=== PATIENT | female | born 1960 | race Caucasian/White ===

== ENCOUNTER 2021-01-27 11:23 | Outpatient (CLI) | payer OTHER, SELFPAY ==
--- NOTE | ~2021-01-27 | XR_ITS ---
EXAMINATION: XR finger 1st RT min 2V DATE: 01/27/2021 11:43 INDICATION: Arthrodesis of right first interphalangeal joint. TECHNIQUE: 4 views of right thumb were obtained. COMPARISON: Right hand radiographs 08/24/2016 FINDINGS: Bone alignment is normal. No fracture. There is ankylosis of first interphalangeal joint wi th solid bony fusion and 3 fixation wires. There is moderate osteoarthritis of first metacarpophalang eal joint and triscaphe joint and mild osteoarthritis of first carpometacarpal joint. There is severe osteoarthritis of second metacarpophalangeal joint with periarticular heterotopic ossification. IMPRESSION: 1. 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 2. Polyarticular osteoarthritis. Reviewed, dictated and finalized at location A.
== END 2021-01-27 11:24 | disposition home or self-care (01) ==
PROVIDERS: PCP Internal Medicine Infectious Disease; Visit Provider Plastic Surgery
DX: M18.11 Unilateral primary osteoarthritis of first carpometacarpal joint, right hand (principal); M19.041 Primary osteoarthritis, right hand
CPT/HCPCS: 73140

== ENCOUNTER → 2021-02-04 01:39 | Outpatient (CLI) | payer OTHER, SELFPAY ==
[2021-02-04 19:37] LABS: SARS-CoV-2 RNA PCR Negative
== END ==
PROVIDERS: PCP Internal Medicine Infectious Disease; Visit Provider Plastic Surgery
DX: Z01.812 Encounter for preprocedural laboratory examination (principal); Z20.822 Contact with and (suspected) exposure to COVID-19
CPT/HCPCS: 36415; 80048; C9803; U0003; U0005

== ENCOUNTER 2021-02-04 10:09 | Outpatient (CLI) | payer OTHER, SELFPAY ==
[2021-02-04 10:48] LABS: Anion Gap 9 mmol/L (8-16); Blood Urea Nitrogen 5 mg/dL (7-17); Calcium 8.7 mg/dL (8.4-10.2); Carbon Dioxide 21 mmol/L (22-30); Chloride 106 mmol/L (98-107); Estimated Glomerular Filt Rate > 60; Glucose 140 mg/dL (65-105); Potassium 4.2 mmol/L (3.4-5.0); Sodium 136 mmol/L (137-145)
== END 2021-02-04 10:10 | disposition home or self-care (01) ==
PROVIDERS: PCP Internal Medicine Infectious Disease; Visit Provider Anesthesiology
DX: Z01.818 Encounter for other preprocedural examination (principal); E11.9 Type 2 diabetes mellitus without complications
CPT/HCPCS: 36415; 80048

== ENCOUNTER 2021-02-08 01:43 | Day surgery (SDC) | payer OTHER, SELFPAY ==
[2021-02-02 13:02] VITALS: BMI 19.6
--- NOTE | ~2021-02-08 | XR_ITS ---
EXAMINATION: XR surgery orthopedic DATE: 02/08/2021 08:37 INDICATION: Right thumb fixation wire removal. TECHNIQUE: A single intraoperative fluoroscopic view of right thumb was obtained. I was not present. Fluoroscopy exposure time was 23 seconds. COMPARISON: Right thumb radiographs 01/27/2021 FINDINGS: Bone alignment is normal. There is a fixation wire in first distal phalanx. Two fixation wi res are no longer present. IMPRESSION: 1. Removal of fixation wires from the right thumb. Reviewed, dictated and finalized at location A.
[2021-02-08 06:35] VITALS: BP 139/86; PULSE 83; RESP 18; TEMP 36.8; O2SAT 94
[2021-02-08 06:43] LABS: Glucose Point of Care 144 mg/dl (65-105)
--- NOTE | 2021-02-08 06:56 | WPDANESEPPF ---
Anes - Initial Pre Proc Eval Procedure: Operation Date: 02/08/21 07:30 Proposed Procedures p Removal of Three Fixation Wires Right Thumb - Óscar Mast MD Date/Time: 02/08/21 06:56 Surgeon: Óscar Mast MD Pre Op Diagnosis: n/a will have diagnosis on procedure order Patient Data Age: 60 Gender: F Height: 5 ft 7 in Weight: 55.2 kg Last Vital Signs Temp 36.8 C 02/08/21 06:35 Pulse 83 02/08/21 06:35 Resp 18 02/08/21 06:35 BP 139/86 02/08/21 06:35 Pulse Ox 94 02/08/21 06:35 Allergies Allergy/AdvReac Type Severity Reaction Status Date / Time hydromorphone AdvReac Mild Unknown Verified 02/02/21 14:24 Home Medications Medication Instructions Recorded Confirmed Type albuterol sulfate 2 puff INHALATION DAILY 02/02/21 02/08/21 History alcohol swabs 1 pad TOPICAL DAILY 02/02/21 02/08/21 History aspirin [Aspirin Child] 81 mg PO DAILY 02/02/21 02/08/21 History buspirone 10 mg PO TID 02/02/21 02/08/21 History calcium carbonate-vitamin D3 1 tablet PO DAILY 02/02/21 02/08/21 History gabapentin 400 mg PO TID 02/02/21 02/08/21 History lamotrigine 25 mg PO DAILY 02/02/21 02/08/21 History lancets [Advocate Lancet] 02/02/21 02/08/21 History meloxicam 15 mg PO DAILY 02/02/21 02/08/21 History mirtazapine 15 mg PO DAILY 02/02/21 02/08/21 History payiyshr-qafa-EP-calcium-mins 1 tablet PO DAILY 02/02/21 02/08/21 History [Thera-M] tizanidine 4 mg PO TID 02/02/21 02/08/21 History trazodone 100 mg PO HS 02/02/21 02/08/21 History venlafaxine 75 mg PO DAILY 02/02/21 02/08/21 History venlafaxine 150 mg PO DAILY 02/02/21 02/08/21 History Laboratory Tests 02/08/21 06:32 POC Capillary Glucose 144 mg/dl H mg/dl (65-105) Patient hx anesthesia problems: none Family hx anesthesia problems: none PMFSH Past Medical History Medical History Bipolar disorder COPD (chronic obstructive pulmonary disease) Diabetes ETOH abuse Hyperlipidemia Pacemaker Tobacco abuse Social History Social History Smoking packs per day: 1 Smoking cigarettes per day: 20.0 Smoking status: Current every day smoker Alcohol intake: never Substance use: current Substance use type: marijuana Last use: 02/01/21 Gender identity (if verbalized by the patient): Female Sexual Orientation (if Verbalized by the Patient): Straight or Heterosexual Spiritual care concerns: No Anes - Eval Final PreProcedure Day of Procedure 02/08/21 06:56 Patient weight: thin Heart: regular rate and rhythm Lungs: decreased breath sounds Airway: Mallampati scale class II Neurological: alert and oriented Last oral intake: >/= 8 hours ASA classification: III Emergent: no Anesthetic plan: proceed Anesthesia type and monitoring: general GIVS and standard monitoring Informed Consent: The patient's anesthetic plan and its attendant risks and benefits were discussed with the patient/family/POA. Questions were solicited and answers provided to the satisfaction of the patient/family/POA.
[2021-02-08] MEDS: LACTATED RINGERS 1,000 ML 30 ML IV CONT (07:04)
--- NOTE | 2021-02-08 07:18 | WPDHPUPDATE1 ---
History and Physical Update Update Date/Time: 02/08/21 07:18 History and Physical has been reviewed, including an updated exam of the patient. There are NO changes in the patient's condition. Risks, benefits, and alternatives have been discussed and questions answered. Patient agrees to proceed with procedure.
--- NOTE | 2021-02-08 07:25 | SUR.PREOP ---
spoke with Dr. Mast about antibiotic therapy, does NOT want ancef administered to patient preoperatively.
[2021-02-08] MEDS: LIDO 1%/EPINEPHRINE 1:100,000 50 ML VIAL 10 ML INFILTRATE (07:26)
[2021-02-08] MEDS: BACITRACIN OINTMENT 15 GM TUBE 1 APPLIC TOPICAL (07:26)
[2021-02-08 08:22] VITALS: BP 125/85; PULSE 64; RESP 12; O2SAT 98
[2021-02-08 08:33] LABS: Glucose Point of Care 131 mg/dl (65-105)
--- NOTE | 2021-02-08 08:43 | PM.OP ---
Procedure Note - Brief Procedure Note - Brief Date of procedure: 02/08/21 Pre-op diagnosis: n/a will have diagnosis on procedure order Exposed fixation hardware right thumb Post-op diagnosis: same Procedure performed: Removal three c-wires right thumb. Anesthesia: MAC Surgeon: Óscar Mast MD Wheel Roller: Art Estimated blood loss (mL): 1 Tourniquet time (min): 9 Drains: No Packing: No Pathology: yes Complications: No immediate complications Condition: stable Disposition: PACU
[2021-02-08 08:45] VITALS: BP 145/97; PULSE 65; RESP 20
[2021-02-08] MEDS: oxyCODONE HCL (*CRX) 5 MG TAB IR PO (09:02)
[2021-02-08 09:15] VITALS: BP 129/85; PULSE 80; RESP 20
--- NOTE | 2021-02-08 09:30 | P.OP_ITS ---
Procedure Note - Detailed Date of Procedure 02/08/21 Pre-op Diagnosis Exposed fixation hardware right thumb. Post-op Diagnosis same Procedure Performed Removal of 3 C wires from the right thumb Surgeon Óscar Mast MD [employer] Black Belt Art Anesthesia MAC and local Indications History of arthrodesis of the right thumb interphalangeal joint in 2013. The patient has been lost to follow-up. She presented recently with swelling and drainage from her right thumb and has been on oral antibiotics. Findings Exposed C wires right thumb with cloudy drainage. The joint has been successfully ankylosed. Description of Procedure The appropriate thumb was marked in the holding area. She was taken to the operating room and placed supine on the operating table. A time-out was held and confirmed. She was given IV sedation. The extremity was prepped and draped in usual fashion and locally infiltrated with 1% lidocaine with epinephrine. The C-arm was brought in and the adjacent to sites were C wires were not exposed of were identified. Incisions were made over each of these pin sites. The pins were identified these are 0.045 in she wires pigtail Proximally. Each pin was removed without difficulty. There was cloudy drainage from 1 of these and a culture was taken and sent to the lab. The wounds were copiously washed with saline. The stability of the fusion was confirmed.. The wound was dressed with Xeroform gauze and bulky gauze and she is discharged from the operating room stable condition. She is being discharged home with a prescription for hydrocodone 5/325 6. And Bactrim DS 20. Estimated Blood Loss 1 Tourniquet Time 9 Drains No Packing No Pathology yes (wound culture) Complications No immediate complications Condition stable Disposition PACU
[2021-02-08 09:40] VITALS: BP 120/80; PULSE 90; RESP 20
--- NOTE | 2021-02-08 10:00 | SUR.PHASEII ---
0917 - pt's surgical dressing with scant amount of bloody drainage present. dr. amos at bedside assessing. okayed to change dressing
== END 2021-02-08 09:45 | disposition home or self-care (01) ==
PROVIDERS: PCP Internal Medicine Infectious Disease; Visit Provider Plastic Surgery
PROC: (CPT 20694; principal; 2021-02-08 07:30)
DX: T84.89XA Other specified complication of internal orthopedic prosthetic devices, implants and grafts, initial encounter (principal); Y83.8 Other surgical procedures as the cause of abnormal reaction of the patient, or of later complication, without mention of misadventure at the time of the procedure; J44.9 Chronic obstructive pulmonary disease, unspecified; E11.9 Type 2 diabetes mellitus without complications; E78.5 Hyperlipidemia, unspecified; F31.9 Bipolar disorder, unspecified; Z95.0 Presence of cardiac pacemaker; F17.210 Nicotine dependence, cigarettes, uncomplicated; F12.90 Cannabis use, unspecified, uncomplicated; Z79.51 Long term (current) use of inhaled steroids; Z79.82 Long term (current) use of aspirin
CPT/HCPCS: 20680 ×3; 82948; 87070; 87075; 87076; 87185; 87205; A9270; J1100; J2250; J2370; J2405; J2704; J3010; J7120

== ENCOUNTER 2021-03-08 14:15 | Outpatient (RCR) | payer OTHER, SELFPAY ==
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
--- NOTE | 2021-02-01 17:27 | PCPTNOTE ---
Patient did not show up for scheduled appointment this date. She was called and left a message that her next appointment is 02/03/21 at 1545.
--- NOTE | 2021-02-07 10:24 | PCPTNOTE ---
Patient called & cancelled scheduled appointment this date. Her med car did not pick her up in time for her appointment. I called and spoke with her regarding her care. She would like to continue PT and have this appointment rescheduled.
--- NOTE | 2021-02-22 12:56 | PCPTNOTE ---
Patient did not show up for scheduled appointment this date. Called and left a voicemail asking patient to call back to discuss her future in physical therapy.
--- NOTE | 2021-03-08 14:31 | PCPTNOTE ---
Patient did not show up for scheduled appointment this date.
--- NOTE | 2021-03-08 14:32 | PCPTNOTE ---
PHYSICAL THERAPY DISCHARGE NOTE Attending Provider: Blanquita Whitley, CLAY MAKER-BC Patient:Kristen Bear Date of :1960 Patient has not returned for any further treatments since 02/03/2021, therefore will be discharged at this time. Patient?s initial visit was on 01/17/2021 and had a total of 4 visits. Thank you for referring this patient to [facility]. Please review, sign, date and return this discharge summary DALY. I have been updated about the patient's current status and I agree with discharge from the above service at this time. Referring Physician Date
== END 2021-03-17 09:09 | disposition home or self-care (01) ==
LOC: ANHPT 14:15
PROVIDERS: PCP Internal Medicine Infectious Disease; Visit Provider Nurse Practitioner Family
DX: M54.5 Low back pain (principal); M54.16 Radiculopathy, lumbar region
CPT/HCPCS: 97014; 97110; 97140; 97162; G0283

== ENCOUNTER 2021-04-18 16:11 | Outpatient (CLI) | payer OTHER, SELFPAY ==
--- NOTE | ~2021-04-18 | XR_ITS ---
XR wrist LT min 3V DATE: 04/18/2021 16:32 INDICATION: Left wrist pain and swelling TECHNIQUE: 4 views COMPARISON: None FINDINGS: There is severe osteoarthritic change at the radioscaphoid joint, with virtual obliteration of the joint space and prominent spurring and navicular cystic change. There is prominent osteoart hritis at the triscaphe, first carpometacarpal and particularly severely at the first metacarpal join t. Osteoarthritis at the fifth metacarpal joint. There is dorsal soft tissue swelling of the wrist. No fracture or dislocation is detected. IMPRESSION: Polyarticular severe osteoarthritis Reviewed, dictated and finalized at location A.
== END 2021-04-18 16:12 | disposition home or self-care (01) ==
LOC: ANHIMG 16:13
PROVIDERS: PCP Internal Medicine Infectious Disease; Visit Provider Plastic Surgery
DX: M19.032 Primary osteoarthritis, left wrist (principal)
CPT/HCPCS: 73110

== ENCOUNTER 2021-04-21 13:42 | Outpatient (CLI) | payer OTHER, SELFPAY ==
--- NOTE | ~2021-04-21 | CT_ITS ---
EXAMINATION: CT lumbar spine wo con DATE: 04/21/2021 14:02 INDICATION: Lumbago. Lumbar radiculopathy. TECHNIQUE: Computed tomography (CT) of the lumbar spine was performed without intravenous contrast. A utomated exposure control and iterative reconstruction technique were employed. The dose-length produ ct was 187.33 mGy-cm. COMPARISON: None FINDINGS: The visualized portions of the lung bases demonstrate airspace opacities, consistent with a telectasis versus pneumonia. There is 3 mm anterolisthesis of L3 on L4 and L4 on L5. Vertebral body h eights are normal. There is mildly decreased disc height at L3-L4, moderately decreased disc height a t L4-L5, and mildly decreased disc at L5-S1 with endplate remodeling. The following disc levels are s pecifically discussed: L1-L2: The disc does not extend beyond the endplate margin. There is mild bilateral facet joint osteo arthritis. There is no neural foraminal stenosis. There is no central canal stenosis. L2-L3: The disc is bulging. There is mild bilateral facet joint osteoarthritis. There is mild bilater al neural foraminal stenosis. There is mild central canal stenosis. L3-L4: The disc is bulging. There is severe bilateral facet joint osteoarthritis. There is mild bilat eral neural foraminal stenosis. There is moderate central canal stenosis. L4-L5: The disc is bulging. There is severe bilateral facet joint osteoarthritis. There is moderate b ilateral neural foraminal stenosis. There is moderate central canal stenosis. L5-S1: The disc is bulging. There is severe bilateral facet joint osteoarthritis. There is moderate b ilateral neural foraminal stenosis. There is mild central canal stenosis. IMPRESSION: 1. Moderate lumbar spondylosis. 2. Airspace opacities in the visualized portions of the lower lobes of the lungs, consistent with ate lectasis versus pneumonia. Reviewed, dictated and finalized at location B. IMPRESSION: 1. Moderate lumbar spondylosis. 2. Airspace opacities in the visualized portions of the lower lobes of the lung s, consistent with atelectasis versus pneumonia.
== END 2021-04-21 13:43 | disposition home or self-care (01) ==
LOC: ANHIMG 13:47
PROVIDERS: PCP Internal Medicine Infectious Disease; Visit Provider Nurse Practitioner Family
DX: M47.26 Other spondylosis with radiculopathy, lumbar region (principal); R91.8 Other nonspecific abnormal finding of lung field
CPT/HCPCS: 72131

== ENCOUNTER 2021-05-03 16:02 | Emergency (ER) | payer OTHER, SELFPAY ==
--- NOTE | 2021-05-03 16:19 | ED.BACK ---
HPI - Back Pain/Injury General Chief Complaint: Back Pain/Injury Stated Complaint: back pain Time Seen by Provider: 05/03/21 16:19 Source: patient, family and RN notes reviewed Mode of arrival: ambulatory Limitations: no limitations History of Present Illness HPI Narrative: 16-year-old female presents to the [facility] right [facility] pain since lifting trash yesterday. Patient reports chronic back pain. No numbness or tingling in extremities. Patient states that she does normally have some incontinence, no change in urinary incontinence. No bowel incontinence. Pain worse with movement, bending and twisting. No midline tenderness. Walks with a normal gait Already takes meloxicam and a muscle relaxer. Requesting a steroid to help the pain. Patient states that when she has flareups steroids normally help. Related Data Home Medications Medication Instructions Recorded Confirmed Thera-M 1 tablet PO DAILY 02/02/21 02/08/21 albuterol sulfate 2 puff INHALATION DAILY 02/02/21 02/08/21 aspirin 81 mg PO DAILY 02/02/21 02/08/21 buspirone 10 mg PO TID 02/02/21 02/08/21 calcium carbonate-vitamin D3 1 tablet PO DAILY 02/02/21 02/08/21 gabapentin 400 mg PO TID 02/02/21 02/08/21 lamotrigine 25 mg PO DAILY 02/02/21 02/08/21 lancets [Advocate Lancet] 02/02/21 02/08/21 meloxicam 15 mg PO DAILY 02/02/21 02/08/21 mirtazapine 15 mg PO DAILY 02/02/21 02/08/21 tizanidine 4 mg PO TID 02/02/21 02/08/21 trazodone 100 mg PO HS 02/02/21 02/08/21 venlafaxine 75 mg PO DAILY 02/02/21 02/08/21 venlafaxine 150 mg PO DAILY 02/02/21 02/08/21 Allergies Allergy/AdvReac Type Severity Reaction Status Date / Time hydromorphone AdvReac Mild Vomiting Verified 02/08/21 07:05 Review of Systems Review of Systems: All systems reviewed & are unremarkable except as noted in HPI and below Constitutional: Constitutional: Reports no additional constitutional complaints Eyes: Eyes: Reports no additional eye complaints ENT: Reports system reviewed and no additional complaints, except as documented Cardiovascular: Cardiovascular: Reports no additional cardiovascular complaints Respiratory: Respiratory: Reports no additional respiratory complaints Gastrointestinal: Gastrointestinal: Reports no additional gastrointestinal complaints Musculoskeletal: Musculoskeletal: Reports as per HPI and Reports back pain (right lower back pain) Integumentary/Breasts: Skin/Breast: Reports system reviewed and no additional complaints, except as docu Neurologic: Reports system reviewed and no additional complaints, except as documented Psychiatric: Psychiatric: Reports no additional psychiatric complaints Hematologic/Lymphatic: Hematologic/Lymphatic: Reports no additional hematologic/lymphatic complaints PMFSH Past Medical History Medical History Bipolar disorder COPD (chronic obstructive pulmonary disease) Diabetes ETOH abuse Hyperlipidemia Pacemaker Tobacco abuse Social History Social History Smoking packs per day: 1 Smoking cigarettes per day: 20.0 Smoking status: Current every day smoker Alcohol intake: never Substance use: current Substance use type: marijuana Last use: 02/01/21 Gender identity (if verbalized by the patient): Female Sexual Orientation (if Verbalized by the Patient): Straight or Heterosexual Spiritual care concerns: No Comments At the time of my signature, I reviewed and agree with the nursing past medical, surgical, social, and family history. There is no relevant family history pertinent to the patient complaint. Exam Const: General: no acute distress and ill appearing chronically Nutritional Appearance: well nourished and thin Orientation/consciousness: patient oriented x3 Limitations: no limitations HENMT: Head: normal to inspection Neck: Neck: normal visual inspection, no lymphadenopathy and no meningeal signs Chest:
[2021-05-03 16:23] VITALS: BP 109/72; PULSE 78; RESP 16; TEMP 36.8; O2SAT 97
== END 2021-05-03 16:53 | disposition home or self-care (01) ==
PROVIDERS: Emergency Provider Nurse Practitioner; PCP Internal Medicine Infectious Disease
DX: S39.012A Strain of muscle, fascia and tendon of lower back, initial encounter (principal); X58.XXXA Exposure to other specified factors, initial encounter; J44.9 Chronic obstructive pulmonary disease, unspecified; E11.9 Type 2 diabetes mellitus without complications; Z95.0 Presence of cardiac pacemaker; F17.210 Nicotine dependence, cigarettes, uncomplicated; F31.9 Bipolar disorder, unspecified; E78.5 Hyperlipidemia, unspecified
CPT/HCPCS: 99213; G0463

== ENCOUNTER 2021-05-11 09:44 | Outpatient (CLI) | payer OTHER, SELFPAY ==
--- NOTE | ~2021-05-11 | XR_ITS ---
EXAMINATION: XR finger 1st RT min 2V EXAM DATE: 05/11/2021 10:07 INDICATION: Osteomyelitis, previous hardware removal. TECHNIQUE: Right 1st finger frontal, lateral and oblique projections obtained and reviewed. Comparis on is made to prior examination from 01/27/2021. FINDINGS: Previously seen fixation wires have been removed. There is punctate metallic density remain ing. Ankylosis of the right 1st phalanges. Persistent lucency at the tuft and interphalangeal joint s table compared to previous examination, no evidence of active erosion but please clinically correlate . There is mild to moderate 1st metacarpophalangeal, severe 2nd metacarpophalangeal primary osteoarthri tis. IMPRESSION: Right 1st phalangeal ankylosis, lucencies without acute erosive change. Reviewed, dictated and finalized at location A. IMPRESSION: Right 1st phalangeal ankylosis, lucencies without acute erosive ch mark.
== END 2021-05-11 09:45 | disposition home or self-care (01) ==
LOC: ANHIMG 09:50
PROVIDERS: PCP Internal Medicine Infectious Disease; Visit Provider Plastic Surgery
DX: M86.141 Other acute osteomyelitis, right hand (principal); M18.11 Unilateral primary osteoarthritis of first carpometacarpal joint, right hand; M19.041 Primary osteoarthritis, right hand; M24.60 Ankylosis, unspecified joint
CPT/HCPCS: 73140

== ENCOUNTER 2021-09-11 09:00 | Outpatient (RCR) | payer OTHER, SELFPAY ==
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
--- NOTE | 2021-08-21 10:03 | PCPTNOTE ---
Patient did not show up for scheduled appointment this date; called and left voicemail with reminder on next appointment.
--- NOTE | 2021-09-04 09:26 | PCPTNOTE ---
Patient did not show up for scheduled appointment this date; called left voicemail with reminder for next appointment and on 3 no show/cancellation policy.
--- NOTE | 2021-09-19 09:30 | PCPTNOTE ---
Patient did not show up for scheduled appointment this date. Called and left a message that if she needed to reschedule this appointment she would need to call before the end of the week, otherwise we will d/c chart.
--- NOTE | 2021-09-20 15:27 | PCPTNOTE ---
Patient called & cancelled scheduled appointment this date due to not feeling well. Rescheduled appt.
--- NOTE | 2021-09-27 14:29 | PCPTNOTE ---
Patient did not show up for scheduled appointment this date.
--- NOTE | 2021-10-09 13:39 | PCPTNOTE ---
PHYSICAL THERAPY DISCHARGE NOTE Attending Provider: Blanquita Whitley, CREATIVE ENGAGEMENT DIRECTOR-BC Patient:Kristen Bear Date of :1960 Patient has not returned for any further treatments since 09/11/2021, therefore will be discharged at this time. Patient?s initial visit was on 08/09/2021 had a total of 3 visits. The goals have been (met, not met, partially met). Thank you for referring this patient to [facility]. Please review, sign, date and return this discharge summary DALY. I have been updated about the patient's current status and I agree with discharge from the above service at this time. Referring Physician Date
== END 2021-10-10 09:16 | disposition home or self-care (01) ==
LOC: ANHPT 09:00
PROVIDERS: PCP Internal Medicine Infectious Disease; Referring Provider Nurse Practitioner Family; Visit Provider Nurse Practitioner Family
DX: M54.16 Radiculopathy, lumbar region (principal); M54.50 Low back pain, unspecified
CPT/HCPCS: 97014; 97110; 97140; 97162; G0283

== ENCOUNTER 2023-02-20 18:45 | Emergency (ER) | payer OTHER, SELFPAY ==
[2023-02-20] VITALS (11 sets, daily range): BP systolic 123–124; BP diastolic 74–77; PULSE 86–99; RESP 17–27; TEMP 36.4; O2SAT 93–96
--- NOTE | ~2023-02-20 | CT_ITS ---
EXAMINATION: CT brain wo con DATE: 02/20/2023 19:50 INDICATION: ETOH, Head trauma . TECHNIQUE: Computed tomography (CT) of the head was performed without intravenous contrast. The mA wa s adjusted according to patient size. Iterative reconstruction technique was employed. The dose-lengt h product was 605.33 mGy-cm. COMPARISON: None. FINDINGS: No acute intracranial hemorrhage or extra-axial fluid collection. No hydrocephalus, mass, or herniation. No acute ischemic infarct. Unremarkable dural venous sinus attenuation. No acute osseous abnormality. The aerated spaces are clear. IMPRESSION: No acute intracranial process. Reviewed, dictated and finalized at location K.
--- NOTE | ~2023-02-20 | XR_ITS ---
EXAMINATION: XR chest 1V portable Exam Date/Time: 02/20/2023 21:15 CDT HISTORY: Fall Comparison: None. RESULT: Lines, tubes, and devices: Left chest pacer with intact leads. Cholecystectomy clips. Lungs and pleura: Diffuse reticular opacities. Peripheral and basal ground glass opacities. No focal consolidation. Cardiomediastinal silhouette: Stable. Other: No acute osseous or upper abdominal finding. IMPRESSION: Mild pulmonary edema, overlying chronic changes of emphysema/interstitial lung disease. No acute trau matic finding in the chest. Reviewed, dictated and finalized at location K. IMPRESSION: Mild pulmonary edema, overlying chronic changes of emphysema/interstitial lung disease. No acute traumatic finding in the chest.
--- NOTE | ~2023-02-20 | CT_ITS ---
EXAMINATION: CT cervical spine wo con DATE: 02/20/2023 19:55 INDICATION: ETOH, Head trauma TECHNIQUE: Computed tomography (CT) of the cervical spine was performed without intravenous contrast. Automated exposure control and iterative reconstruction technique were employed. The dose-length pro duct was 206.16 mGy-cm. COMPARISON: None. FINDINGS: Vertebral Body Alignment: Intact. Mild reversal of the normal cervical lordosis centered at C5-6. 2 m m anterolistheses at C2-3 and C3-4, presumably on a degenerative basis. Craniocervical and atlantoaxial alignment: Moderate degenerative change. Alignment intact. Osseous structures/fracture: No evidence of a lytic or blastic process in the visualized spine. No e vidence of acute fracture. Trace left mastoid fluid. Cervical soft tissues: The paraspinal soft tissues planes are maintained. Biapical pleural scarring. Severe emphysematous change. Degenerative changes: Degenerative changes, without severe neural foraminal or central canal narrowin g. IMPRESSION: No acute fracture or traumatic malalignment in the cervical spine. Reviewed, dictated and finalized at location K.
--- NOTE | ~2023-02-20 | XR_ITS ---
EXAM: XR pelvis 1-2V DATE: 02/20/2023 21:22 HISTORY: Fall . COMPARISON: None available. FINDINGS: Decreased mineralization. No fracture or dislocation. No lytic or blastic lesion. Joint sp aces are maintained. No erosion or periosteal change. Soft tissues within normal limits. IMPRESSION: No acute osseous finding in the pelvis. Reviewed, dictated and finalized at location K.
--- NOTE | 2023-02-20 18:52 | ECG_ITS ---
Measurements Intervals [place] Rate: 92 P: 67 [place]: 136 QRS: 3 QRSD: 78 T: 53 QT: 357 QTc: 442 Interpretive Statements SINUS RHYTHM POSSIBLE LEFT ATRIAL ENLARGEMENT [-0.1mV P-WAVE IN V1/V2] NO PREVIOUS ECG AVAILABLE FOR COMPARISON Electronically Signed On 02-20-2023 20:02:00 CDT by Maria Ines Good M.D.
[2023-02-20 19:08] LABS: Basophils Absolute Auto 0.1 K/mm3 (0.0-0.1); Basophils Percent Auto 0.7 % (0.2-1.2); Eosinophils Absolute Auto 0.2 K/mm3 (0-0.3); Eosinophils Percent Auto 2.1 % (0-4.4); Hemoglobin 12.4 g/dL (12.0-15.0); Immature Granulocyte Absolute 0.06 K/mm3 (0.00-0.031); Immature Granulocyte Percent A 0.8 % (0-0.5); Lymphocytes Absolute Auto 2.73 K/mm3 (0.9-3.2); Lymphocytes Percent Auto 35.5 % (18.3-44.2); Mean Corpuscular HGB Conc 32.6 g/dl (32-36); Mean Corpuscular Hemoglobin 32.3 pg (26-34); Mean Platelet Volume 9.1 fl (7.4-10.4); Monocytes Absolute Auto 0.4 K/mm3 (0.1-0.6); Monocytes Percent Auto 4.9 % (2.6-8.5); Neutrophils Absolute Auto 4.3 K/mm3 (1.3-6.7); Platelet Count Result 248 k/mm3 (150-375); Red Blood Count 3.84 M/mm3 (4.2-5.4); Red Cell Distribution Width 16.8 % (11.5-14.5); White Blood Count 7.7 K/mm3 (4.5-10.0)
[2023-02-20 19:24] LABS: Alanine Aminotransferase 49 U/L (6-35); Albumin Level 3.2 g/dL (3.5-5.1); Alkaline Phosphatase 211 U/L (38-126); Anion Gap 5 mmol/L (8-16); Aspartate Amino Transferase 97 U/L (14-36); Bilirubin,Total 0.6 mg/dL (0.2-1.3); Blood Urea Nitrogen 3 mg/dL (7-17); Calcium 7.7 mg/dL (8.4-10.2); Carbon Dioxide 24 mmol/L (22-30); Chloride 107 mmol/L (98-107); Estimated CRCL calculation 91 ml/min; Estimated Glomerular Filt Rate > 60; Glucose 97 mg/dL (65-110); Potassium 3.1 mmol/L (3.4-5.0); Sodium 136 mmol/L (137-145)
[2023-02-20] MEDS: SODIUM CHLORIDE 0.9% IV 2,000 ML 999 ML IV CONT (20:02)
[2023-02-20] MEDS: POTASSIUM CHLORIDE 20 MEQ PACKET (FOR LIQUID) 40 MEQ PO (20:15)
[2023-02-20 20:29] LABS: Ethanol 99 mg/dL (<10)
[2023-02-20 20:42] LABS: NT Pro B Type Natriuretic Pept 53 pg/mL (19.9-100); Troponin I < 0.012 ng/mL (0.000-0.034)
--- NOTE | 2023-02-20 20:50 | ED.GENADULT ---
HPI - General Adult General Chief complaint: Fall Stated complaint: glf, left hip pain Time Seen by Provider: 02/20/23 19:04 History of Present Illness HPI narrative: This is a 62-year-old female presenting ED after an episode of syncope. Patient says that she had not eaten throughout most the day. She was walking on the street when she had a syncopal event. She says her vision darkening before happened. When she woke up she had some head pain and bilateral hip pain. No postictal. No tongue biting or urination. Related Data Home Medications Medication Instructions Recorded Confirmed albuterol sulfate 90 mcg/actuation 2 puff inhalation DAILY 02/02/21 02/08/21 aerosol inhaler aspirin 81 mg chewable tablet 81 mg PO DAILY 02/02/21 02/08/21 buspirone 10 mg tablet 10 mg PO TID 02/02/21 02/08/21 calcium carbonate 600 mg-vitamin 1 tablet PO DAILY 02/02/21 02/08/21 D3 10 mcg (400 unit) tablet gabapentin 400 mg capsule 400 mg PO TID 02/02/21 02/08/21 lamotrigine 25 mg tablet 25 mg PO DAILY 02/02/21 02/08/21 lancets 30 gauge (Advocate Lancet) 02/02/21 02/08/21 meloxicam 15 mg tablet 15 mg PO DAILY 02/02/21 02/08/21 mirtazapine 15 mg tablet 15 mg PO DAILY 02/02/21 02/08/21 multivitamin-iron 9 mg-folic acid 1 tablet PO DAILY 02/02/21 02/08/21 400 mcg-calcium and minerals tablet (Thera-M) tizanidine 4 mg tablet 4 mg PO TID 02/02/21 02/08/21 trazodone 100 mg tablet 100 mg PO HS 02/02/21 02/08/21 venlafaxine 150 mg 150 mg PO DAILY 02/02/21 02/08/21 capsule,extended release 24 hr venlafaxine 75 mg capsule,extended 75 mg PO DAILY 02/02/21 02/08/21 release 24 hr Allergies Allergy/AdvReac Type Severity Reaction Status Date / Time hydromorphone AdvReac Mild Vomiting Verified 02/08/21 07:05 [facility] Past Medical History Medical History Bipolar disorder COPD (chronic obstructive pulmonary disease) Diabetes ETOH abuse Hyperlipidemia Pacemaker Tobacco abuse Social History Social History Smoking packs per day: 1 Smoking cigarettes per day: 20.0 Smoking status: Current every day smoker Alcohol intake: never Substance use: current Substance use type: marijuana Last use: 02/01/21 Gender identity (if verbalized by the patient): Female Sexual Orientation (if Verbalized by the Patient): Straight or Heterosexual Spiritual care concerns: No Exam Narrative: APPEARANCE: No apparent distress. patient appears older than her stated age Head: atraumatic. EYES: EOMI, NOSE: Atraumatic NECK: Trachea midline RESPIRATORY: No increased rate of breathing, clear to auscultation CARDIOVASCULAR: RRR, ABDOMINAL: Non-distended MUSCULOSKELETAl: Trauma assessment revealed no traumatic injuries. NEURO: Alert. Cranial nerves 2-12 grossly intact. Sensation light touch, motor function cerebellar function intact for 4 extremities. Gait exam was normal. SKIN:: Warm, dry. Normal color PSYCHIATRIC: Normal affect Course Vital Signs Vital signs: Vital Signs Temperature 97.6 F 02/20/23 18:47 Pulse Rate 92 02/20/23 18:47 Respiratory Rate 24 H 02/20/23 18:47 Pulse Oximetry 93 02/20/23 18:47 Oxygen Delivery Room Air 02/20/23 18:47 Temperature 97.6 F 02/20/23 18:47 Pulse Rate 96 02/20/23 22:30 Respiratory Rate 27 H 02/20/23 22:30 Blood Pressure 123/77 02/20/23 21:00 Pulse Oximetry 95 02/20/23 21:01 Oxygen Delivery Room Air 02/20/23 18:47 Medical Decision Making [facility] Narrative Medical decision making narrative: -Presentation: 62-year-old female presenting to ED after syncopal event. Patient says she is not eating any food today. She also been drinking alcohol. -DDX includes but is not limited to: intracranial hemorrhage, dehydration, alcohol intoxication, cardiac syncope -Co-morbidities complicating care: daily alcohol use, bipolar, pacemaker -Social
[2023-02-20 23:34] LABS: Troponin I < 0.012 ng/mL (0.000-0.034)
[2023-02-21] VITALS: BP 144/92; PULSE 76; RESP 15; O2SAT 100
== END 2023-02-21 00:03 | disposition home or self-care (01) ==
PROVIDERS: Emergency Medicine; Emergency Provider Emergency Medicine; PCP Internal Medicine Infectious Disease
DX: R55 Syncope and collapse (principal); E86.0 Dehydration; R78.0 Finding of alcohol in blood; Y90.4 Blood alcohol level of 80-99 mg/100 ml; J44.9 Chronic obstructive pulmonary disease, unspecified; E11.9 Type 2 diabetes mellitus without complications; E78.5 Hyperlipidemia, unspecified; F31.9 Bipolar disorder, unspecified; F17.210 Nicotine dependence, cigarettes, uncomplicated; Z95.0 Presence of cardiac pacemaker; Z79.82 Long term (current) use of aspirin; J81.1 Chronic pulmonary edema; R94.31 Abnormal electrocardiogram [ECG] [EKG]
CPT/HCPCS: 36415; 70450; 71045; 72125; 72170; 80053; 80307; 83880; 84484; 85025; 93005; 96360; 96361; 99284; A9270; J7030

== ENCOUNTER 2023-09-23 17:12 | Emergency (ER) | payer OTHER, SELFPAY ==
[2023-09-23 17:15] VITALS: BP 101/64; PULSE 91; RESP 16; TEMP 36.6; O2SAT 100
--- NOTE | 2023-09-23 17:47 | ED.ANIMALBIT ---
HPI - Animal Bite General Chief Complaint: Animal Bite <Juan M Hou APRN - Last Filed: 09/24/23 07:56> Stated Complaint: cat scratches <Juan M Hou APRN - Last Filed: 09/24/23 07:56> Time Seen by Provider: 09/23/23 17:47 <Juan M Hou APRN - Last Filed: 09/24/23 07:56> 1745: Kristen is a 63-year-old female patient presenting to the ER today for complaints of feeling feverish, lightheadedness, and has cat scratches to the left forearm, right lower leg, and near the ankle of the left leg. Reports that her cat attacked her 3 days ago. <Juan M Hou APRN - Last Filed: 09/24/23 07:56> Source: patient <Juan M Hou APRN - Last Filed: 09/24/23 07:56> Mode of arrival: ambulatory <Juan M Hou APRN - Last Filed: 09/24/23 07:56> Limitations: no limitations <Juan M Hou APRN - Last Filed: 09/24/23 07:56> Related Data Allergies/Adverse Reactions: Allergies Allergy/AdvReac Type Severity Reaction Status Date / Time No Known Allergies Allergy Verified 09/23/23 20:59 <Juan M Hou APRN - Last Filed: 09/24/23 07:56> Review of Systems Review of Systems: All systems reviewed & are unremarkable except as noted in HPI and below <Hortensia Kraft MD - Last Filed: 09/28/23 13:39> PMFSH Comments At the time of my signature, I reviewed and agree with the nursing past medical, surgical, social, and family history. There is no relevant family history pertinent to the patient complaint. <Juan M Hou APRN - Last Filed: 09/24/23 07:56> Exam Narrative: General: Well-developed, well nourished, in no apparent distress Head: Normocephalic, atraumatic. Cardio: Regular rate and rhythm, s1 and s2 normal, no murmur appreciated. Resp: Diminished breath sounds, no rhonchi, rales, wheezing or rubs. Integumentary: [place], warm, and dry, multiple cat scratches to the left forearm, right lower leg, and posterior left leg/ankle, mild redness/erythema noted around scratches <Juan M Hou APRN - Last Filed: 09/24/23 07:56> General: Well-developed, well nourished, in no apparent distress Head: Normocephalic, atraumatic. Cardio: Regular rate and rhythm, s1 and s2 normal, no murmur appreciated. Resp: Diminished breath sounds, no rhonchi, rales, wheezing or rubs. Integumentary: [place], warm, and dry, multiple cat scratches to the left forearm, right lower leg, and posterior left leg/ankle, mild redness/erythema noted around scratches, No abscesses, no lymphangitic streaking <Hortensia Kraft MD - Last Filed: 09/28/23 13:39> Course Course Emergency Course: Portions of this record may have been created with voice recognition software. <Juan M Hou APRN - Last Filed: 09/24/23 07:56> Vital Signs Vital signs: Vital Signs Temperature 98 F 09/23/23 17:15 Pulse Rate 91 09/23/23 17:15 Respiratory Rate 16 09/23/23 17:15 Blood Pressure 101/64 09/23/23 17:15 Pulse Oximetry 100 09/23/23 17:15 Oxygen Delivery Room Air 09/23/23 17:15 Temperature 98 F 09/23/23 17:15 Pulse Rate 78 09/23/23 21:48 Respiratory Rate 17 09/23/23 21:48 Blood Pressure 134/81 09/23/23 21:48 Pulse Oximetry 97 09/23/23 21:48 Oxygen Delivery Room Air 09/23/23 17:15 Vital signs reviewed <Juan M Hou APRN - Last Filed: 09/24/23 07:56> Vital Signs Temperature 98 F 09/23/23 17:15 Pulse Rate 91 09/23/23 17:15 Respiratory Rate 16 09/23/23 17:15 Blood Pressure 101/64 09/23/23 17:15 Pulse Oximetry 100 09/23/23 17:15 Oxygen Delivery Room Air 09/23/23 17:15 Temperature 98 F 09/23/23 17:15 Pulse Rate 78 09/23/23 21:48 Respiratory Rate 17 09/23/23 21:48 Blood Pressure 134/81 09/23/23 21:48 Pulse Oximetry 97 09/23/23 21:48 Oxygen Delivery Room Air 09/23/23 17:15 <Hortensia Kraft MD - Last Filed: 09/28/23 13:39> CARLOS - An
[2023-09-23 18:52] LABS: Basophils Percent Auto 0.2 % (0.2-1.2); Eosinophils Absolute Auto 0.1 K/mm3 (0-0.3); Eosinophils Percent Auto 0.7 % (0-4.4); Hematocrit 38.1 % (37.0-47.0); Hemoglobin 12.3 g/dL (12.0-15.0); Immature Granulocyte Absolute 0.02 K/mm3 (0.00-0.031); Immature Granulocyte Percent A 0.2 % (0-0.5); Lymphocytes Absolute Auto 2.53 K/mm3 (0.9-3.2); Lymphocytes Percent Auto 29.9 % (18.3-44.2); Mean Corpuscular HGB Conc 32.3 g/dl (32-36); Mean Corpuscular Hemoglobin 28.9 pg (26-34); Mean Corpuscular Volume 89.6 fl (80-100); Mean Platelet Volume 9.8 fl (7.4-10.4); Monocytes Absolute Auto 0.4 K/mm3 (0.1-0.6); Monocytes Percent Auto 4.8 % (2.6-8.5); Neutrophils Absolute Auto 5.4 K/mm3 (1.3-6.7); Neutrophils Percent Auto 64.2 % (45.5-73.1); Platelet Count Result 284 k/mm3 (150-375); Red Blood Count 4.25 M/mm3 (4.2-5.4); Red Cell Distribution Width 17.2 % (11.5-14.5); White Blood Count 8.5 K/mm3 (4.5-10.0)
[2023-09-23 19:03] LABS: Alanine Aminotransferase 28 U/L (6-35); Albumin Level 3.5 g/dL (3.5-5.1); Alkaline Phosphatase 289 U/L (38-126); Anion Gap 9 mmol/L (8-16); Aspartate Amino Transferase 52 U/L (14-36); Bilirubin,Total 0.8 mg/dL (0.2-1.3); Blood Urea Nitrogen 4 mg/dL (7-17); Calcium 8.4 mg/dL (8.4-10.2); Carbon Dioxide 24 mmol/L (22-30); Chloride 98 mmol/L (98-107); Estimated CRCL calculation 81 ml/min; Estimated Glomerular Filt Rate > 60; Glucose 207 mg/dL (65-110); INR 1.1; Partial Thromboplastin Time 29.1 SECONDS (22.3-36.8); Potassium 3.3 mmol/L (3.4-5.0); Prothrombin Time 14.9 Seconds (11.1-14.7); Sodium 131 mmol/L (137-145)
[2023-09-23] MEDS: TETANUS,DIPHTHERIA,AC PERTUSSIS ADULT (0.5 ML) BOOSTRIX IM (20:03)
[2023-09-23] MEDS: AMOXICILLIN/CLAVULANATE K 875-125 MG TAB 1 TABLET PO (21:22)
[2023-09-23] MEDS: KETOROLAC 30 MG/ML VIAL (*BKC) IM (21:40)
[2023-09-23 21:48] VITALS: BP 134/81; PULSE 78; RESP 17; O2SAT 97
== END 2023-09-23 21:50 | disposition home or self-care (01) ==
PROVIDERS: Nurse Practitioner Family; Emergency Provider Emergency Medicine; PCP Internal Medicine Infectious Disease
DX: S50.812A Abrasion of left forearm, initial encounter (principal); S80.811A Abrasion, right lower leg, initial encounter; S80.812A Abrasion, left lower leg, initial encounter; W55.03XA Scratched by cat, initial encounter; W55.01XA Bitten by cat, initial encounter
CPT/HCPCS: 36415; 80053; 85025; 85610; 85730; 87040; 90471; 90715; 96372; 99284; A9270; J1885

== ENCOUNTER 2023-11-17 16:14 | Emergency (ER) | payer OTHER, SELFPAY ==
[2023-11-17 16:32] VITALS: BP 134/83; PULSE 79; RESP 16; TEMP 36.5; O2SAT 100
--- NOTE | 2023-11-17 16:44 | ED.DENTAL ---
HPI - Dental/Oral General Chief complaint: Dental/Oral Stated complaint: Dental Pain Time Seen by Provider: 11/17/23 16:40 Source: patient and RN notes reviewed Mode of arrival: ambulatory Limitations: no limitations History of Present Illness HPI Narrative: Patient presents today complaining of a 2 day history of left lower dental pain and jaw swelling. Reports she has multiple teeth broken off at the gumline. Currently rates her pain 10/10 and has been taking ibuprofen and Tylenol without much relief. She has an appointment on December 04 to have all of her lower teeth extracted. Related Data Home Medications Medication Instructions Recorded Confirmed albuterol sulfate 90 mcg/actuation 2 puff inhalation DAILY 02/02/21 02/08/21 aerosol inhaler aspirin 81 mg chewable tablet 81 mg PO DAILY 02/02/21 02/08/21 buspirone 10 mg tablet 10 mg PO TID 02/02/21 02/08/21 calcium carbonate 600 mg-vitamin 1 tablet PO DAILY 02/02/21 02/08/21 D3 10 mcg (400 unit) tablet gabapentin 400 mg capsule 400 mg PO TID 02/02/21 02/08/21 lamotrigine 25 mg tablet 25 mg PO DAILY 02/02/21 02/08/21 lancets 30 gauge (Advocate Lancet) 02/02/21 02/08/21 meloxicam 15 mg tablet 15 mg PO DAILY 02/02/21 02/08/21 mirtazapine 15 mg tablet 15 mg PO DAILY 02/02/21 02/08/21 multivitamin-iron 9 mg-folic acid 1 tablet PO DAILY 02/02/21 02/08/21 400 mcg-calcium and minerals tablet (Thera-M) tizanidine 4 mg tablet 4 mg PO TID 02/02/21 02/08/21 trazodone 100 mg tablet 100 mg PO HS 02/02/21 02/08/21 venlafaxine 150 mg 150 mg PO DAILY 02/02/21 02/08/21 capsule,extended release 24 hr venlafaxine 75 mg capsule,extended 75 mg PO DAILY 02/02/21 02/08/21 release 24 hr lorazepam 0.5 mg tablet mg 11/17/23 umeclidinium 62.5 mcg-vilanterol inhalation 11/17/23 25 mcg/actuation powdr for inhalation (Anoro Ellipta) Allergies Allergy/AdvReac Type Severity Reaction Status Date / Time hydromorphone AdvReac Mild Vomiting Verified 11/17/23 16:31 Review of Systems Review of Systems: CONSTITUTIONAL: Denies body aches, fever, chills, or sweats. EYES: Denies visual changes, redness, or discharge. ENT: Denies rhinorrhea, congestion, sore throat, or otalgia.+ tooth pain, jaw swelling CARDIOVASCULAR: Denies chest pain, palpitations, or edema. RESPIRATORY: Denies cough or dyspnea. GASTROINTESTINAL: Denies abdominal pain, nausea, vomiting, or diarrhea. GENITOURINARY: Denies dysuria or hematuria. SKIN: Denies rash, itching, or wounds. MUSCULOSKELETAL: Denies back pain, joint pain, or myalgia. NEUROLOGIC: Denies headache, numbness, tingling, or weakness. PSYCH: Denies depression or anxiety. [facility] Past Medical History Medical History Bipolar disorder COPD (chronic obstructive pulmonary disease) Diabetes ETOH abuse Hyperlipidemia Pacemaker Tobacco abuse Social History Social History Smoking packs per day: 1 Smoking cigarettes per day: 20.0 Smoking status: Current every day smoker Alcohol intake: never Substance use: current Substance use type: marijuana Last use: 02/01/21 Gender identity (if verbalized by the patient): Female Sexual Orientation (if Verbalized by the Patient): Straight or Heterosexual Spiritual care concerns: No Comments At time of signature, I have reviewed and agree with nursing past medical, surgical, social and family history unless otherwise noted. Please see nursing chart for further information. There is no relevant family history pertinent to the presenting complaint Exam Narrative: GENERAL: Well-appearing, well-nourished, and in no acute distress. HEAD: Normocephalic, atraumatic. EYES: EOMI. No redness or drainage. Conjunctivae normal. ENT: Mucous membranes pink and moist. Multiple broken and decayed teeth along the lower arch. Large periapical abscess adjacent to tooth number 21. M
== END 2023-11-17 17:00 | disposition home or self-care (01) ==
PROVIDERS: Emergency Provider Nurse Practitioner; PCP Internal Medicine Infectious Disease
DX: K04.7 Periapical abscess without sinus (principal); F17.210 Nicotine dependence, cigarettes, uncomplicated; J44.9 Chronic obstructive pulmonary disease, unspecified; E11.9 Type 2 diabetes mellitus without complications; E78.5 Hyperlipidemia, unspecified; Z95.0 Presence of cardiac pacemaker; F31.9 Bipolar disorder, unspecified; Z79.82 Long term (current) use of aspirin
CPT/HCPCS: 99213; G0463

== ENCOUNTER 2024-01-06 22:34 | Observation (INO) | payer OTHER, SELFPAY ==
--- NOTE | ~2024-01-06 | US_ITS ---
EXAMINATION: US abdomen limited DATE: 01/07/2024 16:57 INDICATION: concern for ascites TECHNIQUE: Multiple grayscale and Doppler ultrasound images of limited portions of the abdomen were o btained. COMPARISON: None available. FINDINGS: The 4 abdominal quadrants were sonographically interrogated revealing only minimal ascitic fluid. IMPRESSION: No drainable ascites. Reviewed, dictated and finalized at location K. IMPRESSION: No drainable ascites.
[2024-01-06 22:33] VITALS: BP 138/67; PULSE 96; RESP 20; TEMP 37.7; O2SAT 97
[2024-01-06 22:46] LABS: Glucose Point of Care 427 mg/dl (65-105)
[2024-01-06 22:52] LABS: Basophils Percent Auto 0.3 % (0.2-1.2); Eosinophils Absolute Auto 0.1 K/mm3 (0-0.3); Eosinophils Percent Auto 1.8 % (0-4.4); Hematocrit 34.4 % (37.0-47.0); Hemoglobin 11.4 g/dL (12.0-15.0); Immature Granulocyte Absolute 0.02 K/mm3 (0.00-0.031); Immature Granulocyte Percent A 0.3 % (0-0.5); Lymphocytes Absolute Auto 1.68 K/mm3 (0.9-3.2); Lymphocytes Percent Auto 23.1 % (18.3-44.2); Mean Corpuscular HGB Conc 33.1 g/dl (32-36); Mean Corpuscular Hemoglobin 29.2 pg (26-34); Mean Platelet Volume 10.4 fl (7.4-10.4); Monocytes Absolute Auto 0.4 K/mm3 (0.1-0.6); Neutrophils Percent Auto 68.5 % (45.5-73.1); Platelet Count Result 146 k/mm3 (150-375); Red Blood Count 3.91 M/mm3 (4.2-5.4); Red Cell Distribution Width 14.5 % (11.5-14.5); White Blood Count 7.3 K/mm3 (4.5-10.0)
[2024-01-06 23:02] LABS: Alanine Aminotransferase 31 U/L (6-35); Albumin Level 3.5 g/dL (3.5-5.1); Alkaline Phosphatase 250 U/L (38-126); Anion Gap 4 mmol/L (4-12); Aspartate Amino Transferase 57 U/L (14-36); Bilirubin,Total 0.6 mg/dL (0.2-1.3); Blood Urea Nitrogen 8 mg/dL (7-17); Calcium 8.1 mg/dL (8.4-10.2); Carbon Dioxide 27 mmol/L (22-30); Chloride 97 mmol/L (98-107); Estimated CRCL calculation 61 ml/min; Estimated Glomerular Filt Rate > 60; Glucose 402 mg/dL (65-110); Magnesium 1.2 mg/dL (1.6-2.3); Phosphorus 4.9 mg/dL (2.5-4.5); Potassium 4.2 mmol/L (3.4-5.0); Sodium 128 mmol/L (137-145)
[2024-01-06 23:06] LABS: Beta-Hydroxybutyrate/Acetoacetate 0.11 mmol/L (0.02-0.27)
--- NOTE | 2024-01-06 23:13 | PC.NURSE ---
Assumed care of pt from EMMA Hare at this time. Pt resting in bed at this time. Very emotional.
[2024-01-06 23:32] LABS: Appearance Urine Clear (Clear); Bilirubin Urine Negative (Negative); Blood Urine Negative (Negative); Color Urine Yellow (Yellow); Glucose Urine UA 3+ mg/dL (Negative); Ketones Urine Negative (Negative); Leukocyte Esterase Ur Negative LEU/UL (Negative); Nitrate Urine Negative (Negative); Protein Urine Negative (Negative); Specific Grav Ur 1.021 (1.001-1.035); pH Urine 5.5 (5.0-9.0)
[2024-01-06 23:47] LABS: Add Urine Microscopic? YES
[2024-01-07] VITALS (7 sets, daily range): BP systolic 90–106; BP diastolic 56–71; PULSE 69–76; RESP 13–20; TEMP 36.4–36.7; O2SAT 91–100; BMI 18.6
[2024-01-07] MEDS: MAGNESIUM SULF 2 GM/WATER 50ML 2 GM/50 ML BAG IVPB ×2 (00:04→02:16)
[2024-01-07] MEDS: SODIUM CHLORIDE 0.9% IV 1,000 ML 999 ML IV CONT ×3 (00:04→02:16)
[2024-01-07 00:23] LABS: Hemoglobin A1C 13.7 % (<5.7)
[2024-01-07 00:51] LABS: Influenza A QL RT-PCR Negative (Negative); Influenza B QL RT-PCR Negative (Negative); RSV RNA, RT-PCR Negative (Negative); SARS-CoV-2 RNA PCR Negative (Negative)
[2024-01-07] MEDS: MORPHINE SULFATE (*CRX) 4 MG/ML INJ IV PUSH ×2 (00:54→02:37)
[2024-01-07 01:35] LABS: Glucose Point of Care 215 mg/dl (65-105)
--- NOTE | 2024-01-07 01:57 | ED.GENADULT ---
HPI - General Adult General Chief complaint: Unspecified Stated complaint: foot cramping Time Seen by Provider: 01/06/24 23:58 History of Present Illness HPI narrative: This 63-year-old female who presents emergency department chief complaint of hyperglycemia. Patient reports that she is currently not on any medications for diabetes and reports that she has been noticing her blood sugars have been running on the higher side. Patient states that she has been using a family member's insulin to try to control her blood sugar without success. Patient reports that she has history of liver disease and also sees pulmonology at [facility]. Patient reports that she has never been actually prescribed insulin and reports that she is not on any oral hypoglycemics. Related Data Home Medications Medication Instructions Recorded Confirmed albuterol sulfate 90 mcg/actuation 2 puff inhalation DAILY 02/02/21 02/08/21 aerosol inhaler aspirin 81 mg chewable tablet 81 mg PO DAILY 02/02/21 02/08/21 buspirone 10 mg tablet 10 mg PO TID 02/02/21 02/08/21 calcium carbonate 600 mg-vitamin 1 tablet PO DAILY 02/02/21 02/08/21 D3 10 mcg (400 unit) tablet gabapentin 400 mg capsule 400 mg PO TID 02/02/21 02/08/21 lamotrigine 25 mg tablet 25 mg PO DAILY 02/02/21 02/08/21 lancets 30 gauge (Advocate Lancet) 02/02/21 02/08/21 mirtazapine 15 mg tablet 15 mg PO DAILY 02/02/21 02/08/21 multivitamin-iron 9 mg-folic acid 1 tablet PO DAILY 02/02/21 02/08/21 400 mcg-calcium and minerals tablet (Thera-M) tizanidine 4 mg tablet 4 mg PO TID 02/02/21 02/08/21 trazodone 100 mg tablet 100 mg PO HS 02/02/21 02/08/21 venlafaxine 150 mg 150 mg PO DAILY 02/02/21 02/08/21 capsule,extended release 24 hr lorazepam 0.5 mg tablet mg 11/17/23 umeclidinium 62.5 mcg-vilanterol inhalation 11/17/23 25 mcg/actuation powdr for inhalation (Anoro Ellipta) Allergies Allergy/AdvReac Type Severity Reaction Status Date / Time hydromorphone AdvReac Mild Vomiting Verified 11/17/23 16:31 Review of Systems Review of Systems: A 10 system review of systems was completed on the patient and is negative except for what is stated in the HPI. Nursing and ancillary documentation was reviewed. [facility] Past Medical History Medical History Bipolar disorder COPD (chronic obstructive pulmonary disease) Diabetes ETOH abuse Hyperlipidemia Pacemaker Tobacco abuse Social History Social History Smoking packs per day: 1 Smoking cigarettes per day: 20.0 Smoking status: Current every day smoker Alcohol intake: never Substance use: current Substance use type: marijuana Last use: 02/01/21 Gender identity (if verbalized by the patient): Female Sexual Orientation (if Verbalized by the Patient): Straight or Heterosexual Spiritual care concerns: No Exam Narrative: GENERAL: Well-appearing, well-nourished, and in no acute distress. HEAD: Normocephalic, atraumatic. EYES: PERRLA and EOMI. ENT: Nares clear, no rhinorrhea or epistaxis. Mucous membranes moist. NECK: Supple. CHEST: Clear to auscultation. No respiratory distress. HEART: Regular rate and rhythm. No murmur heard. Normal peripheral pulses. ABDOMEN: Soft, nontender, nondistended, normal active bowel sounds. EXTREMITIES: Normal range of motion. No edema. SKIN: Warm, dry, no rash. NEURO: No focal deficits. Alert and oriented x3. PSYCH: Normal mood and affect. Course Vital Signs Vital signs: Vital Signs Temperature 37.7 C H 01/06/24 22:33 Pulse Rate 96 01/06/24 22:33 Respiratory Rate 20 01/06/24 22:33 Blood Pressure 138/67 01/06/24 22:33 Pulse Oximetry 97 01/06/24 22:33 Oxygen Delivery Room Air 01/06/24 22:33 Temperature 37.7 C H 01/06/24 22:33 Pulse Rate 96 01/06/24 22:33 Respiratory Rate 20 01/06/24 22:33 Blood Pressur
[2024-01-07] MEDS: SODIUM CHLORIDE 0.9% IV 1,000 ML 100 ML IV CONT ×2 (04:37→21:37)
--- NOTE | 2024-01-07 07:46 | PM.IMHP ---
H&P: [facility] History of Present Illness Date/Time: 01/07/24 07:46 Chief Complaint: hyperglycemia Narrative: 63 year old female with past medical history of bipolar, COPD, alcohol abuse with cirrhosis, HLD, and pacemaker for bradycardia presents to the hospital for elevated blood glucose at home. Patient has a history of type 2 diabetes, but has not been on diabetes medications for unknown time period. She states that her blood glucose readings were stable for an extending period of time, so she decided she no longer needed her insulin. Then starting around 2 weeks ago she started to feel ill, prompting her to go to her daughters house to check her glucose. At that time the glucometer was reading > 600. She states that her daughter is a type 1 diabetic and gave her one of her insulin pens. She has been taking 10-15 units twice a day of unknown insulin since then. Unknown insulin type, but likely short acting. She received NS boluses in the ED and blood glucose went from 402 to 215. She states that since glucose has been better cultured her neuropathy is not as painful. Started patient on weight based Lantus 14 units HS and 250 mg metformin daily. Will continue to monitor POC glucose and serum glucose with am labs. Patient denies dizziness, lightheadedness, chest pain, shortness of breaht, nausea/vomiting and changes in bowel/bladder. ED workup: CBC without leukocytosis, mild anemia, and thrombocytopenia 146. CMP with Na 128. Hyperglycemia 402. Hemoglobin A1c 13.7. Mag 1.2. Urinalysis negative. Received NS boluses and blood glucose went to 215. Received 2 g Mag sulfate IVPB once. Review of Systems Review of Systems: All systems reviewed & are unremarkable except as noted in HPI and below [facility] Past Medical History Medical History (Updated 01/07/24 @ 15:39 by Sara Lopez PA-C) Bipolar disorder COPD (chronic obstructive pulmonary disease) Diabetes ETOH abuse Hyperlipidemia Pacemaker Tobacco abuse Social History Social History Smoking packs per day: 1 Smoking cigarettes per day: 20.0 Smoking status: Current every day smoker Alcohol intake: never Substance use: current Substance use type: marijuana Last use: 01/06/24 Do You Feel Safe in your Home?: Yes Lack of Transportation: No Lack of Food: Never True Current Housing: I Have Housing Concerned About Future Housing: No Difficulty Paying Gas/Electric Bills: YES Difficulty Paying for Meds: No Currently Unemployed: No Education: High School Diploma/GED Difficulty w/ Childcare or Family Care: No Gender identity (if verbalized by the patient): Female Sexual Orientation (if Verbalized by the Patient): Straight or Heterosexual Spiritual care concerns: No Meds Home Medications and Allergies Home Medications Medication Instructions Recorded Confirmed Type albuterol sulfate 90 mcg/actuation 2 puff inhalation DAILY 02/02/21 01/07/24 History aerosol inhaler buspirone 10 mg tablet 10 mg PO TID 02/02/21 01/07/24 History gabapentin 400 mg capsule 400 mg PO TID 02/02/21 01/07/24 History lamotrigine 25 mg tablet 25 mg PO DAILY 02/02/21 01/07/24 History lancets 30 gauge (Advocate Lancet) 02/02/21 01/07/24 History mirtazapine 15 mg tablet 15 mg PO HS 02/02/21 01/07/24 History multivitamin-iron 9 mg-folic acid 1 tablet PO DAILY 02/02/21 01/07/24 History 400 mcg-calcium and minerals tablet (Thera-M) venlafaxine 150 mg 150 mg PO DAILY 02/02/21 01/07/24 History capsule,extended release 24 hr umeclidinium 62.5 mcg-vilanterol 1 inh inhalation DAILY 11/17/23 01/07/24 History 25 mcg/actuation powdr for inhalation (Anoro Ellipta) dicyclomine 20 mg tablet 20 mg PO QID 01/07/24 01/07/24 History folic acid 1 mg tablet 1 mg PO DAILY 01/07/24 01/07/24 History furosemide 20 mg tablet 20 mg PO DAILY 01/07/24 01/07/24 History lactulose 10 gram/15 mL oral 15 g PO TID 01/07/24 01/07/24 Hi
[2024-01-07 08:26] LABS: Glucose Point of Care 186 mg/dl (65-105)
[2024-01-07 08:42] LABS: Basophils Percent Auto 0.2 % (0.2-1.2); Eosinophils Absolute Auto 0.2 K/mm3 (0-0.3); Hematocrit 34.2 % (37.0-47.0); Immature Granulocyte Absolute 0.01 K/mm3 (0.00-0.031); Immature Granulocyte Percent A 0.2 % (0-0.5); Lymphocytes Absolute Auto 1.95 K/mm3 (0.9-3.2); Lymphocytes Percent Auto 40.8 % (18.3-44.2); Mean Corpuscular HGB Conc 32.2 g/dl (32-36); Mean Corpuscular Hemoglobin 28.8 pg (26-34); Mean Corpuscular Volume 89.5 fl (80-100); Mean Platelet Volume 10.2 fl (7.4-10.4); Monocytes Absolute Auto 0.3 K/mm3 (0.1-0.6); Monocytes Percent Auto 6.5 % (2.6-8.5); Neutrophils Absolute Auto 2.3 K/mm3 (1.3-6.7); Neutrophils Percent Auto 47.3 % (45.5-73.1); Platelet Count Result 114 k/mm3 (150-375); Red Blood Count 3.82 M/mm3 (4.2-5.4); Red Cell Distribution Width 14.5 % (11.5-14.5); White Blood Count 4.8 K/mm3 (4.5-10.0)
[2024-01-07 08:52] LABS: Alanine Aminotransferase 24 U/L (6-35); Albumin Level 2.9 g/dL (3.5-5.1); Alkaline Phosphatase 217 U/L (38-126); Anion Gap 4 mmol/L (4-12); Aspartate Amino Transferase 36 U/L (14-36); Bilirubin,Total 0.4 mg/dL (0.2-1.3); Blood Urea Nitrogen 8 mg/dL (7-17); Calcium 7.9 mg/dL (8.4-10.2); Carbon Dioxide 24 mmol/L (22-30); Chloride 108 mmol/L (98-107); Estimated CRCL calculation 82 ml/min; Estimated Glomerular Filt Rate > 60; Glucose 188 mg/dL (65-110); Potassium 4.1 mmol/L (3.4-5.0); Sodium 136 mmol/L (137-145)
[2024-01-07 08:54] LABS: Magnesium 2.2 mg/dL (1.6-2.3)
[2024-01-07] MEDS: metFORMIN HCL 250 MG TABLET PO (10:17)
[2024-01-07] MEDS: UMECLIDINIUM/VILANTEROL 62.5-25 MCG ELLIPTA 1 PUFF INHALATION (11:17)
[2024-01-07 11:29] LABS: Glucose Point of Care 400 mg/dl (65-105)
[2024-01-07] MEDS: THERAPEUTIC MULTIVITAMINS/MINERALS TAB (*BKC) 1 TABLET PO (12:14)
[2024-01-07] MEDS: VENLAFAXINE HCL XR 75 MG CAP.ER.24H 150 MG PO (12:14)
[2024-01-07] MEDS: ACETAMINOPHEN 500 MG TABLET PO ×2 (12:15→17:59)
[2024-01-07] MEDS: NICOTINE (*PBKC) 21 MG PATCH 1 PATCH TRANSDERM (12:15)
[2024-01-07] MEDS: FOLIC ACID 1 MG TABLET PO (12:15)
[2024-01-07] MEDS: PANTOPRAZOLE 40 MG TABLET PO ×2 (12:15→21:27)
[2024-01-07] MEDS: INSULIN ASPART (*BKC) 100 UNITS/ML SUB-Q ×2 (12:16→17:13)
[2024-01-07] MEDS: lamoTRIgine 25 MG TABLET PO (12:19)
[2024-01-07] MEDS: DICYCLOMINE HCL 10 MG CAPSULE 20 MG PO ×3 (12:19→21:27)
[2024-01-07] MEDS: busPIRone HCL 10 MG TABLET PO ×2 (12:19→17:12)
[2024-01-07] MEDS: GABAPENTIN 400 MG CAPSULE PO ×2 (12:19→17:12)
[2024-01-07 16:27] LABS: Glucose Point of Care 329 mg/dl (65-105)
[2024-01-07] MEDS: rifAXIMin 550 MG TABLET PO (17:12)
[2024-01-07] MEDS: ONDANSETRON HCL ODT 4 MG TABLET PO (18:07)
[2024-01-07 20:31] LABS: Glucose Point of Care 87 mg/dl (65-105)
[2024-01-07] MEDS: INSULIN GLARGINE (*BKC) 100 UNITS/ML 14 UNITS SUB-Q (21:27)
[2024-01-07] MEDS: MIRTAZAPINE 15 MG TABLET PO (21:27)
[2024-01-08 06:33] LABS: Basophils Percent Auto 0.2 % (0.2-1.2); Eosinophils Absolute Auto 0.2 K/mm3 (0-0.3); Eosinophils Percent Auto 4.6 % (0-4.4); Hematocrit 34.4 % (37.0-47.0); Hemoglobin 10.9 g/dL (12.0-15.0); Immature Granulocyte Absolute 0.01 K/mm3 (0.00-0.031); Immature Granulocyte Percent A 0.2 % (0-0.5); Lymphocytes Percent Auto 46.2 % (18.3-44.2); Mean Corpuscular HGB Conc 31.7 g/dl (32-36); Mean Corpuscular Hemoglobin 28.7 pg (26-34); Mean Corpuscular Volume 90.5 fl (80-100); Mean Platelet Volume 10.5 fl (7.4-10.4); Monocytes Absolute Auto 0.3 K/mm3 (0.1-0.6); Monocytes Percent Auto 6.3 % (2.6-8.5); Neutrophils Absolute Auto 1.7 K/mm3 (1.3-6.7); Neutrophils Percent Auto 42.5 % (45.5-73.1); Platelet Count Result 110 k/mm3 (150-375); Red Cell Distribution Width 14.8 % (11.5-14.5); White Blood Count 4.1 K/mm3 (4.5-10.0)
[2024-01-08 06:43] LABS: Alanine Aminotransferase 28 U/L (6-35); Albumin Level 2.9 g/dL (3.5-5.1); Alkaline Phosphatase 223 U/L (38-126); Anion Gap 2 mmol/L (4-12); Aspartate Amino Transferase 45 U/L (14-36); Bilirubin,Total 0.5 mg/dL (0.2-1.3); Blood Urea Nitrogen 7 mg/dL (7-17); Calcium 8.3 mg/dL (8.4-10.2); Carbon Dioxide 26 mmol/L (22-30); Chloride 108 mmol/L (98-107); Estimated CRCL calculation 81 ml/min; Estimated Glomerular Filt Rate > 60; Glucose 99 mg/dL (65-110); Potassium 4.5 mmol/L (3.4-5.0); Sodium 136 mmol/L (137-145)
[2024-01-08 08:09] VITALS: O2SAT 94
[2024-01-08] MEDS: UMECLIDINIUM/VILANTEROL 62.5-25 MCG ELLIPTA 1 PUFF INHALATION (08:09)
[2024-01-08 08:32] LABS: Glucose Point of Care 82 mg/dl (65-105)
[2024-01-08] MEDS: NICOTINE (*PBKC) 21 MG PATCH 1 PATCH TRANSDERM (09:48)
[2024-01-08] MEDS: LACTULOSE 20 GM/30 ML UDC 30 GM PO (09:48)
[2024-01-08] MEDS: FOLIC ACID 1 MG TABLET PO (09:49)
[2024-01-08] MEDS: GABAPENTIN 400 MG CAPSULE PO ×2 (09:49→14:39)
[2024-01-08] MEDS: PANTOPRAZOLE 40 MG TABLET PO (09:49)
[2024-01-08] MEDS: THERAPEUTIC MULTIVITAMINS/MINERALS TAB (*BKC) 1 TABLET PO (09:49)
[2024-01-08] MEDS: DICYCLOMINE HCL 10 MG CAPSULE 20 MG PO ×2 (09:49→14:39)
[2024-01-08] MEDS: rifAXIMin 550 MG TABLET PO (09:49)
[2024-01-08] MEDS: busPIRone HCL 10 MG TABLET PO ×2 (09:49→14:39)
[2024-01-08] MEDS: metFORMIN HCL 250 MG TABLET PO (09:49)
[2024-01-08] MEDS: VENLAFAXINE HCL XR 75 MG CAP.ER.24H 150 MG PO (09:49)
[2024-01-08 09:50] VITALS: BMI 18.3
[2024-01-08] MEDS: lamoTRIgine 25 MG TABLET PO (09:52)
[2024-01-08 11:41] LABS: Glucose Point of Care 265 mg/dl (65-105)
[2024-01-08] MEDS: INSULIN ASPART (*BKC) 100 UNITS/ML SUB-Q (12:08)
--- NOTE | 2024-01-08 13:28 | PM.DS ---
DS: Admitting Diagnosis Discharge Date 01/08/24 Admitting Diagnosis hyperglycemia DS: Discharge Diagnosis Discharge Diagnosis (1) Uncontrolled diabetes mellitus: Status: Acute (2) Hypomagnesemia: Code(s): E83.42 - Hypomagnesemia Status: Acute (3) Bipolar 1 disorder: Code(s): F31.9 - Bipolar disorder, unspecified Status: Acute (4) Abdominal distention: Code(s): R14.0 - Abdominal distension (gaseous) Status: Acute DS: Summary Hospital Course Hospital Course: 63 year old female with past medical history of bipolar, COPD, alcohol abuse with cirrhosis, HLD, and pacemaker for bradycardia presents to the hospital for elevated blood glucose at home. Patient has a history of type 2 diabetes, but has not been on diabetes medications for unknown time period. She states that her blood glucose readings were stable for an extending period of time, so she decided she no longer needed her insulin. Then starting around 2 weeks ago she started to feel ill, prompting her to go to her daughters house to check her glucose. At that time the glucometer was reading > 600. She states that her daughter is a type 1 diabetic and gave her one of her insulin pens. She has been taking 10-15 units twice a day of unknown insulin since then. Started patient on weight based Lantus 14 units HS and 250 mg metformin daily. ED workup: CBC without leukocytosis, mild anemia, and thrombocytopenia 146. CMP with Na 128. Hyperglycemia 402. Hemoglobin A1c 13.7. Mag 1.2. Urinalysis negative. Received NS boluses and blood glucose went to 215. Received 2 g Mag sulfate IVPB once. since being on insulin patient's sugars have much better controlled. director of email marketing consulted and agreed with current course of action. Will discharge patient home with insulin and metformin. Time Spent with Patient Time attestation: Total time spent providing and/or coordinating discharge services: Exam Narrative: GENERAL: Comfortable, no acute distress HENMT: moist mucous membranes EYES: EOM intact b/l NECK: no lymphadenopathy RESPIRATORY: clear to auscultation, no increased respiratory effort CARDIO: Regular rate and rhythm GI: distended, soft, nontender, bowel sounds present SKIN/EXTREMITIES: no rashes, no edema, no redness or tenderness NEURO: PROM intact, answers questions appropriately, A&O x4 DS: Data Data Completed and Pending Labs on day of discharge: Labs from last 24 hours 01/08/24 01/08/24 01/08/24 11:37 08:25 05:38 WBC 4.1 L RBC 3.80 L Hgb 10.9 L Hct 34.4 L MCV 90.5 MCH 28.7 MCHC 31.7 L RDW 14.8 H Plt Count 110 L MPV 10.5 H Immature Gran % (Auto) 0.2 Neut % (Auto) 42.5 L Lymph % (Auto) 46.2 H [place] % (Auto) 6.3 Eos % (Auto) 4.6 H Baso % (Auto) 0.2 Lymph # (Auto) 1.90 [place] # (Auto) 0.3 Eos # (Auto) 0.2 Baso # (Auto) 0.0 Abs Immat Gran (auto) 0.01 Absolute Neuts (auto) 1.7 Absolute Nucleated RBC 0.000 Nucleated RBC % 0.0 Sodium 136 L Potassium 4.5 Chloride 108 H Carbon Dioxide 26 Anion Gap 2 L BUN 7 Creatinine 0.50 L Estim Creat Clear Calc 81 Estimated GFR > 60 Glucose 99 POC Capillary Glucose 265 H 82 Calcium 8.3 L Total Bilirubin 0.5 AST 45 H ALT 28 Alkaline Phosphatase 223 H Total Protein 6.0 L Albumin 2.9 L 01/07/24 01/07/24 20:29 16:23 WBC RBC Hgb Hct MCV MCH MCHC RDW Plt Count MPV Immature Gran % (Auto) Neut % (Auto) Lymph % (Auto) [place] % (Auto) Eos % (Auto) Baso % (Auto) Lymph # (Auto) [place] # (Auto) Eos # (Auto) Baso # (Auto) Abs Immat Gran (auto) Absolute Neuts (auto) Absolute Nucleated RBC Nucleated RBC % Sodium Potassium Chloride Carbon Dioxide Anion Gap BUN Creatinine Estim Creat Clear Calc Estimated GFR Glucose POC Capillary Glucose 87 329 H Calcium Total Bilirubin
[2024-01-08 14:00] VITALS: BP 126/67; PULSE 73; RESP 18; TEMP 36.9; O2SAT 96
[2024-01-08] MEDS: ONDANSETRON HCL ODT 4 MG TABLET PO (14:39)
--- NOTE | 2024-01-13 15:04 | PCCDE ---
01/13/24 12:45 -2:05 pm Spoke to patient, She has reduced her regular soda, and water down the sweet tea. Hadn't checked her BG today; yesterday midday in 100's, checked later and hit 400- drank some regular soda previously. (came down later) Pt verbalizing she thought she was going to get strips and insulin in the hospital (received new glucometer inpatient - explained we don't have strips/insulin to provide no charge- looks like Rx sent to her preferred pharmacy) (reports she has her old meter with strips for now) States to taking insulin. - Enc'd to SMBG routinely - Directed her to her [facility] for Rx - enc'd her to call MD if see's BG 400 - Has MD appt next week (also DDS appt to have teeth extracted) ---- Discussed OP process and to inquire with MD for referral FJ
== END 2024-01-08 16:20 | disposition home or self-care (01) ==
LOC: ANHED 01-07 02:09 → ANH3MEDSUR 01-07 03:04
PROVIDERS: Student in an Organized Health Care Education/Training Program; Admitting Provider Internal Medicine; Emergency Provider Emergency Medicine; PCP Internal Medicine Infectious Disease; Visit Provider Internal Medicine
DX: E11.65 Type 2 diabetes mellitus with hyperglycemia (principal); E83.42 Hypomagnesemia; J44.9 Chronic obstructive pulmonary disease, unspecified; E78.5 Hyperlipidemia, unspecified; F31.9 Bipolar disorder, unspecified; R14.0 Abdominal distension (gaseous); K74.60 Unspecified cirrhosis of liver; F10.10 Alcohol abuse, uncomplicated; Z95.0 Presence of cardiac pacemaker; F17.210 Nicotine dependence, cigarettes, uncomplicated; F12.90 Cannabis use, unspecified, uncomplicated; Z79.51 Long term (current) use of inhaled steroids; Z79.82 Long term (current) use of aspirin; Z20.822 Contact with and (suspected) exposure to COVID-19
CPT/HCPCS: 36415; 76705; 80053; 81001; 82010; 82948; 83036; 83735; 84100; 85025; 87637; 94640; 96361; 96365; 96366; 96375; 96376; 99285; A9270; G0378; G0379; J1815; J2270; J3475; J7030

== ENCOUNTER 2024-04-15 08:03 | Emergency (ER) | payer OTHER, SELFPAY ==
--- NOTE | ~2024-04-15 | CT_ITS ---
EXAMINATION: CTA brain carotid DATE: 04/15/2024 10:43 INDICATION: Right arm sensory change. Right arm pain, tingling, weakness. TECHNIQUE: Computed tomographic angiography (CTA) of the head was performed without and with 100 mL O mnipaque-350 intravenous contrast. CTA of the neck was performed with intravenous contrast. Automated exposure control and iterative reconstruction technique were employed. The dose-length product was 1 603.31 mGy-cm. Maximum intensity projection and volume rendered 3D-reconstructions were created by yolanda ramírez technologist on a separate workstation. COMPARISON: Head CT 02/20/2023 FINDINGS: HEAD CTA: There is no intracranial hemorrhage, acute infarction, or abnormal intracranial mass lesion . The ventricles are normal in size. The paranasal sinuses are clear. The mastoid air cells are saqib l. The orbits are normal. The vertebral arteries are codominant. There is no significant stenosis of basilar artery or the posterior cerebral arteries. There is no significant stenosis of the intracrani al internal carotid arteries or anterior or middle cerebral arteries. Anterior communicating artery i s normal. There is no aneurysm. The posterior communicating arteries are normal. NECK CTA: There is severe emphysema. There is mild mediastinal lymphadenopathy, likely reactive. The vertebral arteries are codominant. There is plaque in the proximal internal carotid arteries. There i s 37% stenosis of the proximal right internal carotid artery relative to normal distal artery lumen d iameter (NASCET criteria). There is 0% stenosis of the proximal left internal carotid artery relative to normal distal artery lumen diameter. There is severe cervical spondylosis. IMPRESSION: 1. Normal brain. No aneurysm or significant intracranial arterial stenosis. 2. 37% stenosis of the proximal right internal carotid artery relative to normal distal artery lumen diameter (NASCET criteria). 3. 0% stenosis of the proximal left internal carotid artery relative to normal distal artery lumen di ameter. 4. Severe emphysema. 5. Mild mediastinal lymphadenopathy, likely reactive. Reviewed, dictated and finalized at location A. IMPRESSION: 1. Normal brain. No aneurysm or significant intracranial arterial stenosis. 2. 37% stenosis of the proximal right internal carotid artery relative to saqib l distal artery lumen diameter (NASCET criteria). 3. 0% stenosis of the proximal left internal carotid artery relative to normal distal artery lumen diameter. 4. Severe emphysema. 5. Mild mediastinal lymphadenopathy, likely reactive.
[2024-04-15 08:08] VITALS: BP 146/89; PULSE 105; RESP 18; TEMP 36.7; O2SAT 97
--- NOTE | 2024-04-15 09:11 | ECG_ITS ---
Test Date: 2024-04-15 09:35:30 Measurements Intervals [place] Rate: 95 P: 59 CO: 129 QRS: 32 QRSD: 100 T: 43 QT: 366 QTc: 461 Interpretive Statements SINUS RHYTHM POSSIBLE LEFT ATRIAL ENLARGEMENT [-0.1mV P-WAVE IN V1/V2] No previous ECG available for comparison Electronically Signed On 04-15-2024 10:46:33 CDT by Terence Arzate M.D.
--- NOTE | 2024-04-15 09:21 | ED.GENADULT ---
HPI - General Adult General Chief complaint: Neuro Symptoms/Deficit Stated complaint: right side weakness/pain Time Seen by Provider: 04/15/24 08:58 Source: patient Mode of arrival: ambulatory Limitations: no limitations History of Present Illness HPI narrative: This is a 63-year-old female with PMH of ETOH abuse, COPD, bipolar who presents to the ED for chief complaint of right arm pain and tingling being around 0300 this morning. last known well was yesterday evening. States that she woke up with significant pain tingling in her right. States the arm feels weak. States that she had around 5 mixed drinks yesterday. States it feels like right hand is cramping. Denies left upper extremity symptoms or lower extremity symptoms. Denies speech change, vision change, LOC. Denies chest pain, shortness of breath, cough, back pain. Related Data Home Medications Medication Instructions Recorded Confirmed albuterol sulfate 90 mcg/actuation 2 puff inhalation DAILY 02/02/21 01/07/24 aerosol inhaler buspirone 10 mg tablet 10 mg PO TID 02/02/21 01/07/24 gabapentin 400 mg capsule 400 mg PO TID 02/02/21 01/07/24 lamotrigine 25 mg tablet 25 mg PO DAILY 02/02/21 01/07/24 lancets 30 gauge (Advocate Lancet) 02/02/21 01/07/24 mirtazapine 15 mg tablet 15 mg PO HS 02/02/21 01/07/24 multivitamin-iron 9 mg-folic acid 1 tablet PO DAILY 02/02/21 01/07/24 400 mcg-calcium and minerals tablet (Thera-M) venlafaxine 150 mg 150 mg PO DAILY 02/02/21 01/07/24 capsule,extended release 24 hr umeclidinium 62.5 mcg-vilanterol 1 inh inhalation DAILY 11/17/23 01/07/24 25 mcg/actuation powdr for inhalation (Anoro Ellipta) dicyclomine 20 mg tablet 20 mg PO QID 01/07/24 01/07/24 folic acid 1 mg tablet 1 mg PO DAILY 01/07/24 01/07/24 furosemide 20 mg tablet 20 mg PO DAILY 01/07/24 01/07/24 lactulose 10 gram/15 mL oral 15 g PO TID 01/07/24 01/07/24 solution (Enulose) nicotine 21 mg/24 hr daily 21 mg transdermal DAILY 01/07/24 01/07/24 transdermal patch omeprazole 40 mg capsule,delayed 40 mg PO DAILY 01/07/24 01/07/24 release ondansetron HCl 4 mg tablet 4 mg PO PRN 01/07/24 01/07/24 rifaximin 550 mg tablet (Xifaxan) 550 mg PO BID 01/07/24 01/07/24 spironolactone 25 mg tablet 25 mg PO DAILY 01/07/24 01/07/24 Allergies Allergy/AdvReac Type Severity Reaction Status Date / Time hydromorphone AdvReac Mild Vomiting Verified 04/15/24 08:13 Review of Systems Review of Systems: All systems as dictated in [facility] Past Medical History Medical History (Updated 04/15/24 @ 12:26 by Art Cruz PA-C) Bipolar disorder COPD (chronic obstructive pulmonary disease) Diabetes ETOH abuse Hyperlipidemia Pacemaker Tobacco abuse Social History Social History (System 01/15/24 @ 08:50 by Hussein Jacobo) Smoking packs per day: 1 Smoking cigarettes per day: 20.0 Smoking status: Current every day smoker Alcohol intake: never Substance use: current Substance use type: marijuana Last use: 01/06/24 Do You Feel Safe in your Home?: Yes Lack of Transportation: No Lack of Food: Never True Current Housing: I Have Housing Concerned About Future Housing: No Difficulty Paying Gas/Electric Bills: YES Difficulty Paying for Meds: No Currently Unemployed: No Education: High School Diploma/GED Difficulty w/ Childcare or Family Care: No Gender identity (if verbalized by the patient): Female Sexual Orientation (if Verbalized by the Patient): Straight or Heterosexual Spiritual care concerns: No Exam Narrative: GENERAL: Well-appearing, well-nourished, and in no acute distress. HEAD: Normocephalic, atraumatic. EYES: PERRLA and EOMI. ENT: Nares clear, no rhinorrhea or epistaxis. Mucous membranes moist. Oropharynx without tonsillar hypertrophy exudate or other lesions. NECK: Supple. No adenopathy or masses. CHEST: No respiratory distress. Clear to auscultation. No wheezes rales or rhonchi HEART: Regular rate an
[2024-04-15 09:31] LABS: Basophils Percent Auto 0.2 % (0.2-1.2); Eosinophils Percent Auto 0.1 % (0-4.4); Hematocrit 36.8 % (37.0-47.0); Hemoglobin 12.2 g/dL (12.0-15.0); Immature Granulocyte Absolute 0.03 K/mm3 (0.00-0.031); Immature Granulocyte Percent A 0.3 % (0-0.5); Lymphocytes Absolute Auto 1.45 K/mm3 (0.9-3.2); Lymphocytes Percent Auto 15.3 % (18.3-44.2); Mean Corpuscular HGB Conc 33.2 g/dl (32-36); Mean Corpuscular Hemoglobin 29.1 pg (26-34); Mean Corpuscular Volume 87.8 fl (80-100); Mean Platelet Volume 10.3 fl (7.4-10.4); Monocytes Absolute Auto 0.3 K/mm3 (0.1-0.6); Monocytes Percent Auto 3.5 % (2.6-8.5); Neutrophils Absolute Auto 7.7 K/mm3 (1.3-6.7); Neutrophils Percent Auto 80.6 % (45.5-73.1); Platelet Count Result 188 k/mm3 (150-375); Red Blood Count 4.19 M/mm3 (4.2-5.4); Red Cell Distribution Width 16.9 % (11.5-14.5); White Blood Count 9.5 K/mm3 (4.5-10.0)
[2024-04-15] MEDS: LACTATED RINGERS 1,000 ML 999 ML IV CONT (09:37)
[2024-04-15] MEDS: ONDANSETRON INJ 4 MG/2 ML VIAL IV PUSH (09:38)
[2024-04-15 09:54] LABS: Ammonia 12 umol/L (9-30)
[2024-04-15 10:00] LABS: Alanine Aminotransferase 26 U/L (6-35); Alkaline Phosphatase 211 U/L (38-126); Anion Gap 11 mmol/L (4-12); Aspartate Amino Transferase 43 U/L (14-36); Bilirubin,Total 0.5 mg/dL (0.2-1.3); Blood Urea Nitrogen 11 mg/dL (7-17); Calcium 8.5 mg/dL (8.4-10.2); Carbon Dioxide 23 mmol/L (22-30); Chloride 97 mmol/L (98-107); Estimated CRCL calculation 70 ml/min; Estimated Glomerular Filt Rate > 60; Glucose 298 mg/dL (65-110); Magnesium 1.2 mg/dL (1.6-2.3); Phosphorus 4.7 mg/dL (2.5-4.5); Potassium 3.7 mmol/L (3.4-5.0); Sodium 131 mmol/L (137-145)
[2024-04-15] MEDS: THIAMINE 500 MG/NS 100 ML 500 MG/100 ML BAG 200 MG IVPB (10:06)
[2024-04-15] MEDS: KETOROLAC 15 MG/ML VIAL (*BKC) IV PUSH (10:06)
[2024-04-15 10:12] LABS: Troponin I < 0.012 ng/mL (0.000-0.034)
[2024-04-15 10:22] LABS: INR 1.1; Prothrombin Time 14.7 Seconds (11.1-14.7)
[2024-04-15 10:24] LABS: Partial Thromboplastin Time 27.5 Seconds (22.3-36.8)
[2024-04-15] MEDS: MAGNESIUM SULF 1 GM/D5W 100 ML 1 GM/100 ML BAG IVPB (11:03)
[2024-04-15 11:36] VITALS: BP 111/70; PULSE 78; RESP 18; O2SAT 97
== END 2024-04-15 12:39 | disposition left against medical advice (07) ==
PROVIDERS: Emergency Provider Physician Assistant
DX: M62.81 Muscle weakness (generalized) (principal); R20.2 Paresthesia of skin; F31.9 Bipolar disorder, unspecified; J44.9 Chronic obstructive pulmonary disease, unspecified; E11.9 Type 2 diabetes mellitus without complications; E78.5 Hyperlipidemia, unspecified; F17.210 Nicotine dependence, cigarettes, uncomplicated; Z95.0 Presence of cardiac pacemaker
CPT/HCPCS: 36415; 70496; 70498; 80053; 82140; 83735; 84100; 84484; 85025; 85610; 85730; 93005; 96365; 96367; 96375; 99284; J1885; J2405; J3411; J3475; J7120; Q9967

== ENCOUNTER 2024-04-30 09:43 | Emergency (ER) | payer OTHER, SELFPAY ==
[2024-04-30 10:05] VITALS: BP 108/65; PULSE 80; RESP 14; TEMP 36.4; O2SAT 97
--- NOTE | 2024-04-30 11:00 | ED.GENADULT ---
HPI - General Adult General Chief complaint: Unspecified Stated complaint: right side rib pain Time Seen by Provider: 04/30/24 11:00 Source: patient, RN notes reviewed and old records reviewed Mode of arrival: ambulatory Limitations: no limitations History of Present Illness HPI narrative: Patient presents with complaints of cough and right-sided rib pain. She has a chronic cough, states that about 4 days ago she noticed pain to her right ribs. She reports pain is worse with cough and deep inspiration. Denies any injury or trauma. She has been taking ibuprofen for her symptoms with poor relief. Voices no other concerns or complaints at this time. Related Data Home Medications Medication Instructions Recorded Confirmed albuterol sulfate 90 mcg/actuation 2 puff inhalation DAILY 02/02/21 04/30/24 aerosol inhaler buspirone 10 mg tablet 10 mg PO TID 02/02/21 04/30/24 gabapentin 400 mg capsule 400 mg PO TID 02/02/21 04/30/24 lamotrigine 25 mg tablet 25 mg PO DAILY 02/02/21 04/30/24 lancets 30 gauge (Advocate Lancet) 02/02/21 04/30/24 mirtazapine 15 mg tablet 15 mg PO HS 02/02/21 04/30/24 multivitamin-iron 9 mg-folic acid 1 tablet PO DAILY 02/02/21 04/30/24 400 mcg-calcium and minerals tablet (Thera-M) venlafaxine 150 mg 150 mg PO DAILY 02/02/21 04/30/24 capsule,extended release 24 hr umeclidinium 62.5 mcg-vilanterol 1 inh inhalation DAILY 11/17/23 04/30/24 25 mcg/actuation powdr for inhalation (Anoro Ellipta) dicyclomine 20 mg tablet 20 mg PO QID 01/07/24 04/30/24 folic acid 1 mg tablet 1 mg PO DAILY 01/07/24 04/30/24 furosemide 20 mg tablet 20 mg PO DAILY 01/07/24 04/30/24 lactulose 10 gram/15 mL oral 15 g PO TID 01/07/24 04/30/24 solution (Enulose) nicotine 21 mg/24 hr daily 21 mg transdermal DAILY 01/07/24 04/30/24 transdermal patch omeprazole 40 mg capsule,delayed 40 mg PO DAILY 01/07/24 04/30/24 release ondansetron HCl 4 mg tablet 4 mg PO PRN 01/07/24 04/30/24 rifaximin 550 mg tablet (Xifaxan) 550 mg PO BID 01/07/24 04/30/24 spironolactone 25 mg tablet 25 mg PO DAILY 01/07/24 04/30/24 Allergies Allergy/AdvReac Type Severity Reaction Status Date / Time hydromorphone AdvReac Mild Vomiting Verified 04/30/24 10:34 Review of Systems Review of Systems: All systems reviewed & are unremarkable except as noted in HPI and below Constitutional: Constitutional: Reports no additional constitutional complaints ENT: Reports system reviewed and no additional complaints, except as documented Cardiovascular: Cardiovascular: Reports as per HPI and Reports no additional cardiovascular complaints Respiratory: Respiratory: Reports no additional respiratory complaints Gastrointestinal: Gastrointestinal: Reports no additional gastrointestinal complaints Musculoskeletal: Musculoskeletal: Reports no additional musculoskeletal complaints and Reports as per HPI PMFSH Past Medical History Medical History Bipolar disorder COPD (chronic obstructive pulmonary disease) Diabetes ETOH abuse Hyperlipidemia Pacemaker Tobacco abuse Social History Social History Smoking packs per day: 1 Smoking cigarettes per day: 20.0 Smoking status: Current every day smoker Alcohol intake: never Substance use: current Substance use type: marijuana Last use: 01/06/24 Do You Feel Safe in your Home?: Yes Lack of Transportation: No Lack of Food: Never True Current Housing: I Have Housing Concerned About Future Housing: No Difficulty Paying Gas/Electric Bills: YES Difficulty Paying for Meds: No Currently Unemployed: No Education: High School Diploma/GED Difficulty w/ Childcare or Family Care: No Gender identity (if verbalized by the patient): Female Sexual Orientation (if Verbalized by the Patient): Straight or Heterosexual Spiritual care concerns: No Exam Const: General: coope
== END 2024-04-30 11:52 | disposition home or self-care (01) ==
PROVIDERS: Emergency Provider Nurse Practitioner Family; PCP Internal Medicine Infectious Disease
DX: R07.81 Pleurodynia (principal); F17.210 Nicotine dependence, cigarettes, uncomplicated; J44.9 Chronic obstructive pulmonary disease, unspecified; E11.9 Type 2 diabetes mellitus without complications; E78.5 Hyperlipidemia, unspecified; Z95.0 Presence of cardiac pacemaker; F31.9 Bipolar disorder, unspecified
CPT/HCPCS: 99212; G0463

== ENCOUNTER 2024-05-24 16:11 | Emergency (ER) | payer OTHER, SELFPAY ==
--- NOTE | 2024-05-24 18:10 | ED.GENADULT ---
HPI - General Adult General Chief complaint: Unspecified Stated complaint: pulled a muscle Time Seen by Provider: 05/24/24 17:43 History of Present Illness HPI narrative: This is a 60-year-old female presenting for lower back pain. Patient says she was doing a bunch of housework yesterday when she bent over she felt like she pulled a muscle in her left lower back. Pain radiates down into her glute. It is worse with movement. She took Tylenol and Flexeril with no relief. No neurologic deficits urinary problems or bowel incontinence. No saddle anesthesia. Incidentally patient said she has also been having nasal congestion for the last month in asking if there is any medication she can have. She does not have any fevers chills chest pain or difficulty breathing. Related Data Home Medications Medication Instructions Recorded Confirmed albuterol sulfate 90 mcg/actuation 2 puff inhalation DAILY 02/02/21 05/19/24 aerosol inhaler buspirone 10 mg tablet 10 mg PO TID 02/02/21 05/19/24 gabapentin 400 mg capsule 400 mg PO TID 02/02/21 05/19/24 lamotrigine 25 mg tablet 25 mg PO DAILY 02/02/21 05/19/24 lancets 30 gauge (Advocate Lancet) 02/02/21 05/19/24 mirtazapine 15 mg tablet 15 mg PO HS 02/02/21 05/19/24 multivitamin-iron 9 mg-folic acid 1 tablet PO DAILY 02/02/21 05/19/24 400 mcg-calcium and minerals tablet (Thera-M) venlafaxine 150 mg 150 mg PO DAILY 02/02/21 05/19/24 capsule,extended release 24 hr umeclidinium 62.5 mcg-vilanterol 1 inh inhalation DAILY 11/17/23 05/19/24 25 mcg/actuation powdr for inhalation (Anoro Ellipta) dicyclomine 20 mg tablet 20 mg PO QID 01/07/24 05/19/24 folic acid 1 mg tablet 1 mg PO DAILY 01/07/24 05/19/24 furosemide 20 mg tablet 20 mg PO DAILY 01/07/24 05/19/24 lactulose 10 gram/15 mL oral 15 g PO TID 01/07/24 05/19/24 solution (Enulose) nicotine 21 mg/24 hr daily 21 mg transdermal DAILY 01/07/24 05/19/24 transdermal patch omeprazole 40 mg capsule,delayed 40 mg PO DAILY 01/07/24 05/19/24 release ondansetron HCl 4 mg tablet 4 mg PO PRN 01/07/24 05/19/24 rifaximin 550 mg tablet (Xifaxan) 550 mg PO BID 01/07/24 05/19/24 spironolactone 25 mg tablet 25 mg PO DAILY 01/07/24 05/19/24 Allergies Allergy/AdvReac Type Severity Reaction Status Date / Time No Known Allergies Allergy Verified 05/19/24 09:09 [facility] Past Medical History Medical History Bipolar disorder COPD (chronic obstructive pulmonary disease) Diabetes ETOH abuse Hyperlipidemia Pacemaker Tobacco abuse Family History Family History Sibling Alcoholism in family member Unknown Alcoholism in family member Diabetes mellitus Depression Anxiety Thyroid disorder Father Hypertension Heart disease Cancer Mother Hypertension Social History Social History Smoking packs per day: 1 Smoking cigarettes per day: 20.0 Smoking status: Current every day smoker Alcohol intake: never Substance use: current Substance use type: marijuana Last use: 01/06/24 Do You Feel Safe in your Home?: Yes Lack of Transportation: No Lack of Food: Never True Current Housing: I Have Housing Concerned About Future Housing: No Difficulty Paying Gas/Electric Bills: YES Difficulty Paying for Meds: No Currently Unemployed: No Education: High School Diploma/GED Difficulty w/ Childcare or Family Care: No Gender identity (if verbalized by the patient): Female Sexual Orientation (if Verbalized by the Patient): Straight or Heterosexual Spiritual care concerns: No Exam Narrative: APPEARANCE: No apparent distress. Head: atraumatic. EYES: EOMI, NOSE: Rhinorrhea NECK: Trachea midline RESPIRATORY: No increased rate of breathing CARDIOVASCULAR: RRR, ABDOMINAL: Mildly distended, nontender no guarding rebound MUSCULOSKELETA
[2024-05-24] MEDS: ACETAMINOPHEN 500 MG TABLET 1000 MG PO (18:33)
[2024-05-24] MEDS: KETOROLAC 30 MG/ML VIAL (*BKC) IM (18:34)
[2024-05-24] MEDS: diazePAM INJ (*CRX) 10 MG/2 ML SYRINGE 5 MG IM (18:35)
[2024-05-24] MEDS: LIDOCAINE 5% PATCH 1 PATCH TRANSDERM (18:36)
[2024-05-24 18:49] VITALS: BP 128/76; PULSE 68; RESP 18; TEMP 36.6; O2SAT 98
== END 2024-05-24 18:51 | disposition home or self-care (01) ==
PROVIDERS: Emergency Provider Emergency Medicine; PCP Clinical Nurse Specialist
DX: M54.50 Low back pain, unspecified (principal); R09.81 Nasal congestion; F31.9 Bipolar disorder, unspecified; J44.9 Chronic obstructive pulmonary disease, unspecified; E78.5 Hyperlipidemia, unspecified; Z95.0 Presence of cardiac pacemaker; F17.210 Nicotine dependence, cigarettes, uncomplicated
CPT/HCPCS: 96372; 99284; A9270; J1885; J3360

== ENCOUNTER 2024-07-29 11:33 | Outpatient (CLI) | payer OTHER, SELFPAY ==
[2024-07-29 20:29] LABS: Basophils Percent Auto 0.5 % (0.2-1.2); Eosinophils Absolute Auto 0.1 K/mm3 (0-0.3); Eosinophils Percent Auto 2.1 % (0-4.4); Hematocrit 40.4 % (37.0-47.0); Immature Granulocyte Absolute 0.02 K/mm3 (0.00-0.031); Immature Granulocyte Percent A 0.3 % (0-0.5); Lymphocytes Absolute Auto 2.27 K/mm3 (0.9-3.2); Lymphocytes Percent Auto 37.5 % (18.3-44.2); Mean Corpuscular HGB Conc 32.2 g/dl (32-36); Mean Corpuscular Hemoglobin 29.1 pg (26-34); Mean Corpuscular Volume 90.6 fl (80-100); Mean Platelet Volume 11.1 fl (7.4-10.4); Monocytes Absolute Auto 0.3 K/mm3 (0.1-0.6); Monocytes Percent Auto 5.3 % (2.6-8.5); Neutrophils Absolute Auto 3.3 K/mm3 (1.3-6.7); Neutrophils Percent Auto 54.3 % (45.5-73.1); Platelet Count Result 227 k/mm3 (150-375); Red Blood Count 4.46 M/mm3 (4.2-5.4); Red Cell Distribution Width 17.5 % (11.5-14.5); White Blood Count 6.1 K/mm3 (4.5-10.0)
[2024-07-29 21:21] LABS: Alanine Aminotransferase 23 U/L (6-35); Albumin Level 3.9 g/dL (3.5-5.1); Alkaline Phosphatase 209 U/L (38-126); Anion Gap 4 mmol/L (4-12); Aspartate Amino Transferase 38 U/L (14-36); Bilirubin,Total 0.4 mg/dL (0.2-1.3); Blood Urea Nitrogen 6 mg/dL (7-17); Calcium 8.8 mg/dL (8.4-10.2); Carbon Dioxide 28 mmol/L (22-30); Chloride 104 mmol/L (98-107); Cholesterol 108 mg/dL (0-200); Estimated Glomerular Filt Rate > 60; Glucose 159 mg/dL (65-110); HDL Direct 42 mg/dL; Magnesium 1.7 mg/dL (1.6-2.3); Potassium 3.5 mmol/L (3.4-5.0); Sodium 136 mmol/L (137-145); Triglycerides 117 mg/dL (<150)
[2024-07-29 21:22] LABS: Vitamin D 25 Hydroxy 24.6 ng/mL
[2024-07-29 21:32] LABS: LDL Cholesterol Direct 42 mg/dL
[2024-07-29 22:35] LABS: Hemoglobin A1C 7.8 % (<5.7)
[2024-07-29 22:57] LABS: Creatinine Urine 55.2 mg/dL
[2024-07-29 23:08] LABS: MALB Creatinine Ratio < 10.9 mg/g (0-30); Microalbumin Urine Random < 6.0 mg/L (0-16.7)
== END 2024-07-29 11:34 | disposition home or self-care (01) ==
LOC: ANHGOSHLAB 11:34
PROVIDERS: PCP Clinical Nurse Specialist; Visit Provider Clinical Nurse Specialist
DX: E78.5 Hyperlipidemia, unspecified (principal); E11.9 Type 2 diabetes mellitus without complications; E83.42 Hypomagnesemia; J43.9 Emphysema, unspecified; J84.10 Pulmonary fibrosis, unspecified; K70.30 Alcoholic cirrhosis of liver without ascites
CPT/HCPCS: 36415; 80053; 80061; 82043; 82306; 83036; 83735; 84443; 85025

== ENCOUNTER 2024-09-19 19:03 | Emergency (ER) | payer OTHER, SELFPAY ==
--- NOTE | ~2024-09-19 | XR_ITS ---
EXAM: XR forearm RT 2V DATE: 09/19/2024 20:38 HISTORY: CAT BITE . COMPARISON: None available. FINDINGS: Decreased mineralization. No fracture or dislocation. No lytic or blastic lesion. Mild sca ttered degenerative changes. No erosion or periosteal change. No soft tissue foreign body or subcutan eous emphysema. IMPRESSION: No acute osseous finding in the right forearm. Reviewed, dictated and finalized at location [facility] [employer] [employer]
[2024-09-19 19:15] VITALS: BP 114/76; PULSE 98; RESP 18; TEMP 36.5; O2SAT 100
--- NOTE | 2024-09-19 20:39 | PC.NURSE ---
patient to room from radiology at this time
--- NOTE | 2024-09-19 22:07 | ED.GENADULT ---
HPI - General Adult General Chief complaint: Animal Bite Stated complaint: Cat Attack Time Seen by Provider: 09/19/24 21:05 History of Present Illness HPI narrative: This is a 64-year-old female presenting ED after a CAT attack. Patient was getting ready to feed her cat when it jumped on her arm biting and scratching her forearm multiple times. She has attacked by her cat many times previously. No other injuries. Related Data Home Medications ?Medication ?Instructions ?Recorded ?Confirmed ?Last Taken ?Type albuterol sulfate 90 mcg/actuation 2 puff inhalation DAILY 02/02/21 07/29/24 Unknown History aerosol inhaler gabapentin 400 mg capsule 400 mg PO TID 02/02/21 07/29/24 02/08/21 History lancets 30 gauge (Advocate Lancet) 02/02/21 07/29/24 Unknown History mirtazapine 15 mg tablet 15 mg PO HS 02/02/21 07/29/24 Unknown History multivitamin-iron 9 mg-folic acid 1 tablet PO DAILY 02/02/21 07/29/24 Unknown History 400 mcg-calcium and minerals tablet (Thera-M) venlafaxine 150 mg 150 mg PO DAILY 02/02/21 07/29/24 Unknown History capsule,extended release 24 hr umeclidinium 62.5 mcg-vilanterol 1 inh inhalation DAILY 11/17/23 07/29/24 Unknown History 25 mcg/actuation powdr for inhalation (Anoro Ellipta) furosemide 20 mg tablet 20 mg PO DAILY 01/07/24 07/29/24 Unknown History rifaximin 550 mg tablet (Xifaxan) 550 mg PO BID 01/07/24 07/29/24 Unknown History spironolactone 25 mg tablet 25 mg PO DAILY 01/07/24 07/29/24 Unknown History buspirone 10 mg tablet 10 mg PO BID 06/11/24 07/29/24 Unknown History nicotine 21 mg/24 hr daily 21 mg transdermal DAILY PRN 06/11/24 07/29/24 Unknown History transdermal patch aspirin 81 mg tablet,delayed 81 mg PO DAILY 07/29/24 07/29/24 Unknown History release (Adult Low Dose Aspirin) atorvastatin 40 mg tablet 40 mg feeding tube DAILY 07/29/24 07/29/24 Unknown History dicyclomine 20 mg tablet 20 mg PO QID PRN 07/29/24 07/29/24 Unknown History lactulose 10 gram/15 mL oral 15 g PO TID PRN 07/29/24 07/29/24 Unknown History solution (Enulose) olanzapine 5 mg tablet 5 mg PO DAILY 07/29/24 07/29/24 Unknown History oxazepam 10 mg capsule 10 mg PO BID PRN 07/29/24 07/29/24 Unknown History promethazine 12.5 mg tablet 12.5 mg PO Q8H PRN 07/29/24 07/29/24 Unknown History Allergies Allergy/AdvReac Type Severity Reaction Status Date / Time No Known Allergies Allergy Verified 07/29/24 10:33 [facility] Past Medical History Medical History Bipolar disorder Pacemaker Tobacco abuse ETOH abuse Diabetes Hyperlipidemia COPD (chronic obstructive pulmonary disease) Family History Family History Sibling Alcoholism in family member Unknown Alcoholism in family member Diabetes mellitus Depression Anxiety Thyroid disorder Father Hypertension Heart disease Cancer Mother Hypertension Social History Social History Smoking packs per day: 1 Smoking cigarettes per day: 20.0 Smoking status: Current every day smoker Alcohol intake: never Substance use: current Substance use type: marijuana Last use: 01/06/24 Do You Feel Safe in your Home?: Yes Lack of Transportation: No Lack of Food: Never True Current Housing: I Have Housing Concerned About Future Housing: No Difficulty Paying Gas/Electric Bills: YES Difficulty Paying for Meds: No Currently Unemployed: No Education: High School Diploma/GED Difficulty w/ Childcare or Family Care: No Gender identity (if verbalized by the patient): Female Sexual Orientation (if Verbalized by the Patient): Straight or Heterosexual Spiritual care concerns: No Exam Narrative: APPEARANCE: No apparent distress. Head: atraumatic. EYES: EOMI, NOSE: Atraumatic NECK: Trachea midline RESPIRATORY: No increased rate of breathing CARDIOVASCULAR: RRR, ABDOMINAL: Non-distended MUSCULOSKELETAl: No obvious deformities NEURO: Alert. Moving 4/4 extremities SKIN:: Multiple small scratches, skin tears puncture wounds to her right forearm. PSYCHIATRIC: Normal affect Course Vital Signs Vital signs: Vital Signs Temperature 97.7 F 09/19/24 19:15 Pulse Rate 98 09/19/24 19:15 Respiratory Rate 18 09/19/24 19:15 Blood Pressure 114/76 09/19/24 19:15 Pulse Oximetry 100 09/19/24 19:15 Oxygen Delivery Room Air 09/19/24 19:15 Temperature 97.7 F 09/19/24 19:15 Pulse Rate 98 09/19/24 19:15 Respiratory Rate 18 09/19/24 19:15 Blood Pressure 114/76 09/19/24 19:15 Pulse Oximetry 100 09/19/24 19:15 Oxygen Delivery Room Air 09/19/24 19:15 Medical Decision Making MDM Narrative Medical decision making narrative: -Course: [age]-year-old female presenting scratches and cat bites to her right forearm. Patient given pain control. The wounds were cleaned with copious amounts of fluid. She has been started on antibiotics. Patient is very high risk for infection has instructed to return to the ED immediately if she feels that her wounds have become infected. -DDX includes but is not limited to: Cat bite, cat scratch -Interventions: Benton 5 mg x 2, Augmentin -Shared decision making / Disposition: Discharge -RX Augmentin Vital Signs Vital Signs: Vital Signs Temperature 97.7 F 09/19/24 19:15 Pulse Rate 98 09/19/24 19:15 Respiratory Rate 18 09/19/24 19:15 Blood Pressure 114/76 09/19/24 19:15 Pulse Oximetry 100 09/19/24 19:15 Oxygen Delivery Room Air 09/19/24 19:15 Temperature 97.7 F 09/19/24 19:15 Pulse Rate 98 09/19/24 19:15 Respiratory Rate 18 09/19/24 19:15 Blood Pressure 114/76 09/19/24 19:15 Pulse Oximetry 100 09/19/24 19:15 Oxygen Delivery Room Air 09/19/24 19:15 Discharge Plan Discharge Clinical Impression: Cat bite Patient Disposition: Home, Self-Care Condition: Guarded Prognosis Instructions: Antibiotic Form, Animal Bite (ED) Additional Instructions: Please take Augmentin as instructed. You are at high risk for infection. If you develop redness increased pain or any other signs of infection please return to an emergency department immediately for IV antibiotics. Patient Language: Swiss Prescriptions: New amoxicillin-pot clavulanate 875-125 mg tablet 1 tablet PO Q12H Qty: 20 0RF No Action Anoro Ellipta 62.5-25 mcg/actuation blister with device 1 inh inhalation DAILY oxazepam 10 mg capsule 10 mg PO BID PRN promethazine 12.5 mg tablet 12.5 mg PO Q8H PRN atorvastatin 40 mg tablet 40 mg feeding tube DAILY aspirin [Adult Low Dose Aspirin] 81 mg tablet,delayed release (DR/EC) 81 mg PO DAILY olanzapine 5 mg tablet 5 mg PO DAILY gabapentin 400 mg capsule 400 mg PO TID venlafaxine 150 mg capsule,extended release 24hr 150 mg PO DAILY mirtazapine 15 mg tablet 15 mg PO HS albuterol sulfate 90 mcg/actuation HFA aerosol inhaler 2 puff INHALATION DAILY Thera-M 9 mg iron-400 mcg tablet 1 tablet PO DAILY (DME) lancets [Advocate Lancet] 30 gauge misc MISCELLANEOUS buspirone 10 mg tablet 10 mg PO BID spironolactone 25 mg tablet 25 mg PO DAILY furosemide 20 mg tablet 20 mg PO DAILY Xifaxan 550 mg tablet 550 mg PO BID (DME) lancets [OneTouch Delica Plus Lancet] 30 gauge misc Qty: 1 0RF Rx Instructions: May substitute to in-stock and/or covered by insurance lancets. Use As Directed nicotine 21 mg/24 hr patch 24 hour 21 mg transdermal DAILY PRN lactulose [Enulose] 10 gram/15 mL solution 15 g PO TID PRN Rx Instructions: Patient states that they take 30 grams in the morning then 15g later in the day if they need to dicyclomine 20 mg tablet 20 mg PO QID PRN acetaminophen 500 mg tablet 1,000 mg PO TID PRN (Reason: virgilio) 7 Days Qty: 42 0RF lidocaine 5 % adhesive patch,medicated 1 patch topical DAILY Qty: 15 0RF Rx Instructions: leave on most painful area for up to 12 hrs metformin 500 mg tablet 500 mg PO DAILY Qty: 90 1RF (DME) pen needle, diabetic [BD Ultra-Fine Micro Pen Needle] 32 gauge x 1/4 needle See Rx Instructions .Route Qty: 100 0RF Rx Instructions: For use with Tresiba daily (DME) [email or web address] Verio test strips Strip Qty: 1 0RF Rx Instructions: May substitute to in-stock and/or covered by insurance strips. Use As Directed insulin glargine [Lantus U-100 Insulin] 100 unit/mL solution 14 unit subcut QAM Qty: 10 0RF cyclobenzaprine 5 mg tablet 5 mg PO TID PRN (Reason: muscle spasm) Qty: 10 0RF Rx Instructions: Do not take while driving. May cause drowsiness. Follow-up/Referrals: Becca Victoria, [facility] [Primary Care Provider] -
[2024-09-19] MEDS: HYDROcodone/acetaminophen (*CRX) 5-325 MG TABLET 2 TAB PO (22:12)
[2024-09-19] MEDS: AMOXICILLIN/CLAVULANATE K 875-125 MG TAB 1 TABLET PO (22:19)
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
--- OUTSIDE RECORDS SUMMARY | 2024-09-24 09:27 | XMS_ITS | Encounter Summary ---
Author Organization [facility] Address [address] [place] [address] Care Team Providers Care Tool Turret Lathe Set Up Operator Name Role Phone Abel Carlos MD Primary Care Provider Alo Brady MD Primary Care Provider [phone] Abel Carlos MD Primary Care Provider A, Unknown Practice Primary Care Provider [phone] Abel Carlos MD Unavailable [phone] Abel Carlos MD Primary Care Provider Reason for Visit * Reason Onset Date Comments Pre-op Instructions 10/25/2021 Pt notified about pre-procedure instructions, holding meds. Voiced inability to come to appt.Reviewed meds to hold for 48 hrs. Pt provided RAD scheduling phone number. RAD notified as well of cancellation. Encounter Details Date Type Department Care Team (Late st Contact Info) Description 10/25/2021 Telephone [facility] PRE OP/POST OP [address] [place] [phone] Abel Carlos MD [address] [place], [place] [phone] Pre-op Instructions (Pt notified about pre-procedure instructions, holding meds. Voiced inability to come to appt.Reviewed meds to hold for 48 hrs. Pt provided RAD scheduling phone number. RAD notified as well of cancellation.) Social History Tobacco Use Types Packs/Day Years Used Date Smoking Tobacco: Every Day Cigarettes 1.5 30 Smokeless Tobacco: Never Alcohol Use Standard Drinks/Week Comments Yes 0 (1 standard drink = 0.6 oz pur e alcohol) admits to alcoholism Sex and Gender Information Value Date Recorded Sex Assigned at Not on file Gender Identity Not on file Sexual Orientation Not on file documented as of this encounter Miscellaneous Notes * Telephone Encounter - Laquita Wisdom RN - 10/25/2021 2:22 PM CST This telephone contact was in regards to pre-procedure instructions, glenn in holding medications of Buspar, cyclobenzaprine, mirtzaapine, and venlafaxine for 48 hours prior to visit. Pt noted that wasunable to make appt for 10/26/21, and provided contact phone number for RAD to reschedule [phone]. Danielle at same # was notified of cancellation. RY DRIER FEEDER documented in this encounter Plan of Treatment Upcoming Encounters Date Type Department Care Team (Late st Contact Info) Description 10/23/2024 8:00 AM ROTARY DRIER FEEDER Appointment [facility] ECHO [address] [place] [address] Isidoro Webber MD [address] [facility] 2L DIV OF PULMONARY/[place] [address] 10/23/2024 9:00 AM ROTARY DRIER FEEDER Appointment [facility] CAT SCAN [address] [place] [phone] Isidoro Webber MD [address] [facility] 2L DIV OF PULMONARY/[place] [address] 10/23/2024 9:30 AM ROTARY DRIER FEEDER Appointment [facility] PFT [address] [place] [phone] Isidoro Webber MD [address] [facility] 2L DIV OF PULMONARY/[place] [address] 10/23/2024 1:15 PM ROTARY DRIER FEEDER Appointment [facility] [address] [place] [phone] Marielena Ulrich, J[employer] PROFESSIONAL [address] [place] [address] [address]L [place] [phone] 10/23/2024 2:00 PM ROTARY DRIER FEEDER Office Visit [facility] - GI [address] [place] [address], [place] [phone] Nish Alex MD [address] [place] [address] [address] [place] [address] Marielena Ulrich, J[employer]MAN [employer] SERVICES PROFESSIONAL [address] [place] [address] 2L [place] [phone] 03/01/2025 2:00 PM CDT Office Visit [facility] - Pulmonology [address] [place] [address], [place] [phone] Gilberto Valladares MD [address] [facility] PULMONARY DISEASE/[place] [phone] documented as of this encounter Visit Diagnoses Not on filedocumented in this encounter Additional Health Concerns Infection Onset Date Last Indicated Resolved Time COVID-19 Under Investigation 08/15/2023 08/15/2023 08/15/2023 7:31 PM ROTARY DRIER FEEDER documented as of this encounter Care Teams Tool Turret Lathe Set Up Operator Relationship Specialty Start Date End Date Abel Carlos MD [address] [place], [place] [phone] PCP - General 07/06/21 06/04/22 Alo Brady MD [address] [place] [address] PCP - General Cardiology 06/05/22 06/10/22 [place] [address] [place] [phone] PCP - General 06/11/22 05/29/23 A, Unknown Practice [address] [place] [id number] PCP - General 05/30/23 07/11/23 [place] [address] [place] [phone] PCP - General Internal Medicine 07/12/23 [place] [address] [place] [phone] 05/30/23 documented as of this encounter
--- OUTSIDE RECORDS SUMMARY | 2024-09-24 09:27 | XMS_ITS | CONTINUITY OF CARE DOCUMENT ---
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 Alo Brady MD TOBACCO ABUSE active ? Alo Brady MD DIZZINESS-RESOLVED completed - SSS-S/PPM BIO completed - Alo Brady MD Palpitations active Alo Brady MD Sick sinus syndrome s/p BIO PPM active Karen Boles RN Numbness tingling bilat legs below knees active Alo Brady MD Diabetes mellitus, Type II active Alo Brady MD Fatigue active Alo Brady MD Elevated blood pressure reading without diagnosis of hypertension active Alo Brady MD Chronic Back Pain active Alo Brady MD Preoperative cardiovascular examination active Alo Brady MD Early clubbing of fingers active Manuel montes de oca Liver cirrhosis active Alo Brady MD Pulmonary fibrosis active Alo Brady MD CP-12/12 ECHO NL EF 45-7/11 ECHO EF 55-1/10 ECHO NL EF 60 active ? Alo Brady MD ENCOUNTERS Date Type Provider Location Encounter Diag nosis - In-person encounter Office Visit Alo Brady MD [facility] Liver cirrhosisPulmonary fibrosis - In-person encounter Office Visit [facility] Preoperative cardiovascular examinationEarly clubbing of fingers - In-person encounter Office Visit Alo Brady MD [facility] Elevated blood pressure reading without diagnosis of hypertensionChronic Back Pain - In-person encounter Office Visit Alo Brady MD [facility] Fatigue - In-person encounter Office Visit Alo Brady MD [facility] Sick sinus syndrome s/p BIO PPM - In-person encounter Office Visit Alo Brady MD [facility] Diabetes mellitus, Type II - In-person encounter Office Visit Alo Brady MD [facility] - In-person encounter Office Visit Alo Brady MD [facility] Sick sinus syndrome s/p BIO PPMNumbness tingling bilat legs below knees - In-person encounter Office Visit Alo Brady MD [facility] Palpitations - In-person encounter Office Visit Alo Brady MD [facility] - In-person encounter Office Visit Alo Brady MD [facility] - In-person encounter Office Visit Alo Brady MD [facility] UNSPECIFIED TACHY-8/11 EVENT SR --10/10 EVENT NSR - In-person encounter Office Visit Alo Brady MD [facility] CP-12/12 ECHO NL EF 45-7/11 ECHO EF 55-09/11 ECHO NL EF 60SSS-S/PPM BIO - In-person encounter Office Visit Alo Brady MD [facility] - In-person encounter Office Visit Alo Brady MD [facility] SSS-S/PPM BIO - In-person encounter Office Visit Alo Brady MD [facility] - In-person encounter Office Visit Alo Brady MD [facility] DIZZINESS-RESOLVED - In-person encounter Office Visit Alo Brady MD [facility] - In-person encounter Office Visit Alo Brady MD [facility] ALCOHOL ABUSETOBACCO ABUSE VITAL SIGNS Date Observation Value Provider Body Mass Index (Ratio) 16.82 kg/m2 Austin Brady MD blood pressure, cuff size regular Ja rr blood pressure, diastolic 73 mm[Hg] Ja rret blood pressure, systolic 108 mm[Hg] Jar [facility] pulse rate 84 /min [place] respiratory rate E&M 16 /min [place] oxygen saturation, oximetry 96 % [place] weight E&M 109 [lb_av] [facility] height E&M 67.5 [in_i] [facility] y Body Mass Index (Ratio) 20.34 kg/m2 Austin Brady MD blood pressure, diastolic 80 mm[Hg] Reina [facility] blood pressure, systolic 132 mm[Hg] Candace [facility] blood pressure, diastolic 80 mm[Hg] Sushil Gupta blood pressure, systolic 132 mm[Hg] Oneida Gupta oxygen saturation, oximetry 93 % Michi Gupta respiratory rate E&M 16 /min Gómez Gupta pulse rate 103 /min Alo Brady MD weight E&M 131.8 [lb_av] Michi harrison height E&M 67.5 [in_i] Michi bhakta Body Mass Index (Ratio) 20.12 kg/m2 Austin Brady MD pulse rate 90 /min Alo Brady MD blood pressure, cuff size small Pr jait [place] blood pressure, diastolic 100 mm[Hg] Pr ajit [place] blood pressure, systolic 150 mm[Hg] [facility] sherman [place] oxygen saturation, oximetry 97 % Danielle Barba respiratory rate E&M 18 /min Estela ramírez [place] weight E&M 130.4 [lb_av] Danielle Barrientos nd height E&M 67.5 [in_i] Danielle kidd Body Mass Index (Ratio) 19.90 kg/m2 Austin Brady MD blood pressure, diastolic -1 mm[Hg] Li [facility] blood pressure, systolic 112 mm[Hg] Candace [facility]Logic blood pressure, diastolic 72 mm[Hg] Ca therine Andrews blood pressure, systolic 112 mm[Hg] Cat herine Nick oxygen saturation, oximetry 97 % Aarti Andrews pulse rate 84 /min Aarti Andrews respiratory rate E&M 14 /min Catheri ne Andrews weight E&M 129 [lb_av] Aarti Andrews blood pressure, cuff size regular Ca therine Andrews height E&M 67.5 [in_i] Aarti Romero Body Mass Index (Ratio) 20.03 kg/m2 Kerry Connmeyer blood pressure, diastolic 70 mm[Hg] Reina [facility] blood pressure, systolic 116 mm[Hg] Candace [facility]Logic blood pressure, diastolic 70 mm[Hg] Sushil Gupta blood pressure, systolic 116 mm[Hg] Oneida Gupta oxygen saturation, oximetry 94 % Michi Gupta respiratory rate E&M 16 /min Gómez Gupta pulse rate 100 /min Michi bhakta weight E&M 129.8 [lb_av] Michi harrison height E&M 67.5 [in_i] Michi bhakta Body Mass Index (Ratio) 19.16 kg/m2 Austin Brady MD blood pressure, diastolic, standing 78 mm [Hg] Alo Brady MD blood pressure, systolic, standing 100 mm [Hg] Alo Brady MD blood pressure, resting No Cherrie Gupta blood pressure, diastolic 68 mm[Hg] Raj Brady MD blood pressure, systolic 106 mm[Hg] Teresa Brady MD oxygen saturation, oximetry 94 % Michi Gupta respiratory rate E&M 20 /min Gómez Gupta pulse rate 109 /min Michi bhakta weight E&M 124.2 [lb_av] Michi harrison height E&M 67.5 [in_i] Michi bhakta Body Mass Index (Ratio) 17.90 kg/m2 Austin Brady MD blood pressure, cuff size small Jorge Doan blood pressure, diastolic 75 mm[Hg] Ke rri Gruenenfelder blood pressure, systolic 101 mm[Hg] Ker ri Sarahnechristine oxygen saturation, oximetry 98 % Nora Gruzairnechristine respiratory rate E&M 16 /min Nora G giorgienenfdarroner pulse rate 110 /min Nora Grabbie lder weight E&M 116 [lb_av] Nora Grabbie lder height E&M 67.5 [in_i] Nora Abimaele er blood pressure, diastolic 91 mm[Hg] Sushil Gupta blood pressure, systolic 133 mm[Hg] Oneida Martinez Gupta pulse rate 120 /min Michi Kraft karengloria oxygen saturation, oximetry 98 % Michi Gupta respiratory rate E&M 18 /min Gómez Gupta Body Mass Index (Ratio) 19.19 kg/m2 Cherrie Gupta weight E&M 124.4 [lb_av] Michi padgetton Body Mass Index (Ratio) 20.52 kg/m2 Araujo i Sarahnechristine blood pressure, diastolic 67 mm[Hg] Ke rri Kendrickuenechristine blood pressure, systolic 104 mm[Hg] Manny ri Sarahnenfpayam pulse rate 75 /min Nora Gruzairneantwone lder oxygen saturation, oximetry 98 % Nora Sarahnenfpayam respiratory rate E&M 16 /min Nora G kaydennfpayam weight E&M 133 [lb_av] Nora Sarahneantwone lder blood pressure, diastolic 97 mm[Hg] Jose Franz RN blood pressure, systolic 143 mm[Hg] Tyson Franz RN pulse rate 81 /min Tyson Franz RN oxygen saturation, oximetry 98 % Tyson Franz RN respiratory rate E&M 16 /min Tyson pattersons RN Body Mass Index (Ratio) 20.26 kg/m2 Tyson Franz RN weight E&M 130.8 [lb_av] Tyson Franz RN blood pressure, diastolic 80 mm[Hg] Ja tatyana Franz RN blood pressure, systolic 120 mm[Hg] Tyson Franz RN pulse rate 86 /min Tyson Franz RN oxygen saturation, oximetry 93 % Tyson Franz RN respiratory rate E&M 16 /min Tyson pattersons RN Body Mass Index (Ratio) 21.68 kg/m2 Tyson Franz RN weight E&M 140 [lb_av] Tyson Franz RN height E&M 67.5 [in_i] Tyson Franz RN blood pressure, diastolic 87 mm[Hg] Jorge Doan blood pressure, systolic 132 mm[Hg] Manny oDan pulse rate 60 /min Nora glover oxygen saturation, oximetry 100 % Nora Doan respiratory rate E&M 16 /min Nora tavarez weight E&M 132.6 [lb_av] Nora hare blood pressure, diastolic, left arm 89 mm [Hg] Oliyebryce Max blood pressure, systolic, left arm 147 mm [Hg] Hector Max blood pressure, diastolic, right arm 96 m m[Hg] Hector Max blood pressure, systolic, right arm 146 m m[Hg] Hector Max blood pressure, diastolic 89 mm[Hg] Rojas blood pressure, systolic 147 mm[Hg] Oli Max pulse rate 80 /min Hector Max oxygen saturation, oximetry 99 % Hector Max respiratory rate E&M 16 /min [facility] weight E&M 130 [lb_av] [facility] Boschran blood pressure, diastolic, left arm 60 mm [Hg] Antonette Bonilla blood pressure, systolic, left arm 94 mm[ Hg] Antonette Bonilla blood pressure, diastolic, right arm 62 m m[Hg] Antonette Bonilla blood pressure, systolic, right arm 100 m m[Hg] Antonette Bonilla blood pressure, diastolic 60 mm[Hg] Jordon Bonilla blood pressure, systolic 94 mm[Hg] Latoya Bonilla pulse rate 59 /min Antonette Bonilla oxygen saturation, oximetry 96 % Antonette Bonilla respiratory rate E&M 14 /min Antonette matamoros weight E&M 127 [lb_av] Antonette Bonilla blood pressure, diastolic, left arm 81 mm [Hg] [facility] Max blood pressure, systolic, left arm 132 mm [Hg] [facility] blood pressure, diastolic, right arm 76 m m[Hg] [facility] Max blood pressure, systolic, right arm 132 m m[Hg] [facility] Max blood pressure, diastolic 81 mm[Hg] Rojas blood pressure, systolic 132 mm[Hg] Oli bryce Max pulse rate 56 /min [facility] oxygen saturation, oximetry 99 % [facility] Max respiratory rate E&M 16 /min [facility] weight E&M 132 [lb_av] [facility] Hollister blood pressure, diastolic, left arm 68 mm [Hg] [facility] blood pressure, systolic, left arm 118 mm [Hg] [facility] blood pressure, diastolic, right arm 78 m m[Hg] [facility] blood pressure, systolic, right arm 118 m m[Hg] Marcus [facility] blood pressure, diastolic 78 mm[Hg] Kelly mac [facility] blood pressure, systolic 118 mm[Hg] Gera chandu [facility] pulse rate 78 /min [facility] oxygen saturation, oximetry 92 % [facility] respiratory rate E&M 20 /min [facility] weight E&M 126 [lb_av] [facility] blood pressure, diastolic, left arm 61 mm [Hg] Guadalupe Oliver blood pressure, systolic, left arm 107 mm [Hg] Guadalupemendez Oliver blood pressure, diastolic, right arm 67 m m[Hg] Guadalupe Oliver blood pressure, systolic, right arm 108 m m[Hg] Guadalupe Oliver weight E&M 114 [lb_av] Guadalupe Oliver respiratory rate E&M 16 /min Guadalupe Oliver pulse rate 56 /min Guadalupe Oliver oxygen saturation, oximetry 99 % Guadalupe Oliver blood pressure, diastolic 61 mm[Hg] Maxwell Oliver blood pressure, systolic 107 mm[Hg] Liang Oliver blood pressure, diastolic 65 mm[Hg] Jose Franz RN blood pressure, systolic 124 mm[Hg] Tyson Franz RN pulse rate 55 /min Tyson Franz RN oxygen saturation, oximetry 99 % Tyson Franz RN respiratory rate E&M 16 /min Tyson dunn RN weight E&M 139 [lb_av] Tyson Franz RN blood pressure, diastolic 65 mm[Hg] Vivek Davidson blood pressure, systolic 142 mm[Hg] Louise Davidson oxygen saturation, oximetry 99 % Kayla Davidson pulse rate 76 /min Kayla Davidson respiratory rate E&M 16 /min Kaylaruth stewart weight E&M 132 [lb_av] Kayla Davidson ALLERGIES Allergy Name Onset Date Reaction Criticality Status HYDROCODONE Low Criticality active RESULTS Date Observation Value Provider Reference Range Interpretation Location hemoglobin A1C, blood, as % of total hemoglobin 6.8 % [facility] 4.8-5.6 High B-12, serum 419 pg/mL [facility] 232-1245 lipoprotein, beta, serum, point, quantitative, calculated 96 mg/dL [facility] 0-99 HDL cholesterol, serum 57 mg/dL [facility] >39 triglyceride, serum, random 86 mg/dL [facility] 0-149 cholesterol, serum 169 mg/dL [facility] 936-232 8161/12 /16 basophil count, absolute 0.0 x10E3/uL [facility] 0.0-0.2 Eosinophil Absolute Count 0.2 X10E3/UL [facility] 0.0-0.4 monocyte count, blood, automated 0.5 X10E3/UL [facility] 0.1-0.9 lymphocyte count, blood, automated 2.9 X10E3/UL [facility] 0.7-3.1 Absolute Neutrophils 3.6 X10E3/UL [facility] 1.4-7.0 basophils as percent of blood leukocytes 0 % [facility] Not Estab. eosinophils as percent of blood leukocytes 3 % [facility] Not Estab. monocytes as percent of blood leukocytes 8 % [facility] Not Estab. lymphocytes as percent of blood leukocytes 40 % [facility] Not Estab. neutrophils as percent of blood leukocytes 49 % [facility] Not Estab. platelet count 321 X10E3/UL [facility] 686-116 2904/12 /16 red blood cell distribution width 12.7 % [facility] 11.7-15.4 mean corpuscular hemoglobin concentration, RBC 34.6 G/DL [facility] 31.5-35.7 mean corpuscular hemoglobin, RBC 31.1 pg [facility] 26.6-33.0 mean corpuscular volume, RBC 90 fL [facility] 79-97 hematocrit, blood 42.5 % [facility] 34.0-46.6 hemoglobin, blood 14.7 g/dL [facility] 11.1-15.9 erythrocyte (RBC) count 4.73 X10E6/UL [facility] 3.77-5.28 leukocyte count, blood 7.2 X10E3/UL [facility] 3.4-10.8 alanine aminotransferase (SGPT), serum 14 1/L [facility] 0-32 aspartate aminotransferase (SGOT), serum 23 1/L [facility] 0-40 alkaline phosphatase, serum 147 1/L [facility] 44-121 High bilirubin, serum, total 0.5 mg/dL [facility] 0.0-1.2 albumin/globulin ratio, serum 1.4 [facility] 1.2-2.2 globulin, serum 3.0 [facility] 1.5-4.5 albumin, serum 4.1 g/dL [facility] 3.8-4.9 protein, total, serum 7.1 g/dL [facility] 6.0-8.5 calcium, serum 9.1 mg/dL [facility] 8.7-10.3 carbon dioxide, venous blood 20 mmol/L [facility] 20-29 chloride, serum 102 mmol/L [facility] 96-106 potassium, serum 4.0 mmol/L [facility] 3.5-5.2 sodium, serum 137 mmol/L [facility] 301-638 5950/12 /16 urea nitrogen/creatinine ratio, serum 13 [facility] 12-28 eGFR if 109 mL/min/{1.73_ m2} [facility] >59 eGFR if not 95 mL/min/{1.73_ m2} [facility] >59 creatinine, serum 0.69 mg/dL [facility] 0.57-1.00 urea nitrogen, blood 9 mg/dL [facility] 8-27 blood glucose, random 137 mg/dL [facility] 65-99 High urine crystals, microscopic none [facility] epithelial cells, urine, per microscopy occasional [facility] casts, urine none [facility] WBC urine on microscopy normal [facility] bacteria, urine microscopy none [facility] RBC urine by microscopy normal [facility] leukocyte esterase, urine, by dipstick Negative [facility] urobilinogen, urine, semiquantitative (dipstick) normal [facility] nitrite, urine, semiquantitative Negative [facility] RBC, urine, dipstick Negative [facility] bilirubin, urine Negative [facility] ketones, urine, by test strip Negative [facility] glucose, urine, semiquantitative Negative [facility] protein, urine, semiquantitative (dipstick) Negative [facility] pH, urine, semiquantitative 6.5 [facility] specific gravity, urine 1.010 [facility] urine color pale yellow [facility] appearance, urine Clear [facility] PTT patient 31.7 s [facility] prothrombin time (patient) 11.4 s [facility] international normalized ratio (INR) 1.1 [facility] blood glucose, fasting 96 mg/dL [facility] creatinine, serum 0.82 mg/dL [facility] urea nitrogen, blood 7 mg/dL [facility] carbon dioxide, serum, total 28 mmol/L [facility] chloride, serum 98 mmol/L [facility] potassium, serum 4.1 mmol/L [facility] sodium, serum 139 mmol/L [facility] platelet count 359 10*3/uL [facility] hematocrit, blood 41.1 % [facility] hemoglobin, blood 14.0 g/dL [facility] erythrocyte (RBC) count 4.80 10*6/mm3 [facility] leukocyte count, blood 7.8 10*3/mm3 [facility] globulins, serum, total 4.3 g/dL [facility] bilirubin, serum, direct 0.26 mg/dL [facility] bilirubin, serum, indirect 0.29 mg/dL [facility] albumin/globulin ratio, serum 0.7 [facility] protein, total, serum 7.2 g/dL [facility] albumin, serum 2.9 g/dL [facility] bilirubin, serum, total 0.55 mg/dL [facility] alkaline phosphatase, serum 161 1/L [facility] alanine aminotransferase (SGPT), serum 126 1/L [facility] aspartate aminotransferase (SGOT), serum 200 1/L [facility] triiodothyronine (T3), serum 152 ng/dL [facility] thyroxine, serum, free 0.74 ng/dL [facility] thyroid stimulating hormone, serum 1,58 [facility] globulins, serum, total 3.8 g/dL [facility] estimated glomerular filtration rate >60 [facility] albumin/globulin ratio, serum 0.9 [facility] protein, total, serum 7.2 g/dL [facility] albumin, serum 3.4 g/dL [facility] bilirubin, serum, total 0.64 mg/dL [facility] alkaline phosphatase, serum 168 1/L [facility] 2011/07 /08 alanine aminotransferase (SGPT), serum 104 1/L [facility] aspartate aminotransferase (SGOT), serum 167 1/L [facility] calcium, serum 8.8 mg/dL [facility] blood glucose, fasting 111 mg/dL [facility] creatinine, serum 0.71 mg/dL [facility] urea nitrogen, blood 3.9 mg/dL [facility] carbon dioxide, serum, total 26 mmol/L [facility] chloride, serum 101 mmol/L [facility] potassium, serum 3.4 mmol/L [facility] sodium, serum 133 mmol/L [facility] platelet count 167 10*3/uL [facility] red blood cell distribution width 15.2 % [facility] mean corpuscular hemoglobin concentration, RBC 34.9 g/dL [facility] mean corpuscular hemoglobin, RBC 30.9 pg [facility] mean corpuscular volume, RBC 88.2 fL [facility] hematocrit, blood 39.0 % [facility] hemoglobin, blood 13.6 g/dL [facility] erythrocyte (RBC) count 4.42 10*6/mm3 [facility] monocyte count, blood 0.5 10*3/mm3 [facility] lymphocyte count, blood 1.2 10*3/mm3 [facility] monocytes as percent of blood leukocytes 11 % [facility] lymphocytes as percent of blood leukocytes 27 % [facility] leukocyte count, blood 4.6 10*3/mm3 [facility] protein, total, serum 7.6 g/dL [facility] albumin, serum 4.3 g/dL [facility] bilirubin, serum, total 0.70 mg/dL [facility] alkaline phosphatase, serum 102 1/L [facility] alanine aminotransferase (SGPT), serum 94 1/L [facility] aspartate aminotransferase (SGOT), serum 80 1/L [facility] calcium, serum 9.7 mg/dL [facility] blood glucose, fasting 142 mg/dL [facility] creatinine, serum 0.6 mg/dL [facility] urea nitrogen, blood 2 mg/dL [facility] carbon dioxide, serum, total 26 mmol/L [facility] chloride, serum 99 mmol/L [facility] potassium, serum 2.5 mmol/L [facility] sodium, serum 138 mmol/L [facility] calcium, serum 9.0 mg/dL [facility] blood glucose, fasting 98 mg/dL [facility] creatinine, serum 0.6 mg/dL [facility] urea nitrogen, blood 7 mg/dL [facility] carbon dioxide, serum, total 26 mmol/L [facility] chloride, serum 106 mmol/L [facility] potassium, serum 3.9 mmol/L [facility] sodium, serum 136 mmol/L [facility] thyroid stimulating hormone, serum 2.37 u[IU]/mL [facility] triglyceride, serum, fasting 51 mg/dL [facility] HDL cholesterol, serum 48 mg/dL [facility] LDL cholesterol, serum 53 mg/dL [facility] cholesterol, serum 111 mg/dL [facility] troponin I <0.012 [facility] creatine kinase, serum 0.9 1/L [facility] Estimated Glomerular Filtration Rate (calc) >60 [facility] rapid plasma reagin antibody screen Non-reactive [facility] B-12, serum 299 pg/mL [facility] folate, serum 8.9 ng/mL [facility] magnesium, serum 2.1 mg/dL [facility] troponin I 0.013 ng/mL [facility] creatine kinase, serum 0.7 1/L [facility] thyroid stimulating hormone, serum 2.37 u[IU]/mL [facility] triglyceride, serum, fasting 51 mg/dL [facility] HDL cholesterol, serum 48 mg/dL [facility] LDL cholesterol, serum 53 mg/dL [facility] cholesterol, serum 111 mg/dL [facility] Estimated Glomerular Filtration Rate (calc) >60 [facility] protein, total, serum 7.6 g/dL [facility] albumin, serum 4.3 g/dL [facility] bilirubin, serum, total 0.70 mg/dL [facility] alkaline phosphatase, serum 102 1/L [facility] alanine aminotransferase (SGPT), serum 94 1/L [facility] aspartate aminotransferase (SGOT), serum 80 1/L [facility] calcium, serum 9.7 mg/dL [facility] blood glucose, fasting 142 mg/dL [facility] creatinine, serum 0.6 mg/dL [facility] urea nitrogen, blood 2 mg/dL [facility] carbon dioxide, serum, total 26 mmol/L [facility] chloride, serum 99 mmol/L [facility] potassium, serum 2.8 mmol/L [facility] sodium, serum 138 mmol/L [facility] platelet count 187 10*3/uL [facility] red blood cell distribution width 15.2 % [facility] mean corpuscular hemoglobin concentration, RBC 34.9 g/dL Denetr mean corpuscular hemoglobin, RBC 30.8 pg [facility] mean corpuscular volume, RBC 88.2 fL Sandi Durbin hematocrit, blood 39.0 % [facility] hemoglobin, blood 13.6 g/dL [facility] erythrocyte (RBC) count 4.42 10*6/mm3 [facility] monocyte count, blood 0.5 10*3/mm3 [facility] lymphocyte count, blood 1.2 10*3/mm3 [facility] monocytes as percent of blood leukocytes 11 % [facility] Ramakrishna lymphocytes as percent of blood leukocytes 27 % [facility] Ramakrishna leukocyte count, blood 4.0 10*3/mm3 Sandi Durbin HISTORY OF MEDICATION USE Medication Status Instructions Dates Provider Indications Com ments OneTouch Ultra2 Meter active [facility] OneTouch Delica Plus Lancet 33 gauge 33 gauge active [facility] lactulose 10 gram/15 mL solution active TAKE 15 MLS BY MOUTH THREE TIMES DAILY. [facility] Enulose 10 gram/15 mL solution active [facility] atorvastatin 40 mg tablet active TAKE 1 TABLET BY MOUTH EVERY DAY [facility] FeroSul 325 mg (65 mg iron) tablet active Take 1 tablet by mouth once a day [facility] folic acid 1 mg tablet active TAKE 1 TABLET BY MOUTH DAILY [facility] furosemide 20 mg tablet active Take 1 tablet by mouth once daily [facility] lamotrigine 150 mg tablet active Take 1 tablet by mouth once a day [facility] lorazepam 0.5 mg tablet active Take 1 tablet by mouth once a day as needed [facility] ondansetron HCl 4 mg tablet active Take 1 tablet by mouth every eight hours as needed for nausea [facility] spironolactone 25 mg tablet active Take 1 tablet by mouth once a day [facility] Xifaxan 550 mg tablet active Take 1 tablet by mouth twice a day [facility] lamotrigine 100 mg tablet completed - [facility] methocarbamol 750 mg tablet active every six hours as needed for pain Michi Gupta baclofen 10 mg tablet completed Take 1 tablet by mouth once a day - Michi Gupta Remeron unspecified unspecified active Take 1 tablet by mouth every night Michi Gupta buspirone 10 mg tablet active Take 2 tablet by mouth three times a day Michi Gupta Adult Low Dose Aspirin 81 mg tablet,delayed release (DR/EC) active Take 1 tablet by mouth once a day Michi Gupta meloxicam unspecified unspecified completed Take 1 tablet by mouth once a day - Michi Gupta trazodone 150 mg tablet active Take 1 tablet by mouth three times a day Michi Gupta venlafaxine 75 mg tablet active Take 1 tablet by mouth as directed 150 mg tab also Michi Gupta metoprolol tartrate 25 mg tablet completed Take 1 tablet twice a day - Alo Brady MD gabapentin 400 mg capsule active 1 tablet three times a day Michi Gupta MULTIVITAMINS CAPS active 1 tablet once a day Michi Gupta Vitamin B-12 1,000 mcg tablet completed 1 tablet once a day - Michi Gupta METOPROLOL SUCCINATE ER 50 MG ORAL TABLET EXTENDED RELEASE 24 HOUR completed Take one tablet in the morning - Nora Doan changed from 25mg x 2 in am d/t insurance coverage LISINOPRIL 5 MG ORAL TABLET completed ONE TAB. DAILY - Alo Brady MD ProAir HFA 90 mcg/actuation HFA aerosol inhaler active 2 puff every four hours as needed Alo Brady MD METOPROLOL SUCCINATE ER 25 MG ORAL TABLET EXTENDED RELEASE 24 HOUR completed take one half pill twice a day - Alo Brady MD ibuprofen 200 mg capsule completed Take 1 three times a day - Nora Doan MULTIVITAMINS ORAL CAPSULE completed ONE TAB. DAILY - Michi Gupta TRAMADOL HCL 50 MG ORAL TABLET completed 2 tabs every 8 hrs - Nora Doan PROAIR HFA 108 (90 Base) MCG/ACT INHALATION AEROSOL SOLUTION completed 2 puffs every 4 hrs or as needed - Nora Doan METOPROLOL SUCCINATE ER 25 MG ORAL TABLET EXTENDED RELEASE 24 HOUR completed take one pill twice a day - Cherrie Persaud RN VITAMIN B-1 TABLET completed 1 tab daily(100 mg) - Michi Gupta METFORMIN HCL TABLET completed 1 25mg tab daily - Tyson Franz RN THIAMINE HCL 100 MG ORAL TABLET completed One tab daily - Tyson Franz RN B-12 1000 MCG ORAL CAPSULE completed One cap daily(tabs ok) - Nora Doan folic acid 1 mg tablet completed 1 tablet once a day - Alo Brady MD CELEXA 20 MG ORAL TABLET completed 1 tablet by mouth daily - Hector Max TRAZODONE HCL 100 MG ORAL TABLET completed 1 tablet by mouth at bedtime - Hector Max MULTIVITAMINS TABS completed 1 tablet by mouth daily - Nora Doan FOLIC ACID-VIT B6-VIT B12 0.4-50-0.1 MG ORAL TABLET completed po once daily - Marcus Delarosa VITAMIN B-1 100 MG ORAL TABLET completed po once daily - Marcus Delarosa ACCUPRIL 10 MG ORAL TABLET completed ONE TAB. DAILY - Tyson Franz RN DIVALPROEX SODIUM 250 MG ORAL TABLET DELAYED RELEASE completed 1 tablet at bedtime - Tyson Franz RN METOPROLOL TARTRATE TABS completed 25mg twice daily - Alo Brady MD ZANTAC 300 MG ORAL TABLET completed 1 tablet twice a day - Alo Brady MD IBUPROFEN completed 800mg three time daily - Tyson Franz RN SOCIAL HISTORY Date Observation Value Provider drug use no Alo Brady MD alcohol use, average drinks per day social Alo Brady MD alcohol use yes Alo Brady MD passive cigarette sm viet exposure yes Alo Brady MD smoking/tobacco cess ation, patient education and counseling yes Alo Brady MD smoking, date started 1974 Bar Brady MD smoking history, tot al pack/year 42 Alo Brady MD smoking history, tot al pack/day 1 Alo Brady MD cigarette use yes Alo Brady MD smoking status Current every day smoker M clemencia Brady MD Underweight yes Alo Brady MD social history E&M Marital Statu s: L jose antonio with family/friends E thnicity: C hildren: 5 children Smoking History: P atient currently smokes every day. P atient has been counseled to quit. Alo Brady MD social history reviewed E&M keila figueroa - no changes required Alo Brady MD physical exercise, f requency, days per week no Michi Gupta caffeine use, averag e drinks per day yes Michi Gupta passive cigarette sm viet exposure yes Michi Gupta smoking/tobacco cess ation, patient education and counseling yes Michi Gupta smoking, date started 1974 Brendon Gupta smoking history, tot al pack/year 42 Michi Gupta smoking history, tot al pack/day 1 Michi Gupta cigarette use yes Michi harrison smoking status Current every day smoker Elfego Gupta social history E&M Marital Statu s: L jose antonio with family/friends E thnicity: C lynnedren: 5 children Smoking History: P atient currently smokes every day. P atient has been counseled to quit. Alo Brady MD social history reviewed E&M revi ewed - no changes required Alo Brady MD physical exercise, f requency, days per week no Danielle Barba caffeine use, averag e drinks per day yes Danielle Derby passive cigarette sm viet exposure yes Danielle Derby smoking/tobacco cess ation, patient education and counseling yes Danielle Derby smoking, date started 1973 Raman turner Derby smoking history, tot al pack/year 42 Danielle Derby smoking history, tot al pack/day 1 Danielle Derby cigarette use yes Danielle Barrientos jessica smoking status Current every day smoker M nichole Derby social history E&M Marital Statu s: Phani brady with family/friends E thnicity: C lynnedren: 5 children Smoking History: P atient currently smokes every day. P atient has been counseled to quit. Alo Brady MD social history reviewed E&M revi ewed - no changes required Alo Brady MD physical exercise, f requency, days per week no Aarti Nick caffeine use, averag e drinks per day yes Aarti Nick passive cigarette sm viet exposure yes Aarti Andrews smoking/tobacco cess ation, patient education and counseling yes Aarti Andrews smoking, date started 1974 Cather ine Andrews smoking history, tot al pack/year 42 Aarti Nick smoking history, tot al pack/day 1 Aarti Andrews cigarette use yes Aarti Andrews smoking status Current every day smoker C atherine Nick social history E&M Marital Statu s: Phani brady with family/friends E thnicity: C hildren: 5 children Smoking History: P attray currently smokes every day. P attray has been counseled to quit. Alo Brady MD social history reviewed E&M revi ewed - no changes required Alo Brady MD physical exercise, f requency, days per week no Michi Gupta caffeine use, averag e drinks per day yes Michi Gupta passive cigarette sm viet exposure yes Michi Gupta smoking/tobacco cess ation, patient education and counseling yes Michi Gupta smoking, date started 1973 Brendon Villanuevaenson smoking history, tot al pack/year 42 Michi Gupta smoking history, tot al pack/day 1 Michi Gupta cigarette use yes Michi harrison smoking status Current every day smoker Elfego Wallschalo Gupta social history reviewed E&M revi ewed - no changes required Kelley Wheeler Underweight no Kelley marvin number of grandchildren Alo Brady MD physical exercise, f requency, days per week no Michi Gupta alcohol use, average drinks per day social Michi Gupta alcohol use yes Michi bhakta caffeine use, averag e drinks per day yes Michi Gupta drug use no Michi bhakta smoking/tobacco cess ation, patient education and counseling yes Michi Gupta passive cigarette sm viet exposure yes Michi Gupta smoking, date started 1973 Brendon Gupta smoking history, tot al pack/year 42 Michi Gupta smoking history, tot al pack/day 1 Michi Gupta cigarette use yes Michi harrison smoking status Current every day smoker Elfego Cesar Gupta Underweight yes Alo Brady MD social history E&M Marital Statu s: Phani brady with family/friends E thnicity: C hildren: 5 children Smoking History: P atient currently smokes every day. P atient has been counseled to quit. Alo Brady MD social history reviewed E&M revi ewed - no changes required Alo Brady MD physical exercise, f requency, days per week no Nora Doan alcohol use, average drinks per day social Nora Doan alcohol use yes Nora glover caffeine use, averag e drinks per day yes Nora Doan drug use no Nora glover smoking/tobacco cess ation, patient education and counseling yes Noar Doan passive cigarette sm viet exposure yes Nora Doan smoking, date started 1974 Nora Doan smoking history, tot al pack/year 42 Nora Doan smoking history, tot al pack/day 1 Nora Doan cigarette use yes Nora hare smoking status Current every day smoker Stacey lilly Olimpia smoking history, tot al pack/year 42 Cherrie Orozco RN social history reviewed E&M revi ewed - no changes required Alo Brady MD physical exercise, f requency, days per week no Michi Gupta alcohol use, average drinks per day social Michi Gupta alcohol use yes Michi bhakta caffeine use, averag e drinks per day yes Michi Gupta drug use no Michi Kraft nson smoking/tobacco cess ation, patient education and counseling yes Michi Gupta passive cigarette sm viet exposure yes Michi Gupta smoking, date started 1974 Brendon Gupta smoking history, tot al pack/year 40 Michi Gupta smoking history, tot al pack/day 1 Michi Gupta cigarette use yes Michi harrison smoking status Current every day smoker Elfego Gupta smoking history, tot al pack/year 40 Tyson Franz RN smoking history, tot al pack/year 40 Tyson Franz RN social history E&M Marital Statu s: L jose antonio with family/friends E thnicity: C hildren: 5 children Smoking History: P attray currently smokes every day. P attray has been counseled to quit. Alo Brady MD social history reviewed E&M revi ewed - no changes required Alo Brady MD smoking/tobacco cess ation, patient education and counseling yes Alo Brady MD alcohol use, average drinks per day social Nora Doan alcohol use yes Nora glover smoking history, tot al pack/year 40 Nora Doan smoking history, tot al pack/day 1 Nora Doan cigarette use yes Nora hare smoking status Current every day smoker K vijaya Doan smoking/tobacco cess ation, patient education and counseling yes Alo Brady MD social history reviewed E&M reviewed Tyson Franz RN smoking history, tot al pack/year 39 Tyson Franz RN drug use no Tyson Franz RN passive cigarette sm viet exposure yes Tyson Franz RN smoking history, tot al pack/year 39 Alo Brady MD cigarette use yes Tyson Franz RN smoking, date started 1973 Zander hermosillo RN social history reviewed E&M reviewed Tyson Franz RN smoking status smoker - current status unknown Alo Brady MD social history reviewed E&M reviewed Alo Brady MD social history reviewed E&M reviewed Tyson Franz RN social history reviewed E&M reviewed Tyson Franz RN social history reviewed E&M reviewed Tyson Franz RN social history reviewed E&M reviewed Tyson Franz RN social history reviewed E&M reviewed Tyson Franz RN smoking/tobacco cess ation, patient education and counseling yes Tyson Franz RN social history reviewed E&M reviewed Tyson Franz RN number of children 5 children Alo Brady MD drug use current Alo Brady MD physical exercise, f requency, days per week no Alo Brady MD smoking/tobacco cess ation, patient education and counseling yes Tyson Franz RN social history E&M Marital Statu s: L jose antonio with family/friends E thnicity: C hildren: 5 children Alo Brady MD caffeine use, averag e drinks per day yes Tyson Franz RN alcohol use, average drinks per day drinks alot Tyson Franz RN smoking status Smoker Tyson Franz RN social history reviewed E&M reviewed Tyson Franz RN MENTAL STATUS Date Observation Value Provider assessment of judgme nt and insight E&M Alert and oriented to time, place and person. Mood and affect are normal. Tyson Franz RN assessment of judgme nt and insight E&M Alert and oriented to time, place and person. Mood and affect are normal. Tyson Franz RN assessment of judgme nt and insight E&M Alert and oriented to time, place and person. Mood and affect are normal. Alo Brady MD assessment of judgme nt and insight E&M Alert and oriented to time, place and person. Mood and affect are normal. Tyson Franz RN assessment of judgme nt and insight E&M Alert and oriented to time, place and person. Mood and affect are normal. Tyson Franz RN assessment of judgme nt and insight E&M Alert and oriented to time, place and person. Mood and affect are normal. Tyson Franz RN assessment of judgme nt and insight E&M Alert and oriented to time, place and person. Mood and affect are normal. Tyson Franz RN assessment of judgme nt and insight E&M Alert and oriented to time, place and person. Mood and affect are normal. Tyson Franz RN assessment of judgme nt and insight E&M Alert and oriented to time, place and person. Mood and affect are normal. Tyson Franz RN assessment of judgme nt and insight E&M Alert and oriented to time, place and person. Mood and affect are normal. Tyson Franz RN FAMILY HISTORY Family Member Condition Father Family History of Di abetes: INSURANCE PROVIDERS Payer name Policy type / Coverage type [place] [employer] (2) Medicaid [id number] ADVANCE DIRECTIVES Name Date DISCUSSED - NO DECISION MADE TREATMENT PLAN Date Name Performer [id number],C, H aving lumbar surgery with Dr. Priest at [facility]. The patient had a negative ischemic workup with August 2021 with a negative stress test and an echo in July 2021 which showed normal LVF. She may undergo surgeyr at an acceptable CV risk. Alo Brady MD [id number],S, S tress test 08/2021 was negative for ischemia. The patient has been reassured. Alo Brady MD [id number],S, R ecent A1c 6.8%. Alo Brady MD [id number],S, B lood pressure control is satisfactory. Alo Brady MD [id number],S, S atisfactory device function. Alo Brady MD [id number],S, T he Patient was reencouraged to stop smoking. F/w pulmonology. Alo Brady MD [id number],S, S ees neurology. Alo Brady MD [id number],W, B P 150/100 today. Advised routine home BP monitoring and dietary sodium restriction. Alo Brady MD [id number],S, N o recurrence. Alo Brady MD [id number],S, S atisfactory device function. Alo Brady MD [id number],S, T he Patient was reencouraged to stop smoking. F/w pulmonology. Alo Brady MD [id number],S, R ecent A1c 6.8%. Alo Brady MD [id number],S, R ecent stress test was negative for ischemia. The patient has been reassured. Alo Brady MD [id number],S,W ill do stress regadenoson to assess her sxs of fatigue and SOB. Kash Dotson [id number],S,P atient was encouraged to stop smoking. Kash Dotson [id number],S, Kash Chaparro i [id number],S, Kash Chaparro i [id number],C,C ontinues to have episodes of palpitations. Will schedule her a stress test Hortensia Olea [id number],S, T obacco abuse - smoking cessation strongly advised Hortensia Olea [id number],C,Followed by P CP Hortensia Olea [id number],C,H as chest pain that lasts about a minute. Will schedule her an echo and stress test Hortensia Olea [id number],C,W ill have pacemaker checked, as it has been a few years since the pacemaker has been interrogated. Hortensia Connjoaquin Cardiology:Sees Dr. Ulrich at [facility] S he has stopped drinking for over a year W as treated for ascites last year Alo Brady MD Cardiology:Reports f eeling episodes of palpitations occassionally that makes her feel weak P acemaker is functioning well W e will do regadenoson stress test and echo Alo Brady MD Cardiology Alo Kidd Cardiology: T he Patient was reencouraged to stop smoking. F/w pulmonology. Alo Brady MD Cardiology:Sees Dr. Ulrich at [facility] Alo Brady MD Cardiology:% Pacing: RA - 10.0% RV - 0.0% T echnician Summary Notes: B attery status: OK 15% P resenting EGM: -VS at 132 bpm A T/AF [place]: 8% in last 24 hrs. OAC s tatus unknown. 2 HVR events in last 24 h rs, longest duration 1hr 26m. No EGMs o r further information in vendor portal. A vg V rate in past 24 hrs: 100 bpm. Gaps i n trends seen. Alo Brady MD Cardiology: H aving lumbar surgery with Dr. Priest at [facility]. The patient had a negative ischemic workup with August 2021 with a negative stress test and an echo in July 2021 which showed normal LVF. She may undergo surgeyr at an acceptable CV risk. Alo Brady MD Cardiology: S tress test 08/2021 was negative for ischemia. The patient has been reassured. Alo Brady MD Cardiology: R ecent A1c 6.8%. Alo Brady MD Cardiology: B lood pressure control is satisfactory. Alo Brady MD Cardiology: S atisfactory device function. Alo Brady MD Cardiology: T he Patient was reencouraged to stop smoking. F/w pulmonology. Alo Brady MD Cardiology: S ees neurology. Alo Brady MD Cardiology: B P 150/100 today. Advised routine home BP monitoring and dietary sodium restriction. Alo Brady MD Cardiology: N o recurrence. Alo Brady MD Cardiology: S atisfactory device function. Alo Brady MD Cardiology: T he Patient was reencouraged to stop smoking. F/w pulmonology. Alo Brady MD Cardiology: R ecent A1c 6.8%. Alo Brady MD Cardiology: R ecent stress test was negative for ischemia. The patient has been reassured. Alo Brady MD Cardiology:Will do s tress regadenoson to assess her sxs of fatigue and SOB. Kash Dotson Cardiology:Patient w as encouraged to stop smoking. Kash Dotson Cardiology Kash Dotson Cardiology Kash Dotson Cardiology:Continues to have episodes of palpitations. Will schedule her a stress test Hortensia Olea Cardiology: T obacco abuse - smoking cessation strongly advised Hortensia Olea Cardiology:Followed by PCP Regina Olea Cardiology:Has chest pain that lasts about a minute. Will schedule her an echo and stress test Hortensia Olea Cardiology:Will have pacemaker checked, as it has been a few years since the pacemaker has been interrogated. Hortensia Olea Cardiology:Patient s tates that she was recently advised that she had type II diabetes. This was apparently diagnosed via glucose tolerance testing. She is currently diet controlled. We will obtain recent blood results from your office. If she has diabetes mellitus, we will place her on statins if LDL is greater than 70's. Alo Brady MD Cardiology:Recent ep isode of syncope 2 weeks ago. Etiology is unclear; most likely vasovagal. 6mmHg orthostasis on standing. Standing BP was 100/78; I have asked her to discontinue Lisinopril and advised increased fluid intake, as well as to avoid excessive intake of caffeine and alcohol. Alo Brady MD Cardiology:Recent pa cemaker interrogation shows no arrhythmia and 64% atrial pacing. Alo Brady MD Cardiology:Atypical, likely musc uloskeletal. Alo Brady MD Cardiology Follow up :Tobacco abuse - smoking cessation strongly advised Alo Brady MD Cardiology Follow up :No recurre nce. Alo Brady MD Cardiology Follow up :She is due to have a remote check tomorrow. Last pacemaker interrogation was satisfactory. Alo Brady MD Cardiology Follow up :Likely related to anxiety. Recent stress test showed normal perfussion. Alo Brady MD Cardiology:Had blood work done this morning to evaluate for possible diabetes. Has a history of increased alcohol intake. Started back on Vitamin B-12 and Folic Acid. Alo Brady MD Cardiology:Having ep isodes of SVT. The patient is aware of the palpitations. WIll increase the dose of Metoprolol. Alo Brady MD Cardiology:Will obtain an echo a nd stress adenosine. Alo Brady MD Cardiology:Continues to smoke 1 ppd. Encouraged tobacco cessation. Alo Brady MD Cardiology:Had blood work done this morning to evaluate for possible diabetes. Started back on Vitamin B-12 and Folic Acid. Alo Brady MD Cardiology:Increased Metoprolol Succinate to 25mg 2 tablets in the AM and 1 tablet in the PM Alo Brady MD Follow up Alo Kidd Follow up: H er updated medication list for this problem includes: Metoprolol Succinate 50 Mg Tb24 (Metoprolol succinate) ..... Take one pill twice carrie Brady MD Follow up: H er updated medication list for this problem includes: Metoprolol Succinate 50 Mg Tb24 (Metoprolol succinate) ..... Take one pill twice carrie Orders: E KG ([id number]) Alo Brady MD Follow up: H er updated medication list for this problem includes: Metoprolol Succinate 50 Mg Tb24 (Metoprolol succinate) ..... Take one pill twice carrie Brady MD Follow up Alo Kidd Date Name Complete Echo Stress Regadenoson Stress Regadenoson HEMOGLOBIN A1c CBC (INCLUDES DIFF/P LT) COMPREHENSIVE METABO LIC PANEL, W/EGFR VITAMIN B12/FOLATE, SERUM PANEL LIPID PANEL Complete Echo Stress Regadenoson STR - Adenosine Complete Echo Complete Echo STR - Adenosine Spirometry Pacemaker Dual Chamb er - GC Holter Monitor 24 Hr Complete Echo Holter Monitor 24 Hr T3, TOTAL T-4, FREE TSH, 3RD GENERATION COMPREHENSIVE METABO LIC PANEL W/EGFR Carotid Duplex Bilat eral Spirometry Mobile Cardiac Tele Complete Echo Event Recorder HISTORY OF PROCEDURES Procedure Date Procedure Name Provider Procedure Notes S tatus EKG Alo Brady MD completed EKG Alo Brady MD completed EKG Alo Brady MD completed EKG Alo Brady MD completed Pacemaker Interrogation, Remote (Tech) Alo Brady MD INTERROGATION REMOTE </90 D PICKLING DRUM OPERATOR REVIEW completed Pacemaker Interrogation, Remote (Prof) Alo Brady MD INTERROGATION EVAL REMOTE </90 D 1/2/BLADDER BLOWER LEAD P completed Pacemaker Interrogation, Remote (Tech) Alo Brady MD INTERROGATION REMOTE </90 D PICKLING DRUM OPERATOR REVIEW completed Pacemaker Interrogation, Remote (Prof) Alo Brady MD INTERROGATION EVAL REMOTE </90 D 1/2/BLADDER BLOWER LEAD P completed Pacemaker Interrogation, Remote (Tech) Alo Brady MD INTERROGATION REMOTE </90 D PICKLING DRUM OPERATOR REVIEW completed Pacemaker Interrogation, Remote (Prof) Alo rBady MD INTERROGATION EVAL REMOTE </90 D 1/2/BLADDER BLOWER LEAD P completed Pacemaker Interrogation, Remote (Tech) Alo Brady MD INTERROGATION REMOTE </90 D PICKLING DRUM OPERATOR REVIEW completed Pacemaker Interrogation, Remote (Prof) Alo Brady MD INTERROGATION EVAL REMOTE </90 D 1/2/BLADDER BLOWER LEAD P completed Pacemaker Interrogation, Remote (Tech) Alo Brady MD INTERROGATION REMOTE </90 D PICKLING DRUM OPERATOR REVIEW completed Pacemaker Interrogation, Remote (Prof) Alo Brady MD INTERROGATION EVAL REMOTE </90 D 1/2/BLADDER BLOWER LEAD P completed Pacemaker Interrogation, Remote (Tech) Alo Brady MD INTERROGATION REMOTE </90 D PICKLING DRUM OPERATOR REVIEW completed Pacemaker Interrogation, Remote (Prof) Alo Brady MD INTERROGATION EVAL REMOTE </90 D 1/2/BLADDER BLOWER LEAD P completed SNOMED-CT: 42926479 Physical Exam, Performed: Pulse Exam of Foot Alo Brady MD completed SNOMED-CT: 779203032622982 Current Medications Documented Alo Brady MD completed EKG Alo Brady MD completed SNOMED-CT: [id number] Current Medications Documented Alo Brady MD completed Pacemaker Interrogation, Remote (Tech) Alo Brady MD INTERROGATION REMOTE </90 D PICKLING DRUM OPERATOR REVIEW completed Pacemaker Interrogation, Remote (Prof) Alo Brady MD INTERROGATION EVAL REMOTE </90 D 1/2/BLADDER BLOWER LEAD P completed SNOMED-CT: 80165310 Physical Exam, Performed: Pulse Exam of Foot Alo Brady MD completed EKG Alo Brady MD completed SNOMED-CT: [id number] Current Medications Documented Alo Brady MD completed Stress EKG Saul Calvo MD complete d Regadenoson, 4 units Alo santamaria MD completed Cardiolite, 2 units Alo perez MD completed SPECT Images Alo Brady MD completed Pacemaker Interrogation, Remote (Tech) Alo Brady MD INTERROGATION REMOTE </90 D PICKLING DRUM OPERATOR REVIEW completed Pacemaker Interrogation, Remote (Prof) Alo Brady MD INTERROGATION EVAL REMOTE </90 D 1/2/BLADDER BLOWER LEAD P completed SNOMED-CT: 763670414 Smoking Cessation Counseling Alo Brady MD completed SNOMED-CT: 09340985 Physical Exam, Performed: Pulse Exam of Foot Alo Brady MD completed EKG Alo Brady MD completed SNOMED-CT: [id number] Current Medications Documented Alo Brady MD completed Pacemaker Interrogation, Remote (Tech) Alo Brady MD INTERROGATION REMOTE </90 D PICKLING DRUM OPERATOR REVIEW completed Pacemaker Interrogation, Remote (Prof) Alo Brady MD INTERROGATION EVAL REMOTE </90 D 1/2/BLADDER BLOWER LEAD P completed Pacemaker Interrogation, Remote (Tech) Alo Brady MD INTERROGATION REMOTE </90 D PICKLING DRUM OPERATOR REVIEW completed Pacemaker Interrogation, Remote (Prof) Alo Brady MD INTERROGATION EVAL REMOTE </90 D 1/2/BLADDER BLOWER LEAD P completed Pacemaker Interrogation, Remote (Tech) Alo Brady MD INTERROGATION REMOTE </90 D PICKLING DRUM OPERATOR REVIEW completed Pacemaker Interrogation, Remote (Prof) Alo Brady MD INTERROGATION EVAL REMOTE </90 D 1/2/BLADDER BLOWER LEAD P completed Pacemaker Interrogation, Remote (Tech) Alo Brady MD INTERROGATION REMOTE </90 D PICKLING DRUM OPERATOR REVIEW completed Pacemaker Interrogation, Remote (Prof) Alo Brady MD INTERROGATION EVAL REMOTE </90 D 1/2/BLADDER BLOWER LEAD P completed ICM Interrogation, Remote (Prof) Alo Brady MD INTERROGATION EVAL REMOTE </30 D CV MNTR SYS completed ICM Interrogation, Remote (Tech) Alo Brady MD INTERROGATION EVAL REMOTE </30 D TECH REVIEW completed ICM Interrogation, Remote (Prof) Alo Brady MD INTERROGATION EVAL REMOTE </30 D CV MNTR SYS completed Pacemaker Interrogation, Remote (Tech) Alo Brady MD INTERROGATION REMOTE </90 D PICKLING DRUM OPERATOR REVIEW completed Pacemaker Interrogation, Remote (Prof) Alo Brady MD INTERROGATION EVAL REMOTE </90 D 1/2/BLADDER BLOWER LEAD P completed EKG Alo Brady MD completed Pacemaker Interrogation, Remote (Tech) Alo Brady MD INTERROGATION REMOTE </90 D PICKLING DRUM OPERATOR REVIEW completed Pacemaker Interrogation, Remote (Prof) Alo Brady MD INTERROGATION EVAL REMOTE </90 D 1/2/BLADDER BLOWER LEAD P completed Pacemaker Interrogation, Remote (Tech) Alo Brady MD INTERROGATION REMOTE </90 D PICKLING DRUM OPERATOR REVIEW completed Pacemaker Interrogation, Remote (Prof) Alo Brady MD INTERROGATION EVAL REMOTE </90 D 1/2/BLADDER BLOWER LEAD P completed Pacemaker Interrogation, Remote (Tech) Alo Brady MD INTERROGATION REMOTE </90 D PICKLING DRUM OPERATOR REVIEW completed Pacemaker Interrogation, Remote (Prof) Alo Brady MD INTERROGATION EVAL REMOTE </90 D 1/2/BLADDER BLOWER LEAD P completed Pacemaker Interrogation, Remote (Tech) Alo Brady MD INTERROGATION REMOTE </90 D PICKLING DRUM OPERATOR REVIEW completed Pacemaker Interrogation, Remote (Prof) Alo Brady MD INTERROGATION EVAL REMOTE </90 D 1/2/BLADDER BLOWER LEAD P completed ePrescribe - Check t his box if eRx is used Alo Brady MD completed EKG Alo Brady MD completed Lipid Strip Alo Brady MD completed EKG Alo Brady MD completed EKG Alo Brady MD completed EKG Alo Brady MD completed EKG Alo Brady MD completed EKG Alo Brady MD completed
--- OUTSIDE RECORDS SUMMARY | 2024-09-24 09:27 | XMS_ITS | Encounter Summary ---
Author Organization [facility] Health Address [address] [facility] [place] [address] Care Team Providers Care Commercial Ocean Clammer Name Role Phone Abel Carlos MD Unavailable [phone] Abel Carlos MD Primary Care Provider Encounter Details Date Type Department Care Team (Late st Contact Info) Description 05/01/2024 Telephone [facility] - Pulmonology [address] [facility], [place] [address] Gilberto Valladares MD [address] [facility] PULMONARY DISEASE/[place] [address] Social History Tobacco Use Types Packs/Day Years Used Date Smoking Tobacco: Every Day Cigarettes 1.5 48 Smokeless Tobacco: Never Alcohol Use Standard Drinks/Week Comments Not Currently [...] medical care, and heating? Somewhat hard 06/01/2023 [facility] [place] of Occupat ional Health - Occupational Stress [...] place to sleep or slept in a half-way (including now)? No 06/01/2023 Sex and Gender Information Value Date Recorded Sex Assigned at Not on file Gender Identity Not on file Sexual Orientation Not on file documented as of this encounter Functional Status Functional Status Response Date of [...] person have difficulty concentrating/remembering/making decisions? No 06/10/2023 documented as of this encounter Miscellaneous Notes * Telephone Encounter - Nettie Little - 05/01/2024 12:17 PM CDT Current Provider: Dr. Bowles Reason for Call: Ms. Kristen Bear is already a pt and has seen Dr. Bowles, She returned a call from referral team to be scheduled. I didn't find referral. She stated earlier this month she was coughing and spit up quite a bit of blood. She was being treated for pulmonary lung tissue disease. Last appt w/ 07/29/2023 and it looks like January/2024 and February/2024 appts wer CXLD. She said she had appt w G andhi 08/17/24. She does have cirrosis of the liver. Please advise/call for soon appt. Patient Call Back Number: [phone] documented in this encounter Plan of Treatment Upcoming Encounters Date Type Department Care Team (Late st Contact Info) Description 10/23/2024 8:00 AM PARKING SUPERVISOR Appointment [facility] ECHO [address] [place] [address] Isidoro Webber MD [address] [place] [address] 2L DIV OF PULMONARY/[place] [address] 10/23/2024 9:00 AM PARKING SUPERVISOR Appointment [facility] CAT SCAN [address] [place] [address] [place] [address] [place] [address] 2L DIV OF PULMONARY/[place] [address] 10/23/2024 9:30 AM PARKING SUPERVISOR Appointment [facility] PFT [address] [place] [address] Isidoro Webber MD [address] [facility] 2L DIV OF PULMONARY/[place] [address] 10/23/2024 1:15 PM PARKING SUPERVISOR Appointment [facility] [address] [place] [address] Marielena Ulrich, EDGER AUTOMATIC-CT TECH [address] [place] [address] 2L [place] [address] 10/23/2024 2:00 PM PARKING SUPERVISOR Office Visit [facility] - GI [address] [place] [address], [place] [phone] Nish Alex MD [address] [place] [address] [address] [place] [address] Marielena Ulrich, EDGER AUTOMATIC-CT TECH [address] [place] [address] 2L [place] [address] 03/01/2025 2:00 PM CDT Office Visit [facility] - Pulmonology [address] [place] [address], [place] [address] Gilberto Valladares MD [facility] PULMONARY DISEASE/[place] [address] documented as of this encounter Goals Goal Patient Goal Type Associated Problems [...] one week prior to your last dose documented as of this encounter Visit Diagnoses Not on filedocumented in this encounter Care Teams Commercial Ocean Clammer Relationship Specialty [place] [address] [place] [phone] PCP - General Internal Medicine 07/12/23 Abel Carlos MD [address] [place], [place] [phone] 05/30/23 documented as of this encounter
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
--- OUTSIDE RECORDS SUMMARY | 2024-09-24 09:27 | XMS_ITS | Encounter Summary ---
Author Organization [facility] Health Address [address] [facility] [place] [address] Care Team Providers Care Machinery Mechanic Name Role Phone Abel Carlos MD Unavailable [phone] Abel Carlos MD Primary Care Provider Reason for Visit * Reason Comments Refill Request Encounter Details Date Type Department Care Team (Late st Contact Info) Description 06/20/2024 Refill [facility] [address] [place] [address], [place] [phone] Vane Priest MD [address] [place] [address] [place] [address] Refill Request Social History Tobacco Use Types Packs/Day Years [...] medical care, and heating? Somewhat hard 06/01/2023 [facility] [place] of Occupat ional Health - Occupational Stress [...] place to sleep or slept in a penitentiary (including now)? No 06/01/2023 Sex and Gender [...] No 06/10/2023 documented as of this encounter Plan of Treatment Upcoming Encounters Date Type Department Care Team (Late st Contact Info) Description 10/23/2024 8:00 AM MUSIC COMPOSER Appointment [facility] [address] [place] [address] Isidoro Webber MD [address] [facility] 2L DIV OF PULMONARY/[place] [address] 10/23/2024 9:00 AM MUSIC COMPOSER Appointment [facility] CAT SCAN [address] [place] [phone] Isidoro Webber MD [address] [facility] 2L DIV OF PULMONARY/[place] [address] 10/23/2024 9:30 AM MUSIC COMPOSER Appointment [facility] PFT [address] [place] [phone] Isidoro Webber MD [address] [facility] 2L DIV OF PULMONARY/[place] [address] 10/23/2024 1:15 PM MUSIC COMPOSER Appointment [facility] US [address] [place] [phone] Marielena Ulrich, FLY RAISER LOCKSTITCH-MALL MANAGER [address] [place] [address] 2L DIV [place] [address] 10/23/2024 2:00 PM MUSIC COMPOSER Office Visit [facility] - GI [address] [place] [address], [place] [phone] Nish Alex MD [employer] 2L [place] [address] Marielena Ulrich, FLY RAISER LOCKSTITCH-MALL MANAGER [address] [place] [address] 2L DIV [place] [address] 03/01/2025 2:00 PM CDT Office Visit [facility] - Pulmonology [address] [facility], [place] [address] Gilberto Valladares MD [address] [facility] PULMONARY DISEASE/[place] [address] documented as of this encounter Goals Goal [...] on filedocumented in this encounter Care Teams Machinery Mechanic Relationship Specialty [place] [address] [place] [phone] PCP - General Internal Medicine 07/12/23 Abel Carlos MD [address] [place] [phone] 05/30/23 documented as of this encounter
--- OUTSIDE RECORDS SUMMARY | 2024-09-24 09:27 | XMS_ITS | Encounter Summary ---
Author Organization [facility] Health Address [address] [place] [address] Care Team Providers Care Oil Recovery Operator Name Role Phone Abel Carlos MD Unavailable [phone] Abel Carlos MD Primary Care Provider Reason for Visit * Reason Onset Date Comments MEDICATION REFILL 05/22/2024 Encounter Details Date Type Department Care Team (Late st Contact Info) Description 05/22/2024 Refill [facility] [address] [place] [address], [place] [phone] Vane Priest MD [address] [place] [address] [place] [address] MEDICATION REFILL Social History Tobacco Use Types Packs/Day Years [...] medical care, and heating? Somewhat hard 06/01/2023 [facility] [place] of Occupat ional Health - Occupational Stress [...] place to sleep or slept in a fpc (including now)? No 06/01/2023 Sex and Gender [...] st Contact Info) Description 10/23/2024 8:00 AM FLOOR COVERING LAYER Appointment [facility] ECHO [address] [place] [phone] Isidoro Webber MD [address] 2L DIV OF PULMONARY/[place] [address] 10/23/2024 9:00 AM FLOOR COVERING LAYER Appointment [facility] CAT SCAN [address] [place] [phone] Isidoro Webber MD [address] [facility] 2L DIV OF PULMONARY/[place] [address] 10/23/2024 9:30 AM FLOOR COVERING LAYER Appointment [facility] PFT [address] [place] [phone] Isdioro Webber MD [address] [facility] 2L DIV OF PULMONARY/[place] [address] 10/23/2024 1:15 PM FLOOR COVERING LAYER Appointment [facility] US [address] [place] [phone] Marielena Ulrich, CONCRETE PLACEMENT EQUIPMENT OPERATOR-DEALER SALES MANAGER [address] [place] [address] 2L [place] [phone] 10/23/2024 2:00 PM FLOOR COVERING LAYER Office Visit [facility] - GI [address] [place] [address], [place] [phone] Nish Alex MD [facility] 2L [place] [address] Marielena Ulrich, CONCRETE PLACEMENT EQUIPMENT OPERATOR-DEALER SALES MANAGER [address] [place] [address] 2L [place] [phone] 03/01/2025 2:00 PM CDT Office Visit [facility] - Pulmonology [address] [facility], [place] [address] Gilberto Valladares MD [address] [facility] PULMONARY DISEASE/[place] [address] documented as of this encounter Goals Goal [...] on filedocumented in this encounter Care Teams Oil Recovery Operator Relationship Specialty [place] [address] [place] [phone] PCP - General Internal Medicine 07/12/23 [place] [address] [place] [phone] 05/30/23 documented as of this encounter
--- OUTSIDE RECORDS SUMMARY | 2024-09-24 09:27 | XMS_ITS | Encounter Summary ---
Author Organization [facility] Health Address [address] [place] [address] Care Team Providers Care Garment Sewing Machine Operator Name Role Phone Abel Carlos MD Unavailable [phone] Abel Carlos MD Primary Care Provider Reason for Visit * Reason Comments Cirrhosis Encounter Details Date Type Department Care Team (Late st Contact Info) Description 01/06/2024 Telephone [facility] - [address] [facility] [place] [address] Fiona Herrmann, EMMA Cirrhosis Social History Tobacco Use Types Packs/Day Years [...] medical care, and heating? Somewhat hard 06/01/2023 [facility] [place] of Occupat ional Health - Occupational Stress [...] place to sleep or slept in a nursing home (including now)? No 06/01/2023 Sex and Gender [...] encounter Miscellaneous Notes * Telephone Encounter - Fiona Herrmann RN - 01/06/2024 10:24 AM CDT Call received from pt for condition update to report BS range 400 - 600. Instructed to report to ER, and notify Dr. Carlos. Plan to repeat labs while at [facility] 5724. UMER Hollis notified. documented in this encounter Plan of Treatment Upcoming Encounters Date Type Department Care Team (Late st Contact Info) Description 10/23/2024 8:00 AM COMPUTING ARCHITECT Appointment [facility] ECHO [address] [place] [address] Isidoro Webber MD [address] [place] [address] 2L DIV OF PULMONARY/[place] [address] 10/23/2024 9:00 AM COMPUTING ARCHITECT Appointment [facility] CAT SCAN [address] [place] [address] [place] [address] [place] [address] 2L DIV OF PULMONARY/[place] [address] 10/23/2024 9:30 AM COMPUTING ARCHITECT Appointment [facility] PFT [address] [place] [address] [place] [address] [place] [address] 2L DIV OF PULMONARY/[place] [address] 10/23/2024 1:15 PM COMPUTING ARCHITECT Appointment [facility] US [address] [place] [address] Marielena Ulrich, FIRE INVESTIGATION MANAGER-CONTRACT ADMINISTRATION COORDINATOR [address] [place] [address] 2L [place] [phone] 10/23/2024 2:00 PM COMPUTING ARCHITECT Office Visit [facility] - GI [address] [facility], [place] [phone] Nish Alex A, MD [address] [facility] 2L [place] [address] Marielena Ulrich, FIRE INVESTIGATION MANAGER-CONTRACT ADMINISTRATION COORDINATOR [address] [facility] 2L [place] [address] 03/01/2025 2:00 PM CDT Office Visit [facility] - Pulmonology [address] [facility], [place] [phone] Gilberto Valladares MD [address] [facility] PULMONARY DISEASE/[place] [phone] documented as of this encounter Goals Goal [...] on filedocumented in this encounter Care Teams Garment Sewing Machine Operator Relationship Specialty [place] [address] [place] [phone] PCP - General Internal Medicine 07/12/23 [place] [address] [place] [phone] 05/30/23 documented as of this encounter
--- OUTSIDE RECORDS SUMMARY | 2024-09-24 09:27 | XMS_ITS | Referral Summary ---
Author Organization [facility] Address [address] [place] [address] Care Team Providers Care Electric Serviceman Name Role Phone Abel Carlos MD Primary Care Provider Encounters Date Type Department Care Team Description 09/17/2024 11:30 AM DRYING AND WINDING SUPERVISOR Office Visit [facility] [address] [address] Denis Randhawa MD Age-related osteoporosis without current pathological fracture (Primary Dx); Vitamin D deficiency; Tobacco abuse from Last 3 Months Allergies Active Allergy Reactions Criticality Noted Date Comments Hydromorphone Unknown 08/29/2020 Medications venlafaxine XR (EFFEXOR-XR) 75 mg 24 hr capsule Take 1 capsule (75 mg total) by mouth daily Active TiZANidine (ZANAFLEX) 2 mg capsule Take 2 mg by mouth 3 (three) times a day Active gabapentin (NEURONTIN) 400 mg capsule Take 1 capsule (400 mg total) by mouth 3 (three) times a day Active calcium carb-vit D3-magnesium 250-200-125 mg-unit-mg capsule Take 1 capsule by mouth 2 (two) times a day Active traZODone (DESYREL) 50 mg tablet Take 50 mg by mouth nightly Active albuterol HFA (PROVENTIL HFA,VENTOLIN HFA,PROAIR HFA) 90 mcg/actuation inhaler Inhale 2 puffs every 6 (six) hours as needed for wheezing Active busPIRone (BUSPAR) 10 mg tabletIndications: Generalized Anxiety Disorder Take 10 mg by mouth 3 (three) times a day Active mirtazapine (REMERON MILTON-TAB) 15 mg disintegrating tablet Take 1 tablet (15 mg total) by mouth nightly Active acetaminophen 500 mg capsule Take 2 capsules (1,000 mg total) by mouth every 6 (six) hours as needed for pain 30 tablet 09/02/19 21 Active Additional Information Patient not taking.Reported on 09/17/2024 folic acid (FOLVITE) 1 mg tabletIndications: Folate Deficiency Take 1 tablet (1 mg total) by mouth daily 30 tablet 09/03/19 21 Active Additional Information Patient not taking.Reported on 09/17/2024 aspirin 81 mg enteric coated tablet Take 1 tablet (81 mg total) by mouth daily 09/16/19 21 Active aspirin 325 mg enteric coated tabletIndications: prevention of thrombosis Take 1 tablet (325 mg total) by mouth 2 (two) times a day for 14 days 28 tablet 09/02/19 Active Additional Information Patient not taking.Reported on 09/17/[address] (NexIUM) 40 mg capsuleIndications :Stress Ulcer Prophylaxis Take 1 capsule (40 mg total) by mouth daily before breakfast for 14 days 14 capsule 09/02/19 21 Active Additional Information Patient not taking.Reported on 09/17/2024 alcohol swabs pads, medicated daily 08/27/20 20 Active OneTouch Ultra Blue Test Strip strip TEST ONCE DAILY 08/27/20 20 Active calcium carbonate-vitamin D3 (CALTRATE 600 + D) 1500 mg (600 mg elemental) -400 units per tablet Take 1 tablet by mouth 2 (two) times a day 08/22/20 20 Active lamoTRIgine (LaMICtal) 25 mg tablet TK 1 T PO D 07/13/20 20 Active Advocate Lancet 30 gauge misc daily 08/27/20 20 Active magnesium hydroxide (MILK OF MAGNESIA) suspension 400 mg/5 mL Take 30 mL by mouth as needed 04/27/20 09 Active Thera-M 9 mg iron-400 mcg tablet Take 1 tablet by mouth daily 08/25/20 20 Active nitrofurantoin monohydrate (MACROBID) 100 mg capsule 09/03/19 21 Active raNITIdine (ZANTAC) 150 mg tablet Take 150 mg by mouth 2 (two) times a day Active polyethylene glycol-electrolyte s 420 gram solution 06/21/20 Active Chantix Continuing Month Box 1 mg tablet as directed 09/05/19 Active traMADoL (ULTRAM) 50 mg tablet Take 1 tablet (50 mg total) by mouth every 6 (six) hours as needed for pain 28 tablet 11/04/19 Active Additional Information Patient not taking.Reported on 09/17/2024 OneTouch Verio Flex meter misc TEST DIRECTED 09/27/19 21 Active metFORMIN (GLUCOPHAGE) 500 mg tablet Take 1 tablet (500 mg total) by mouth daily Active oxazepam (SERAX) 10 mg capsule TAKE 1 CAPSULE BY MOUTH TWICE DAILY NEEDED. THIS IS NOT A ROUTINE MEDICATION. 09/03/19 25 Active atorvastatin (LIPITOR) 40 mg tablet Take 1 tablet (40 mg total) by mouth nightly Active furosemide (LASIX) 20 mg tablet Take 1 tablet (20 mg total) by mouth daily 09/15/19 25 Active insulin detemir (Levemir FlexPen) 100 unit/mL (3 mL) pen for injection Inject 17 Units under the skin nightly 02/13/20 24 Active lurasidone (LATUDA) 20 mg tablet TAKE 1 TABLET BY MOUTH IN THE EVENING FOR 7 DAYS WITH FOOD AND THEN DECREASE TO 1/2 (ONE-HALF) TABLETS FOR 7 DAYS THEN STOP Active promethazine (PHENERGAN) 12.5 mg tablet TAKE 2 TABLETS BY MOUTH EVERY 8 HOURS NEEDED FOR NAUSEA AND VOMITING Active spironolactone (ALDACTONE) 25 mg tablet Take 1 tablet (25 mg total) by mouth daily 09/15/19 25 Active Anoro Ellipta 62.5-25 mcg/actuation blister with device 1 puff daily Active OLANZapine (ZyPREXA) 5 mg tablet Take 1 tablet (5 mg total) by mouth nightly Active dicyclomine (BENTYL) 20 mg tablet Take 1 tablet (20 mg total) by mouth every 6 (six) hours Active rifAXIMin (XIFAXAN) 550 mg tablet Take 1 tablet (550 mg total) by mouth 2 (two) times a day Active Active Problems Problem Noted Date Diagnosed Date Age-related osteoporosis wit hout current pathological fracture 09/17/2024 Assessment & Plan (09/17/2024 11:55 AM DRYING AND WINDING SUPERVISOR): Chronic, worsening Risk factors age, postmenopausal, chronic liver disease/cirrhosis, with long history of sneaking, low BMI, family history, Strongly advised patient to cut back on smoking Discussed about her last bone density scan results Discussed about osteoporotic medication options Patient needs a dental clearance before we can consider bisphosphonate or denosumab Advised to take at least 3 servings of calcium intake in diet Check labs today Fall precautions Advised to follow-up in 6 months or notify early once she gets a dental clearance Tobacco abuse 09/17/2024 Assessment & Plan (09/17/2024 11:54 AM DRYING AND WINDING SUPERVISOR): Counseled and advised patient to cut back on smoking Discussed Adverse health effects of smoking Avulsion fracture of metatarsal bone of right fo ot 08/30/2020 Acute pain due to trauma 08/30/2020 UTI (urinary tract infection) 08/30/2020 Chronic pain syndrome 08/30/2020 Alcohol abuse 08/30/2020 Presence of permanent cardiac pacemaker 08/30/20 20 Insomnia 08/30/2020 Depression with anxiety 08/30/2020 Type 2 diabetes mellitus, wi thout long-term current use of insulin 08/30/2020 COPD (chronic obstructive pulmonary disease) Closed displaced comminuted fracture of shaft of right tibia 08/29/2020 Overview (08/29/2020): Added automatically from request for surgery [id number] Immunizations Name Administration Dates Next Due Influenza, Quadrivalent, Spl it, Intramuscular 06/07/2020,11/25/2018,09/28/2016 Influenza, Quadrivalent, Spl it, Preservative Free, Intramuscular 10/02/2019 Influenza, Trivalent, IM (MDV) 10/27/2015 Pneumococcal Polysaccharide PPV23 11/25/2018,10/2011 Tdap 11/25/2018,10/27/2015 Social History Tobacco Use Types Packs/Day Years Used Date Smoking Tobacco: Every Day Cigarettes Smokeless Tobacco: Never Alcohol Use Standard Drinks/Week Comments Yes 2 (1 standard drink = 0.6 oz pur e alcohol) Personal Safety Answer Date Recorded Getting School Help Needed Not on file 11/15 Comments No Sex and Gender Information Value Date Recorded Sex Assigned at Not on file Legal Sex Female 11:17 AM DRYING AND WINDING SUPERVISOR Gender Identity Not on file Sexual Orientation Not on file Last Filed Vital Signs Vital Sign Reading Time Taken Comments Blood Pressure 110/82 09/17/2024 11:08 AM DRYING AND WINDING SUPERVISOR Pulse 110 09/17/2024 11:08 AM DRYING AND WINDING SUPERVISOR Temperature 37 ??C (98.6 ??F) 09/02/2020 4:19 PM DRYING AND WINDING SUPERVISOR Respiratory Rate 17 09/17/2024 11:08 AM DRYING AND WINDING SUPERVISOR Oxygen Saturation 99% 09/02/2020 4:19 PM DRYING AND WINDING SUPERVISOR Inhaled Oxygen Concentration - - Weight 51.7 kg (114 lb) 09/17/2024 11:08 AM DRYING AND WINDING SUPERVISOR Height 170.2 cm (5' 7 ) 09/17/2024 11:08 AM DRYING AND WINDING SUPERVISOR Body Mass Index 17.85 09/17/2024 11:08 AM DRYING AND WINDING SUPERVISOR Plan of Treatment Not on file Medical Devices Implanted Type Area Civil Engineering Project Designer Device Identifier Shelf Expiration Date Model / Serial / Lot Pacemaker- 2 Implanted:Qty: 1 on 02/01/2012 by [facility] Med Cntjono, Miguel Vang MD Pacemaker Left: Chest [id number] / [id number] / Description:RA Lead seriel n umber: [id number] model number: [id number] RV Lead seriel number: [id number] model number: [id number] [employer]/Ort ho [id number] [place]-Nail 11.5mm 35cm Tibia Nail Intramedullary Titanium - [id number] Implanted:Qty: 1 on 08/30/2020 by Lenka Fang MD at [facility] Right: Tibia [employer]/O rtho [id number] / / [employer]/Ort ho [id number] 5mm 45mm Low Profile Internal Hex Femur Screw Bone Trigen - [id number] Implanted:Qty: 2 on 08/30/2020 by Lenka Fang MD at [facility] Right: Tibia [employer]O [employer]tho [id number] / / [employer]/Ort ho [id number] 5mm 60mm Low Profile Internal Hex Femur Screw Bone Trigen - [id number] Implanted:Qty: 2 on 08/30/2020 by Lenka Fang MD at [facility] Right: Tibia [employer]O [employer]o [id number] / / [employer]/Ort ho [id number] 5mm 32.5mm Low Profile Internal Hex Femur Screw Bone Trigen - [id number] Implanted:Qty: 1 on 08/30/2020 by Lenka Fang MD at [facility] Right: Tibia [employer]o [id number] / / [employer]/Ort ho [id number] 5mm 27mm Low Profile Internal Hex Femur Screw Bone Trigen - [id number] Implanted:Qty: 1 on 08/30/2020 by Lenka Fang MD at [facility] Right: Tibia [employer]O [employer]tho [id number] / / Procedures Procedure Name Priority Date/Time Associated Diagnosis Comments LIPID PANEL Routine 08/30/2020 10:34 PM DRYING AND WINDING SUPERVISOR HEMOGLOBIN A1C STAT 08/29/2020 6:05 PM DRYING AND WINDING SUPERVISOR from Last 3 Months or Most Recently Relevant to Health Maintenance Results * Lipid panel (08/30/2020 10:34 PM DRYING AND WINDING SUPERVISOR) Cholesterol 114 30 - 199 mg/dL [facility] Comment: Interpretive Data Ages < or = 19 years ??Acceptable: ? <170 mg/dL ??Borderline high: ??170-199 mg/dL ??High: ? >or= 200 mg/dL Ages > or = 20 years ??Desirable: ?<200 mg/dL ??Borderline high: ??200-239 mg/dL ??High: ? >or= 240 mg/dL Literature References: 1. Expert Panel on Integrated Guidelines for Cardiovascular Health and Risk Reduction in Children and Adolescents. Pediatrics 2011;128:S213 2. NCEP Expert Panel. Circulation 2004;110:227 Current Interpretive Data was last revised on 2018. Triglycerides 67 <=149 mg/dL [facility] Comment: Interpretive Data Ages < or = 9 years ??Acceptable: ? <75 mg/dL ??Borderline high: ??75-99 mg/dL ??High: ? >or= 100 mg/dL Ages 10 to 20 years ??Acceptable: ? <90 mg/dL ??Borderline high: ??90-129 mg/dL ??High: ? >or= 130 mg/dL Ages > or = 20 years ??Desirable: ?<150 mg/dL ??Borderline high: ??150-199 mg/dL ??High: ? 200-499 mg/dL ?Very high: ?? >or= 499 mg/dL Literature References: 1. Expert Panel on Integrated Guidelines for Cardiovascular Health and Risk Reduction in Children and Adolescents. Pediatrics 2011;128:S213 2. NCEP Expert Panel. Circulation 2004;110:227 Current Interpretive Data was last revised on 2018. HDL 47 >=40 mg/dL [facility] Comment: Interpretive Data Ages < or = 19 years ??Acceptable: ? >45 mg/dL ??Borderline low: ?? 40-45 mg/dL ??Low: ? <40 mg/dL Ages > or = 20 years ??Desirable: ?>or= 60 mg/dL ??Low: ? <40 mg/dL Literature References: 1. Expert Panel on Integrated Guidelines for Cardiovascular Health and Risk Reduction in Children and Adolescents. Pediatrics 2011;128:S213 2. NCEP Expert Panel. Circulation 2004;110:227 Current Interpretive Data was last revised on 2018. LDL, calculated 54 <=129 mg/dL [facility] Comment: Interpretive Data Ages < or = 19 years ??Acceptable: ? <110 mg/dL ??Borderline high: ??110-129 mg/dL ??High: ?>or= 130 mg/dL Ages > or = 20 years ??Optimal: ? <100 mg/dL ??Near optimal: ?100-129 mg/dL ??Borderline high: ?? 130-159 mg/dL ??High: ?>160 mg/dL Literature References: 1. Expert Panel on Integrated Guidelines for Cardiovascular Health and Risk Reduction in Children and Adolescents. Pediatrics 2011;128:S213 2. NCEP Expert Panel. Circulation 2004;110:227 Current Interpretive Data was last revised on 2018. Non-HDL Cholesterol 67 mg/dL [facility] Comment: Interpretive Data Ages < or = 19 years ??Acceptable: ?<120 mg/dL ??Borderline high: ??120-144 mg/dL ??High: ?>145 mg/dL Ages > or = 20 years ??When triglycerides are >200 mg/dL, Non-HDL cholesterol is a secondary target of ? therapy with treatment goals that are 30 mg/dL greater than the LDL cholesterol target. ? Literature References: 1. Expert Panel on Integrated Guidelines for Cardiovascular Health and Risk Reduction in Children and Adolescents. Pediatrics 2011;128:S213 2. NCEP Expert Panel. Circulation 2004;110:227 Current Interpretive Data was last revised on 2018. Chol/HDL ratio 2 [facility] Blood specimen (specimen) 08/30/2020 10:34 PM DRYING AND WINDING SUPERVISOR 08/30/2020 10:54 PM DRYING AND WINDING SUPERVISOR Vimal Alford MD PhD LAB BLOOD ORDERAB LES Final Result [facility] Department [place] [address] * (ABNORMAL) Hemoglobin A1c (08/29/2020 6:05 PM DRYING AND WINDING SUPERVISOR) Hgb A1C 6.4(H) 4.0 - 5.6 % [facility] WORKMAN Estimated Average Glucose 137 mg/dL [facility] Comment: The ADA recommends reporting an estimated Average Glucose (eAG) with all Hemoglobin A1c results using the equation derived from a study of 507 normal and diabetic adults. ??Minority populations were underrepresented and children were not included. ?? (Diabetes Care 31:8133-9033, 2008). ??The eAG is not equivalent to a fasting glucose. Blood specimen (specimen) 08/29/2020 6:05 PM DRYING AND WINDING SUPERVISOR 08/29/2020 6:30 PM DRYING AND WINDING SUPERVISOR us Nish Hoffmann MD LAB BLOOD ORDERABLES Final Res ult [facility] Department [place] [address] from Last 3 Months or Most Recently Relevant to Health Maintenance Insurance [address] [place] [phone] [facility] [address] [place] [phone] [facility] Advance Directives For more information, please contact: [phone] * Full Code (Latest Code Status on File) Date Activated Date Inactivated Comments 08/30/2020 12:28 AM 09/02/2020 11:11 PM Care Teams Electric Serviceman Relationship Specialty Start Date End Date Abel Carlos MD [address] [facility] [address] [place] [address] PCP - General 08/29/20
--- OUTSIDE RECORDS SUMMARY | 2024-09-24 09:27 | XMS_ITS | Clinical Summary ---
Author Organization [facility] Address [address] [place] [address] Care Team Providers Care Box Spring Upholsterer Name Role Phone Abel Carlos MD Primary Care Provider Allergies Active Allergy Reactions Criticality Noted Date [...] breakfast for 14 days 14 capsule 09/02/19 Active Additional Information Patient not taking.Reported on 09/17/2024 alcohol swabs pads, medicated daily 08/27/20 Active OneTouch Ultra Blue Test Strip strip TEST ONCE DAILY 08/27/20 Active calcium carbonate-vitamin D3 (CALTRATE 600 + D) 1500 mg (600 mg elemental) -400 units per tablet Take 1 tablet by mouth 2 (two) times a day 08/22/20 Active lamoTRIgine (LaMICtal) 25 mg tablet TK [...] polyethylene glycol-electrolyte s 420 gram solution 06/21/20 20 Active Chantix Continuing Month Box 1 mg [...] 09/17/2024 Assessment & Plan (09/17/2024 11:55 AM MANAGER DIABETES): Chronic, worsening Risk factors age, postmenopausal, chronic [...] 09/17/2024 Assessment & Plan (09/17/2024 11:54 AM MANAGER DIABETES): Counseled and advised patient to cut back [...] (08/29/2020): Added automatically from request for surgery [id number] Encounters Date Type Department Care Team Description 09/17/2024 11:30 AM MANAGER DIABETES Office Visit [facility] [address] [address] El Gallegos, Denis Gallegos MD Age-related osteoporosis without current pathological fracture (Primary Dx); Vitamin D deficiency; Tobacco abuse from Last 3 Months Immunizations Name Administration Dates Next Due Influenza, Quadrivalent, Spl it, Intramuscular 06/07/2020,11/25/2018,09/28/2016 Influenza, Quadrivalent, Spl it, Preservative Free, Intramuscular 10/02/2019 Influenza, Trivalent, IM (MDV) 10/27/2015 Pneumococcal Polysaccharide PPV23 11/25/2018,10/2011 Tdap 11/25/2018,10/27/2015 Medical History Medical History Date Comments Type 2 diabetes mellitus (HCC) Alcoholic liver disease (HCC) Hepatic encephalopathy (HCC) Osteoarthritis Family History Medical History Relation Name Comments Cancer Father Hypertension Father Hypertension Mother Relation Name Status Comments [...] on file Legal Sex Female 11:17 AM MANAGER DIABETES Gender Identity Not on file Sexual Orientation Not on file Obstetrics History Last Filed Vital Signs Vital Sign Reading Time Taken Comments Blood Pressure 110/82 09/17/2024 11:08 AM MANAGER DIABETES Pulse 110 09/17/2024 11:08 AM MANAGER DIABETES Temperature 37 ??C (98.6 ??F) 09/02/2020 4:19 PM MANAGER DIABETES Respiratory Rate 17 09/17/2024 11:08 AM MANAGER DIABETES Oxygen Saturation 99% 09/02/2020 4:19 PM MANAGER DIABETES Inhaled Oxygen Concentration - - Weight 51.7 kg (114 lb) 09/17/2024 11:08 AM MANAGER DIABETES Height 170.2 cm (5' 7 ) 09/17/2024 11:08 AM MANAGER DIABETES Body Mass Index 17.85 09/17/2024 11:08 AM MANAGER DIABETES Plan of Treatment Health Maintenance Due Date Last Done Comments Albumin Creatinine Ratio, Urine 1960 Breast Cancer Screening-Mammogram 1960 Cervical Cancer Screening 1960 Colon Cancer Screening-Colonoscopy 1960 Depression Screening 1960 Hepatitis C Screening 1960 eGFR 1960 Dilated Eye Exam 1960 Foot Exam 1960 Hepatitis B Screening 1978 Regular Well Visit/Exam 18-64 1978 Zoster Vaccine (1 of 2) 2010 Pneumococcal vaccine <65 (2 of 2 - PCV) 11/26/2019 11/25/2018, 09/03/2011 Hemoglobin A1C 02/27/2021 08/29/2020, 08/29/2020 Lipid Panel 08/30/2021 08/30/2020, 08/20/2012 Influenza Vaccine (#1) 2024 2, 06/07/2020, 10/02/2019, Additional history exists DTaP/Tdap/Td Vaccine (3 - Td or Tdap) 11/25/2028 11/25/2018, 10/27/2015 Medical Devices Implanted Type Area Office Technology Instructor Device Identifier Shelf Expiration Date Model / Serial / Lot Pacemaker-6/1/201 2 Implanted:Qty: 1 on 02/01/2012 [facility] Pacemaker Left: Chest [id number] / [id number] / Description:RA Lead buzziel n umber: [id number] model number: [id number] RV Lead seriel number: [id number] model number: [id number] [employer]/Ort ho [id number] Phoenix-Nail 11.5mm 35cm Tibia Nail Intramedullary Titanium - [id number] Implanted:Qty: 1 on 08/30/2020 by Lenka Fang MD at [facility] Right: Tibia [employer]O rtho [id number] / / [employer]/Ort ho [id number] 5mm 45mm Low Profile Internal Hex Femur Screw Bone Trigen - [id number] Implanted:Qty: 2 on 08/30/2020 by Lenka Fang MD at [facility] Right: Tibia [employer] r[employer]o [id number] / / [employer]/Ort ho [id number] 5mm 60mm Low Profile Internal Hex Femur Screw Bone Trigen - [id number] Implanted:Qty: 2 on 08/30/2020 by Lenka Fang MD at [facility] Right: Tibia [employer]o [id number] / / [employer]Rich[employer]/Ort ho [id number] 5mm 32.5mm Low Profile Internal Hex Femur Screw Bone Trigen - [id number] Implanted:Qty: 1 on 08/30/2020 by Lenka Fang MD at [facility] Right: Tibia [employer]o [id number] / / [employer]/Ort ho [id number] 5mm 27mm Low Profile Internal Hex Femur Screw Bone Trigen - [id number] Implanted:Qty: 1 on 08/30/2020 by Lenka Fang MD at [facility] Right: Tibia [employer]o [id number] / / Procedures Procedure Name Priority Date/Time Associated Diagnosis Comments LIPID PANEL Routine 08/30/2020 10:34 PM MANAGER DIABETES HEMOGLOBIN A1C STAT 08/29/2020 6:05 PM MANAGER DIABETES from Last 3 Months or Most Recently Relevant to Health Maintenance Results * Lipid panel (08/30/2020 10:34 PM MANAGER DIABETES) [facility] Cholesterol 114 30 - 199 mg/dL [facility] Comment: Interpretive Data Ages < or = [...] on 2018. Triglycerides 67 <=149 mg/dL [facility] Comment: Interpretive Data Ages < or [...] revised on 2018. HDL 47 >=40 mg/dL [facility] Comment: Interpretive Data Ages < or [...] 2018. LDL, calculated 54 <=129 mg/dL [facility] Comment: Interpretive Data Ages < or [...] on 2018. Non-HDL Cholesterol 67 mg/dL [facility] Comment: Interpretive Data Ages < or [...] last revised on 2018. Chol/HDL ratio 2 [facility] Blood specimen (specimen) 08/30/2020 10:34 PM MANAGER DIABETES 08/30/2020 10:54 PM MANAGER DIABETES Vimal Alford MD PhD LAB BLOOD ORDERAB LES Final Result Performing Organization Address [facility] Co de Phone Number [facility] [place] [address] * (ABNORMAL) Hemoglobin A1c (08/29/2020 6:05 PM MANAGER DIABETES) Hgb A1C 6.4(H) 4.0 - 5.6 % [facility] Estimated Average Glucose 137 mg/dL [facility] Comment: The ADA recommends reporting an estimated Average Glucose (eAG) with all Hemoglobin A1c results using the equation derived from a study of 507 normal and diabetic adults. ??Minority populations were underrepresented and children were not included. ?? (Diabetes Care 31:7231-1010, 2008). ??The eAG is not equivalent to a fasting glucose. Blood specimen (specimen) 08/29/2020 6:05 PM MANAGER DIABETES 08/29/2020 6:30 PM MANAGER DIABETES us Nish Hoffmann MD LAB BLOOD ORDERABLES Final Res ult Performing Organization Address [facility] Co de Phone Number [facility] [place] [address] from Last 3 Months or Most Recently Relevant to Health Maintenance Insurance [facility] [address] [place] [id number] Advance Directives For more information, please contact: [phone] * Full Code (Latest Code Status on File) Date Activated Date Inactivated Comments 08/30/2020 12:28 AM 09/02/2020 11:11 PM Care Teams Box Spring Upholsterer Relationship Specialty Start Date End Date Abel Carlos MD [address] [place] [id number] PCP - General 08/29/20
--- OUTSIDE RECORDS SUMMARY | 2024-09-24 09:27 | XMS_ITS | Patient Health Summary ---
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 of residential services). > Dictated by Mane Sneed MD (Balance Truing Inspector) 08/16/2023 11:15 AM Juan Lai have personally reviewed and interpreted this examination/study. > Interpreting Provider: Juan Mccracken on 08/16/2023 1:11 PM Narrative 08/16/2023 1:11 PM FILER AND SANDER PROCEDURE: ??US ABDOMEN LTD W COMP DOPPLER, DATE/TIME OF EXAM: ??08/16/2023 10:44 AM, LOCATION ??[facility] INDICATION: K70.31: Alcoholic cirrhosis of liver with ascites (CMS-HCC) COMPARISON: Abdomen ultrasound 06/03/2023 FINDINGS: Abdomen: The liver has a coarse echotexture and nodular surface, consistent with cirrhosis. Increased echogenicity of the liver consistent with steatosis. No discrete hepatic mass or intrahepatic biliary dilatation is seen. The gallbladder is absent. The common bile duct is nondilated, measuring 3 mm. The right kidney measures 10.2 x 5.4 x 4.9 cm. A 0.3 cm nonobstructive stone is noted in the right kidney. The spleen measures 12.0 cm in length. The pancreas is obscured by overlying bowel gas. Moderate volume ascites is present. Liver Doppler: Color and spectral Doppler evaluation demonstrates patency of the hepatic veins with appropriate flow direction and multiphasic waveforms. The main, left, and right portal veins appear patent with normal hepatopetal flow. The main portal vein demonstrates a normal phasic waveform and velocity measures 22.6 cm/s. The proper hepatic artery is patent and demonstrates a normal arterial waveform with brisk systolic upstroke and antegrade flow. Resistive index in the proper hepatic artery measures 0.74. Procedure Note Juan Mccracken MD - 08/16/2023 PROCEDURE: US ABDOMEN LTD W COMP DOPPLER, DATE/TIME OF EXAM:08/16/2023 10:44 AM, LOCATION [facility] INDICATION: K70.31: Alcoholic cirrhosis of liver with ascites (CMS-HCC) COMPARISON: Abdomen ultrasound 06/03/2023 FINDINGS: Abdomen: The liver has a coarse echotexture and nodular surface, consistent with cirrhosis. Increased echogenicity of the liver consistent withsteatosis. No discrete hepatic mass or intrahepatic biliary dilatation is seen. The gallbladder is absent. The common bile duct is nondilated, measuring3 mm. The right kidney measures 10.2 x 5.4 x 4.9 cm. A 0.3 cm nonobstructive stone is noted in the right kidney. The spleen measures 12.0 cm inlength. The pancreas is obscured by overlying bowel gas. Moderate volume ascitesis present. Liver Doppler: Color and spectral Doppler evaluation demonstrates patency of thehepatic veins with appropriate flow direction and multiphasic waveforms. The main, left, and right portal veins appear patent with normal hepatopetal flow. The main portal vein demonstrates a normal phasic waveform and velocity measures 22.6 cm/s. The proper hepatic artery is patent and demonstrates a normal arterial waveform with brisk systolic upstroke and antegrade flow. Resistiveindex in the proper hepatic artery measures 0.74. IMPRESSION: 1.Hepatic steatosis and cirrhosis with sequela of portal hypertension, including moderate ascites. 2.Normal liver Doppler with patent hepatic vasculature. 3.Right nonobstructive nephrolithiasis. > Dictated by Mane Sneed MD, MD (director of residential services). > Dictated by Mane Sneed MD (Balance Truing Inspector) 08/16/2023 11:15 AM IJuan have personally reviewed and interpreted this examination/study. > Interpreting Provider: Juan Mccracken on 08/16/2023 1:11 PM Alejandra Rudolph MD ORDERABLES * (ABNORMAL) PT-INR [facility] (08/16/2023 4:54 AM FILER AND SANDER) Only the most recent of11 resultswithin the time period is included. PT 16.1(H) 12.1 - 14.8 Seconds 08/16/2023 5:42 AM [facility]ER AND SANDER [facility] INR 1.3 See Comment 08/16/2023 5:42 AM FILER AND SANDER [facility] Comment:The suggested therap eutic range for standard coumadin (warfarin) therapy is an INR of 2.0-3.0. For high-risk patients (Mechanical Mitral Valve Prosthesis, etc.), the suggested prophylactic therapeutic range is an INR of 2.5-3.5. Blood BLOOD SPECIMEN / Unknown Venipuncture / Unknown 08/16/2023 4:54 AM FILER AND SANDER 08/16/2023 5:12 AM FILER AND SANDER Neal Otto MD LAB - COAGULATION OR DERABLES [facility] [address] [place] [address], [facility] [phone] * (ABNORMAL) CBC W/O DIFFERENTIAL (08/16/2023 4:54 AM [facility]ER [employer] SANDER) WBC 6.9 3.5 - 10.5 10? 3 /uL 08/16/2023 5:18 AM [facility] RBC 4.05 3.80 - 5.20 10? 6 /uL 08/16/2023 5:18 AM [facility] Hemoglobin 11.5(L) 12.0 - 15.6 g/dL 08/16/2023 5:18 AM [facility] Hematocrit 35.3 35.0 - 45.0 % 08/16/2023 5:18 AM [facility] MCV 87.2 80.7 - 98.3 fL 08/16/2023 5:18 AM [facility] MCH 28.4 26.7 - 34.0 pg 08/16/2023 5:18 AM [facility] MCHC 32.6 30.8 - 35.9 g/dL 08/16/2023 5:18 AM [facility] RDW-SD 57.2(H) 36.0 - 50.0 fL 08/16/2023 5:18 AM [facility] RDW-CV 17.7(H) 11.2 - 14.8 % 08/16/2023 5:18 AM [facility] Platelet Count 185 150 - 400 10? 3 /uL 08/16/2023 5:18 AM [facility] MPV 9.8 9.4 - 12.9 fL 08/16/2023 5:18 AM [facility] nRBC Absolute 0.00 0 10? 3 /uL 08/16/2023 5:18 AM [facility] nRBC Auto 0.0 0 /100 WBC 08/16/2023 5:18 AM [facility] Blood BLOOD SPECIMEN / Unknown Venipuncture / Unknown 08/16/2023 4:54 AM [employer]ER AND SANDER 08/16/2023 5:12 AM FILER AND SANDER Neal Otto MD LAB - HEMATOLOGY ORD ERABLES [facility] [address] [address], [facility] [phone] * (ABNORMAL) COMPREHENSIVE METABOLIC PANEL (08/16/2023 4:54 AM [facility]) Only the most recent of12 resultswithin the time period is included. BUN 5(L) 7 - 26 mg/dL 08/16/2023 5:45 AM [facility] Creatinine 0.55(L) 0.56 - 0.96 mg/dL 08/16/2023 5:45 AM [facility] Sodium 137 136 - 145 mmol/L 08/16/2023 5:45 AM [facility] Potassium 3.4(L) 3.5 - 4.5 mmol/L 08/16/2023 5:45 AM [facility] Chloride 107 98 - 107 mmol/L 08/16/2023 5:45 AM [facility] CO2 23 22 - 29 mmol/L 08/16/2023 5:45 AM [facility] Glucose 106 70 - 115 mg/dL 08/16/2023 5:45 AM [facility] Calcium 7.7(L) 8.4 - 10.2 mg/dL 08/16/2023 5:45 AM [facility] Protein Total 6.0 6.0 - 8.3 g/dL 08/16/2023 5:45 AM [facility] Albumin 2.1(L) 3.4 - 5.0 g/dL 08/16/2023 5:45 AM [facility] Bilirubin Total 0.9 0.2 - 1.2 mg/dL 08/16/2023 5:45 AM [facility] Alkaline Phosphatase 208(H) 40 - 150 U/L 08/16/2023 5:45 AM [facility] ALT 24 5 - 55 U/L 08/16/2023 5:45 AM [facility] AST 45(H) 5 - 34 U/L 08/16/2023 5:45 AM [facility] Anion Gap 7 6 - 16 08/16/2023 5:45 AM [facility] BUN/Creatinine Ratio 9 7 - 23 08/16/2023 5:45 AM [facility] Osmolality Calculated 282 275 - 295 mOsm/kg 08/16/2023 5:45 AM [facility] Albumin/Globulin Ratio 0.5(L) 1.1 - 2.3 08/16/2023 5:45 AM [facility] eGFR by CKD-EPI >90 >=90 mL/min/1.7 3 m2 08/16/2023 5:45 AM [facility] Blood BLOOD SPECIMEN / Unknown Venipuncture / Unknown 08/16/2023 4:54 AM [employer]ER AND SANDER 08/16/2023 5:12 AM [employer]ER AND SANDER Neal Otto MD LAB - CHEMISTRY ORDMalika MONGE Performing Organization Address City/[facility]/ZIP Co de Phone Number [address] [address], [facility] [phone] * PHOSPHORUS BLOOD (08/16/2023 4:54 AM FILER AND SANDER) Only the most recent of10 resultswithin the time period is included. Phosphorus 3.3 2.9 - 5.1 mg/dL 08/16/2023 5:45 AM [facility] Blood BLOOD SPECIMEN / Unknown Venipuncture / Unknown 08/16/2023 4:54 AM [employer]ER AND SANDER 08/16/2023 5:12 AM FILER AND SANDER Neal Otto MD LAB - CHEMISTRY ORDMalika MONGE Performing Organization Address City/[facility]/ZIP Co de Phone Number [address] [address], [place] [phone] * (ABNORMAL) MAGNESIUM BLOOD (08/16/2023 4:54 AM FILER AND SANDER) Only the most recent of10 resultswithin the time period is included. Magnesium 3.2(H) 1.6 - 2.6 mg/dL 08/16/2023 5:45 AM FILER AND SANDER [facility] Blood BLOOD SPECIMEN / Unknown Venipuncture / Unknown 08/16/2023 4:54 AM FILER AND SANDER 08/16/2023 5:12 AM FILER AND SANDER Neal Otto MD LAB - CHEMISTRY NAVI MONGE Performing Organization Address City/[facility]/ZIP Co de Phone Number [facility] [address] [place] [address], [place] [phone] * TROPONIN-I HIGH SENSITIVE REFLEX 1HOUR (08/15/2023 7:52 PM FILER AND SANDER) Troponin I High Sensitive <3 <=14 ng/L 08/15/2023 8:36 PM [facility] Delta Troponin I HS 08/15/2023 8:36 PM [facility] Comment:Result exceeds linea rity range. A delta value is unable to be calculated. Blood BLOOD SPECIMEN / Unknown Venipuncture / Unknown 08/15/2023 7:52 PM [employer]ER AND SANDER 08/15/2023 8:00 PM FILER AND SANDER Neal Otto MD LAB - CHEMISTRY NAVI MONGE Performing Organization Address [facility]/ZIP Co de Phone Number [facility] [address] [place] [address], [facility] [phone] * (ABNORMAL) URINALYSIS REFLEX TO MICROSCOPIC NO CULTURE (08/15/2023 7:48 PM [facility]ER AND SANDER) Only the most recent of3 resultswithin the time period is included. Color UA Yellow Straw, Yellow 08/15/2023 8:38 PM [facility] Clarity UA Clear Clear 08/15/2023 8:38 PM [facility] Specific [place] UA 1.004(L) 1.005 - 1.030 08/15/2023 8:38 PM [facility] pH UA 7.0 5.0 - 8.0 pH 08/15/2023 8:38 PM [facility] Protein UA Negative Negative 08/15/2023 8:38 PM [facility] Glucose UA Negative Negative 08/15/2023 8:38 PM [facility] Ketone UA Negative Negative 08/15/2023 8:38 PM [facility] Bilirubin UA Negative Negative 08/15/2023 8:38 PM [facility] Blood UA Negative Negative 08/15/2023 8:38 PM [facility] Nitrite UA Negative Negative 08/15/2023 8:38 PM [facility]ER AND SANDER [facility] Leukocyte Esterase Negative Negative 08/15/2023 8:38 PM [facility] [employer] SANDER [facility] Urobilinogen UA Negative Negative mg/dL 08/15/2023 8:38 PM [facility] Urine URINE SPECIMEN OBTAINED BY CLEAN CATCH PROCEDURE / Unknown Collection / Unknown 08/15/2023 7:48 PM [facility]ER AND SANDER 08/15/2023 7:55 PM FILER AND SANDER Narrative [facility] - 08/15/2023 8:38 PM FILER AND SANDER Neal Otto MD LAB - URINALYSIS ORD ERABLES [facility] [address] [place] [address], [facility] [phone] * EKG 12-LEAD (08/15/2023 6:50 PM FILER AND SANDER) Only the most recent of2 resultswithin the time period is included. Ventricular Rate 96 BPM [facility] MUSE Atrial Rate 96 BPM [facility] MUSE P-R Interval 124 ms [facility] QRS Duration ms 70 ms [facility] MUSE Q-T Interval ms 364 ms [facility] MUSE QTC Calculation (Bezet) 459 ms [facility] MUSE Calculated P [place] 68 degrees [facility] MUSE Calculated R [place] 49 degrees [facility] MUSE Calculated T [place] 57 degrees [facility] MUSE Interpretation EKG NORMAL SINUS RHYTHM NORMAL ECG NO PREVIOUS ECGS AVAILABLE Confirmed by SYLVAIN ??, DAIN ([id number]) on 08/21/2023 5:54:46 PM [facility] MUSE 08/15/2023 6:50 PM [facility]ER [employer] SANDER 08/21/2023 5:54 PM [employer]ER AND SANDER Neal Otto MD ECG ORDERABLES Performing Organization Address City/[facility]/ZIP Co de Phone Number [facility] MUSE * SARS-COV-2 (COVID-19)+INFLU A+B PCR RAPID (08/15/2023 6:47 PM FILER AND SANDER) Pathologist [facility] COVID-19 PCR Not detected Not detected 08/15/20 7:31 PM [facility] AND SANDER [facility] Influenza A Rapid NITISH Not Detected Not Detected 08/15/2023 7:31 PM [facility] [employer] SANDER [facility] Influenza B NITISH Rapid Not Detected Not Detected 08/15/2023 7:31 PM [facility] AND SANDER [facility] Microbiology SPECIMEN FROM NASOPHARYNGEAL STRUCTURE / Unknown Collection / Unknown 08/15/2023 6:47 PM [facility]ER AND SANDER 08/15/2023 6:52 PM FILER AND SANDER Narrative [facility] - 08/15/2023 7:31 PM [facility]ER [employer] SANDER Influenza assay performed by [employer]. Results do not exclude the possibility of a mixed viral infection. NOTE: ??Detecting and identifying specific viral nucleic acids from individuals exhibiting signs and symptoms of respiratory infection aids in the diagnosis of respiratory infection, if used in conjunction with other clinical and laboratory findings. The results of this test should not be used as the sole basis for diagnosis, treatment, or patient management decisions. This nucleic acid amplification assay performance was validated by [facility]. This test has been authorized by the Food and Drug administration (FDA)under an Emergency??Use Authorization (EUA). This test has been validated in accordance with the FDA's guidance document Policy for Diagnostic Testing in Laboratories Certified to perform High Complexity Testing under CLIA prior to Emergency Use Authorization for Coronavirus Disease-2019 during the Public Health Emergency issued on October 31, 2019. FDA independent review of this validation is pending. This test is only authorized for the duration of time the declaration that circumstances exist justifying the authorization of emergency use of in vitro diagnostic tests for detection of SARS-CoV-2 virus and/or diagnosis of COVID-19 infection under section 564(b)(1) of the Act, 21 U.S.C 360bbb-3 (b)(1), unless the authorization is terminated or revoked sooner. Fact Sheets for this EUA assay are available upon request. Neal Otto MD LAB - MICROBIOLOGY O RDERABLES [facility] [address] [place] [address], [facility] [phone] * CULTURE BLOOD (08/15/2023 6:43 PM [facility]ER AND SANDER) Only the most recent of2 resultswithin the time period is included. Culture No growth day 5 ALBINA 08/20/2023 11:32 PM FILER AND SANDER [facility] MICROBIOLOGY Blood PERIPHERAL BLOOD / Unknown Venipuncture / Unknown 08/15/2023 6:43 PM [facility]ER AND SANDER 08/15/2023 6:45 PM [facility]ER AND SANDER Neal Otto MD LAB - MICROBIOLOGY O RDERABLES [facility] MICROBIOLOGY [address] [place] [address], [facility] [phone] * LACTIC ACID BLOOD REFLEX TO REPEAT (08/15/2023 6:36 PM FILER AND SANDER) Pathologist [facility] Lactic Acid-Stat 1.6 <=2.0 mmol/L 08/15/2023 7:18 PM [facility]ER AND SANDER [facility] Blood BLOOD SPECIMEN / Unknown Venipuncture / Unknown 08/15/2023 6:36 PM [facility]ER AND SANDER 08/15/2023 6:47 PM [employer]ER AND SANDER Neal Otto MD LAB - CHEMISTRY NAVI MONGE Performing Organization Address [facility]/ZIP Co de Phone Number [address] [address], [place] [phone] * TROPONIN-I HIGH SENSITIVE BASELINE + 1HR (08/15/2023 6:36 PM FILER AND SANDER) [facility] Troponin I High Sensitive <3 <=14 ng/L 08/15/2023 7:22 PM [facility]ER AND SANDER [facility] Blood BLOOD SPECIMEN / Unknown Venipuncture / Unknown 08/15/2023 6:36 PM [facility]ER AND SANDER 08/15/2023 6:47 PM FILER AND SANDER Neal Otto MD LAB - CHEMISTRY NAVI MONGE Performing Organization Address [facility]/ZIP Co de Phone Number [address] [address], [place] [phone] * (ABNORMAL) CBC W AUTO DIFFERENTIAL (08/15/2023 6:36 PM [facility]ER [employer] SANDER) Only the most recent of21 resultswithin the time period is included. Pathologist [facility] WBC 8.5 3.5 - 10.5 10? 3 /uL 08/15/2023 6:59 PM [facility] RBC 3.91 3.80 - 5.20 10? 6 /uL 08/15/2023 6:59 PM [facility] Hemoglobin 11.2(L) 12.0 - 15.6 g/dL 08/15/2023 6:59 PM [facility] Hematocrit 33.4(L) 35.0 - 45.0 % 08/15/2023 6:59 PM [facility] MCV 85.4 80.7 - 98.3 fL 08/15/2023 6:59 PM [facility] MCH 28.6 26.7 - 34.0 pg 08/15/2023 6:59 PM [facility] MCHC 33.5 30.8 - 35.9 g/dL 08/15/2023 6:59 PM [facility] RDW-SD 54.4(H) 36.0 - 50.0 fL 08/15/2023 6:59 PM [facility] RDW-CV 17.5(H) 11.2 - 14.8 % 08/15/2023 6:59 PM [facility] Platelet Count 192 150 - 400 10? 3 /uL 08/15/2023 6:59 PM [facility] MPV 9.4 9.4 - 12.9 fL 08/15/2023 6:59 PM [facility] nRBC Absolute 0.00 0 10? 3 /uL 08/15/2023 6:59 PM [facility] nRBC Auto 0.0 0 /100 WBC 08/15/2023 6:59 PM [facility] Neutrophils % 65.3 35.0 - 70.0 % 08/15/2023 6:59 PM [facility] Lymphocytes % 26.0 20.0 - 43.0 % 08/15/2023 6:59 PM [facility] Monocytes % 6.2 5.0 - 13.0 % 08/15/2023 6:59 PM [facility] Eosinophils % 1.7 0.0 - 6.0 % 08/15/2023 6:59 PM [facility] Basophil % 0.4 0.0 - 2.0 % 08/15/2023 6:59 PM [facility] Neutrophils Absolute 5.53 1.60 - 7.00 10? 3 /uL 08/15/2023 6:59 PM [facility] Lymphocyte Absolute 2.20 1.10 - 3.90 10? 3 /uL 08/15/2023 6:59 PM [facility] Monocytes Absolute 0.52 0.26 - 1.07 10? 3 /uL 08/15/2023 6:59 PM [facility] Eosinophils Absolute 0.14 0.00 - 0.47 10? 3 /uL 08/15/2023 6:59 PM [facility] Basophils Absolute 0.03 0.00 - 0.08 10? 3 /uL 08/15/2023 6:59 PM [facility] Immature Granulocytes % 0.4 0.0 - 1.0 % 08/15/2023 6:59 PM [facility] Immature Granulocytes Absolute 0.03 08/15/2023 6:59 PM [facility] Blood BLOOD SPECIMEN / Unknown Venipuncture / Unknown 08/15/2023 6:36 PM [facility] [employer] [facility] 08/15/2023 6:47 PM [facility] Neal Otto MD LAB - HEMATOLOGY ORD ERABLES [facility] [address] [place] [address], [facility] [phone] * (ABNORMAL) LAMOTRIGINE LEVEL (06/08/2023 3:47 AM CDT) Lamotrigine 1.6(L) 3.0 - 15.0 ug/mL 06/10/2023 11:53 AM CDT writewith ([facility]) Comment: INTERPRETIVE INFORMATION: ??Lamotrigine Therapeutic Range: ??3.0-15.0 ug/mL ?Toxic: ??Greater than or equal to 20 ug/mL Pharmacokinetics varies widely, particularly with co-medications and/or compromised renal function. ??Adverse effects may include dizziness, somnolence, nausea and vomiting. Performed By: [facility] [address] [place] [id number] Machine Overhauler: Christiano Eldridge MD, PhD CLIA Number: [id number] Blood BLOOD SPECIMEN / Unknown Lab Venipuncture / Unknown 06/08/2023 3:47 AM CDT 06/08/2023 4:23 AM CDT Hebert Ortiz MD LAB - THERAPEUTIC DR WAITE MONITORING ORDERABLES [facility] ([facility]) [address] [place] [address], [facility] * XR CHEST 1VW PORTABLE (06/07/2023 11:45 AM CDT) Only the most recent of7 resultswithin the time period is included. Anatomical Region Laterality Modality Chest Radiographic Cindi ging 06/07/2023 11:4 6 AM CDT Narrative 06/07/2023 1:50 PM CDT PROCEDURE: ??XR CHEST 1VW PORTABLE, DATE/TIME OF EXAM: ??06/07/2023 11:45 AM, LOCATION ??[facility] INDICATION: F10.10: Alcohol abuse ADDITIONAL CLINICAL INFORMATION: Ordering Provider Reason For Exam: ??Pneumonia suspect COMPARISON: Chest x-ray dated 06/01/2023. CT chest dated 06/04/2023 FINDINGS/IMPRESSION: Left chest wall pacemaker device is present with 2 intact subclavian approach leads terminating in the right atrium and right ventricle. Surgical clips in the RUQ of the abdomen. Chronic interstitial lung changes/emphysema with bibasilar opacities which may represent atelectasis or airspace disease, including pneumonia/infection, mildly improved. ??No significant pleural effusion or pneumothorax. The cardiomediastinal silhouette is normal. Report dictated by Tiara Wei DO (director of residential services). I, FREDDY JC MD have personally reviewed and interpreted this examination/study. > Interpreting Provider: FREDDY JC MD on 06/07/2023 1:50 PM Procedure Note Freddy Jc MD - 06/07/2023 PROCEDURE: XR CHEST 1VW PORTABLE, DATE/TIME OF EXAM: 06/07/2023 11:45AM, LOCATION [facility] INDICATION: F10.10: Alcohol abuse ADDITIONAL CLINICAL INFORMATION: Ordering Provider Reason For Exam: Pneumonia suspect COMPARISON: Chest x-ray dated 06/01/2023. CT chest dated 06/04/2023 FINDINGS/IMPRESSION: Left chest wall pacemaker device is present with 2 intact subclavian approach leads terminating in the right atrium and right ventricle. Surgical clips in the RUQ of the abdomen. Chronic interstitial lung changes/emphysema with bibasilar opacitieswhich may represent atelectasis or airspace disease, including pneumonia/infection, mildly improved. No significant pleural effusionor pneumothorax. The cardiomediastinal silhouette is normal. Report dictated by Tiara Wei DO (director of residential services). I, FREDDY JC MD have personally reviewed and interpreted this examination/study. > Interpreting Provider: FREDDY JC MD on 06/07/2023 1:50 PM Hebert Ortiz MD DIAGNOSTIC IMAGING O RDERABLES * AMMONIA (06/07/2023 10:19 AM CDT) Ammonia 66 <=72 umol/L 06/07/2023 10:53 AM CDT [facility] Blood BLOOD SPECIMEN / Unknown Venipuncture / Unknown 06/07/2023 10:19 AM CDT 06/07/2023 10:26 AM CDT Hebert Ortiz MD LAB - CHEMISTRY NAVI MONGE [facility] Organization Address [facility]/State/ZIP Co de Phone Number [facility] [address] [place] [address], [facility] [phone] * (ABNORMAL) RETIC COUNT (06/05/2023 2:36 AM CDT) Reticulocyte % 1.2 0.4 - 2.5 % 06/05/2023 3:30 AM CDT [facility] Reticulocyte Absolute 0.0395 0.0200 - 0.1300 10? 6 /uL 06/05/2023 3:30 AM CDT [facility] Reticulocyte Immature Fractionated 14.9(H) 0.9 - 14.3 % 06/05/2023 3:30 AM CDT [facility] Hemoglobin Retic 29.9 27.8 - 36.8 pg 06/05/2023 3:30 AM CDT [facility] Blood BLOOD SPECIMEN / Unknown Lab Venipuncture / Unknown 06/05/2023 2:36 AM CDT 06/05/2023 3:21 AM CDT Hebert Ortiz MD LAB - HEMATOLOGY ORD OJ [address] [address], [place] [phone] * (ABNORMAL) LDH BLOOD (06/05/2023 2:36 AM CDT) LDH Total 303(H) 125 - 243 Units/L 06/05/2023 3:51 AM CDT [facility] Blood BLOOD SPECIMEN / Unknown Lab Venipuncture / Unknown 06/05/2023 2:36 AM CDT 06/05/2023 3:21 AM CDT Hebert Ortiz MD LAB - CHEMISTRY NAVI MONGE Performing Organization Address City/[facility]/ZIP Co de Phone Number [address] [address], [place] [phone] * FOLATE (06/05/2023 2:36 AM CDT) Folate 15.9 7.0 - 31.4 ng/mL 06/05/2023 4:23 AM CDT [facility] Blood BLOOD SPECIMEN / Unknown Lab Venipuncture / Unknown 06/05/2023 2:36 AM CDT 06/05/2023 3:21 AM CDT Hebert Ortiz MD LAB - CHEMISTRY NAVI MONGE [address] [address], [place] [phone] * (ABNORMAL) VITAMIN B12 (06/05/2023 2:36 AM CDT) Vitamin B12 1,065(H) 213 - 816 pg/mL 06/05/2023 4:23 AM CDT [facility] Blood BLOOD SPECIMEN / Unknown Lab Venipuncture / Unknown 06/05/2023 2:36 AM CDT 06/05/2023 3:21 AM CDT Hebert Ortiz MD LAB - CHEMISTRY ORDMalika MONGE Performing Organization Address City/[facility]/ZIP Co de Phone Number [address] [address], [place] [phone] * HAPTOGLOBIN (06/05/2023 2:36 AM CDT) Haptoglobin 135 14 - 258 mg/dL 06/05/2023 3:41 AM CDT [facility] Blood BLOOD SPECIMEN / Unknown Lab Venipuncture / Unknown 06/05/2023 2:36 AM CDT 06/05/2023 3:15 AM CDT Hebert Ortiz MD LAB - CHEMISTRY ORDMalika MONGE Performing Organization Address [facility]/ZIP Co de Phone Number [address] [address], [place] [phone] * CT CHEST WO CONTRAST (06/04/2023 4:07 PM CDT) Anatomical Region Laterality Modality Chest Computed Tomogra phy 06/05/2023 8:53 AM CDT Impressions 06/05/2023 1:33 PM CDT Impression: 1.Findings compatible with interstitial lung disease with superimposed centrilobular and paraseptal emphysema. 2.Right greater than left lower lobe consolidations may represent superimposed atelectasis or infection/inflammatory infiltrate. 3.Hepatic cirrhosis with small volume ascites. > Dictated by Pallavi Díaz DO (director of residential services). > Dictated by Pallavi Díaz DO (Balance Truing Inspector) 06/05/2023 8:53 AM Pham Lai MD have personally reviewed and interpreted this examination/study. > Interpreting Provider: Pham Swann MD on 06/05/2023 1:33 PM Narrative 06/05/2023 1:33 PM CDT PROCEDURE: ??CT CHEST WO CONTRAST, DATE/TIME OF EXAM: ??06/04/2023 4:07 PM, LOCATION ??[facility] INDICATION: J84.10: Pulmonary fibrosis (CMS/HCC) ADDITIONAL CLINICAL INFORMATION: Ordering Provider Reason For Exam: ??Pulmonary fibrosis COMPARISON: None. TECHNIQUE: CT of the chest was performed without contrast according to standard protocol. Findings: Evaluation of visceral and vascular structures is degraded due to lack of intravenous contrast administration. Lower Neck and Axillae: A cardiac device is noted in the left chest with left subclavian approach leads terminating in the right atrium and right ventricle. The thyroid and axillae appear normal. Lungs: Apical predominant centrilobular and paraseptal emphysema. Peripheral lower lobe predominant subpleural cystic spaces with peripheral predominant reticular opacities. Right greater than left lower lobe consolidation. No suspicious pulmonary nodules are identified. No pleural fluid or pneumothorax is present. Heart and Pericardium: The cardiac chambers are normal in size. No pericardial fluid or thickening is present. Coronary artery atherosclerosis. Aortic annular calcifications. Mediastinum and Michelle: Scattered mildly prominent mediastinal lymph nodes, the largest pretracheal lymph node measures 12 mm in short axis (series 3, image 40). Thoracic Vasculature: The aorta and its branch vessels are atherosclerotic. Bones and Chest Wall: Bone windows demonstrate no suspicious lytic or blastic lesions. The visible osseous structures are intact. Degenerative changes are seen in the spine. Chronic right-sided rib fractures. Upper Abdomen: Hepatic cirrhosis. Small volume ascites. Cholecystectomy. Procedure Note Seema Swann MD - 06/05/2023 PROCEDURE: CT CHEST WO CONTRAST, DATE/TIME OF EXAM: 06/04/2023 4:07 PM, LOCATION [facility] INDICATION: J84.10: Pulmonary fibrosis (CMS/HCC) ADDITIONAL CLINICAL INFORMATION: Ordering Provider Reason For Exam: Pulmonary fibrosis COMPARISON: None. TECHNIQUE: CT of the chest was performed without contrast according to standard protocol. Findings: Evaluation of visceral and vascular structures is degraded due to lackof intravenous contrast administration. Lower Neck and Axillae: A cardiac device is noted in the left chest with left subclavianapproach leads terminating in the right atrium and right ventricle. The thyroidand axillae appear normal. Lungs: Apical predominant centrilobular and paraseptal emphysema. Peripherallower lobe predominant subpleural cystic spaces with peripheral predominant reticular opacities. Right greater than left lower lobe consolidation.No suspicious pulmonary nodules are identified. No pleural fluid or pneumothorax is present. Heart and Pericardium: The cardiac chambers are normal in size. No pericardial fluid orthickening is present. Coronary artery atherosclerosis. Aortic annularcalcifications. Mediastinum and Michelle: Scattered mildly prominent mediastinal lymph nodes, the largestpretracheal lymph node measures 12 mm in short axis (series 3, image 40). Thoracic Vasculature: The aorta and its branch vessels are atherosclerotic. Bones and Chest Wall: Bone windows demonstrate no suspicious lytic or blastic lesions. The visible osseous structures are intact. Degenerative changes are seen inthe spine. Chronic right-sided rib fractures. Upper Abdomen: Hepatic cirrhosis. Small volume ascites. Cholecystectomy. Impression: 1.Findings compatible with interstitial lung disease with superimposed centrilobular and paraseptal emphysema. 2.Right greater than left lower lobe consolidations may represent superimposed atelectasis or infection/inflammatory infiltrate. 3.Hepatic cirrhosis with small volume ascites. > Dictated by Pallavi Díaz DO (director of residential services). > Dictated by Pallavi Díaz DO (Balance Truing Inspector) 06/05/2023 8:53AM IPham MD have personally reviewed and interpreted this examination/study. > Interpreting Provider: Pham Swann MD on 06/05/2023 1:33 PM Hebert Ortiz MD CT ORDERABLES * PATHOLOGY TISSUE (06/03/2023 5:33 PM CDT) Case Report Surgical Pathology Report ? Case: [id number] ? Authorizing Provider: ??Jayme West MD ?Collected: ? 06/03/2023 05:33 PM ? Ordering Location: ? [facility] ?Received: ?06/03/2023 06:12 PM ? Pathologist: ? Rebecca Kapadia MD ? Specimen: ?Gastric, random gastric bx ? 06/13/2023 10:06 AM [facility] Final Diagnosis Stomach, biopsy (A): - Antral mucosa, marked reactive gastropathy - Oxyntic mucosa, no histopathologic abnormality - Negative for active inflammation or H. pylori organisms (H&E examination) 06/13/2023 10:06 AM [facility] Microscopic Description and Comment Microscopic examination substantiates the final diagnosis. 06/13/2023 10:06 AM [facility] Clinical History The patient is a 62-year-old woman who presented with hematemesis. Operative procedure/findings: EGD-portal hypertensive gastropathy, mild. Erosive gastropathy with no stigmata of bleeding, biopsied. 06/13/2023 10:06 AM [facility] Gross Description The requisition and specimen(s) are identified with the patient's name Kristen Bear . Received in formalin, specimen A , are multiple fragments of pale bentley tissue, 0.1-0.3 cm, 0.6 x 0.5 x 0.2 cm in aggregate. Specimen submitted in toto in cassette A1. AP 06/13/2023 10:06 AM [facility] Pathologist Location at [facility] 06/13/2023 10:06 AM CDT [facility] Disclaimer The performance characteristics of all immunohistochemical and indirect immunofluorescence stains (if any) cited in this report were determined by the Histopathology Laboratory of [facility]. Some of these tests were developed by our own laboratory and have not been cleared or approved by the US Food and Drug Administration. The FDA does not require this test to go through premarket FDA review. These tests are used for clinical purposes. They should not be regarded as investigational or for research. This laboratory is certified under the Clinical Laboratory Improvement Amendments (CLIA) as qualified to perform high complexity clinical laboratory testing. This case has been personally reviewed and interpreted by the attending (teaching) pathologist. 06/13/2023 10:06 AM CDT [facility] Embedded Images 06/13/2023 10:06 AM CDT [facility] Biopsy, NOS GASTRIC CONTENTS SPECIMEN / Unknown 06/03/2023 5:33 PM CDT 06/03/2023 6:12 PM CDT Comment:Pre-op diagnosis: Hematemesis Jayme West MD LAB - PATHOLOGY/CYTO LOGY ORDERABLES Performing Organization Address City/State/[facility] Co de Phone Number [facility] [address] [place] [address], [facility] [phone] * EGD (06/03/2023 5:10 PM CDT) Report Endoscopy POC Endoscopy Department Report __ _ Patient Name: Kristen Bear ?Procedure Date: 06/03/2023 5:10 PM ?Date of : 1960 Classification: Inpatient ? Gender: Female Ethnicity: Not or ? Race: White __ _ Providers: ?Jayme West MD, Blaise Razo ?(Fellow) Referring : ? Procedure: ?Upper GI endoscopy Indications: ?Hematemesis Medications: ?Monitored Anesthesia Care Description of Procedure: Pre-Anesthesia Assessment: ?- Prior to the procedure, a History and Physical ?was performed, and patient medications and ?allergies were reviewed. The patient's tolerance of ?previous anesthesia was also reviewed. The risks ?and benefits of the procedure and the sedation ?options and risks were discussed with the patient. ?All questions were answered, and informed consent ?was obtained. Prior Anticoagulants: The patient has ?taken no anticoagulant or antiplatelet agents. ASA ?Grade Assessment: III - A patient with severe ?systemic disease. After reviewing the risks and ?benefits, the patient was deemed in satisfactory ?condition to undergo the procedure. ?- Prior Aspirin/ NSAID therapy: The patient has ?taken no aspirin or NSAID medications. ?After obtaining informed consent, the endoscope was ?passed under direct vision. Throughout the ?procedure, the patient's blood pressure, pulse, and ?oxygen saturations were monitored continuously. The ?Endoscope was introduced through the mouth, and ?advanced to the fourth part of duodenum. The upper ?GI endoscopy was accomplished without difficulty. ?The patient tolerated the procedure well. ? Findings: ? There is no endoscopic evidence of varices in the entire esophagus. ? The examined esophagus was normal. ? A medium amount of food (residue) was found in the gastric body. ? Mild portal hypertensive gastropathy was found in the stomach. ? A few small erosions with no stigmata of recent bleeding were found in ? the gastric antrum. Biopsies were taken with a cold forceps for ? Helicobacter pylori testing. ? The examined duodenum was normal. ? Estimated Blood Loss: ? Estimated blood loss was minimal. Complications: ?No immediate complications. Impression: ? - No evdience of gastrointestinal bleeding. ?- Normal esophagus. ?- No evidence of esophageal or gastric varices ?- A medium amount of food (residue) in the stomach. ?- Portal hypertensive gastropathy, mild. ?- Erosive gastropathy with no stigmata of recent ?bleeding. Biopsied. ?- Normal examined duodenum. Recommendation: ? - Await pathology results. ?- [facility]. ?- Resume previous diet. ?- Continue present medications. ? Attending Participation: ??I was present and participated during the entire ?procedure, including non-foreman portions. ? Procedure Code(s): ? --- Professional --- ? 77760, Esophagogastroduode noscopy, flexible, transoral; with biopsy, ? single or multiple Diagnosis Code(s): ?--- Professional --- ?K76.6, Portal hypertension ?K31.89, Other diseases of stomach and duodenum ?K92.0, Hematemesis CPT copyright 2021 [employer]. All rights reserved. The codes documented in this report are preliminary and upon pill maker review may be revised to meet current compliance requirements. Jayme West MD 06/03/2023 5:51:38 PM This report has been signed electronically. Note Initiated On: 06/03/2023 5:10 PM Number of Addenda: 0 ? [facility] ? [address] [place] [address] [facility] 06/03/2023 5:10 PM CDT Jaspal Murillo MD GI PROCEDURE ORDERAB LES Performing Organization Address City/[facility]/ZIP Co de Phone Number [facility] * (ABNORMAL) GLUCOSE - POINT OF CARE (06/03/2023 4:31 PM CDT) Only the most recent of33 resultswithin the time period is included. Glucose WB/POC 123(H) 70 - 115 mg/dL 06/04/2023 10:05 AM CDT [facility] Specimen Type Cap Fingerstick 2022 10:05 AM CDT [facility] Blood BLOOD SPECIMEN / Unknown 06/03/2023 4:31 PM CDT 06/04/2023 10:05 AM CDT Jaspal Murillo MD LAB - POINT OF CARE ORDERABLES Performing Organization Address [facility] Co de Phone Number [facility] [address] [place] [address], [facility] [phone] * HEPATITIS B CORE AB TOTAL RFLX IGM DONOR (06/03/2023 6:13 AM CDT) Donor Hepatitis B Core Virus Antibody Total Negative Negative 06/04/2023 7:08 PM CDT [facility] ([facility]) Comment:Test performed with UYA100nity s HBcore kit. Blood BLOOD SPECIMEN / Unknown Lab Venipuncture / Unknown 06/03/2023 6:13 AM CDT 06/03/2023 7:06 AM CDT Narrative [facility] ([facility]) - 06/04/2023 7:08 PM CDT Performed at: ??01 - [employer] [address] [place] [address] ??[phone] Pillowcase Cutter: Augustus Chisholm [facility], Phone: ??[phone] Jaspal Murillo MD LAB - SEROLOGY ORDER KRYS [facility] ([facility]) [address] [place] [address] * HEPATITIS C AB SCREEN RFLX NAAT QUANT (06/03/2023 6:13 AM CDT) Hepatitis C Antibody Non-react andre Non-reac tive 06/03/2023 8:01 AM CDT [facility] Comment:Hepatitis C Antibody screen indicates no [...] CDT Jaspal Murillo MD LAB - CHEMISTRY ORDE MARIPOSA [facility] [address] [place] [address], [facility] [phone] * YLJCM-3-FUACLUUGELU BLOOD PHENOTYPING PANEL (06/03/2023 6:13 AM CDT) [facility] Vrudr-9-Logerebzpn n Phenotype MM 06/06/2023 8:[address] [facility] ([facility]) Comment: The patient appears to have a normal phenotype. All M alleles (including subtypes M1, M2, and M3) produce normal serum concentrations of bpmjw-6-yuxsunri inhibitor and are not associated with clinical disease. Caution in interpretation is advised if the patient has been transfused within the previous 21 days. Performed By: [place] [address] Machine Overhauler: Christiano Eldridge MD, PhD CLIA Number: [id number] Fqozx-9-Piusqzmoqj n 200 90 - 200 mg/dL 06/06/2023 8:[address] [facility] ([facility]) Comment:To convert to umol/L , multiply mg/dL by 0.185 Blood BLOOD SPECIMEN / Unknown Lab Venipuncture / Unknown 06/03/2023 6:13 AM CDT 06/03/2023 7:05 AM CDT Jaspal Murillo MD LAB - CHEMISTRY NAVI MONGE [facility]) [address] [place] [address] * CERULOPLASMIN (06/03/2023 6:13 AM CDT) [facility] Ceruloplasmin 25 20 - 60 mg/dL 06/03/2023 7:43 AM CDT [facility] Blood BLOOD SPECIMEN / Unknown Lab Venipuncture / Unknown 06/03/2023 6:13 AM CDT 06/03/2023 7:05 AM CDT Jaspal Murillo MD LAB - CHEMISTRY NAVI MONGE [address] [address], [facility] [phone] * HEPATITIS B SURFACE ANTIBODY (06/03/2023 6:13 AM CDT) Hepatitis B Virus Surface Antibody Non-react andre Non-react andre 06/03/2023 8:01 AM CDT [facility] Comment: < 8 mIU/mL Hepatitis B surface Antibody (HBsAb). Nonreactive for HBsAb - individual is considered not immune to Hepatitis B Virus infection. Hepatitis B Surface Antibody Quantitative 0.0 <8.0 mIU/mL 06/03/2023 8:01 AM CDT [facility] Comment: Hepatitis B Surface Antibody Numeric Result Interpretation: ? Nonreactive: ?<8.0 mIU/mL ? Indeterminate: ??8.0 - 12.0 mIU/mL ? Reactive: ?>12.0 mIU/mL ? Blood BLOOD SPECIMEN / Unknown Lab Venipuncture / Unknown 06/03/2023 6:13 AM CDT 06/03/2023 7:05 AM CDT Jaspal Murillo MD LAB - CHEMISTRY NAVI MONGE Performing Organization Address City/[facility]/ZIP Co de Phone Number [address] [address], [facility] [phone] * HEPATITIS B SURFACE ANTIGEN W RFLX CONFIRMATION (06/03/2023 6:13 AM CDT) Pathologist [facility] Hepatitis B Virus Surface Antigen Non-reacti ve Non-reacti ve 06/03/2023 8:01 AM CDT [facility] Blood BLOOD SPECIMEN / Unknown Lab Venipuncture / Unknown 06/03/2023 6:13 AM CDT 06/03/2023 7:05 AM CDT Jaspal Murillo MD LAB - CHEMISTRY NAVI MONGE Performing Organization Address City/[facility]/ZIP Co de Phone Number [address] [address], [place] [phone] * (ABNORMAL) IRON + TRANSFERRIN PANEL (06/03/2023 6:13 AM CDT) Iron 21(L) 40 - 150 ug/dL 06/03/2023 7:45 AM CDT [facility] Transferrin 153(L) 174 - 382 mg/dL 06/03/2023 7:45 AM CDT [facility] Transferrin Saturation % 11(L) 16 - 50 % 06/03/2023 7:45 AM CDT [facility] TIBC Calculated 191(L) 240 - 450 ug/dL 06/03/2023 7:45 AM CDT [facility] Blood BLOOD SPECIMEN / Unknown Lab Venipuncture / Unknown 06/03/2023 6:13 AM CDT 06/03/2023 7:05 AM CDT Jaspal Murillo MD LAB - CHEMISTRY NAVI MONGE Performing Organization Address [facility]/ZIP Co de Phone Number [address] [address], [facility] [phone] * FERRITIN (06/03/2023 6:13 AM CDT) Pathologist [facility] Ferritin 73 13 - 204 ng/mL 06/03/2023 8:01 AM CDT [facility] Blood BLOOD SPECIMEN / Unknown Lab Venipuncture / Unknown 06/03/2023 6:13 AM CDT 06/03/2023 7:05 AM CDT Jaspal Murillo MD LAB - CHEMISTRY NAVI MONGE Performing Organization Address [facility]/ZIP Co de Phone Number [address] [address], [place] [phone] * (ABNORMAL) SMOOTH MUSCLE ANTIBODY W REFLEX TITER (06/03/2023 6:12 AM CDT) F-Actin Antibody IgG 36(H) 0 - 19 Units 06/05/2023 10:05 AM CDT [facility] ([facility]) Comment: REFERENCE INTERVAL: F-Actin (Smooth Muscle) Antibody, IgG by ?SHER ??19 Units or less ....... Negative ??20 - 30 Units .......... Weak Positive-Suggest repeat ? testing in two to three weeks ? with fresh specimen. ??31 Units or greater..... Positive-Suggestive of ? autoimmune hepatitis type 1 ? or chronic active hepatitis. F-actin IgG antibodies have been shown to have increased sensitivity for autoimmune hepatitis (AIH) but lower specificity than smooth muscle antibodies (SMA). F-actin IgG antibodies can also be seen in SMA-negative disease controls (non-AIH), especially in patients with primary biliary cirrhosis and chronic hepatitis C infections. Some patients with AIH may be SMA-positive but negative for F-actin IgG. Consider testing for SMA by IFA if suspicion for AIH is strong. Performed By: [employer] [address] [place] [address] Machine Overhauler: Christiano Eldridge MD, PhD CLIA Number: [id number] Blood BLOOD SPECIMEN / Unknown Lab Venipuncture / Unknown 06/03/2023 6:12 AM CDT 06/03/2023 7:06 AM CDT Jaspal Murillo MD LAB - SEROLOGY ORDER KRYS writewith [facility]) [address] [place] [address], [facility] * MITOCHONDRIAL ANTIBODY SCREEN (06/03/2023 6:12 AM CDT) Mitochondrial M2 Antibody 8.3 0.0 - 24.9 Units 06/04/2023 11:13 PM CDT [facility] ([facility]) Comment: REFERENCE INTERVAL: Mitochondrial (M2) Antibody, IgG ?20.0 Units or less ......... Negative ??20.1 - 24.9 Units........... Equivocal ??25.0 Units or greater....... Positive Anti-mitochondrial antibodies (AMA) are thought to be present in 90-95% of patients with primary biliary cholangitis (PBC). However, the frequency of detected antibodies may be cohort or assay dependent, as lower sensitivities have been reported. Not all PBC patients are positive for AMA; some patients may be positive for SP100 and/or GP210 antibodies. A negative result does not rule out PBC. Performed By: [employer] [address] [place] [address] Machine Overhauler: Christiano Eldridge MD, PhD CLIA Number: [id number] Blood BLOOD SPECIMEN / Unknown Lab Venipuncture / Unknown 06/03/2023 6:12 AM CDT 06/03/2023 7:05 AM CDT Jaspal Murillo MD LAB - CHEMISTRY NAVI MONGE [facility] [employer] ([facility]) [address] [place] [address], [facility] * (ABNORMAL) SMOOTH MUSCLE ANTIBODY TITER (06/03/2023 6:12 AM CDT) Smooth Muscle Antibody IgG Titer 1:80(H) <1:20 06/05/2023 7:38 PM CDT [facility] [employer] ([facility]) Comment: INTERPRETIVE INFORMATION: ??Smooth Muscle Ab, IgG Titer ??Less than 1:20 ........ Negative - No antibody detected. ??1:20 - 1:80 ??.......... Weak Positive - Suggest repeat ?in two to three weeks with fresh ?specimen. ??1:160 or greater ...... Positive - Suggestive of ?autoimmune hepatitis or chronic ?active hepatitis. Performed By: [employer] [address] [place] [address] Machine Overhauler: Christiano Eldridge MD, PhD CLIA Number: [id number] Blood BLOOD SPECIMEN / Unknown Lab Venipuncture / Unknown 06/03/2023 6:12 AM CDT 06/03/2023 7:06 AM CDT Jaspal Murillo MD LAB - CHEMISTRY NAVI MONGE [facility]) [address] [place] [address], [facility] * ADRIANNA BLOOD SCREEN W/REFLEX TITER (06/03/2023 6:12 AM CDT) ADRIANNA IgG None Detected None Detected 06/05/2023 11:57 AM CDT [facility] [employer] ([facility]) Comment: If suspicion of connective tissue disease is strong and ADRIANNA EIA is negative, consider testing for ADRIANNA by IFA ([id number]). INTERPRETIVE INFORMATION: Anti-Nuclear Antibodies (ADRIANNA), IgG by SHER Antinuclear Antibodies (ADRIANNA), IgG by SHER: ADRIANNA specimens are screened using enzyme-linked immunosorbent assay (SHER) methodology. All SHER results reported as Detected are further tested by indirect fluorescent assay (IFA) using HEp-2 substrate with an IgG-specific conjugate. The ADRIANNA SHER screen is designed to detect antibodies against dsDNA, histones, SS-A (Ro), SS-B (La), Guidry, Guidry/PATTERN CHAIN BUILDER, Scl-70, Kelly-1, centromeric proteins, other antigens extracted from the HEp-2 cell nucleus. ADRIANNA SHER assays have been reported to have lower sensitivities than ADRIANNA IFA for systemic autoimmune rheumatic diseases (SARD). Negative results do not necessarily rule out SARD. Performed By: [employer] [address] [place] [address] Machine Overhauler: Christiano Eldridge MD, PhD CLIA Number: [id number] Blood BLOOD SPECIMEN / Unknown Lab Venipuncture / Unknown 06/03/2023 6:12 AM CDT 06/03/2023 7:05 AM CDT Jaspal Murillo MD LAB - CHEMISTRY NAVI MONGE Performing Organization Address City/[facility]/ZIP Co de Phone Number [facility] ([facility]) [address] [place] [address] * (ABNORMAL) HEPATITIS A ANTIBODY (06/03/2023 6:12 AM CDT) Hepatitis A Virus Antibody Total Positive( A) Negative 06/05/2023 12:04 PM CDT [facility] [employer] ([facility]) Comment: The positive anti-HAV is consistent with recent or remote Hepatitis A infection or antibody response to HAV vaccination. False positive anti-HAV can occur. Performed By: [facility] [employer] [address] [place] [address] Machine Overhauler: Christiano Eldridge MD, PhD CLIA Number: [id number] Blood BLOOD SPECIMEN / Unknown Lab Venipuncture / Unknown 06/03/2023 6:12 AM CDT 06/03/2023 7:05 AM CDT Jaspal Murillo MD LAB - CHEMISTRY NAVI MONGE Performing Organization Address [facility] Co de Phone Number [facility] ([facility]) [address] [place] [address] * BLOOD TYPE VERIFICATION (06/02/2023 4:44 PM CDT) ABO Rh O POS 06/02/2023 5:3 8 PM CDT [facility] Blood Bank BLOOD SPECIMEN / Unknown Lab Venipuncture / Unknown 06/02/2023 4:44 PM CDT 06/02/2023 5:09 PM CDT Jaspal Murillo MD LAB - BLOOD BANK ORD OJ Performing Organization Address City/[facility]/ZIP Co de Phone Number [facility] [address] [place] [address], [place] [phone] * TYPE + SCREEN PANEL (06/02/2023 3:44 PM CDT) Only the most recent of4 resultswithin the time period is included. Antibody Screen NEG 5:18 PM CDT [facility] ABO Rh O POS 06/02/2023 5:18 PM CDT [facility] Blood Bank BLOOD SPECIMEN / Unknown Lab Venipuncture / Unknown 06/02/2023 3:44 PM CDT 06/02/2023 4:40 PM CDT Jaspal Murillo MD LAB - BLOOD BANK ORD ERABLES [facility] [address] [place] [address], [place] [phone] * PTT [facility] (06/02/2023 2:38 AM CDT) Only the most recent of2 resultswithin the time period is included. APTT 33.8 23.0 - 38.4 Seconds 06/02/2023 3:13 AM CDT [facility] Comment:Suggested therapeuti c range for full dose I.V. unfractionated heparin therapy for venous thromboembolism is 71 to 109 seconds. Blood BLOOD SPECIMEN / Unknown Venipuncture / Unknown 06/02/2023 2:38 AM CDT 06/02/2023 2:47 AM CDT Ramy Duncan MD LAB - COAGULATION OR DERABLES [facility] [address] [place] [id number], [place] [phone] * (ABNORMAL) ERYTHROCYTE SEDIMENTATION RATE (06/02/2023 2:38 AM CDT) Erythrocyte Sedimentation Rate Westergren 40(H) 0 - 30 MM/HR 06/02/2023 2:55 AM CDT [facility] Blood BLOOD SPECIMEN / Unknown Venipuncture / Unknown 06/02/2023 2:38 AM CDT 06/02/2023 2:45 AM CDT Ramy Duncan MD LAB - HEMATOLOGY ORD ERABLES [address] [address], [facility] [phone] * (ABNORMAL) LIPASE BLOOD (06/02/2023 2:38 AM CDT) Lipase <4(L) 8 - 78 U/L 06/02/2023 3:17 AM CDT [facility] Blood BLOOD SPECIMEN / Unknown Venipuncture / Unknown 06/02/2023 2:38 AM CDT 06/02/2023 2:47 AM CDT Narrative [facility] - 06/02/2023 3:17 AM CDT Lipase results from the sharing.it Alinity analyzer may not be comparable with other methodologies. Ramy Duncan MD LAB - CHEMISTRY NAVI MONGE Performing Organization Address [facility]/ZIP Co de Phone Number [address] [address], [facility] [phone] * (ABNORMAL) HEMOGLOBIN A1C (06/19/2022 3:09 AM CDT) Hemoglobin A1c 6.2(H) <=5.6 % 06/19/2022 10:37 AM CDT [facility] Estimated Average Glucose 131 mg/dL 06/19/2022 10:37 AM CDT [facility] Comment: HbA1c Interpretation: Normal : < 5.7% Pre-diabetes: 5.7-6.4% Diabetes: Equal to or greater than 6.5% Test results diagnostic of diabetes should be repeated for confirmation. Treatment target values recommended by ADA and other clinical organizations should be used to evaluate metabolic control in patients. Reference: [place] [employer], Standards of Care in Diabetes -2020 In patients 70 years and older consider HbA1c target range of 7.0-7.5% (Reference: Raphael Salazar et al. JAMDA. 2012) The Sebia assay for the measurement of HbA1c is a National Glycohemoglobin Standardization Program (NGSP) certified method. Blood BLOOD SPECIMEN / Unknown Lab Venipuncture / Unknown 06/19/2022 3:09 AM CDT 06/19/2022 4:19 AM CDT Sonia Palma SOCIAL SCIENCES RESEARCH SCIENTIST-MEDICAL REFERRAL COORDINATOR LAB - CHEMISTRY ORDERABLES [facility] [address] [place] [address], [facility] [phone] * (ABNORMAL) BASIC METABOLIC PANEL (CALCIUM TOTAL) (06/19/2022 3:09 AM CDT) Only the most recent of7 resultswithin the time period is included. BUN 10 7 - 26 mg/dL 06/19/2022 4:43 AM [facility] Creatinine 0.52(L) 0.56 - 0.96 mg/dL 06/19/2022 4:43 AM [facility] Sodium 133(L) 136 - 145 mmol/L 06/19/2022 4:43 AM [facility] Potassium 4.1 3.5 - 4.5 mmol/L 06/19/2022 4:43 AM [facility] Chloride 101 98 - 107 mmol/L 06/19/2022 4:43 AM [facility] CO2 23 22 - 29 mmol/L 06/19/2022 4:43 AM [facility] Glucose 135(H) 70 - 115 mg/dL 06/19/2022 4:43 AM [facility] Calcium 8.9 8.4 - 10.2 mg/dL 06/19/2022 4:43 AM [facility] Anion Gap 13 8 - 18 06/19/2022 4:43 AM [facility] BUN/Creatinine Ratio 19 7 - 23 06/19/2022 4:43 AM [facility] Osmolality Calculated 277 270 - 300 mOsm/kg 06/19/2022 4:43 AM [facility] eGFR by CKD-EPI >90 >=90 mL/min/1.7 3 m2 06/19/2022 4:43 AM [facility] Blood BLOOD SPECIMEN / Unknown Lab Venipuncture / Unknown 06/19/2022 3:09 AM CDT 06/19/2022 4:18 AM CDT Vane Priest MD LAB - CHEMISTRY NAVI MONGE [facility] [address] [place] [address], [facility] [phone] * FL JULI SURGERY (06/13/2022 3:12 PM CDT) Narrative [facility] RADIOLOG[facility] - 06/13/2022 3:13 PM CDT Fluoroscopy was used for this exam in the OR. Please see the Operative report. Vane Priest MD FLUOROSCOPY ORDERABL ES Performing Organization Address City/[facility]/ZIP Co de Phone Number [facility] RAD[facility] * ETT LINE PERFORMABLE (06/13/2022 9:19 AM CDT) Narrative Ady Herrera MD - 06/13/2022 9:19 AM CDT Ady Herrera MD ? 06/13/2022 10:05 AM Endotracheal Tube Placement: ? Patient Location: OR. Intubation Event Date/Time: ??06/13/2022 9:19 AM Procedure: intubation ([id number]). Procedure Section: ?? Sedation: under general anesthesia. Indications for Airway Management: ??anesthesia Procedure pretreatments used? ??No Induction: standard IV Patient Position: ??sniffing and supine Mask Ventilation: easy. Blade Type: Brain Blade Size: 3 Laryngoscopy View: grade 1 (full cords) Intubation Adjuncts: stylet Tube: endotracheal tube Placement: oral Tube type: cuff - inflated Tube Size (MM): 7 Depth of Insertion (CM): 22 Measured From: lips Cuff volume (mL): ??10 Cuff Inflated With: air Number of Attempts: 1. Placement Verified By: direct visualization, bilateral breath sounds, chest auscultation and CO2 monitor Tube secured with: ??adhesive tape. Dentition unchanged? ??Yes Difficult Airway? ??No. Procedure Start Time: 06/13/2022 9:19 AM. Staff Section ? Anesthesia Provider: Ady Herrera MD, Performed the procedure ? Provider #1: Sacha Ledezma MD. Sacha Ledezma MD GENERAL ANESTHESIA ORDERABLES * XR CHEST 2VW (06/04/2022 10:53 AM CDT) Only the most recent of2 resultswithin the time period is included. Anatomical Region Laterality Modality Chest Radiographic Cindi ging 06/04/2022 10:5 4 AM CDT Impressions 06/04/2022 2:41 PM CDT IMPRESSION: Emphysema. Bilateral mid/lower peripheral reticular opacities. Diagnostic considerations include interstitial fibrosis, less likely edema or atypical infection. Report dictated by Chris Anna MD (director of residential services). I, Liliane Bojorquez MD have personally reviewed and interpreted this examination/study. > Interpreting Provider: Liliane Bojorquez MD on 06/04/2022 2:41 PM Narrative 06/04/2022 2:41 PM CDT PROCEDURE: ??XR CHEST 2VW, DATE/TIME OF EXAM: ??06/04/2022 10:53 AM, LOCATION [facility] INDICATION: Z01.818: Preop testing COMPARISON: Outside exam done 04/27/2009. FINDINGS: Implantable cardiac device projects over the left chest wall with intact leads projecting over the right atrium and right ventricle. The lungs are hyperinflated with flattened hemidiaphragms, consistent with emphysema. No confluent airspace consolidation. Reticular opacities of the bilateral mid and lower lungs could represent interstitial fibrosis, edema, or atypical infection. No pleural effusion or pneumothorax. Heart size and mediastinal contours are normal. Prominent right hilar configuration is unchanged from 04/27/2009. Old right rib fractures are noted. Procedure Note Liliane Bojorquez MD - 06/04/2022 PROCEDURE: XR CHEST 2VW, DATE/TIME OF EXAM: 06/04/2022 10:53 AM, LOCATION [facility] INDICATION: Z01.818: Preop testing COMPARISON: Outside exam done 04/27/2009. FINDINGS: Implantable cardiac device projects over the left chest wall with intact leads projecting over the right atrium and right ventricle. The lungs are hyperinflated with flattened hemidiaphragms, consistentwith emphysema. No confluent airspace consolidation. Reticular opacities ofthe bilateral mid and lower lungs could represent interstitial fibrosis,edema, or atypical infection. No pleural effusion or pneumothorax. Heart sizeand mediastinal contours are normal. Prominent right hilar configuration is unchanged from 04/27/2009. Old right rib fractures are noted. IMPRESSION: Emphysema. Bilateral mid/lower peripheral reticular opacities. Diagnostic considerations include interstitial fibrosis, less likely edema oratypical infection. Report dictated by Chris Anna MD (director of residential services). Liliane Lai MD have personally reviewed and interpreted this examination/study. > Interpreting Provider: Liliane Bojorquez MD on 06/04/2022 2:41 PM Vane Priest MD DIAGNOSTIC IMAGING O RDERABLES * CT LUMBAR POST MYELOGRAM (03/26/2022 1:14 PM CDT) Anatomical Region Laterality Modality Spine Computed Tomogra phy 03/26/2022 1:46 PM CDT Impressions 03/27/2022 10:31 AM CDT IMPRESSION: 1.Successful lumbar myelogram with intrathecal injection of contrast. FreeFlow of contrast throughout the lumbosacral and the visualized thoracic spine without myelographic block. 2.Multilevel degenerative disc and joint disease as detailed level by level above, worse at L3-L4, L4-L5, and L5-S1 as detailed above. Dictated by Jaspal Shirley MD (director of residential services). Attending Physician: ??Dr. Arben Montes De Oca Social Media Analyst: Jaspal Shirley MD (director of residential services). The procedure was performed by the: The assistant editor, and the attending radiologist was present for all critical and foreman portions of the procedure, and was immediately available to furnish services during the entire procedure. The attending radiologist performed the following procedural activities: Imaged and decided needle was appropriately placed Inserted needle under image guidance Dr. Arben Lai was there and supervised foreman portions of the procedure, not scrubbed. This report was approved ??by Jaspal Shirley ?? on 03/27/2022 10:[address] ARBEN Lai have personally reviewed and interpreted this examination/study. This report was electronically signed by ARBEN MONTES DE OCA ??on 03/27/2022 10:31 AM . Narrative 03/27/2022 10:31 AM CDT FL MYELOGRAM LUMBAR, CT LUMBAR POST MYELOGRAM DATE: 03/26/2022 12:41 PM EXAMINATION: 1.Lumbar puncture (LP) under fluoroscopic guidance for lumbar myelogram 2.Computed tomography (CT) of the lumbar spine with contrast HISTORY: M54.16: Lumbar radiculopathy. G95.19: Neurogenic claudication TECHNIQUE: The risks and benefits of the lumbar puncture and myelography including, but not limited to, infection, bleeding, seizure, epidural hematoma, post spinal headache, cerebrospinal fluid (CSF) leak requiring blood patch procedure, nausea, vomiting, irritation or damage to nerves causing pain or permanent injury were discussed with with the patient. After alternatives were discussed and the opportunity to ask questions was provided, the patient acknowledged understanding, gave verbal and written consent, and wished to proceed. Attending physician: Dr. Shekhar Montes De Oca MD was present for the foreman portions of this procedure. The L2-L3 level was localized with fluoroscopy. The skin overlying this level was then sterilely prepped, draped, and infiltrated with 1% lidocaine for local anesthesia. Under intermittent fluoroscopic guidance, a 22 gauge 3.5 inch needle was inserted into the thecal sac at this level and 15 ml of Isovue M200 contrast was instilled. Prone, lateral, and oblique fluoroscopic images of the lumbar spine were obtained and then the patient was taken to the CT scanner where CT of the lumbar spine was performed. The patient tolerated the procedure well. The patient was then transferred to the laboratory animal caretaker unit for further observation and at least 3 hours of bedrest. FLUOROSCOPY TIME: 69.1 seconds FINDINGS: Lumbar spinal stenosis at L4-L5, L5-S1. Fluoroscopic images confirm intrathecal injection with contrast flowing freely in the intradural-extramedullary space. The remainder of the findings are fully characterized on the subsequently performed CT. Please see the report below for further details. There are 12 paired ribs and 5 nonrib-bearing lumbar vertebral bodies. Myelogram findings: On the lateral view of the myelogram plain film, moderate to severe spinal canal stenosis at the level of L3-L4, L4-L5, and L5-S1 however, on the CT myelogram on a [id number] stenosis is noted, likely related to positioning. CT myelogram findings: Lumbar lordotic curvature is preserved. There is grade 1 (5 mm) anterolisthesis of L3 on L4; and grade 1 (8 mm) anterolisthesis of L4 on L5. There is mild chronic deformity of L2 superior endplate. There is posterior disc bulge at L3-L4, L4-L5. Vertebral bodies are normal in height without evidence of compression fractures. The intervertebral discs are decreased in height. The conus medullaris is at the level of L1 inferior endplate. There is atherosclerotic calcification of the abdominal aorta and its branch vessels. There are degenerative changes of the SI joints. Metallic clips in the nubia hepatis. Background emphysema and extensive bibasilar interstitial opacities in the small cystic changes concerning for underlying chronic lung disease. Free flow of contrast throughout the lumbosacral and the lower thoracic thecal sac without myelographic block. Counting reference for the purposes of this report, L4-L5 is abnormal contrast. At T11-T12: There is retrolisthesis of T11 on T12. Diffuse disc bulge/disc osteophyte complex causes indentation on the ventral aspect of the thecal sac and mild cord abutment. No high-grade spinal canal stenosis. Bilateral facet arthropathy. Mild right more than left neural foraminal stenosis. At T12-L1: The spinal canal and neural foramina are patent. L1-2: There is no disc bulge. There is no central canal stenosis. There is no facet osteoarthritis. There is no neural foraminal stenosis. L2-3: There is minimal disc bulge. There is mild hypertrophy of the ligamentum flavum. There is no central canal stenosis. There is minimal facet osteoarthritis. There is no neural foraminal stenosis. L3-4: There is diffuse disc bulge. There is hypertrophy of the ligamentum flavum. There is moderate central canal stenosis. There is significant bilateral lateral recess stenosis. There is advanced facet osteoarthritis. There is mild bilateral neural foraminal stenosis. L4-5: There is diffuse disc bulge. There is hypertrophy of the ligamentum flavum. There is moderate central canal stenosis. There is significant bilateral lateral recess stenosis. There is advanced facet osteoarthritis. There is moderate to severe neural foraminal stenosis. L5-S1: There is mild disc bulge with a superimposed right central/paracentral disc protrusion causing indentation on the right ventral aspect of the thecal sac and moderate right lateral recess stenosis. There is no central canal stenosis. There is mild facet osteoarthritis. There is severe bilateral neural foraminal stenosis. Procedure Note Arben Montes De Oca MD - 03/27/2022 FL MYELOGRAM LUMBAR, CT LUMBAR POST MYELOGRAM DATE: 03/26/2022 12:41 PM EXAMINATION: 1.Lumbar puncture (LP) under fluoroscopic guidance for lumbar myelogram 2.Computed tomography (CT) of the lumbar spine with contrast HISTORY: M54.16: Lumbar radiculopathy. G95.19: Neurogenic claudication TECHNIQUE: The risks and benefits of the lumbar puncture and myelography including, but not limited to, infection, bleeding, seizure, epidural hematoma, post spinal headache, cerebrospinal fluid (CSF) leak requiring blood patch procedure, nausea, vomiting, irritation or damage to nerves causing pain or permanent injury were discussed with with the patient. After alternatives were discussed and the opportunity to ask questionswas provided, the patient acknowledged understanding, gave verbal andwritten consent, and wished to proceed. Attending physician: Dr. Shekhar Montes De Oca MD was present for the foreman portions of this procedure. The L2-L3 level was localized with fluoroscopy. The skin overlying this level was then sterilely prepped, draped, and infiltrated with 1% lidocaine for local anesthesia. Under intermittent fluoroscopicguidance, a 22 gauge 3.5 inch needle was inserted into the thecal sac at thislevel and 15 ml of Isovue M200 contrast was instilled. Prone, lateral, and oblique fluoroscopic images of the lumbar spine were obtained and thenthe patient was taken to the CT scanner where CT of the lumbar spine was performed. The patient tolerated the procedure well. The patient wasthen transferred to the laboratory animal caretaker unit for further observation and at least 3 hours of bedrest. FLUOROSCOPY TIME: 69.1 seconds FINDINGS: Lumbar spinal stenosis at L4-L5, L5-S1. Fluoroscopic images confirm intrathecal injection with contrast flowing freely in the intradural-extramedullary space. The remainder of the findings are fully characterized on the subsequently performed CT.Please see the report below for further details. There are 12 paired ribs and 5 nonrib-bearing lumbar vertebral bodies. Myelogram findings: On the lateral view of the myelogram plain film, moderate to severespinal canal stenosis at the level of L3-L4, L4-L5, and L5-S1 however, on theCT myelogram on a [id number]-zb-dwuxhpzk stenosis is noted, likely related to positioning. CT myelogram findings: Lumbar lordotic curvature is preserved. There is grade 1 (5 mm) anterolisthesis of L3 on L4; and grade 1 (8 mm) anterolisthesis of L4 on L5. There is mild chronic deformity of L2 superior endplate. There is posterior disc bulge at L3-L4, L4-L5. Vertebral bodies are normal in height without evidence of compression fractures. The intervertebraldiscs are decreased in height. The conus medullaris is at the level of L1 inferior endplate. There is atherosclerotic calcification of theabdominal aorta and its branch vessels. There are degenerative changes of the SI joints. Metallic clips in the nubia hepatis. Background emphysema and extensive bibasilar interstitial opacities in the small cystic changes concerning for underlying chronic lung disease. Free flow of contrast throughout the lumbosacral and the lower thoracic thecal sac without myelographic block. Counting reference for the purposes of this report, L4-L5 is abnormal contrast. At T11-T12: There is retrolisthesis of T11 on T12. Diffuse discbulge/disc osteophyte complex causes indentation on the ventral aspect of thethecal sac and mild cord abutment. No high-grade spinal canal stenosis.Bilateral facet arthropathy. Mild right more than left neural foraminal stenosis. At T12-L1: The spinal canal and neural foramina are patent. L1-2: There is no disc bulge. There is no central canal stenosis. Thereis no facet osteoarthritis. There is no neural foraminal stenosis. L2-3: There is minimal disc bulge. There is mild hypertrophy of the ligamentum flavum. There is no central canal stenosis. There is minimal facet osteoarthritis. There is no neural foraminal stenosis. L3-4: There is diffuse disc bulge. There is hypertrophy of theligamentum flavum. There is moderate central canal stenosis. There is significant bilateral lateral recess stenosis. There is advanced facetosteoarthritis. There is mild bilateral neural foraminal stenosis. L4-5: There is diffuse disc bulge. There is hypertrophy of theligamentum flavum. There is moderate central canal stenosis. There is significant bilateral lateral recess stenosis. There is advanced facetosteoarthritis. There is moderate to severe neural foraminal stenosis. L5-S1: There is mild disc bulge with a superimposed right central/paracentral disc protrusion causing indentation on the right ventral aspect of the thecal sac and moderate right lateral recess stenosis. There is no central canal stenosis. There is mild facet osteoarthritis. There is severe bilateral neural foraminal stenosis. IMPRESSION: 1.Successful lumbar myelogram with intrathecal injection of contrast. FreeFlow of contrast throughout the lumbosacral and the visualized thoracic spine without myelographic block. 2.Multilevel degenerative disc and joint disease as detailed level by level above, worse at L3-L4, L4-L5, and L5-S1 as detailed above. Dictated by Jaspal Shirley MD (director of residential services). Attending Physician: Dr. Arben Montes De Oca Social Media Analyst: Jaspal Shirley MD (director of residential services). The procedure was performed by the: The assistant editor, and the attending radiologist was present for allcritical and foreman portions of the procedure, and was immediately available to furnish services during the entire procedure. The attending radiologist performed the following procedural activities: Imaged and decided needle was appropriately placed Inserted needle under image guidance I, Dr. Arben Montes De Oca was there and supervised foreman portions of the procedure, not scrubbed. This report was approved by Jaspal Shirley on 03/27/2022 10:31 AM. I, Dr. ARBEN MONTES DE OCA have personally reviewed and interpreted this examination/study. This report was electronically signed by ARBEN MONTES DE OCA on03/27/2022 10:31 AM . Sonia Palma SOCIAL SCIENCES RESEARCH SCIENTIST-MEDICAL REFERRAL COORDINATOR CT ORDERABLES * FL MYELOGRAM LUMBAR (03/26/2022 12:37 PM CDT) Anatomical Region Laterality Modality Spine Radiographic Cindi ging Cerebral spinal fluid 03/26/2022 1:46 PM CDT Impressions 03/27/2022 10:31 AM CDT IMPRESSION: 1.Successful lumbar myelogram with intrathecal injection of contrast. FreeFlow of contrast throughout the lumbosacral and the visualized thoracic spine without myelographic block. 2.Multilevel degenerative disc and joint disease as detailed level by level above, worse at L3-L4, L4-L5, and L5-S1 as detailed above. Dictated by Jaspal Shirley MD (director of residential services). Attending Physician: ??Dr. Arben Montes De Oca Social Media Analyst: Jasapl Shirley MD (director of residential services). The procedure was performed by the: The assistant editor, and the attending radiologist was present for all critical and foreman portions of the procedure, and was immediately available to furnish services during the entire procedure. The attending radiologist performed the following procedural activities: Imaged and decided needle was appropriately placed Inserted needle under image guidance IDr. Arben was there and supervised foreman portions of the procedure, not scrubbed. This report was approved ??by Jaspal Shirley ?? on 03/27/2022 10:31 AM . I, Dr. ARBEN MONTES DE OCA have personally reviewed and interpreted this examination/study. This report was electronically signed by ARBEN MONTES DE OCA ??on 03/27/2022 10:31 AM . Narrative 03/27/2022 10:31 AM CDT FL MYELOGRAM LUMBAR, CT LUMBAR POST MYELOGRAM DATE: 03/26/2022 12:41 PM EXAMINATION: 1.Lumbar puncture (LP) under fluoroscopic guidance for lumbar myelogram 2.Computed tomography (CT) of the lumbar spine with contrast HISTORY: M54.16: Lumbar radiculopathy. G95.19: Neurogenic claudication TECHNIQUE: The risks and benefits of the lumbar puncture and myelography including, but not limited to, infection, bleeding, seizure, epidural hematoma, post spinal headache, cerebrospinal fluid (CSF) leak requiring blood patch procedure, nausea, vomiting, irritation or damage to nerves causing pain or permanent injury were discussed with with the patient. After alternatives were discussed and the opportunity to ask questions was provided, the patient acknowledged understanding, gave verbal and written consent, and wished to proceed. Attending physician: Dr. Shekhar Montes De Oca MD was present for the foreman portions of this procedure. The L2-L3 level was localized with fluoroscopy. The skin overlying this level was then sterilely prepped, draped, and infiltrated with 1% lidocaine for local anesthesia. Under intermittent fluoroscopic guidance, a 22 gauge 3.5 inch needle was inserted into the thecal sac at this level and 15 ml of Isovue M200 contrast was instilled. Prone, lateral, and oblique fluoroscopic images of the lumbar spine were obtained and then the patient was taken to the CT scanner where CT of the lumbar spine was performed. The patient tolerated the procedure well. The patient was then transferred to the laboratory animal caretaker unit for further observation and at least 3 hours of bedrest. FLUOROSCOPY TIME: 69.1 seconds FINDINGS: Lumbar spinal stenosis at L4-L5, L5-S1. Fluoroscopic images confirm intrathecal injection with contrast flowing freely in the intradural-extramedullary space. The remainder of the findings are fully characterized on the subsequently performed CT. Please see the report below for further details. There are 12 paired ribs and 5 nonrib-bearing lumbar vertebral bodies. Myelogram findings: On the lateral view of the myelogram plain film, moderate to severe spinal canal stenosis at the level of L3-L4, L4-L5, and L5-S1 however, on the CT myelogram on a [id number] stenosis is noted, likely related to positioning. CT myelogram findings: Lumbar lordotic curvature is preserved. There is grade 1 (5 mm) anterolisthesis of L3 on L4; and grade 1 (8 mm) anterolisthesis of L4 on L5. There is mild chronic deformity of L2 superior endplate. There is posterior disc bulge at L3-L4, L4-L5. Vertebral bodies are normal in height without evidence of compression fractures. The intervertebral discs are decreased in height. The conus medullaris is at the level of L1 inferior endplate. There is atherosclerotic calcification of the abdominal aorta and its branch vessels. There are degenerative changes of the SI joints. Metallic clips in the nubia hepatis. Background emphysema and extensive bibasilar interstitial opacities in the small cystic changes concerning for underlying chronic lung disease. Free flow of contrast throughout the lumbosacral and the lower thoracic thecal sac without myelographic block. Counting reference for the purposes of this report, L4-L5 is abnormal contrast. At T11-T12: There is retrolisthesis of T11 on T12. Diffuse disc bulge/disc osteophyte complex causes indentation on the ventral aspect of the thecal sac and mild cord abutment. No high-grade spinal canal stenosis. Bilateral facet arthropathy. Mild right more than left neural foraminal stenosis. At T12-L1: The spinal canal and neural foramina are patent. L1-2: There is no disc bulge. There is no central canal stenosis. There is no facet osteoarthritis. There is no neural foraminal stenosis. L2-3: There is minimal disc bulge. There is mild hypertrophy of the ligamentum flavum. There is no central canal stenosis. There is minimal facet osteoarthritis. There is no neural foraminal stenosis. L3-4: There is diffuse disc bulge. There is hypertrophy of the ligamentum flavum. There is moderate central canal stenosis. There is significant bilateral lateral recess stenosis. There is advanced facet osteoarthritis. There is mild bilateral neural foraminal stenosis. L4-5: There is diffuse disc bulge. There is hypertrophy of the ligamentum flavum. There is moderate central canal stenosis. There is significant bilateral lateral recess stenosis. There is advanced facet osteoarthritis. There is moderate to severe neural foraminal stenosis. L5-S1: There is mild disc bulge with a superimposed right central/paracentral disc protrusion causing indentation on the right ventral aspect of the thecal sac and moderate right lateral recess stenosis. There is no central canal stenosis. There is mild facet osteoarthritis. There is severe bilateral neural foraminal stenosis. Procedure Note Arben Montes De Oca MD - 03/27/2022 [place] MYELOGRAM LUMBAR, CT LUMBAR POST MYELOGRAM DATE: 03/26/2022 12:41 PM EXAMINATION: 1.Lumbar puncture (LP) under fluoroscopic guidance for lumbar myelogram 2.Computed tomography (CT) of the lumbar spine with contrast HISTORY: M54.16: Lumbar radiculopathy. G95.19: Neurogenic claudication TECHNIQUE: The risks and benefits of the lumbar puncture and myelography including, but not limited to, infection, bleeding, seizure, epidural hematoma, post spinal headache, cerebrospinal fluid (CSF) leak requiring blood patch procedure, nausea, vomiting, irritation or damage to nerves causing pain or permanent injury were discussed with with the patient. After alternatives were discussed and the opportunity to ask questionswas provided, the patient acknowledged understanding, gave verbal andwritten consent, and wished to proceed. Attending physician: Dr. Shekhar Montes De Oca MD was present for the foreman portions of this procedure. The L2-L3 level was localized with fluoroscopy. The skin overlying this level was then sterilely prepped, draped, and infiltrated with 1% lidocaine for local anesthesia. Under intermittent fluoroscopicguidance, a 22 gauge 3.5 inch needle was inserted into the thecal sac at thislevel and 15 ml of Isovue M200 contrast was instilled. Prone, lateral, and oblique fluoroscopic images of the lumbar spine were obtained and thenthe patient was taken to the CT scanner where CT of the lumbar spine was performed. The patient tolerated the procedure well. The patient wasthen transferred to the laboratory animal caretaker unit for further observation and at least 3 hours of bedrest. FLUOROSCOPY TIME: 69.1 seconds FINDINGS: Lumbar spinal stenosis at L4-L5, L5-S1. Fluoroscopic images confirm intrathecal injection with contrast flowing freely in the intradural-extramedullary space. The remainder of the findings are fully characterized on the subsequently performed CT.Please see the report below for further details. There are 12 paired ribs and 5 nonrib-bearing lumbar vertebral bodies. Myelogram findings: On the lateral view of the myelogram plain film, moderate to severespinal canal stenosis at the level of L3-L4, L4-L5, and L5-S1 however, on theCT myelogram on a [id number] stenosis is noted, likely related to positioning. CT myelogram findings: Lumbar lordotic curvature is preserved. There is grade 1 (5 mm) anterolisthesis of L3 on L4; and grade 1 (8 mm) anterolisthesis of L4 on L5. There is mild chronic deformity of L2 superior endplate. There is posterior disc bulge at L3-L4, L4-L5. Vertebral bodies are normal in height without evidence of compression fractures. The intervertebraldiscs are decreased in height. The conus medullaris is at the level of L1 inferior endplate. There is atherosclerotic calcification of theabdominal aorta and its branch vessels. There are degenerative changes of the SI joints. Metallic clips in the nubia hepatis. Background emphysema and extensive bibasilar interstitial opacities in the small cystic changes concerning for underlying chronic lung disease. Free flow of contrast throughout the lumbosacral and the lower thoracic thecal sac without myelographic block. Counting reference for the purposes of this report, L4-L5 is abnormal contrast. At T11-T12: There is retrolisthesis of T11 on T12. Diffuse discbulge/disc osteophyte complex causes indentation on the ventral aspect of thethecal sac and mild cord abutment. No high-grade spinal canal stenosis.Bilateral facet arthropathy. Mild right more than left neural foraminal stenosis. At T12-L1: The spinal canal and neural foramina are patent. L1-2: There is no disc bulge. There is no central canal stenosis. Thereis no facet osteoarthritis. There is no neural foraminal stenosis. L2-3: There is minimal disc bulge. There is mild hypertrophy of the ligamentum flavum. There is no central canal stenosis. There is minimal facet osteoarthritis. There is no neural foraminal stenosis. L3-4: There is diffuse disc bulge. There is hypertrophy of theligamentum flavum. There is moderate central canal stenosis. There is significant bilateral lateral recess stenosis. There is advanced facetosteoarthritis. There is mild bilateral neural foraminal stenosis. L4-5: There is diffuse disc bulge. There is hypertrophy of theligamentum flavum. There is moderate central canal stenosis. There is significant bilateral lateral recess stenosis. There is advanced facetosteoarthritis. There is moderate to severe neural foraminal stenosis. L5-S1: There is mild disc bulge with a superimposed right central/paracentral disc protrusion causing indentation on the right ventral aspect of the thecal sac and moderate right lateral recess stenosis. There is no central canal stenosis. There is mild facet osteoarthritis. There is severe bilateral neural foraminal stenosis. IMPRESSION: 1.Successful lumbar myelogram with intrathecal injection of contrast. FreeFlow of contrast throughout the lumbosacral and the visualized thoracic spine without myelographic block. 2.Multilevel degenerative disc and joint disease as detailed level by level above, worse at L3-L4, L4-L5, and L5-S1 as detailed above. Dictated by Jaspal Shirley MD (director of residential services). Attending Physician: Dr. Arben Montes De Oca Social Media Analyst: Jaspal Shirley MD (director of residential services). The procedure was performed by the: The assistant editor, and the attending radiologist was present for allcritical and foreman portions of the procedure, and was immediately available to furnish services during the entire procedure. The attending radiologist performed the following procedural activities: Imaged and decided needle was appropriately placed Inserted needle under image guidance Dr. Arben Lai was there and supervised foreman portions of the procedure, not scrubbed. This report was approved by Jaspal Shirley on 03/27/2022 10:[address] ARBEN Lai have personally reviewed and interpreted this examination/study. This report was electronically signed by ARBEN MONTES DE OCA on03/27/2022 10:31 AM . Sonia Palma SOCIAL SCIENCES RESEARCH SCIENTIST-MEDICAL REFERRAL COORDINATOR FLUOROSCOPY ORD ERABLES * XR SKULL TO ANKLE CAROLYNE (03/26/2022 9:29 AM CDT) Anatomical Region Laterality Modality Radiographic Cindi ging 03/26/2022 9:32 AM CDT Impressions 03/26/2022 11:03 AM CDT FINDINGS/IMPRESSION: Left subclavian cardiac device with leads in the right atrium and right ventricle. Prosthetic valve is noted. Small bilateral pleural effusions with adjacent atelectasis. The cardiomediastinal silhouette is normal. Nonobstructive bowel gas pattern. Clips project over the right upper quadrant. No acute fractures. There are 12 rib-bearing thoracic vertebral bodies and 5 nonrib-bearing lumbar vertebral bodies. There is mild rightward coronal imbalance. There is neutral sagittal imbalance. Grade 1 anterolisthesis of L4 and L5. There is mild right inferior pelvic tilt. Chronic bilateral femoral mid shaft deformities with slight apex anterior angulation. Severe degenerative changes in the right knee joint. Moderate degenerative changes in the left knee joint. Right tibial intramedullary aidan with interlocking screws is noted and appears intact. Dictated by Alli Bynum DO (director of residential services). I, Dr. PANCHO MCKEON have personally reviewed and interpreted this examination/study. This report was electronically signed by PANCHO MCKEON ??on 03/26/2022 11:03 AM . Narrative 03/26/2022 11:03 AM CDT EXAMINATION: XR SKULL TO ANKLE CAROLYNE HISTORY: M54.16: Lumbar radiculopathy G95.19: Neurogenic claudication COMPARISON: No prior study is available for comparison at the time of this dictation. Procedure Note Pancho Mckeon MD - 03/26/2022 EXAMINATION: XR SKULL TO ANKLE CAROLYNE HISTORY: M54.16: Lumbar radiculopathy G95.19: Neurogenic claudication COMPARISON: No prior study is available for comparison at the time ofthis dictation. FINDINGS/IMPRESSION: Left subclavian cardiac device with leads in the right atrium and right ventricle. Prosthetic valve is noted. Small bilateral pleural effusions with adjacent atelectasis. The cardiomediastinal silhouette is normal. Nonobstructive bowel gas pattern. Clips project over the right upper quadrant. No acute fractures. There are 12 rib-bearing thoracic vertebral bodies and 5 nonrib-bearing lumbar vertebral bodies. There is mild rightward coronal imbalance.There is neutral sagittal imbalance. Grade 1 anterolisthesis of L4 and L5.There is mild right inferior pelvic tilt. Chronic bilateral femoral mid shaft deformities with slight apex anterior angulation. Severe degenerative changes in the right knee joint. Moderate degenerative changes in theleft knee joint. Right tibial intramedullary aidan with interlocking screws is noted and appears intact. Dictated by Alli Bynum DO (director of residential services). Dr. PANCHO Lai have personally reviewed and interpreted this examination/study. This report was electronically signed by PANCHO MCKEON on 03/26/2022 11:03 AM . Sonia Palma SOCIAL SCIENCES RESEARCH SCIENTIST-MEDICAL REFERRAL COORDINATOR DIAGNOSTIC IMAG ING ORDERABLES * XR LUMBAR SPINE 4VW OR MORE (03/26/2022 9:29 AM CDT) Anatomical Region Laterality Modality Spine Radiographic Cindi ging 03/26/2022 2:31 PM CDT Impressions 03/26/2022 2:38 PM CDT IMPRESSION: Grade 1 anterolisthesis of L3 on L4 and L4 on L5, which is unchanged on flexion and extension radiographs. Dictated by Juliane Wagner MD (director of residential services). Dr. BARBARA Lai have personally reviewed and interpreted this examination/study. This report was electronically signed by BARBARA YEUNG ??on 03/26/2022 2:38 PM . Narrative 03/26/2022 2:38 PM CDT EXAM: XR LUMBAR SPINE 4VW HISTORY: M54.16: Lumbar radiculopathy G95.19: Neurogenic claudication COMPARISON: None FINDINGS: Diffuse osteopenia. Grade 1 anterolisthesis of L3 on L4 measuring 0.7 cm. Grade 1 anterolisthesis of L4 on L5 measuring 1.0 cm. This is unchanged on flexion and extension radiographs. There is no fracture or compression deformity. Mild multilevel intervertebral disc space narrowing. Facet joint hypertrophy. Atherosclerotic calcifications. Procedure Note Barbara Yeung MD - 03/26/2022 EXAM: XR LUMBAR SPINE 4VW HISTORY: M54.16: Lumbar radiculopathy G95.19: Neurogenic claudication COMPARISON: None FINDINGS: Diffuse osteopenia. Grade 1 anterolisthesis of L3 on L4 measuring 0.7cm. Grade 1 anterolisthesis of L4 on L5 measuring 1.0 cm. This is unchangedon flexion and extension radiographs. There is no fracture or compression deformity. Mild multilevel intervertebral disc space narrowing. Facet joint hypertrophy. Atherosclerotic calcifications. IMPRESSION: Grade 1 anterolisthesis of L3 on L4 and L4 on L5, which is unchanged on flexion and extension radiographs. Dictated by Juliane Wagner MD (director of residential services). I, Dr. BARBARA YEUNG have personally reviewed and interpreted this examination/study. This report was electronically signed by BARBARA YEUNG on :38 PM . Sonia Palma SOCIAL SCIENCES RESEARCH SCIENTIST-MEDICAL REFERRAL COORDINATOR DIAGNOSTIC IMAG ING ORDERABLES * XR CHEST INSPIRATION AND EXPIRATION (04/26/2009 4:00 PM CDT) Anatomical Region Laterality Modality Chest Radiographic Cindi ging 04/26/2009 4:14 PM CDT Impressions 04/26/2009 4:18 PM CDT Improvement in the right-sided pneumothorax since earlier today as detailed Narrative 04/26/2009 4:18 PM CDT Chest inspiration and expiration 3:39 p.m. Indication: Followup recurrent pneumothorax following chest tube removal PA inspiration and expiration views of the chest shows a continued right apical pneumothorax with about 2 cm of separation between the visceral parietal pleura. The apical pneumothorax is smaller since 11:30 a.m. earlier today. No definite residual pneumothorax is seen along the right lower lateral chest wall. The left lung remains clear. The cardiac and mediastinal silhouettes are stable. Procedure Note Popeye Wills - 04/26/2009 Chest inspiration and expiration 3:39 p.m. Indication: Followup recurrent pneumothorax following chest tube removal PA inspiration and expiration views of the chest shows a continued right apical pneumothorax with about 2 cm of separation between the visceral parietal pleura. The apical pneumothorax is smaller since 11:30 a.m. earlier today. No definite residual pneumothorax is seen along the right lower lateral chest wall. The left lung remains clear. The cardiac and mediastinal silhouettes are stable. IMPRESSION Improvement in the right-sided pneumothorax since earlier today as detailed Nick Matamoros MD DIAGNOSTIC IMAGING O RDERABLES * TROPONIN I (04/25/2009 1:50 AM CDT) Only the most recent of3 resultswithin the time period is included. Troponin I <0.10 SEE BELOW ng/ml [facility] Comment: Normal ? <0.10 [place] ??0.10-0.99 Positive ?? >=1.00 SERUM OR PLASMA SPECIMEN / Unknown 04/25/2009 1:50 AM CDT 04/25/2009 1:58 AM CDT Yevgeniy Bonilla MD LAB - CHEMISTRY [place]I [place] Performing Organization Address [facility] de Phone Number [facility] [id number] [place] [phone] * (ABNORMAL) DRUG SCREEN URINE ABUSE INHOUSE (04/24/2009 7:46 AM CDT) Amphetamines Screen Urine Negative Negative [facility] Barbiturates Screen Urine Negative Negative [facility] Benzodiazepines Screen Urine Negative Negative [facility] Cocaine Screen Urine Positive(A) Negative [facility] Cannabinoids Screen Urine Positive(A) Negative [facility] Opiate Screen Urine Negative Negative [facility] Phencyclidine Screen Urine Negative Negative [facility] Methadone Screen Urine Negative Negative [facility] Legal Disclaimer Urine [facility] Comment: This drug screen is designed for MEDICAL purposes only. It is not to be used for legal purposes including but not limited to workman's comp, police investigations, occupational issues, child custody, etc. Any positive result is only presumptive and must be confirmed with a separate confirmatory test. URINE / Unknown 04/24/2009 7 :46 AM CDT 04/24/2009 8:27 AM CDT Anibal Diggs MD LAB - URINE CHEMISTR Y ORDERABLES Performing Organization Address [facility] de Phone Number [facility] [id number] [place] [address] * CT HEAD NON CONTRAST (04/24/2009 6:52 AM CDT) Anatomical Region Laterality Modality Head Computed Tomogra phy 04/24/2009 8:26 AM CDT Impressions 04/24/2009 8:28 AM CDT No acute intracranial abnormalities. CT cervical spine without contrast Indication: Neck pain, neck injury Comparison: None available Technique: Multiple axial CT images of the cervical spine were obtained along with coronal and sagittal multiplanar reformats. Findings: There is no evidence of acute fracture or subluxation. Disc osteophyte complexes are present at C4-C5 and C5-C6. There are no gross paraspinal soft tissue abnormalities. A right apical pneumothorax is seen. Narrative 04/24/2009 8:[address] scan of the brain without contrast Indication: Headache, head injury Comparison: None available Findings: Axial CT images of the brain were obtained without contrast. There is no evidence of acute intracranial hemorrhage or recent cortical ischemia. There is no mass-effect or midline shift. Ventricular and sulcal size is within normal limits. There are no extra-axial fluid collections. The bony calvarium is intact. The paranasal sinuses are well aerated. Procedure Note Karli Velásquez MD - 04/24/2009 CT scan of the brain without contrast Indication: Headache, head injury Comparison: None available Findings: Axial CT images of the brain were obtained without contrast. There is no evidence of acute intracranial hemorrhage or recent cortical ischemia. There is no mass-effect or midline shift. Ventricular and sulcal size is within normal limits. There are no extra-axial fluid collections. The bony calvarium is intact. The paranasal sinuses are well aerated. IMPRESSION No acute intracranial abnormalities. CT cervical spine without contrast Indication: Neck pain, neck injury Comparison: None available Technique: Multiple axial CT images of the cervical spine were obtained along with coronal and sagittal multiplanar reformats. Findings: There is no evidence of acute fracture or subluxation. Disc osteophyte complexes are present at C4-C5 and C5-C6. There are no gross paraspinal soft tissue abnormalities. A right apical pneumothorax is seen. Anibal Diggs MD CT ORDERABLES * CT CERVICAL SPINE NON CONTRAST (04/24/2009 6:52 AM CDT) Anatomical Region Laterality Modality Spine Computed Tomogra phy 04/24/2009 8:26 AM CDT Impressions 04/24/2009 8:28 AM CDT No acute intracranial abnormalities. CT cervical spine without contrast Indication: Neck pain, neck injury Comparison: None available Technique: Multiple axial CT images of the cervical spine were obtained along with coronal and sagittal multiplanar reformats. Findings: There is no evidence of acute fracture or subluxation. Disc osteophyte complexes are present at C4-C5 and C5-C6. There are no gross paraspinal soft tissue abnormalities. A right apical pneumothorax is seen. Narrative 04/24/2009 8:[address] scan of the brain without contrast Indication: Headache, head injury Comparison: None available Findings: Axial CT images of the brain were obtained without contrast. There is no evidence of acute intracranial hemorrhage or recent cortical ischemia. There is no mass-effect or midline shift. Ventricular and sulcal size is within normal limits. There are no extra-axial fluid collections. The bony calvarium is intact. The paranasal sinuses are well aerated. Procedure Note Karli Velásquez MD - 04/24/2009 CT scan of the brain without contrast Indication: Headache, head injury Comparison: None available Findings: Axial CT images of the brain were obtained without contrast. There is no evidence of acute intracranial hemorrhage or recent cortical ischemia. There is no mass-effect or midline shift. Ventricular and sulcal size is within normal limits. There are no extra-axial fluid collections. The bony calvarium is intact. The paranasal sinuses are well aerated. IMPRESSION No acute intracranial abnormalities. CT cervical spine without contrast Indication: Neck pain, neck injury Comparison: None available Technique: Multiple axial CT images of the cervical spine were obtained along with coronal and sagittal multiplanar reformats. Findings: There is no evidence of acute fracture or subluxation. Disc osteophyte complexes are present at C4-C5 and C5-C6. There are no gross paraspinal soft tissue abnormalities. A right apical pneumothorax is seen. Anibal Diggs MD CT ORDERABLES * CT ABDOMEN W/WO THORAX PELVIS W/CONTRAST (04/24/2009 6:51 AM CDT) Anatomical Region Laterality Modality Computed Tomogra phy 04/24/2009 8:22 AM CDT Impressions 04/24/2009 8:26 AM CDT Large right pneumothorax with subsequent placement of a chest tube since this exam. Please see followup chest x-ray report. Multiple right-sided rib fractures. No acute abdominal or pelvic findings Narrative 04/24/2009 8:[address] thorax with contrast CT abdomen with and without contrast CT pelvis with contrast Clinical Indication: Chest pain, abdominal pain, pelvic pain Technique: Axial CT images from the lung apices through the pubic symphysis were obtained following 100 cc Omnipaque-300 intravenous contrast demonstration. Imaging of the abdomen is also performed without intravenous contrast. Findings: Thorax: There is a large right pneumothorax with mediastinal shift to the left. The patient has had a subsequent right chest tube placement with a followup chest x-ray showing improved expansion of the right lung. There is multifocal atelectasis involving the partially collapsed left lung. There are emphysematous changes bilaterally. The mediastinal structures are unremarkable. There are anterolateral second, third, fourth, fifth, sixth rib fractures. Abdomen and pelvis: The solid organs are intact. The gallbladder is surgically absent. The hollow viscera are unremarkable. There is no free fluid. The appendix is not clearly seen. The osseous structures are intact. Procedure Note Karli Velásquez MD - 04/24/[address] thorax with contrast CT abdomen with and without contrast CT pelvis with contrast Clinical Indication: Chest pain, abdominal pain, pelvic pain Technique: Axial CT images from the lung apices through the pubic symphysis were obtained following 100 cc Omnipaque-300 intravenous contrast demonstration. Imaging of the abdomen is also performed without intravenous contrast. Findings: Thorax: There is a large right pneumothorax with mediastinal shift to the left. The patient has had a subsequent right chest tube placement with a followup chest x-ray showing improved expansion of the right lung. There is multifocal atelectasis involving the partially collapsed left lung. There are emphysematous changes bilaterally. The mediastinal structures are unremarkable. There are anterolateral second, third, fourth, fifth, sixth rib fractures. Abdomen and pelvis: The solid organs are intact. The gallbladder is surgically absent. The hollow viscera are unremarkable. There is no free fluid. The appendix is not clearly seen. The osseous structures are intact. IMPRESSION Large right pneumothorax with subsequent placement of a chest tube since this exam. Please see followup chest x-ray report. Multiple right-sided rib fractures. No acute abdominal or pelvic findings Anibal Diggs MD CT ORDERABLES * XR PELVIS 1 OR 2 VW (04/24/2009 6:30 AM CDT) Anatomical Region Laterality Modality Pelvis Radiographic Cindi ging 04/24/2009 8:55 AM CDT Narrative 04/24/2009 10:39 AM CDT AP PELVIS CLINICAL INDICATION: pelvic pain. DESCRIPTION: There is no evidence of acute fracture, dislocation, or significant degenerative disease. Procedure Note Karli Velásquez MD - 04/24/2009 AP PELVIS CLINICAL INDICATION: pelvic pain. DESCRIPTION: There is no evidence of acute fracture, dislocation, or significant degenerative disease. Anibal Diggs MD DIAGNOSTIC IMAGING O RDERABLES * PTT (04/24/2009 5:30 AM CDT) PTT 25.8 24.0 - 32.0 seconds [facility] BLOOD SPECIMEN / Unknown 04/24/2009 5:30 AM CDT 04/24/2009 5:56 AM CDT Narrative Authorizing Provider Result Cary Diggs MD LAB - COAGULATION OR DERABLES [facility] [address] [place] [address] * PT-INR (04/24/2009 5:30 AM CDT) PT 10.3 9.4 - 11.2 seconds [facility] INR 1.0 SEE BELOW [facility] Comment: 0.9-1.1 Normal 2.0-3.0 Conventional 2.5-3.5 Intensive BLOOD SPECIMEN / Unknown 04/24/2009 5:30 AM CDT 04/24/2009 5:56 AM CDT Anibal Diggs MD LAB - COAGULATION OR DERABLES [facility] [address] [place] [address] * (ABNORMAL) ALCOHOL ETHYL BLOOD (04/24/2009 5:30 AM CDT) Ethanol 203(H) 0.0 - 10.0 mg/dl [facility] BLOOD SPECIMEN / Unknown 04/24/2009 5:30 AM CDT 04/24/2009 5:56 AM CDT Anibal Diggs MD LAB - CHEMISTRY ORDE RABLES Performing Organization Address City/[facility] Co de Phone Number [facility] [id number] [place] [address] Care Teams [employer] Relationship Specialty Start Date End Date Abel Carlos MD [address] [place], [place] [phone] PCP - General Internal Medicine 07/12/23 [place] [address] [place] [phone] 05/30/23
--- OUTSIDE RECORDS SUMMARY | 2024-09-24 09:35 | XMS_ITS | CONTINUITY OF CARE DOCUMENT ---
Author Name román, román Address Unknown Organization [facility] Address [address] [place] [address] Phone [phone] Care Team Providers Care Certified Pathology Assistant Name Role Phone Alo Brady MD Unavailable CHAPIN LLOYD MD Unavailable [phone] CHAPIN LLOYD MD Unavailable PROBLEMS Condition Status Date Provider Notes Pulmonary fibrosis active Alo Brady MD Liver cirrhosis active Alo Brady MD Early clubbing of fingers active Manuel montes de oca Preoperative cardiovascular examination active Alo Brady MD Chronic Back Pain active Alo Brady MD Elevated blood pressure reading without diagnosis of hypertension active Alo Brady MD Fatigue active Alo Brady MD Diabetes mellitus, Type II active Alo Brady MD Numbness tingling bilat legs below knees active Alo Brady MD Sick sinus syndrome s/p BIO PPM active Karen Boles RN Palpitations active Alo Brady MD SSS-S/PPM BIO completed - Alo Brady MD DIZZINESS-RESOLVED completed - TOBACCO ABUSE active ? Alo Brady MD ALCOHOL ABUSE active ? Alo Brady MD UNSPECIFIED TACHY-04/12 EVENT SR --06/11 EVENT NSR completed - Alo Brady MD CP-12/12 ECHO NL EF 45-7/11 ECHO EF 55-1/10 ECHO NL EF 60 active ? Alo Brady MD ENCOUNTERS Date Type Provider Location Encounter Diag nosis - In-person encounter Office Visit Alo Brady MD [facility] Liver cirrhosisPulmonary fibrosis - In-person encounter Office Visit [facility] Preoperative cardiovascular examinationEarly clubbing of fingers - In-person encounter Office Visit Alo Brady MD [facility] Elevated blood pressure reading without diagnosis of hypertensionChronic Back Pain - In-person encounter Office Visit Alo Brady MD [facility] Fatigue - In-person encounter Office Visit Alo Brady MD [facility] Sick sinus syndrome s/p BIO PPM - In-person encounter Office Visit Alo Brady MD [facility] Diabetes mellitus, Type II - In-person encounter Office Visit Alo Brady MD [facility] - In-person encounter Office Visit Alo Brady MD [facility] Sick sinus syndrome s/p BIO PPMNumbness tingling bilat legs below knees - In-person encounter Office Visit Alo Brady MD [facility] Palpitations - In-person encounter Office Visit Alo Brady MD [facility] - In-person encounter Office Visit Alo Brday MD [facility] - In-person encounter Office Visit Alo Brady MD [facility] UNSPECIFIED TACHY-8/11 EVENT SR --10/10 EVENT NSR - In-person encounter Office Visit Alo Brady MD [facility] CP-12/12 ECHO NL EF 45-7/11 ECHO EF 55-09/11 ECHO NL EF 60SSS-S/PPM BIO - In-person encounter Office Visit Alo Brady MD [facility] - In-person encounter Office Visit Alo Brady MD [facility] SSS-S/PPM BIO - In-person encounter Office Visit Alo Brady MD [facility] - In-person encounter Office Visit Alo Brady MD [facility] DIZZINESS-RESOLVED - In-person encounter Office Visit Alo Brady MD [facility] - In-person encounter Office Visit Alo Brady MD [facility] ALCOHOL ABUSETOBACCO ABUSE VITAL SIGNS Date Observation Value Provider Body Mass Index (Ratio) 16.82 kg/m2 Austin Brady MD blood pressure, cuff size regular Ja rr blood pressure, diastolic 73 mm[Hg] Ja rret blood pressure, systolic 108 mm[Hg] Jar [facility] pulse rate 84 /min Preston respiratory rate E&M 16 /min Preston oxygen saturation, oximetry 96 % Preston weight E&M 109 [lb_av] [facility] height E&M 67.5 [in_i] [facility] y Body Mass Index (Ratio) 20.34 kg/m2 [...] Brady MD blood pressure, cuff size small Ks ajit [place] blood pressure, diastolic 100 mm[Hg] Ks ajit [place] blood pressure, systolic 150 mm[Hg] [facility] sherman [place] oxygen saturation, oximetry 97 % Danielle Barba respiratory rate E&M 18 /min Estela ramírez [place] weight E&M 130.4 [lb_av] Danielle Barrientos nd height E&M 67.5 [in_i] Danielle kidd Body Mass Index (Ratio) 19.90 kg/m2 Austin Brady MD blood pressure, diastolic -1 mm[Hg] Li [employer]kLogic blood pressure, systolic 112 mm[Hg] Candace kLogic blood pressure, diastolic 72 mm[Hg] Ca therine Pitman blood pressure, systolic 112 mm[Hg] Cat herine Nick oxygen saturation, oximetry 97 % Aarti Pitman pulse rate 84 /min Aarti Pitman respiratory rate E&M 14 /min Catheri ne Pitman weight E&M 129 [lb_av] Aarti Pitman blood pressure, cuff size regular Ca therine Pitman height E&M 67.5 [in_i] Aarti Romero Body Mass Index (Ratio) 20.03 kg/m2 Kerry Connmeyer blood pressure, diastolic 70 mm[Hg] Reina nkLogic blood pressure, systolic 116 mm[Hg] aCndace kLogic blood pressure, diastolic 70 mm[Hg] Sushil Gupta blood pressure, systolic 116 mm[Hg] Oneida Gupta oxygen saturation, oximetry 94 % Michi Gupta respiratory rate E&M 16 /min Gómez Gupta pulse rate 100 /min Michi bhakta weight E&M 129.8 [lb_av] Michi harrison height E&M 67.5 [in_i] Mcihi bhakta Body Mass Index (Ratio) 19.16 kg/m2 [...] Doan blood pressure, systolic 132 mm[Hg] Manny Doan pulse rate 60 /min Nora glover oxygen [...] Hector Max respiratory rate E&M 16 /min [facility] weight E&M 130 [lb_av] [facility] Boschran blood pressure, diastolic, left arm 60 [...] pressure, diastolic, left arm 81 mm [Hg] [facility] Max blood pressure, systolic, left arm 132 mm [Hg] [facility] blood pressure, diastolic, right arm 76 m m[Hg] [facility] Max blood pressure, systolic, right arm 132 m m[Hg] [facility] Max blood pressure, diastolic 81 mm[Hg] Rojas blood pressure, systolic 132 mm[Hg] Oli bryce Max pulse rate 56 /min [facility] oxygen saturation, oximetry 99 % [facility] Max respiratory rate E&M 16 /min [facility] weight E&M 132 [lb_av] [facility] Jordan blood pressure, diastolic, left arm 68 mm [Hg] [facility] blood pressure, systolic, left arm 118 mm [Hg] [facility] blood pressure, diastolic, right arm 78 m m[Hg] [facility] blood pressure, systolic, right arm 118 m m[Hg] Marcus [facility] blood pressure, diastolic 78 mm[Hg] Kelly mac [facility] blood pressure, systolic 118 mm[Hg] Gera chandu [facility] pulse rate 78 /min [facility] oxygen saturation, oximetry 92 % [facility] respiratory rate E&M 20 /min [facility] weight E&M 126 [lb_av] [facility] blood pressure, diastolic, left arm 61 mm [...] Link[employer] 0-149 cholesterol, serum 169 mg/dL [employer] [phone]/12 /16 basophil count, absolute 0.0 x10E3/uL [employer] [...] Not Estab. platelet count 321 X10E3/UL [employer] [phone]/12 /16 red blood cell distribution width 12.7 [...] [employer] 3.5-5.2 sodium, serum 137 mmol/L [employer] 596-102 1385/12 /16 urea nitrogen/creatinine ratio, serum 13 [employer] 12-28 eGFR if 109 mL/min/{1.73_ m2} [employer] >59 eGFR if not 95 mL/min/{1.73_ m2} [employer] >59 creatinine, serum 0.69 mg/dL [employer] 0.57-1.00 urea nitrogen, blood 9 mg/dL [employer] 8-27 blood glucose, random 137 mg/dL [employer] 65-99 High urine crystals, microscopic none [facility] epithelial cells, urine, per microscopy occasional [facility] casts, urine none [facility] WBC urine on microscopy normal [facility] bacteria, urine microscopy none [facility] RBC urine by microscopy normal [facility] leukocyte esterase, urine, by dipstick Negative [facility] urobilinogen, urine, semiquantitative (dipstick) normal [facility] nitrite, urine, semiquantitative Negative [facility] RBC, urine, dipstick Negative [facility] bilirubin, urine Negative [facility] ketones, urine, by test strip Negative [facility] glucose, urine, semiquantitative Negative [facility] protein, urine, semiquantitative (dipstick) Negative [facility] pH, urine, semiquantitative 6.5 [facility] specific gravity, urine 1.010 [facility] urine color pale yellow [facility] appearance, urine Clear [facility] PTT patient 31.7 s [facility] prothrombin time (patient) 11.4 s [facility] international normalized ratio (INR) 1.1 [facility] blood glucose, fasting 96 mg/dL [facility] creatinine, serum 0.82 mg/dL [facility] urea nitrogen, blood 7 mg/dL [facility] carbon dioxide, serum, total 28 mmol/L [facility] chloride, serum 98 mmol/L [facility] potassium, serum 4.1 mmol/L [facility] sodium, serum 139 mmol/L [facility] platelet count 359 10*3/uL [facility] hematocrit, blood 41.1 % [facility] hemoglobin, blood 14.0 g/dL [facility] erythrocyte (RBC) count 4.80 10*6/mm3 [facility] leukocyte count, blood 7.8 10*3/mm3 [facility] globulins, serum, total 4.3 g/dL [facility] bilirubin, serum, direct 0.26 mg/dL [facility] bilirubin, serum, indirect 0.29 mg/dL [facility] albumin/globulin ratio, serum 0.7 [facility] protein, total, serum 7.2 g/dL [facility] albumin, serum 2.9 g/dL [facility] bilirubin, serum, total 0.55 mg/dL [facility] alkaline phosphatase, serum 161 1/L [facility] alanine aminotransferase (SGPT), serum 126 1/L [facility] aspartate aminotransferase (SGOT), serum 200 1/L [facility] triiodothyronine (T3), serum 152 ng/dL [facility] thyroxine, serum, free 0.74 ng/dL [facility] thyroid stimulating hormone, serum 1,58 [facility] globulins, serum, total 3.8 g/dL [facility] estimated glomerular filtration rate >60 [facility] albumin/globulin ratio, serum 0.9 [facility] protein, total, serum 7.2 g/dL [facility] albumin, serum 3.4 g/dL [facility] bilirubin, serum, total 0.64 mg/dL [facility] alkaline phosphatase, serum 168 1/L [facility] 2011/07 /08 alanine aminotransferase (SGPT), serum 104 1/L [facility] aspartate aminotransferase (SGOT), serum 167 1/L [facility] calcium, serum 8.8 mg/dL [facility] blood glucose, fasting 111 mg/dL [facility] creatinine, serum 0.71 mg/dL [facility] urea nitrogen, blood 3.9 mg/dL [facility] carbon dioxide, serum, total 26 mmol/L [facility] chloride, serum 101 mmol/L [facility] potassium, serum 3.4 mmol/L [facility] sodium, serum 133 mmol/L [facility] platelet count 167 10*3/uL [facility] red blood cell distribution width 15.2 % [facility] mean corpuscular hemoglobin concentration, RBC 34.9 g/dL [facility] mean corpuscular hemoglobin, RBC 30.[address] [facility] mean corpuscular volume, RBC 88.[address] [facility] hematocrit, blood 39.0 % [facility] hemoglobin, blood 13.6 g/dL [facility] erythrocyte (RBC) count 4.42 10*6/mm3 [facility] monocyte count, blood 0.5 10*3/mm3 [facility] lymphocyte count, blood 1.2 10*3/mm3 [facility] monocytes as percent of blood leukocytes 11 % [facility] lymphocytes as percent of blood leukocytes 27 % [facility] leukocyte count, blood 4.6 10*3/mm3 [facility] protein, total, serum 7.6 g/dL [facility] albumin, serum 4.3 g/dL [facility] bilirubin, serum, total 0.70 mg/dL [facility] alkaline phosphatase, serum 102 1/L [facility] alanine aminotransferase (SGPT), serum 94 1/L [facility] aspartate aminotransferase (SGOT), serum 80 1/L [facility] calcium, serum 9.7 mg/dL [facility] blood glucose, fasting 142 mg/dL [facility] creatinine, serum 0.6 mg/dL [facility] urea nitrogen, blood 2 mg/dL [facility] carbon dioxide, serum, total 26 mmol/L [facility] chloride, serum 99 mmol/L [facility] potassium, serum 2.5 mmol/L [facility] sodium, serum 138 mmol/L [facility] calcium, serum 9.0 mg/dL [facility] blood glucose, fasting 98 mg/dL [facility] creatinine, serum 0.6 mg/dL [facility] urea nitrogen, blood 7 mg/dL [facility] carbon dioxide, serum, total 26 mmol/L [facility] chloride, serum 106 mmol/L [facility] potassium, serum 3.9 mmol/L [facility] sodium, serum 136 mmol/L [facility] thyroid stimulating hormone, serum 2.37 u[IU]/mL [facility] triglyceride, serum, fasting 51 mg/dL [facility] HDL cholesterol, serum 48 mg/dL [facility] LDL cholesterol, serum 53 mg/dL [facility] cholesterol, serum 111 mg/dL [facility] troponin I <0.012 [facility] creatine kinase, serum 0.9 1/L [facility] Estimated Glomerular Filtration Rate (calc) >60 [facility] rapid plasma reagin antibody screen Non-reactive [facility] B-12, serum 299 pg/mL [facility] folate, serum 8.9 ng/mL [facility] magnesium, serum 2.1 mg/dL [facility] troponin I 0.013 ng/mL [facility] creatine kinase, serum 0.7 1/L [facility] thyroid stimulating hormone, serum 2.37 u[IU]/mL [facility] triglyceride, serum, fasting 51 mg/dL [facility] HDL cholesterol, serum 48 mg/dL [facility] LDL cholesterol, serum 53 mg/dL [facility] cholesterol, serum 111 mg/dL [facility] Estimated Glomerular Filtration Rate (calc) >60 [facility] protein, total, serum 7.6 g/dL [facility] albumin, serum 4.3 g/dL [facility] bilirubin, serum, total 0.70 mg/dL [facility] alkaline phosphatase, serum 102 1/L [facility] alanine aminotransferase (SGPT), serum 94 1/L [facility] aspartate aminotransferase (SGOT), serum 80 1/L [facility] calcium, serum 9.7 mg/dL [facility] blood glucose, fasting 142 mg/dL [facility] creatinine, serum 0.6 mg/dL [facility] urea nitrogen, blood 2 mg/dL [facility] carbon dioxide, serum, total 26 mmol/L [facility] chloride, serum 99 mmol/L [facility] potassium, serum 2.8 mmol/L [facility] sodium, serum 138 mmol/L [facility] platelet count 187 10*3/uL [facility] red blood cell distribution width 15.2 % [facility] mean corpuscular hemoglobin concentration, RBC 34.9 g/dL Denetr mean corpuscular hemoglobin, RBC 30.8 pg [facility] mean corpuscular volume, RBC 88.2 fL Sandi Durbin hematocrit, blood 39.0 % [facility] hemoglobin, blood 13.6 g/dL [facility] erythrocyte (RBC) count 4.42 10*6/mm3 [facility] monocyte count, blood 0.5 10*3/mm3 [facility] lymphocyte count, blood 1.2 10*3/mm3 [facility] monocytes as percent of blood leukocytes 11 % [facility] Ramakrishna lymphocytes as percent of blood leukocytes 27 % [facility] Ramakrishna leukocyte count, blood 4.0 10*3/mm3 Sandi Durbin HISTORY OF MEDICATION USE Medication Status Instructions Dates Provider Indications Com ments OneTouch Ultra2 Meter active [facility] OneTouch Delica Plus Lancet 33 gauge 33 gauge active [facility] lactulose 10 gram/15 mL solution active TAKE 15 MLS BY MOUTH THREE TIMES DAILY. [facility] Enulose 10 gram/15 mL solution active [facility] atorvastatin 40 mg tablet active TAKE 1 TABLET BY MOUTH EVERY DAY [facility] FeroSul 325 mg (65 mg iron) tablet active Take 1 tablet by mouth once a day [facility] folic acid 1 mg tablet active TAKE 1 TABLET BY MOUTH DAILY [facility] furosemide 20 mg tablet active Take 1 tablet by mouth once daily [facility] lamotrigine 150 mg tablet active Take 1 tablet by mouth once a day [facility] lorazepam 0.5 mg tablet active Take 1 tablet by mouth once a day as needed [facility] ondansetron HCl 4 mg tablet active Take 1 tablet by mouth every eight hours as needed for nausea [facility] spironolactone 25 mg tablet active Take 1 tablet by mouth once a day [facility] Xifaxan 550 mg tablet active Take 1 tablet by mouth twice a day [facility] lamotrigine 100 mg tablet completed - [facility] methocarbamol 750 mg tablet active every [...] smoking history, tot al pack/day 1 Michi Gupat cigarette use yes Michi harrison smoking status [...] averag e drinks per day yes Danielle [place] passive cigarette sm viet exposure yes Danielle [place] smoking/tobacco cess ation, patient education and counseling yes Danielle [place] smoking, date started 1973 Raman turner [place] smoking history, tot al pack/year 42 Danielle [place] smoking history, tot al pack/day 1 Danielle [place] cigarette use yes Danielle Barrientos jessica smoking status Current every day smoker M nichole [place] social history E&M Marital Statu s: Phani [...] passive cigarette sm viet exposure yes Aarti Pitman smoking/tobacco cess ation, patient education and counseling yes Aarti Pitman smoking, date started 1974 Cather ine Pitman smoking history, tot al pack/year 42 Aarti Nick smoking history, tot al pack/day 1 Aarti Pitman cigarette use yes Aarti Pitman smoking status Current every day smoker C [...] Michi Gupta smoking, date started 1973 Brendon Vilalnuevaenson smoking history, tot al pack/year 42 Michi [...] cess ation, patient education and counseling yes Nora Doan passive cigarette sm viet exposure yes [...] Payer name Policy type / Coverage type [place] [employer]ICA[employer] (2) Medicaid [id number] ADVANCE DIRECTIVES Name Date DISCUSSED - NO DECISION MADE TREATMENT PLAN Date Name Performer [id number],C, H aving lumbar surgery with Dr. Priest at [facility]. The patient had a negative ischemic workup with August 2021 with a negative stress test and an echo in July 2021 which showed normal LVF. She may undergo surgeyr at an acceptable CV risk. Alo Brady MD [id number],S, S tress test 08/2021 was negative for ischemia. The patient has been reassured. Alo Brady MD [id number],S, R ecent A1c 6.8%. Alo Brady MD [id number],S, B lood pressure control is satisfactory. Alo Brady MD [id number],S, S atisfactory device function. Alo Brady MD [id number],S, T he Patient was reencouraged to stop smoking. F/w pulmonology. Alo Brady MD [id number],S, S ees neurology. Alo Brady MD [id number],W, B P 150/100 today. Advised routine home BP monitoring and dietary sodium restriction. Alo Brady MD [id number],S, N o recurrence. Alo Brady MD [id number],S, S atisfactory device function. Alo Brady MD [id number],S, T he Patient was reencouraged to stop smoking. F/w pulmonology. Alo Brady MD [id number],S, R ecent A1c 6.8%. Alo Brady MD [id number],S, R ecent stress test was negative for ischemia. The patient has been reassured. Alo Brady MD [id number],S,W ill do stress regadenoson to assess her sxs of fatigue and SOB. Kash Dotson [id number],S,P atient was encouraged to stop smoking. Kash Dotson [id number],S, Kash Chaparro i [id number],S, Kash Chaparro i [id number],C,C ontinues to have episodes of palpitations. Will schedule her a stress test Hortensia Olea [id number],S, T obacco abuse - smoking cessation strongly advised Hortensia Olea [id number],C,Followed by P CP Hortensia Olea [id number],C,H as chest pain that lasts about a minute. Will schedule her an echo and stress test Hortensia Olea [id number],C,W ill have pacemaker checked, as it has been a few years since the pacemaker has been interrogated. Hortensia Connjoaquin Cardiology:Sees Dr. Ulrich at [facility] S he has stopped drinking for over [...] Alo Brady MD Cardiology:Sees Dr. Ulrich at [facility] Alo Brady MD Cardiology:% Pacing: RA - 10.0% RV - 0.0% T echnician Summary Notes: B attery status: OK 15% P resenting EGM: -VS at 132 bpm A T/AF [place]: 8% in last 24 hrs. OAC s tatus unknown. 2 HVR events in last 24 h rs, longest duration 1hr 26m. No EGMs o r further information in vendor portal. A vg V rate in past 24 hrs: 100 bpm. Gaps i n trends seen. Alo Brady MD Cardiology: H aving lumbar surgery with Dr. Priest at [facility]. The patient had a negative ischemic workup [...] one pill twice carrie Orders: E KG ([id number]) Alo Brady MD Follow up: H er [...] Alo Brady MD INTERROGATION REMOTE </90 D LOOP TACKER REVIEW completed Pacemaker Interrogation, Remote (Prof) Alo Brady MD INTERROGATION EVAL REMOTE </90 D 1/2/COW RIDER LEAD P completed Pacemaker Interrogation, Remote (Tech) Alo Brady MD INTERROGATION REMOTE </90 D LOOP TACKER REVIEW completed Pacemaker Interrogation, Remote (Prof) Alo Brady MD INTERROGATION EVAL REMOTE </90 D 1/2/COW RIDER LEAD P completed Pacemaker Interrogation, Remote (Tech) Alo Brady MD INTERROGATION REMOTE </90 D LOOP TACKER REVIEW completed Pacemaker Interrogation, Remote (Prof) Alo Brady MD INTERROGATION EVAL REMOTE </90 D 1/2/COW RIDER LEAD P completed Pacemaker Interrogation, Remote (Tech) Alo Brady MD INTERROGATION REMOTE </90 D LOOP TACKER REVIEW completed Pacemaker Interrogation, Remote (Prof) Alo Brady MD INTERROGATION EVAL REMOTE </90 D 1/2/COW RIDER LEAD P completed Pacemaker Interrogation, Remote (Tech) Alo Brady MD INTERROGATION REMOTE </90 D LOOP TACKER REVIEW completed Pacemaker Interrogation, Remote (Prof) Alo Brady MD INTERROGATION EVAL REMOTE </90 D 1/2/COW RIDER LEAD P completed Pacemaker Interrogation, Remote (Tech) Alo Brady MD INTERROGATION REMOTE </90 D LOOP TACKER REVIEW completed Pacemaker Interrogation, Remote (Prof) Alo Brady MD INTERROGATION EVAL REMOTE </90 D 1/2/COW RIDER LEAD P completed SNOMED-CT: [id number] Physical Exam, Performed: Pulse Exam of Foot Alo Brady MD completed SNOMED-CT: [id number] Current Medications Documented Alo Brady MD completed EKG Alo Brady MD completed SNOMED-CT: [id number] Current Medications Documented Alo Brady MD completed Pacemaker Interrogation, Remote (Tech) lAo Brady MD INTERROGATION REMOTE </90 D LOOP TACKER REVIEW completed Pacemaker Interrogation, Remote (Prof) Alo Brady MD INTERROGATION EVAL REMOTE </90 D 1/2/COW RIDER LEAD P completed SNOMED-CT: [id number] Physical Exam, Performed: Pulse Exam of Foot Alo Brady MD completed EKG Alo Brady MD completed SNOMED-CT: [id number] Current Medications Documented Aol Brady MD completed Stress EKG Saul Calvo MD complete d Regadenoson, 4 units Alo santamaria MD completed Cardiolite, 2 units Alo perez MD completed SPECT Images Alo Brady MD completed Pacemaker Interrogation, Remote (Tech) Alo Brady MD INTERROGATION REMOTE </90 D LOOP TACKER REVIEW completed Pacemaker Interrogation, Remote (Prof) Alo Brady MD INTERROGATION EVAL REMOTE </90 D 1/2/COW RIDER LEAD P completed SNOMED-CT: [id number] Smoking Cessation Counseling Alo Brady MD completed SNOMED-CT: 48036945 Physical Exam, Performed: Pulse Exam of Foot Alo Brady MD completed EKG Alo Brady MD completed SNOMED-CT: [id number] Current Medications Documented Alo Brady MD completed Pacemaker Interrogation, Remote (Tech) Alo Brady MD INTERROGATION REMOTE </90 D LOOP TACKER REVIEW completed Pacemaker Interrogation, Remote (Prof) Alo Brady MD INTERROGATION EVAL REMOTE </90 D 1/2/COW RIDER LEAD P completed Pacemaker Interrogation, Remote (Tech) Alo Brady MD INTERROGATION REMOTE </90 D LOOP TACKER REVIEW completed Pacemaker Interrogation, Remote (Prof) Alo Brady MD INTERROGATION EVAL REMOTE </90 D 1/2/COW RIDER LEAD P completed Pacemaker Interrogation, Remote (Tech) Alo Brady MD INTERROGATION REMOTE </90 D LOOP TACKER REVIEW completed Pacemaker Interrogation, Remote (Prof) Alo Brady MD INTERROGATION EVAL REMOTE </90 D 1/2/COW RIDER LEAD P completed Pacemaker Interrogation, Remote (Tech) Alo Brady MD INTERROGATION REMOTE </90 D LOOP TACKER REVIEW completed Pacemaker Interrogation, Remote (Prof) Alo Brady MD INTERROGATION EVAL REMOTE </90 D 1/2/COW RIDER LEAD P completed ICM Interrogation, Remote (Prof) Alo Brady MD INTERROGATION EVAL REMOTE </30 D CV MNTR SYS completed ICM Interrogation, Remote (Tech) Alo Brady MD INTERROGATION EVAL REMOTE </30 D TECH REVIEW completed ICM Interrogation, Remote (Prof) Alo Brady MD INTERROGATION EVAL REMOTE </30 D CV MNTR SYS completed Pacemaker Interrogation, Remote (Tech) Alo Brady MD INTERROGATION REMOTE </90 D LOOP TACKER REVIEW completed Pacemaker Interrogation, Remote (Prof) Alo Brady MD INTERROGATION EVAL REMOTE </90 D 1/2/COW RIDER LEAD P completed EKG Alo Brady MD completed Pacemaker Interrogation, Remote (Tech) Alo Brady MD INTERROGATION REMOTE </90 D LOOP TACKER REVIEW completed Pacemaker Interrogation, Remote (Prof) Alo Brady MD INTERROGATION EVAL REMOTE </90 D 1/2/COW RIDER LEAD P completed Pacemaker Interrogation, Remote (Tech) Alo Brady MD INTERROGATION REMOTE </90 D LOOP TACKER REVIEW completed Pacemaker Interrogation, Remote (Prof) Alo Brady MD INTERROGATION EVAL REMOTE </90 D 1/2/COW RIDER LEAD P completed Pacemaker Interrogation, Remote (Tech) Alo Brady MD INTERROGATION REMOTE </90 D LOOP TACKER REVIEW completed Pacemaker Interrogation, Remote (Prof) Alo Brady MD INTERROGATION EVAL REMOTE </90 D 1/2/COW RIDER LEAD P completed Pacemaker Interrogation, Remote (Tech) Alo Brady MD INTERROGATION REMOTE </90 D LOOP TACKER REVIEW completed Pacemaker Interrogation, Remote (Prof) Alo Brady MD INTERROGATION EVAL REMOTE </90 D 1/2/COW RIDER LEAD P completed ePrescribe - Check t his box if eRx is used Alo Brady MD completed EKG Alo Brady MD completed Lipid Strip Alo Brady MD completed EKG Alo Brady MD completed EKG Alo Brady MD completed EKG Alo Brady MD completed EKG Alo Brady MD completed EKG Alo Brady MD completed
== END 2024-09-19 23:04 | disposition home or self-care (01) ==
PROVIDERS: Emergency Provider Emergency Medicine; PCP Clinical Nurse Specialist
DX: S51.851A Open bite of right forearm, initial encounter (principal); J44.9 Chronic obstructive pulmonary disease, unspecified; E11.9 Type 2 diabetes mellitus without complications; E78.5 Hyperlipidemia, unspecified; F17.210 Nicotine dependence, cigarettes, uncomplicated; Z95.0 Presence of cardiac pacemaker; Z79.82 Long term (current) use of aspirin; Z79.899 Other long term (current) drug therapy; Z79.84 Long term (current) use of oral hypoglycemic drugs; Z79.4 Long term (current) use of insulin; W55.01XA Bitten by cat, initial encounter
CPT/HCPCS: 73090; 99283; A9270

== ENCOUNTER 2024-10-07 10:02 | Outpatient (RCR) | payer OTHER, SELFPAY | END 2024-12-28 09:26 | disposition home or self-care (01) | LOC: ANHDMC 10:02 | PROVIDERS: PCP Clinical Nurse Specialist; Visit Provider Clinical Nurse Specialist | DX: E11.65 Type 2 diabetes mellitus with hyperglycemia (principal); Z71.89 Other specified counseling | CPT/HCPCS: G0108 ==

== ENCOUNTER 2025-04-21 11:00 | Outpatient (CLI) | payer OTHER, SELFPAY ==
--- OUTSIDE RECORDS SUMMARY | 2025-04-21 11:34 | XMS_ITS | Encounter Summary ---
Author Organization [facility] Address [address] [place] [address] Care Team Providers Care Core Drill Operator Name Role Phone Abel Carlos MD Unavailable [phone] Abel Carlos MD Primary Care Provider Becca [facility] Primary Care Provider [phone] Reason for Visit * Reason Onset Date Comments Results 11/20/2024 Encounter Details Date Type Department Care Team (Late st Contact Info) Description 11/20/2024 Telephone [facility] - Pulmonology [address] [place] [address], [place] [address] David Centeno MD [address] [place] [address] OF PULMONARY MED [address] [place] [address] Results Social History Tobacco Use Types Packs/Day Years Used Date Smoking Tobacco: Every Day Cigarettes 1.5 48 Smokeless Tobacco: Never Alcohol Use Standard Drinks/Week Comments Not Currently 0 (1 standard drink = 0.6 oz pure alcohol) drank a liter/4 days vodka until 2-3 weeks ago; stop drinking 3.5 months ago AUDIT-C Answer Date Recorded Q1: How often do you have a drink containing alcohol? Never 11/10/2024 Q2: How many drinks containi ng alcohol do you have on a typical day when you are drinking? Patient does not drink Q3: How often do you have si x or more drinks on one occasion? Never 11/10/2024 Overall Financial Resource Strain (CARDIA) Answe r Date Recorded How hard is it for you to pa y for the very basics like food, housing, medical care, and heating? Somewhat hard 06/01/2023 [facility] - Occupational Stress Questionnaire Answer Date Recorded [...] place to sleep or slept in a assisted (including now)? No 06/01/2023 Comments No Sex and Gender Information Value Date Recorded Sex Assigned at Not on file Legal Sex Female 12:12 PM CDT Gender Identity Not on file Sexual Orientation Not on file documented as of this encounter Functional Status * Is person deaf or have serious hearing difficulty? Answer Date of Assessment Author No 11/10/2024 2:32 PM CDT Dalila White RN * Is person blind or have serious difficulty seeing? Answer Date of Assessment Author No 11/10/2024 2:32 PM CDT Dalila White RN * Does person have serious difficulty walking/climbing stairs? Answer Date of Assessment Author Yes 11/10/2024 2:32 PM CDT Dalila White RN * Does person have difficulty dressing/bathing? Answer Date of Assessment Author No 11/10/2024 2:32 PM CDT Dalila White RN * Does person have difficulty doing errands alone? Answer Date of Assessment Author Yes 11/10/2024 2:32 PM CDT Dalila White RN documented as of this encounter Mental Status * Does person have difficulty concentrating/remembering/making decisions? Answer Entry Date Author No 11/10/2024 2:32 PM CDT Dalila White RN documented in this encounter Miscellaneous Notes * Telephone Encounter - Magdalena Sloan - 11/20/2024 9:20 AM CDT Reason for call: Patient is requesting a call back to go over her test results, also requesting a sooner appt than March Patient Call Back number: [phone] documented in this encounter Plan of Treatment Upcoming Encounters Date Type Department Care Team (Late st Contact Info) Description 04/23/2025 8:40 AM CDT Hospital Encounter [facility] [address] [place] [address] [place] [address] [place] [phone] 04/23/2025 9:20 AM CDT Office Visit [facility] - Hematology/Oncology [address] [place] [phone] Becca Rivas, SORTER LUMBER STRAIGHTENER-DIRECTOR [employer] [address] [place] [phone] 04/26/2025 1:00 PM CDT Appointment [facility] PFT [address] [place] [address] 04/26/2025 1:30 PM CDT Appointment [facility] PFT [address] [place] [address] 05/11/2025 12:30 PM CDT Office Visit [facility] - GI [address] [facility], [place] [address] Marielena Ulrich, SORTER LUMBER STRAIGHTENER-DIRECTOR [employer] [address] [place] [address] [place] [address] 05/14/2025 9:00 AM CDT Appointment [facility] [address] [place] [address] 08/09/2025 3:30 PM DOPE FIRER Office Visit [facility] - Pulmonology [address] [facility], [place] [address] Bandar Stewart MD documented as of this encounter Goals Goal Patient Goal Type Associated Problems Recent Progress Patient-Stated? Author Medication Management General On track( 025 3:24 PM CDT) Josselyn Hudson, RN Note: Expected end date: Ongoing Interventions: Take all medications as prescribed Let your doctor know right away about any changes in your medications Make sure to request a refill of your medication at least one week prior to your last dose documented as of this encounter Visit Diagnoses Not on filedocumented in this encounter Care Teams Core Drill Operator Relationship Specialty [place] [address] [place] [phone] PCP - General Internal Medicine 07/12/23 11/22/24 Becca Victoria APRN-FURNACE REPAIR MECHANIC [address] [place] [address] PCP - General Certified Clinical Nurse Specialist 11/23/24 AjAbel vaughan MD [address] [place] [phone] 05/30/23 documented as of this encounter
--- OUTSIDE RECORDS SUMMARY | 2025-04-21 11:34 | XMS_ITS | Encounter Summary ---
Author Organization [facility] Address [address] [facility] [place] [address] Care Team Providers Care Mime Artist Name Role Phone Abel Carlos MD Unavailable [phone] Abel Carlos MD Primary Care Provider Becca Victoria [facility] Primary Care Provider [phone] Reason for Visit * Reason Onset Date Comments Medication Request 11/03/2024 Encounter Details Date Type Department Care Team (Late st Contact Info) Description 11/03/2024 Telephone [facility] - Pulmonology [address] [facility], [place] [address] David Centeno MD [address] [place] [address] OF PULMONARY MED [address] [place] [phone] Medication Request Social History Tobacco Use Types Packs/Day [...] medical care, and heating? Somewhat hard 06/01/2023 [facility] of Occupat ional Health - Occupational Stress [...] to sleep or slept in a senior care (including now)? No 06/01/2023 Comments No Sex and Gender Information Value Date Recorded Sex Assigned at Not on file Legal Sex Female 12:12 PM CDT Gender Identity Not on file Sexual Orientation Not on file documented as of this encounter Functional Status * Is person deaf or have serious hearing difficulty? Answer Date of Assessment Author No 06/10/2023 5:00 PM CDT Laurence Amador RN * Is person blind or have serious difficulty seeing? Answer Date of Assessment Author No 06/10/2023 5:00 PM Laurence Ennis RN * Does person have serious difficulty walking/climbing stairs? Answer Date of Assessment Author Yes 06/10/2023 5:00 PM Laurence Ennis RN * Does person have difficulty dressing/bathing? Answer Date of Assessment Author No 06/10/2023 5:00 PM Laurence Ennis RN * Does person have difficulty doing errands alone? Answer Date of Assessment Author Yes 06/10/2023 5:00 PM Laurence Ennis RN documented as of this encounter Mental Status * Does person have difficulty concentrating/remembering/making decisions? Answer Entry Date Author No 06/10/2023 5:00 PM Laurence Ennis RN documented in this encounter Miscellaneous Notes * Telephone Encounter - Magdalena Sloan - 11/03/2024 10:24 AM CST Reason for call: Patient is requesting a nebulizer machine & oxygen, also she's requesting nicotine patches. Patient Call Back number: [phone] OGRAPHICAL TECHNICAL OFFICER documented in this encounter Plan of Treatment Upcoming Encounters Date Type Department Care Team (Late st Contact Info) Description 04/23/2025 8:40 AM CDT Hospital Encounter [facility] [address] [place] [address] [place] [address] [place] [phone] 04/23/2025 9:20 AM CDT [facility]Oncology [address] [place] [address] Becca Rivas, RESEARCH AGRICULTURAL ENGINEER-[place] COUNSEL [address] [place] [phone] 04/26/2025 1:00 PM CDT Appointment [facility] PFT [address] [place] [address] 04/26/2025 1:30 PM CDT Appointment [facility] PFT [address] [place] [address] 05/11/2025 12:30 PM CDT Office Visit [facility] - GI [address] [facility], [place] [address] Marielena Ulrich, RESEARCH AGRICULTURAL ENGINEER-[place] COUNSEL [address] [place] [address] [place] [address] 05/14/2025 9:00 AM CDT Appointment [facility] [address] [place] [address] 08/09/2025 3:30 PM HYDROGRAPHICAL TECHNICAL OFFICER Office Visit [facility] - Pulmonology [address] [place] [address], [place] [address] Bandar Stewart MD documented as of this [...] on filedocumented in this encounter Care Teams Mime Artist Relationship Specialty [place] [address] [place] [phone] PCP - General Internal Medicine 07/12/23 11/22/24 Becca Victoria APRN-DYE PENETRANT TESTING TECHNICIAN [address] [place] [address] PCP - General Certified Clinical Nurse Specialist 11/23/24 Abel Carlos MD [address] [place], [place] [phone] 05/30/23 documented as of this encounter
--- OUTSIDE RECORDS SUMMARY | 2025-04-21 11:35 | XMS_ITS | Encounter Summary ---
Author Organization [facility] Address [address] [place] [address] Care Team Providers Care Step Down Specialist Name Role Phone Abel Carlos MD Unavailable [phone] Becca Victoria APRN-HOME HEALTH NURSE Primary Care Provider [phone] Encounter Details Date Type Department Care Team (Late st Contact Info) Description 04/02/2025 Results Follow-Up [facility] - Hematology/Oncology [address] [place] [address] Aline Miranda RN Social History Tobacco Use Types Packs/Day Years Used Date Smoking Tobacco: Every Day Cigarettes 1 48 Smokeless Tobacco: Never Alcohol Use Standard Drinks/Week Comments Yes 0 (1 standard drink = 0.6 oz pure alcohol) drank a liter/4 days vodka until 2-3 weeks ago; occasional drinks as stated on 01/05/2025 AUDIT-C Answer Date Recorded Q1: How often [...] medical care, and heating? Somewhat hard 06/01/2023 PHQ-2 Answer Date Recorded Patient Health Questionnaire-2 Score 0 03/12/2025 [facility] of Occupat ional [facility] - Occupational Stress Questionnaire Answer Date Recorded [...] Assessment Author Yes 11/10/2024 2:32 PM CDT Dlaila White RN documented as of this encounter Mental Status * Does person have difficulty concentrating/remembering/making decisions? Answer Entry Date Author No 11/10/2024 2:32 PM CDT Dalila White RN documented in this encounter Plan of Treatment Upcoming Encounters Date Type Department Care Team (Late st Contact Info) Description 04/23/2025 8:40 AM CDT Hospital Encounter [facility] [address] [place] [address] Zay Lua MD [address] [place] [address] 04/23/2025 9:20 AM CDT Office Visit [facility] - Hematology/Oncology [address] [place] [address] Becca Rivas, JEWELRY SORTER-TRIM CREW SUPERVISOR [address] [place] [address] 04/26/2025 1:00 PM CDT Appointment [facility] PFT [address] [place] [address] 04/26/2025 1:30 PM CDT Appointment [facility] PFT [address] [place] [address] 05/11/2025 12:30 PM CDT Office Visit [facility] - GI [address] [facility], [place] [address] Marielena Ulrich, JEWELRY SORTER-TRIM CREW SUPERVISOR [address] [place] [address] 05/14/2025 9:00 AM CDT Appointment [facility] [address] [place] [address] 08/09/2025 3:30 PM VIDEO GAME ENGINEER Office Visit [facility] - Pulmonology [facility] [facility], [place] [address] Bandar Stewart MD documented as of this [...] on filedocumented in this encounter Care Teams Step Down Specialist Relationship Specialty Start Date End Date Becca Victoria APRN-HOME HEALTH NURSE [address] [place] [address] PCP - General Certified Clinical Nurse Specialist 11/23/24 Abel Carlos MD [address] [place], [place] [phone] 05/30/23 documented as of this encounter
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
--- OUTSIDE RECORDS SUMMARY | 2025-04-21 11:35 | XMS_ITS | Encounter Summary ---
Author Organization [facility] Address [address] [facility] [facility] [place] [address] Care Team Providers Care On Site Manager Name Role Phone Abel Carlos MD Unavailable [phone] Abel Carlos MD Primary Care Provider Becca Victoria APRN-[facility] Primary Care Provider [phone] Reason for Visit * Reason Comments Cirrhosis Encounter Details Date Type Department Care Team (Late st Contact Info) Description 01/06/2024 Telephone [facility] - [address] [place] [address] Fiona Herrmann RN Cirrhosis Social History Tobacco Use Types Packs/Day [...] medical care, and heating? Somewhat hard 06/01/2023 [facility] [place] of Occupat ional Health - Occupational Stress [...] place to sleep or slept in a skilled nursing (including now)? No 06/01/2023 Comments No Sex [...] 06/10/2023 5:00 PM Laurence Ennis RN * Is person blind or have serious difficulty seeing? Answer Date of Assessment Author No 06/10/2023 5:00 PM JINGT Laurence Amador RN * Does person have serious difficulty walking/climbing stairs? Answer Date of Assessment Author Yes 06/10/2023 5:00 PM CDT Laurence Amador RN * Does person have difficulty dressing/bathing? Answer Date of Assessment Author No 06/10/2023 5:00 PM CDT Laurence Amador RN * Does person have difficulty doing errands alone? Answer Date of Assessment Author Yes 06/10/2023 5:00 PM CDT Laurence Amador RN documented as of this encounter Mental Status * Does person have difficulty concentrating/remembering/making decisions? Answer Entry Date Author No 06/10/2023 5:00 PM CDT Laurence Amador RN documented in this encounter Miscellaneous Notes * Telephone Encounter - Fiona Herrmann RN - 01/06/2024 10:24 AM CDT Call received from pt for condition update to report BS range 400 - 600. Instructed to report to ER, and notify Dr. Carlos. Plan to repeat labs while at [facility] . UMER Hollis notified. documented in this encounter Plan of Treatment Upcoming Encounters Date Type Department Care Team (Late st Contact Info) Description 04/23/2025 8:40 AM CDT Hospital Encounter [facility] [address] [place] [address] Zay Lua MD [address] [place] [phone] 04/23/2025 9:20 AM CDT Office Visit [facility] - Hematology/Oncology [address] [place] [address] Becca Rivas, ERCO MACHINE OPERATOR-DRILL RIG OPERATOR HELPER [address] [place] [phone] 04/26/2025 1:00 PM CDT Appointment [address] [phone] 04/26/2025 1:30 PM CDT Appointment [facility] PFT [address] [place] [address] 05/11/2025 12:30 PM CDT Office Visit [facility] - GI [address] [facility], [place] [address] Marielena Ulrich APRN-DRILL RIG OPERATOR HELPER [address] [facility] [place] [address] 05/14/2025 9:00 AM CDT Appointment [facility] [address] [place] [address] 08/09/2025 3:30 PM FORGE HEATER Office Visit [facility] - Pulmonology [address] [place] [address], [place] [address] Bandar Stewart MD documented as of this [...] on filedocumented in this encounter Care Teams On Site Manager Relationship Specialty [place] [address] [place] [phone] PCP - General Internal Medicine 07/12/23 11/22/24 Becca Victoria APRN-METER SHOP SUPERVISOR [address] [place] [address] PCP - General Certified Clinical Nurse Specialist 11/23/24 [place] [address] [place] [phone] 05/30/23 documented as of this encounter
--- OUTSIDE RECORDS SUMMARY | 2025-04-21 11:35 | XMS_ITS | Encounter Summary ---
Author Organization [facility] Address [address] [place] [address] Care Team Providers Care Campaign Management Specialist Name Role Phone Abel Carlos MD Unavailable [phone] Becca Victoria APRN-PELLET MACHINE OPERATOR Primary Care Provider [phone] Reason for Visit * Reason Onset Date Comments Itching 04/20/2025 Encounter Details Date Type Department Care Team (Late st Contact Info) Description 04/20/2025 Telephone [facility] - Hematology/Oncology [address] [place] [address] Zay Lua MD [address] [place] [address] Itching Social History Tobacco Use Types Packs/Day Years [...] Recorded Patient Health Questionnaire-2 Score 0 03/12/2025 [facility] - Occupational Stress [...] a nursing home (including now)? No 06/01/2023 Comments No Sex [...] encounter Miscellaneous Notes * Telephone Encounter - Aline Miranda RN - 04/20/2025 5:01 PM CDT Left voicemail informing triamcinolone 1% ointment was sent to [facility] pharmacy. To use on areas that are itching or has rash. Call the office with any worsening symptoms between now and her 04/23 office visit, where we will reassess symptoms. Provided the after-hours line if symptoms worsen after hours. * Telephone Encounter - Aline Miranda RN - 04/20/2025 2:47 PM CDT Caller Kristen Khalil Noticed Itching to hand and hives to naval, back, neck and on right side. Noticed itching x 4-5 days and hives started a few days . Feels like itching and hives started after completing PET scan on 04/13. Hasn't taken any medication for itching, she can't afford it. Denies swelling of eyes, denies shortness of breath and or feeling like her throat is closing up. Denies changes in detergent or body wash. Advised will discuss with ROLAND Hudson and in regard to sending an antihistamine such as benadryl to pharmacy and trimacinolone 1% ointment for itching. Request Zelda in [place] documented in this encounter Plan of Treatment Upcoming Encounters Date Type Department Care Team (Late st Contact Info) Description 04/23/2025 8:40 AM CDT Hospital Encounter [facility] [address] [place] [address] Zay Lua MD [address] [place] [phone] 04/23/2025 9:20 AM CDT Office Visit [facility] - Hematology/Oncology [address] [place] [phone] Becca Rivas, MARBLEIZING MACHINE TENDER-PROCESS ANALYST [address] [place] [phone] 04/26/2025 1:00 PM CDT Appointment [facility] [address] [place] [phone] 04/26/2025 1:30 PM CDT Appointment [facility] [address] [place] [phone] 05/11/2025 12:30 PM CDT Office Visit [facility] - GI [address] [place] [address], [place] [phone] Marielena Ulrich, MARBLEIZING MACHINE TENDER-PROCESS ANALYST [address] [place] [address] [place] [address] 05/14/2025 9:00 AM CDT Appointment [facility] [address] [place] [address] 08/09/2025 3:30 PM STOCK RECEIVER Office Visit [facility] - Pulmonology [address] [place] [address], [place] [phone] Bandar Stewart MD documented as of this [...] documented as of this encounter Visit Diagnoses Diagnosis Itching- Primary Unspecified pruritic disorder Hives Urticaria, unspecified documented in this encounter Care Teams Campaign Management Specialist Relationship Specialty Start Date End Date Becca Victoria APRN-PELLET MACHINE OPERATOR [address] [place] [address] PCP - General Certified Clinical Nurse Specialist 11/23/24 Abel Carlos MD [address] [place], [place] [phone] 05/30/23 documented as of this encounter
--- OUTSIDE RECORDS SUMMARY | 2025-04-21 11:35 | XMS_ITS | Encounter Summary ---
Author Organization [facility] Address [address] [facility] [place] [address] Care Team Providers Care Assistant Professor In Family Studies Name Role Phone Abel Carlos MD Unavailable [phone] Abel Carlos MD Primary Care Provider Becca Victoria APRN-[facility] Primary Care Provider [phone] Reason for Visit * Reason Onset Date Comments MEDICATION REFILL 05/22/2024 Encounter Details Date Type Department Care Team (Late st Contact Info) Description 05/22/2024 Refill [facility] [address] [place] [address], [place] [address] Vane Priest MD [address] [place] [address] [place] [address] MEDICATION REFILL Social History Tobacco Use Types [...] medical care, and heating? Somewhat hard 06/01/2023 [facility] - Occupational Stress Questionnaire Answer Date [...] place to sleep or slept in a [facility]p (including now)? No 06/01/2023 Comments No Sex [...] Entry Date Author No 06/10/2023 5:00 PM JINGT Laurence Amador RN documented in this encounter Plan of Treatment Upcoming Encounters Date Type Department Care Team (Late st Contact Info) Description 04/23/2025 8:40 AM CDT Hospital Encounter [facility] [address] [place] [address] Zay Lua MD [address] [place] [address] 04/23/2025 9:20 AM CDT Office Visit [facility] - Hematology/Oncology [address] [place] [address] Becca Rivas, SOFTWARE SUPPORT ANALYST-AMERICAN INDIAN POLICY SPECIALIST [address] [place] [address] 04/26/2025 1:00 PM CDT Appointment [facility] [address] [place] [address] 04/26/2025 1:30 PM CDT Appointment [facility] [address] [place] [address] 05/11/2025 12:30 PM CDT Office Visit [facility] - GI [address] [facility], [place] [address] Marielena Ulrich, SOFTWARE SUPPORT ANALYST-AMERICAN INDIAN POLICY SPECIALIST [address] [facility] [address] [place] [address] 05/14/2025 9:00 AM CDT Appointment [facility] [address] [place] [address] 08/09/2025 3:30 PM HAND BRIM IRONER Office Visit [facility] - Pulmonology [address] [facility], [place] [address] Bandar Stewart MD documented as of this [...] on filedocumented in this encounter Care Teams Assistant Professor In Family Studies Relationship Specialty Start Date End Date Abel Carlos MD [address] [place] [phone] PCP - General Internal Medicine 07/12/23 11/22/24 Becca Victoria APRN-WAITER/WAITRESS FIRST CLASS [address] [place] [id number] PCP - General Certified Clinical Nurse Specialist 11/23/24 Abel Carlos MD [address] [place] [phone] 05/30/23 documented as of this encounter
--- OUTSIDE RECORDS SUMMARY | 2025-04-21 11:35 | XMS_ITS | Clinical Summary ---
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 throughout the bowel is nonspecific. No hypermetabolic lymphadenopathy in the abdomen or the pelvis. Gallbladder surgically resected. Musculoskeletal: No abnormal FDG avid lytic or sclerotic lesions are identified. Procedure Note Eber Thomas DO - 04/13/2025 PROCEDURE: PET CT SKULL TO MID THIGH DATE/TIME OF EXAM: 04/13/2025 8:59 AM CLINICAL INFORMATION: None relevant/not provided if blank. Indication: C34.91: Squamous cell carcinoma lung, right (HCC) Referring Physician: Zay Lau MD HISTORY: A 64 years Female patient with right lower lobe Squamous cell carcinoma on biopsy 11/10/2024. Now on chemotherapy. Evaluate forsubsequent treatment strategy. TECHNIQUE: 6.46 mCi of F-18 FDG by IV in the right AC. PET/CT image acquisition from skull to midthigh after approximately 60 minutes post-injection with the CT being low-dose, non-contrast. No separatereport for the CT was used for attenuation correction and anatomiclocalization. Blood glucose level at the time of injection was 174 mg/dl. Patient'sBMI is 16.8 kg/m . COMPARISON: Prior PET on 11/27/2024 FINDINGS: For reference, SUVmax of liver is 2.48 versus prior 2.7. Head and neck: There is physiological FDG activity throughout the brain parenchyma. No abnormal FDG focus is present. No hypermetabolic or enlarged cervicallymph node is identified. Chest: Redemonstration of emphysematous changes and dependent atelectasiswithin both lungs. Slightly shrinking FDG avid soft tissue mass with central cavitation in the right lower lobe abutting the pleura and now measuring 1.6 x 2.6 cm transaxially versus 2.9 x 2.6 cm on prior. SUV max of themass is now 5.9 versus 8.8 on prior. Redemonstration of heterogenous radiotracer activity within bilateral dependent lungs with SUV maxes ranging from around 2-3. Region affected appears to be a smaller area than prior, however remains difficult to evaluate for any underlying lesions. Redemonstration of nodule with mild radiotracer activity within the right anterior apical lung now with SUVmax of 1.3 versus prior with 2.1. Redemonstration of mild FDG activitywithin the right hilar region now with SUV max of 3.9 versus 3.6 on prior. Redemonstration of mild FDG activity in precarinal region now measuring around 2 cm versus 1 cm and with SUV max of 3.5 versus 2.9 on prior. Pacemaker device in the left upper chest with tips within the heartseen. No pleural/pericardial effusion or pneumothorax. Reactive appearing bilateral axillary nodes. Abdomen and pelvis: Interval resolution of right adrenal gland showing moderate FDG activity with prior SUV max 4.3. Small foci of increased FDG activity in therectum with SUV max of 7.1, likely reactive. Heterogenous FDG activity is seen throughout the bowel is nonspecific. No hypermetabolic lymphadenopathyin the abdomen or the pelvis. Gallbladder surgically resected. Musculoskeletal: No abnormal FDG avid lytic or sclerotic lesions are identified. IMPRESSION: 1. Slightly decreased prominence of the FDG avid cavitating mass in the right lower lobe suggestive of partial response to therapy. Other sitesof focal FDG activity within areas of dependent groundglass/consolidative changes in both lungs and right lung apex are more likely inflammation/infection process but difficult to be evaluated due to elevated background. 2. Increased FDG activity within lymph nodes in the right hilar and precarinal regions are again concerning for metastasis. However,reactive changes are not excluded given the underlying lung changes. > Dictated by Ricardo Cantrell Dr 04/13/2025 9:02 AM > Dictated by Stick Puller I, Eber Thomas DO have personally reviewed and interpreted this examination/study. > Interpreting Provider: Eber Thomas DO on 04/13/2025 1:32 PM Zay Lua MD NM ORDERABLES Final Result * (ABNORMAL) GLUCOSE SCREEN - POCT (IP) [facility] (04/13/2025 7:28 AM CDT) Glucose WB/POC 174(A) 70 - 99 mg/dL [facility] POCT TESTING Blood BLOOD SPECIMEN / Unknown 04/13/2025 7:28 AM CDT us Zay Lua MD LAB - POINT OF CARE ORDERABLES F inal Result [facility] POCT TESTING [address] [place] [address], [place] [phone] * XR Wrist Left 3Vw or More (04/02/2025 10:01 AM CDT) Anatomical Region Laterality Modality Wrist / Hand Digital Radiogra phy 04/02/2025 10:4 9 AM CDT Impressions 04/02/2025 10:54 AM CDT IMPRESSION: No acute fracture or dislocation identified. SLAC wrist and SNAC wrist. The report was drafted by Gladis Mcduffie MD (vice president [employer]). This study was interpreted and reported by Peggy Kwok MD (attending radiologist) 04/02/2025 10:49 AM. > Interpreting Provider: Peggy Kwok MD on 04/02/2025 10:54 AM Narrative 04/02/2025 10:54 AM CDT PROCEDURE: XR WRIST LEFT 3VW OR MORE, DATE/TIME OF EXAM: 04/02/2025 10:01 AM, LOCATION [facility] INDICATION: M25.532: Wrist pain, acute, left ADDITIONAL CLINICAL INFORMATION: Ordering Provider Reason For Exam: Technologist Note: Additional: COMPARISON: None. FINDINGS: Scaphoid waist fracture is likely chronic, given well cortication of the fragments. There is also scapholunate dissociation, advanced radioscaphoid osteoarthritis, and proximal migration of the capitate (scapholunate advanced collapse, i.e., SLAC wrist, along with scaphoid nonunion advanced collapse, i.e., SNAC wrist). No acute fracture is visible. Advanced degenerative osteoarthritis of the first carpometacarpal and metacarpophalangeal joints. Bones are demineralized. Mild soft tissue swelling is present. Procedure Note Peggy Kwok MD - 04/02/2025 PROCEDURE: XR WRIST LEFT 3VW OR MORE, DATE/TIME OF EXAM: 0:01 AM, LOCATION [facility] INDICATION: M25.532: Wrist pain, acute, left ADDITIONAL CLINICAL INFORMATION: Ordering Provider Reason For Exam: Technologist Note: Additional: COMPARISON: None. FINDINGS: Scaphoid waist fracture is likely chronic, given well cortication of the fragments. There is also scapholunate dissociation, advancedradioscaphoid osteoarthritis, and proximal migration of the capitate (scapholunate advanced collapse, i.e., SLAC wrist, along with scaphoid nonunion advanced collapse, i.e., SNAC wrist). No acute fracture is visible. Advanced degenerative osteoarthritis of the first carpometacarpal and metacarpophalangeal joints. Bones are demineralized. Mild soft tissue swelling is present. IMPRESSION: No acute fracture or dislocation identified. SLAC wrist and SNAC wrist. The report was drafted by Gladis Mcduffie MD (vice president [employer]). This study was interpreted and reported by Peggy Kwok MD (attending radiologist) 04/02/2025 10:49 AM. > Interpreting Provider: Peggy Kwok MD on 04/02/2025 10:54 AM us Zay Lua MD DIAGNOSTIC IMAGING ORDERABLES Fi nal Result * (ABNORMAL) CBC WITH DIFFERENTIAL (04/02/2025 8:43 AM [facility]) Only the most recent of5 resultswithin the time period is included. WBC 8.9 4.0 - 10.7 x10E9/L 04/02/2025 9:07 AM [facility] RBC Count 4.79 3.90 - 5.20 x10E12/L 04/02/2025 9:07 AM [facility] Hemoglobin 13.6 11.9 - 15.8 g/dL 04/02/2025 9:07 AM [facility] Hematocrit 39.3 34.8 - 46.1 % 04/02/2025 9:07 AM [facility] MCV 82.0 80.0 - 98.0 fL 04/02/2025 9:07 AM [facility] MCH 28.4 26.7 - 33.6 pg 04/02/2025 9:07 AM [facility] MCHC 34.6 31.7 - 36.3 g/dL 04/02/2025 9:07 AM [facility] RDW-CV 15.3(H) 11.3 - 14.8 % 04/02/2025 9:07 AM [facility] Platelet Count 191 150 - 420 x10E9/L 04/02/2025 9:07 AM [facility] MPV 8.9 7.8 - 11.4 fL 04/02/2025 9:07 AM [facility] Preliminary Absolute Neutrophil 5.21 1.60 - 7.50 x10E9/L 04/02/2025 9:07 AM [facility] Neutrophil % 58.3 41.0 - 74.0 % 04/02/2025 9:07 AM [facility] Lymphocyte % 32.1 17.0 - 47.0 % 04/02/2025 9:07 AM [facility] Monocyte % 5.8 3.0 - 11.0 % 04/02/2025 9:07 AM [facility] Eosinophil % 2.9 0.0 - 7.0 % 04/02/2025 9:07 AM [facility] Basophil % 0.6 0.0 - 1.6 % 04/02/2025 9:07 AM [facility] Immature Granulocytes % 0.3 0.0 - 1.0 % 04/02/2025 9:07 AM [facility] Neutrophil Absolute 5.21 1.60 - 7.50 x10E9/L 04/02/2025 9:07 AM [facility] Lymphocyte Absolute 2.87 1.00 - 4.40 x10E9/L 04/02/2025 9:07 AM [facility] Monocyte Absolute 0.52 0.15 - 1.00 x10E9/L 04/02/2025 9:07 AM [facility] Eosinophil Absolute 0.26 0.00 - 0.60 x10E9/L 04/02/2025 9:07 AM [facility] Basophil Absolute 0.05 0.00 - 0.13 x10E9/L 04/02/2025 9:07 AM [facility] Blood BLOOD SPECIMEN / Unknown Venipuncture / Unknown 04/02/2025 8:43 AM CDT 04/02/2025 8:57 AM CDT us Zay Lua MD LAB - HEMATOLOGY ORDERABLES Anusha l Result [facility] [address] [place] [address], [facility] [phone] * (ABNORMAL) COMPREHENSIVE METABOLIC PANEL (04/02/2025 8:43 AM CDT) Only the most recent of5 resultswithin the time period is included. [facility] BUN 8 7 - 26 mg/dL 04/02/2025 9:30 AM [facility] Creatinine 0.57 0.56 - 0.96 mg/dL 04/02/2025 9:30 AM [facility] Sodium 132(L) 136 - 145 mmol/L 04/02/2025 9:30 AM [facility] Potassium 2.8(L) 3.5 - 4.5 mmol/L 04/02/2025 9:30 AM [facility] Chloride 96(L) 98 - 107 mmol/L 04/02/2025 9:30 AM [facility] CO2 25 22 - 29 mmol/L 04/02/2025 9:30 AM [facility] Glucose 149(H) 70 - 99 mg/dL 04/02/2025 9:30 AM [facility] Calcium 9.0 8.4 - 10.2 mg/dL 04/02/2025 9:30 AM [facility] Protein Total 7.3 6.0 - 8.3 g/dL 04/02/2025 9:30 AM [facility] Albumin 3.2(L) 3.4 - 5.0 g/dL 04/02/2025 9:30 AM [facility] Bilirubin Total 1.0 0.2 - 1.2 mg/dL 04/02/2025 9:30 AM [facility] Alkaline Phosphatase 243(H) 40 - 150 U/L 04/02/2025 9:30 AM [facility] ALT 25 5 - 55 U/L 04/02/2025 9:30 AM [facility] AST 32 5 - 34 U/L 04/02/2025 9:30 AM [facility] Anion Gap 11 6 - 16 04/02/2025 9:30 AM [facility] BUN/Creatinine Ratio 14 7 - 23 04/02/2025 9:30 AM [facility] Osmolality Calculated 275 275 - 295 mOsm/kg 04/02/2025 9:30 AM [facility] Albumin/Globulin Ratio 0.8(L) 1.1 - 2.3 04/02/2025 9:30 AM [facility] eGFR by CKD-EPI >90 >=90 mL/min/1.7 3 m2 04/02/2025 9:30 AM CDT [facility] Comment:Estimated Glomerular Filtration Rate (eGFR) calculated using the CKD-EPI Creatinine Equation (2020), per the National Kidney Foundation and [place] [employer]ph[employer] recommendations. Blood BLOOD SPECIMEN / Unknown Venipuncture / Unknown 04/02/2025 8:43 AM CDT 04/02/2025 8:57 AM CDT us Zay Lua MD LAB - CHEMISTRY ORDERABLES Final Result [address] [address], [place] [phone] * TSH (04/02/2025 8:43 AM CDT) Only the most recent of3 resultswithin the time period is included. TSH 1.947 0.350 - 4.940 uIU/mL 04/02/2025 9:46 AM CDT [facility] Blood BLOOD SPECIMEN / Unknown Venipuncture / Unknown 04/02/2025 8:43 AM CDT 04/02/2025 8:57 AM CDT us Zay Lua MD LAB - CHEMISTRY ORDERABLES Final Result Performing Organization Address City/[facility]/ZIP Co de Phone Number [address] [address], [place] [phone] * XR CHEST 2VW (03/24/2025 4:04 PM CDT) Anatomical Region Laterality Modality Chest Digital Radiogra phy 03/24/2025 4:09 PM CDT Narrative 03/24/2025 4:46 PM CDT PROCEDURE: XR CHEST 2VW, DATE/TIME OF EXAM: 03/24/2025 4:04 PM, LOCATION [facility] INDICATION: R05.9: Cough, unspecified type ADDITIONAL CLINICAL INFORMATION: Ordering Provider Reason For Exam: r/o consolidation vs effusion vs other COMPARISON: Chest radiograph from 11/10/2024. CT chest abdomen pelvis from 03/10/2025. FINDINGS/IMPRESSION: *Left chest wall cardiac pacemaker device with subclavian approach leads terminating in the right atrium and right ventricle. Bilateral lung emphysematous changes. Right greater than left bilateral lower lung opacities likely corresponds to lower zone predominant ground glass opacities, honeycombing and interstitial thickening seen on the prior CT chest abdomen pelvis from 03/10/2025. Patient's known right lower lung mass better seen and evaluated on the prior CT chest abdomen pelvis from 03/10/2025. There is no pleural effusion or pneumothorax. The cardiomediastinal silhouette is stable. No acute osseous abnormality. The report was drafted by Fred Malcolm MD (vice president [employer]) 03/24/2025 4:09 PM. Venu Lai MD have personally reviewed and interpreted this examination/study. > Interpreting Provider: Venu Mckeon MD on 03/24/2025 4:46 PM Procedure Note Venu Mckeon MD - 03/24/2025 PROCEDURE: XR CHEST 2VW, DATE/TIME OF EXAM: 03/24/2025 4:04 PM, LOCATION [facility] INDICATION: R05.9: Cough, unspecified type ADDITIONAL CLINICAL INFORMATION: Ordering Provider Reason For Exam: r/o consolidation vs effusion vsother COMPARISON: Chest radiograph from 11/10/2024. CT chest abdomen pelvis from 03/10/2025. FINDINGS/IMPRESSION: *Left chest wall cardiac pacemaker device with subclavian approach leads terminating in the right atrium and right ventricle. Bilateral lung emphysematous changes. Right greater than left bilateral lower lung opacities likelycorresponds to lower zone predominant ground glass opacities, honeycombing and interstitial thickening seen on the prior CT chest abdomen pelvis from 03/10/2025. Patient's known right lower lung mass better seen and evaluated on the prior CT chest abdomen pelvis from 03/10/2025. There is no pleural effusion or pneumothorax. The cardiomediastinal silhouette is stable. No acute osseous abnormality. The report was drafted by Fred Malcolm MD (vice president [employer]) 03/24/2025 4:09 PM. Venu Lai MD have personally reviewed and interpreted this examination/study. > Interpreting Provider: Venu Mckeon MD on 03/24/2025 4:46 PM Majo Edgar PA-C DIAGNOSTIC IMAGING ORDERABLES Final Result * PT-INR (03/24/2025 3:25 PM CDT) Pathologist [facility] PT 14.8 12.1 - 14.8 Seconds 03/24/2025 4:12 PM CDT [facility] INR 1.2 See Comment 03/24/2025 4:12 PM CDT [facility] Comment:The suggested therap eutic range for standard coumadin (warfarin) therapy is an INR of 2.0-3.0. For high-risk patients (Mechanical Mitral Valve Prosthesis, etc.), the suggested prophylactic therapeutic range is an INR of 2.5-3.5. Blood BLOOD SPECIMEN / Unknown Venipuncture / Unknown 03/24/2025 3:25 PM CDT 03/24/2025 3:29 PM CDT Majo Edgar PA-C LAB - COAGULATION ORDERABLES Final Result [facility] [address] [place] [address], [facility] [phone] * (ABNORMAL) DIFFERENTIAL MANUAL (03/24/2025 3:25 PM CDT) Only the most recent of2 resultswithin the time period is included. Pathologist [facility] Neutrophil % 11(L) 41 - 74 % 03/24/2025 4:24 PM CDT [facility] Lymphocyte % 57(H) 17 - 47 % 03/24/2025 4:24 PM T [facility] Monocyte % 14(H) 3 - 11 % 03/24/2025 4:24 PM T [facility] Eosinophil % 16(H) 0 - 7 % 03/24/2025 4:24 PM T [facility] Basophil % 1 0 - 2 % 03/24/2025 4:24 PM CDT [facility] Myelocyte % 1(H) 0% % 03/24/2025 4:24 PM CDT [facility] Neutrophil Absolute 0.31(L) 1.60 - 7.50 x10E9/L 03/24/2025 4:24 PM CDT [facility] Lymphocyte Absolute 1.60 1.00 - 4.40 x10E9/L 03/24/2025 4:24 PM CDT [facility] Monocyte Absolute 0.39 0.15 - 1.00 x10E9/L 03/24/2025 4:24 PM CDT [facility] Eosinophil Absolute 0.45 0.00 - 0.60 x10E9/L 03/24/2025 4:24 PM CDT [facility] Basophil Absolute 0.03 0.00 - 0.13 x10E9/L 03/24/2025 4:24 PM T [facility] RBC Morphology REVIEWED 03/24/2025 4:24 PM CDT [facility] Jaspreet Cells MANY(A) (none) 03/24/2025 4:24 PM CDT [facility] Blood BLOOD SPECIMEN / Unknown Venipuncture / Unknown 03/24/2025 3:25 PM CDT 03/24/2025 3:29 PM CDT Majo Edgar PA-C LAB - HEMATOLOGY ORDERABLES F inal Result [address] [address], [facility] [phone] * (ABNORMAL) MAGNESIUM BLOOD (03/24/2025 3:25 PM CDT) Only the most recent of2 resultswithin the time period is included. Magnesium 1.4(L) 1.6 - 2.6 mg/dL 03/24/2025 4:09 PM CDT [facility] Blood BLOOD SPECIMEN / Unknown Venipuncture / Unknown 03/24/2025 3:25 PM CDT 03/24/2025 3:29 PM CDT Majo Edgar PA-C LAB - CHEMISTRY ORDERABLES Fi nal Result [address] [address], [facility] [phone] * AMMONIA (03/24/2025 1:59 PM CDT) Ammonia 32 <=72 umol/L 03/24/2025 2:25 PM CDT [facility] Blood BLOOD SPECIMEN / Unknown Venipuncture / Unknown 03/24/2025 1:59 PM CDT 03/24/2025 2:03 PM CDT Becca Rivsa [employer] LAB - CHEMISTRY ORDERA BLES Final Result [facility] [address] [place] [address], [facility] [phone] * CULTURE STREP GROUP A (03/24/2025 1:22 PM CDT) Culture Negative for beta-hemolytic Streptococcus Group A [place] 03/25/2025 6:55 PM CDT [facility] MICROBIOLOGY Microbiology ENTIRE THROAT (SURFACE REGION OF NECK) / Unknown Collection / Unknown 03/24/2025 1:22 PM CDT 03/24/2025 1:36 PM CDT Zay Lua MD LAB - MICROBIOLOGY ORDERABLES Fi nal Result [facility] MICROBIOLOGY [address] [place] [address], [facility] [phone] * CT Chest Abdomen Pelvis W Cont (03/10/2025 7:56 AM CDT) Anatomical Region Laterality Modality Chest, Abdomen, Pelvis Computed Tomography 03/10/2025 8:08 AM CDT Impressions 03/10/2025 10:36 PM CDT Impression: 1.Overall unchanged size of known right lower lobe malignancy measuring up to 2.9 cm, when compared to CT angiogram from 02/26/2025 however this has progressed when compared to PET/CT from 11/27/2024. 2.A second subpleural nodule in the lateral segment of the right lower lobe measures 10 mm, new when compared to 10/23/2024 CT chest concerning for metastatic disease. 3.A right upper lobe and right middle lobe lobe pulmonary nodules are unchanged when compared to CT chest from 10/23/2024. 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 5.Right adrenal gland hypoattenuating nodule, representing metastatic disease. 6.Lower zone predominant ground glass opacities, honeycombing and interstitial thickening with upper zone predominant emphysematous changes. 7.The liver has a nodular surface, consistent with known hepatic cirrhosis. 8.Changes of chronic pancreatitis with atrophy of the pancreatic parenchyma and prominence of the pancreatic duct and calcifications, unchanged. > Dictated by Faisal Quintanilla, [facility] (vice president of finance). Pham Lai MD have personally reviewed and interpreted this examination/study. > Interpreting Provider: Pham Swann MD on 03/10/2025 10:36 PM Narrative 03/10/2025 10:36 PM CDT PROCEDURE: CT CHEST ABDOMEN PELVIS W CONT, DATE/TIME OF EXAM: 03/10/2025 7:57 AM, LOCATION [facility] INDICATION: C34.91: Squamous cell carcinoma lung, right (HCC) COMPARISON: CT adrenal 02/26/2025, PET/CT 11/27/2024, CT chest 10/23/2024 TECHNIQUE: CT of the chest, abdomen, and pelvis was performed after the uneventful administration of 100 mL of Isovue 370 intravenous contrast according to standard protocol. Findings: Chest: Tubes and lines: *Pacemaker device seen, single lead in the right ventricle. Lower Neck and Axillae: Left supraclavicular lymph node measuring 10 mm (image 15, series 3). Lungs: A 2.8 x 2.9 cm heterogeneously hyperenhancing mass in the right lower lobe, unchanged compared to 02/26/2025, but increased from the PET CT from 11/27/2024 (image 303, series 8). A second pleural-based nodule is now seen in the right lower lobe more laterally measuring 10 x 9 mm, new compared to 10/23/2024. Upper zone predominant emphysematous changes. There is peripheral lower zone predominant subpleural honeycombing and interstitial thickening unchanged, 10/23/2024. Tiny calcified granuloma in the lingula. An additional separate pulmonary nodule in the right upper lobe measures 8 mm (image 54, series 4) this is unchanged when compared to 10/23/2024 CT chest. A 5 mm nodule in the right middle lobe peripherally (image 58, series 4), is also unchanged from 10/23/2024. Heart and Pericardium: The cardiac chambers are normal in size. No pericardial fluid or thickening is present. Mediastinum and Michelle: No mediastinal hemorrhage is present. Several enlarged mediastinal lymph nodes in the precarinal, subcarinal and pretracheal, for example subcarinal lymph node measuring 1.3 cm (image 46, series 3), this measured 1.2 cm on 10/23/2024. Right hilar lymph node measuring 1.7 cm in short axis (image 59, series 3). Thoracic Vasculature: The aorta and its branch vessels are atherosclerotic. Abdomen/pelvis: Liver: The liver has a nodular surface, consistent with hepatic cirrhosis. Gallbladder and Bile Ducts: Cholecystectomy clips noted. Spleen: Normal. Pancreas: Changes of atrophic chronic pancreatitis with complete atrophy of the pancreatic parenchyma and prominence of the pancreatic duct and calcifications. Adrenals: Heterogeneously enhancing centrally necrotic right adrenal lesion measuring 1.1 cm, previously shown to represent metastatic disease. Left adrenal gland is normal. Kidneys: Scarring in the right kidney. Left kidney is normal. Gastrointestinal: The stomach and visualized loops of large and small bowel are unremarkable. The appendix is not seen; however, no inflammatory changes are seen in the right lower quadrant. Mesentery/Peritoneum/Retroperitoneum: No free intraperitoneal air. No free fluid in the abdomen or pelvis. Pelvis: The bladder is partially distended. The uterus is present. Abdominal Vasculature: The common hepatic, left gastric and splenic arteries arise directly from the aorta, no celiac trunk. Bones: Bone windows demonstrate no suspicious lytic or blastic lesions. Multilevel degenerative changes of the lumbar spine most significant at L5-S1 vertebra. There is minimal anterolisthesis of L3 over L4 and L4 over L5. Mild is height loss L2. Soft tissues: Normal. Procedure Note Seema Swann MD - 03/10/2025 PROCEDURE: CT CHEST ABDOMEN PELVIS W CONT, DATE/TIME OF EXAM: 03/10/2025 7:57 AM, LOCATION [facility] INDICATION: C34.91: Squamous cell carcinoma lung, right (HCC) COMPARISON: CT adrenal 02/26/2025, PET/CT 11/27/2024, CT chest 10/23/2024 TECHNIQUE: CT of the chest, abdomen, and pelvis was performed after the uneventful administration of 100 mL of Isovue 370 intravenous contrast according to standard protocol. Findings: Chest: Tubes and lines: *Pacemaker device seen, single lead in the right ventricle. Lower Neck and Axillae: Left supraclavicular lymph node measuring 10 mm (image 15, series 3). Lungs: A 2.8 x 2.9 cm heterogeneously hyperenhancing mass in the right lowerlobe, unchanged compared to 02/26/2025, but increased from the PET CT from 11/27/2024 (image 303, series 8). A second pleural-based nodule is nowseen in the right lower lobe more laterally measuring 10 x 9 mm, new comparedto 10/23/2024. Upper zone predominant emphysematous changes. There is peripheral lower zone predominant subpleural honeycombing andinterstitial thickening unchanged, 10/23/2024. Tiny calcified granuloma in thelingula. An additional separate pulmonary nodule in the right upper lobe measures8 mm (image 54, series 4) this is unchanged when compared to 10/23/2024 CT chest. A 5 mm nodule in the right middle lobe peripherally (image 58, series 4), is also unchanged from 10/23/2024. Heart and Pericardium: The cardiac chambers are normal in size. No pericardial fluid orthickening is present. Mediastinum and Michelle: No mediastinal hemorrhage is present. Several enlarged mediastinal lymph nodes in the precarinal, subcarinal and pretracheal, for examplesubcarinal lymph node measuring 1.3 cm (image 46, series 3), this measured 1.2 cmon 10/23/2024. Right hilar lymph node measuring 1.7 cm in short axis (image59, series 3). Thoracic Vasculature: The aorta and its branch vessels are atherosclerotic. Abdomen/pelvis: Liver: The liver has a nodular surface, consistent with hepatic cirrhosis. Gallbladder and Bile Ducts: Cholecystectomy clips noted. Spleen: Normal. Pancreas: Changes of atrophic chronic pancreatitis with complete atrophy of the pancreatic parenchyma and prominence of the pancreatic duct and calcifications. Adrenals: Heterogeneously enhancing centrally necrotic right adrenal lesionmeasuring 1.1 cm, previously shown to represent metastatic disease. Left adrenal gland is normal. Kidneys: Scarring in the right kidney. Left kidney is normal. Gastrointestinal: The stomach and visualized loops of large and small bowel areunremarkable. The appendix is not seen; however, no inflammatory changes are seen inthe right lower quadrant. Mesentery/Peritoneum/Retroperitoneum: No free intraperitoneal air. No free fluid in the abdomen or pelvis. Pelvis: The bladder is partially distended. The uterus is present. Abdominal Vasculature: The common hepatic, left gastric and splenic arteries arise directlyfrom the aorta, no celiac trunk. Bones: Bone windows demonstrate no suspicious lytic or blastic lesions.Multilevel degenerative changes of the lumbar spine most significant at L5-S1 vertebra. There is minimal anterolisthesis of L3 over L4 and L4 over L5. Mild is height loss L2. Soft tissues: Normal. Impression: 1.Overall unchanged size of known right lower lobe malignancy measuringup to 2.9 cm, when compared to CT angiogram from 02/26/2025 however this has progressed when compared to PET/CT from 11/27/2024. 2.A second subpleural nodule in the lateral segment of the right lowerlobe measures 10 mm, new when compared to 10/23/2024 CT chest concerning for metastatic disease. 3.A right upper lobe and right middle lobe lobe pulmonary nodules are unchanged when compared to CT chest from 10/23/2024. 4.Several enlarged left supraclavicular, mediastinal and right hilarlymph nodes representing metastatic bobby disease are unchanged. 5.Right adrenal gland hypoattenuating nodule, representing metastatic disease. 6.Lower zone predominant ground glass opacities, honeycombing and interstitial thickening with upper zone predominant emphysematouschanges. 7.The liver has a nodular surface, consistent with known hepaticcirrhosis. 8.Changes of chronic pancreatitis with atrophy of the pancreaticparenchyma and prominence of the pancreatic duct and calcifications, unchanged. > Dictated by Faisal DALTON, [facility] (vice president of finance). IPham MD have personally reviewed and interpreted this examination/study. > Interpreting Provider: Pham Swann MD on 03/10/2025 10:36 PM Zay Lua MD CT ORDERABLES Final Result * CT Adrenals Wwo Contrast (02/26/2025 3:12 PM CDT) Anatomical Region Laterality Modality Abdomen Computed Tomogra phy 02/26/2025 3:35 PM CDT Impressions 02/26/2025 4:34 PM CDT Impression: 1. Overall appearance suggests progression of the disease. Interval increase in size of necrotic heterogeneously enhancing right lower lobe mass measuring 3.2cm, previously measuring 1.9 x 2.1 cm. 2. Right adrenal nodule measuring 2.2 cm with overall heterogenous internal appearance which limits the sensitivity of relative and absolute washout calculations. However, this is increased in size when compared to PET CT from 11/27/2024 and is new when compared to 06/04/2023 and therefore is concerning for metastatic disease. 3. Background interstitial pulmonary fibrosis with honeycombing, subpleural sparing and groundglass opacities, lower lobe predominant is partially imaged. > Dictated by Faisal Bravo MD(vice president of finance). I, Juan Mccracken have personally reviewed and interpreted this examination/study. > Interpreting Provider: Juan Mccracken on 02/26/2025 4:34 PM Narrative 02/26/2025 4:34 PM CDT EXAMINATION: CT ADRENALS WWO CONTRAST DATE/TIME OF EXAM: 02/26/2025 3:12 PM, LOCATION [facility] HISTORY: E27.8: Adrenal mass (HCC) right adrenal PET uptake with known lung malignancy COMPARISON: PET/CT 11/19/2024, CT of the chest 10/23/2024 TECHNIQUE: CT of the abdomen was performed prior to and after the uneventful administration of contrast according to a adrenal protocol. Findings: Lower Chest: Interval increase in size of necrotic heterogeneously enhancing right lower lobe mass measuring 3.2 x 3.3 cm, previously measuring 1.9 x 2.1 cm. There is a background interstitial pulmonary fibrosis with honeycombing, subpleural sparing and groundglass opacities, lower lobe predominant. Pacemaker leads. Liver: Mild nodularity along the surface of the liver consistent with known cirrhosis. Gallbladder and Bile Ducts: Prior cholecystectomy. Spleen: Normal. Pancreas: Changes of atrophic chronic pancreatitis with complete atrophy of the pancreatic parenchyma and prominence of the pancreatic duct and calcifications. Adrenals: Right adrenal nodule measuring 2.2 x 1.3 cm (image 50, series 5), with overall heterogenous internal appearance with internal hypodense as well as hyperdense areas which decreases sensitivity of relative an absolute washout measurements. However this nodule appears increased in size when compared to PET CT from 11/27/2024 and appears new when compared to 06/04/2023 and therefore is concerning for metastatic disease. Kidneys: The kidneys enhance symmetrically. There is no evidence of renal calculus or hydronephrosis. Gastrointestinal: The distal esophagus and stomach appear normal. The small bowel and colon are normal in caliber without evidence of wall thickening or obstruction. The appendix appears normal without appendicolith or surrounding inflammatory changes. Mesentery/Peritoneum/Retroperitoneum: Normal. Vasculature: No vascular abnormality is present. Bones: Bone windows demonstrate no suspicious lytic or blastic lesions. The visible osseous structures are intact. Degenerative changes are seen in the spine. Soft tissues: Normal. Procedure Note Juan Mccracken MD - 02/26/2025 EXAMINATION: CT ADRENALS WWO CONTRAST DATE/TIME OF EXAM: 02/26/2025 3:12 PM, LOCATION [facility] HISTORY: E27.8: Adrenal mass (HCC) right adrenal PET uptake with knownlung malignancy COMPARISON: PET/CT 11/19/2024, CT of the chest 10/23/2024 TECHNIQUE: CT of the abdomen was performed prior to and after the uneventful administration of contrast according to a adrenal protocol. Findings: Lower Chest: Interval increase in size of necrotic heterogeneously enhancing rightlower lobe mass measuring 3.2 x 3.3 cm, previously measuring 1.9 x 2.1 cm. There is a background interstitial pulmonary fibrosis with honeycombing, subpleural sparing and groundglass opacities, lower lobe predominant. Pacemaker leads. Liver: Mild nodularity along the surface of the liver consistent with known cirrhosis. Gallbladder and Bile Ducts: Prior cholecystectomy. Spleen: Normal. Pancreas: Changes of atrophic chronic pancreatitis with complete atrophy of the pancreatic parenchyma and prominence of the pancreatic duct and calcifications. Adrenals: Right adrenal nodule measuring 2.2 x 1.3 cm (image 50, series 5), with overall heterogenous internal appearance with internal hypodense as wellas hyperdense areas which decreases sensitivity of relative an absolute washout measurements. However this nodule appears increased in size when compared to PET CT from 11/27/2024 and appears new when compared to 06/04/2023 and therefore is concerning for metastatic disease. Kidneys: The kidneys enhance symmetrically. There is no evidence of renalcalculus or hydronephrosis. Gastrointestinal: The distal esophagus and stomach appear normal. The small bowel andcolon are normal in caliber without evidence of wall thickening orobstruction. The appendix appears normal without appendicolith or surrounding inflammatory changes. Mesentery/Peritoneum/Retroperitoneum: Normal. Vasculature: No vascular abnormality is present. Bones: Bone windows demonstrate no suspicious lytic or blastic lesions. The visible osseous structures are intact. Degenerative changes are seen inthe spine. Soft tissues: Normal. Impression: 1. Overall appearance suggests progression of the disease. Interval increase in size of necrotic heterogeneously enhancing right lower lobe mass measuring 3.2cm, previously measuring 1.9 x 2.1 cm. 2. Right adrenal nodule measuring 2.2 cm with overall heterogenousinternal appearance which limits the sensitivity of relative and absolute washout calculations. However, this is increased in size when compared to PET CT from 11/27/2024 and is new when compared to 06/04/2023 and therefore is concerning for metastatic disease. 3. Background interstitial pulmonary fibrosis with honeycombing,subpleural sparing and groundglass opacities, lower lobe predominant is partially imaged. > Dictated by Faisal Bravo MD(vice president of finance). I, Juan Mccracken have personally reviewed and interpreted this examination/study. > Interpreting Provider: Juan Mccracken on 02/26/2025 4:34 PM Catracho Dey MD CT ORDERABLES Final Result * CT HEAD WITH CONTRAST (02/26/2025 3:11 PM CDT) Anatomical Region Laterality Modality Head Computed Tomogra phy 02/26/2025 3:17 PM CDT Impressions 02/26/2025 3:26 PM CDT IMPRESSION: 1. No acute intracranial process. No enhancing intracranial mass lesions. Please note that CT is insensitive to small lesions. For this reason, MRI is recommended if clinical suspicion for an ICP remains high. > Dictated by Ulysses Lundberg MD, in the presence of Brooks Katz MD (vice president of finance). > Interpreting Provider: Ulysses Lundberg MD on 02/26/2025 3:26 PM Narrative 02/26/2025 3:26 PM CDT EXAMINATION: Computed tomography (CT) of the head with contrast HISTORY: C34.91: Squamous cell carcinoma lung, right (HCC) TECHNIQUE: CT of the head was performed following the uneventful administration of contrast according to standard protocol. FINDINGS: No acute intra- or extra-axial fluid collections are identified. The ventricles are of normal size, shape, and morphology. The basilar cisterns are patent. No mass effect or midline shift is seen. The lagos-white matter differentiation is normal. Periventricular white matter hypoattenuation is indicative of chronic small vessel ischemic disease. There is vascular calcification of the carotid siphons. The visualized portions of the orbits, paranasal sinuses, and mastoids appear normal. No acute fracture or osteolytic lesion is identified. 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 FINDINGS: No acute intra- or extra-axial fluid collections are identified. The ventricles are of normal size, shape, and morphology. The basilarcisterns are patent. No mass effect or midline shift is seen. The lagos-whitematter differentiation is normal. Periventricular white matter hypoattenuationis indicative of chronic small vessel ischemic disease. There is vascular calcification of the carotid siphons. The visualized portions of the orbits, paranasal sinuses, and mastoids appear normal. No acute fractureor osteolytic lesion is identified. IMPRESSION: 1. No acute intracranial process. No enhancing intracranial masslesions. Please note that CT is insensitive to small lesions. For this reason,MRI is recommended if clinical suspicion for an ICP remains high. > Dictated by Ulysses Lundberg MD, in the presence of Brooks Katz MD (vice president of finance). > Interpreting Provider: Ulysses Lundberg MD on 02/26/2025 3:26 PM Zay Lua MD CT ORDERABLES Final Result * ISTAT CREATININE (02/26/2025 2:39 PM CDT) Creatinine POCT 0.60 0.60 - 1.30 mg/dL 02/26/2025 2:42 PM CDT [facility] eGFR by CKD-EPI >90 >90 mL/min/1.7 3 m2 02/26/2025 2:42 PM CDT [facility] Sample iSTAT JAKE 02/26/2025 2:42 PM CDT [facility] Blood BLOOD SPECIMEN / Unknown 02/26/2025 2:39 PM CDT 02/26/2025 2:42 PM CDT us Zay Lua MD LAB - POINT OF CARE ORDERABLES F inal Result Performing Organization Address [facility] Co de Phone Number [address] [address], [place] [phone] * (ABNORMAL) PT-INR [facility] (02/26/2025 1:36 PM CDT) PT 15.6(H) 12.1 - 14.8 Seconds 02/26/2025 2:49 PM CDT [facility] INR 1.3 See Comment 02/26/2025 2:49 PM CDT [facility] Comment:The suggested therap eutic range for standard coumadin (warfarin) therapy is an INR of 2.0-3.0. For high-risk patients (Mechanical Mitral Valve Prosthesis, etc.), the suggested prophylactic therapeutic range is an INR of 2.5-3.5. Blood BLOOD SPECIMEN / Unknown Lab Venipuncture / Unknown 02/26/2025 1:36 PM CDT 02/26/2025 1:57 PM CDT us Marielena Ulrich [employer] LAB - COAGULATION OR DERABLES Final Result Performing Organization Address [facility]/ZIP Co de Phone Number [address] [address], [place] [phone] * ALPHA FETOPROTEIN BLOOD TUMOR MARKER (02/26/2025 1:36 PM CDT) Pathologist [facility] Alpha-Fetoprote in Tumor Marker 3.0 <=8.3 ng/mL 02/26/2025 3:04 PM CDT [facility] Comment: AFP values will vary depending on testing procedure used. Results are not comparable across different methods. AFP values obtained by [facility] using an Martins Alinity Immunoassay. Blood BLOOD SPECIMEN / Unknown Lab Venipuncture / Unknown 02/26/2025 1:36 PM CDT 02/26/2025 2:16 PM CDT Marielena Ulrich [employer] LAB - CHEMISTRY ORDE MARIPOSA Final Result [facility] [address] [place] [address], [facility] [phone] * (ABNORMAL) HEMOGLOBIN A1C (11/11/2024 12:46 AM CDT) [facility] Hemoglobin A1c 8.5(H) <=5.6 % 11/11/2024 8:24 AM CDT [facility] Estimated Average Glucose 197 mg/dL 11/11/2024 8:24 AM CDT [facility] Comment: HbA1c Interpretation: Normal : < 5.7% Pre-diabetes: 5.7-6.4% Diabetes: Equal to or greater than 6.5% Test results diagnostic of diabetes should be repeated for confirmation. Treatment target values recommended by ADA and other clinical organizations should be used to evaluate metabolic control in patients. Reference: [place] Diabetes Association, Standards of Care in Diabetes -2020 In patients 70 years and older consider HbA1c target range of 7.0-7.5% (Reference: Raphael Salazar et al. JAMDA. 2012) The Sebia assay for the measurement of HbA1c is a National Glycohemoglobin Standardization Program (NGSP) certified method. Blood BLOOD SPECIMEN / Unknown Lab Venipuncture / Unknown 11/11/2024 12:46 AM CDT 11/11/2024 1:20 AM CDT us Quinton Ryan MD LAB - CHEMISTRY ORDERABLES Fi nal Result Performing Organization Address City/[facility]/ZIP Co de Phone Number [facility] [address] [place] [address], [place] [phone] * EYE EXAM (04/28/2024) Anatomical Region Laterality Modality Other Narrative 04/28/2024 Ordered by an unspecified provider. us Scanned Document SCANNING ONLY Final Result * HEPATITIS C AB SCREEN RFLX NAAT QUANT (06/03/2023 6:13 AM CDT) Hepatitis C Antibody Non-react andre Non-reac tive 06/03/2023 8:01 AM CDT [facility] Comment:Hepatitis C Antibody screen indicates no [...] 6:13 AM CDT 06/03/2023 7:05 AM CDT us Jaspal Murillo MD LAB - CHEMISTRY ORDERABLES F inal Result Performing Organization Address [facility]/ZIP Co de Phone Number [facility] [address] [place] [address], [facility] [phone] from Last 3 Months or Most Recently Relevant to Health Maintenance Insurance [facility] Advance Directives * Full Code (Latest Code Status on File) Date Activated Date Inactivated Comments 11/10/2024 8:08 PM 11/11/2024 7:19 PM * Full Code Date Activated Date Inactivated Comments 11/10/2024 5:42 PM 11/10/2024 8:08 PM * Full Code Date Activated Date Inactivated Comments 08/15/2023 10:48 PM 08/16/2023 8:20 PM * Full Code Date Activated Date Inactivated Comments 06/01/2023 8:33 PM 06/10/2023 10:09 PM * Full Code Date Activated Date Inactivated Comments 06/13/2022 3:53 PM 06/19/2022 7:28 PM Care Teams Associate Creative Director Relationship Specialty Start Date End Date Becca Victoria APRN-INSTRUCTOR PSYCHIATRIC AIDE [facility] [place] [address] PCP - General Certified Clinical Nurse Specialist 11/23/24 [place] [address] [place] [address] [phone] 05/30/23
--- OUTSIDE RECORDS SUMMARY | 2025-04-21 11:35 | XMS_ITS | Encounter Summary ---
Author Organization [facility] Address [address] [place] [address] Care Team Providers Care Reaming Machine Tender Name Role Phone Abel Carlos MD Unavailable [phone] Abel Carlos MD Primary Care Provider Becca Victoria APRN-[facility] Primary Care Provider [phone] Encounter Details Date Type Department Care Team (Late st Contact Info) Description 05/01/2024 Telephone [facility] - Pulmonology [address] [facility], [place] [address] Gilberto Valladares MD [address] [facility] PULMONARY DISEASE/[place] [address] Social History Tobacco Use Types [...] medical care, and heating? Somewhat hard 06/01/2023 [facility] [place] [facility] - Occupational Stress [...] place to sleep or slept in a correction (including now)? No 06/01/2023 Comments No Sex [...] for soon appt. Patient Call Back Number: [phone] documented in this encounter Plan of Treatment Upcoming Encounters Date Type Department Care Team (Late st Contact Info) Description 04/23/2025 8:40 AM CDT Hospital Encounter [facility] [address] [place] [address] Zay Lua MD [address] [place] [address] 04/23/2025 9:20 AM CDT Office Visit [facility] - Hematology/Oncology [address] [place] [id number] Becca Rivas, SKEIN SPOOLER-HANGER [address] [place] [phone] 04/26/2025 1:00 PM CDT Appointment [facility] [address] [place] [address] 04/26/2025 1:30 PM CDT Appointment [facility] [address] [place] [address] 05/11/2025 12:30 PM CDT Office Visit [facility] [place] [address] [place] [address], [place] [phone] Marielena Ulrich, SKEIN SPOOLER-HANGER [address] [place] [address] [place] [address] 05/14/2025 9:00 AM CDT Appointment [facility] [address] [place] [address] 08/09/2025 3:30 PM ADVERTISING JOB TITLES Office Visit [facility] - Pulmonology [address] [place] [address], [place] [phone] Bandar Stewart MD documented as of this [...] on filedocumented in this encounter Care Teams Reaming Machine Tender Relationship Specialty Start Date End Date Abel Carlos MD [address] [place] [phone] PCP - General Internal Medicine 07/12/23 11/22/24 Becca Victoria APRN-CARE PROVIDER [address] [place] [address] PCP - General Certified Clinical Nurse Specialist 11/23/24 Abel Carlos MD [address] [place], [place] [phone] 05/30/23 documented as of this encounter
--- OUTSIDE RECORDS SUMMARY | 2025-04-21 11:35 | XMS_ITS | Encounter Summary ---
Author Organization [facility] Address [address] [address] Care Team Providers Care Secretary Book Keeper Name Role Phone Abel Carlos MD Primary Care Provider Alo Brady MD Primary Care Provider [phone] Abel Carlos MD Primary Care Provider A, Unknown Practice Primary Care Provider [phone] Abel Carlos MD Unavailable [phone] Abel Carlos MD Primary Care Provider Becca [facility] Primary Care Provider [phone] Reason for Visit * Reason Onset Date Comments Pre-op Instructions 10/25/2021 Pt notified about pre-procedure instructions, holding meds. Voiced inability to come to appt.Reviewed meds to hold for 48 hrs. Pt provided RAD scheduling phone number. RAD notified as well of cancellation. Encounter Details Date Type Department Care Team (Late st Contact Info) Description 10/25/2021 Telephone [facility] PRE OP/POST OP [address] [place] [id number] Abel Carlos MD [address] [place], [place] [phone] Pre-op Instructions (Pt notified about pre-procedure instructions, [...] oz pur e alcohol) admits to alcoholism Comments Unknown Sex and Gender Information Value Date Recorded [...] contact phone number for RAD to reschedule [phone]. Danielle at same # was notified of cancellation. TRICIAN SHOP documented in this encounter Plan of Treatment Upcoming Encounters Date Type Department Care Team (Late st Contact Info) Description 04/23/2025 8:40 AM CDT Hospital Encounter [facility] [address] [place] [address] Zay Lua MD [address] [place] [address] 04/23/2025 9:20 AM CDT Office Visit [facility] - Hematology/Oncology [address] [place] [phone] Becca Rivas, LEAD NEURODIAGNOSTIC TECHNOLOGIST-SUPERVISOR ASSEMBLY [address] [place] [phone] 04/26/2025 1:00 PM CDT Appointment [facility] PFT [address] [place] [address] 04/26/2025 1:30 PM CDT Appointment [facility] PFT [address] [place] [address] 05/11/2025 12:30 PM CDT Office Visit [facility] - GI [address] [facility], [place] [address] Marielena Ulrich, LEAD NEURODIAGNOSTIC TECHNOLOGIST-SUPERVISOR ASSEMBLY [address] [place] [address] [place] [address] 05/14/2025 9:00 AM CDT Appointment [facility] [address] [place] [address] 08/09/2025 3:30 PM ELECTRICIAN SHOP Office Visit [facility] - Pulmonology [address] [place] [address], [place] [address] Bandar Stewart MD documented as of this encounter Visit Diagnoses Not on filedocumented in this encounter Additional Health Concerns Infection Onset Date Last Indicated Resolved Time COVID-19 Under Investigation 08/15/2023 08/15/2023 08/15/2023 7:31 PM ELECTRICIAN SHOP documented as of this encounter Care Teams Secretary Book Keeper Relationship Specialty Start Date End Date Abel Carlos MD [address] [place] [phone] PCP - General 07/06/21 06/04/22 Alo Brady MD [address] [place] [phone] PCP - General Cardiology 06/05/22 06/10/22 Abel Carlos MD [address] [place] [phone] PCP - General 06/11/22 05/29/23 A, Unknown Practice [address] [place] [phone] PCP - General 05/30/23 07/11/23 [place] [address] [place] [phone] PCP - General Internal Medicine 07/12/23 11/22/24 Becca Victoria APRN-PROCESS CONTROL SPECIALIST [address] [place] [address] PCP - General Certified Clinical Nurse Specialist 11/23/24 [place] [address] [place] [phone] 05/30/23 documented as of this encounter
--- OUTSIDE RECORDS SUMMARY | 2025-04-21 11:35 | XMS_ITS | Clinical Summary ---
Author Organization [facility] Address [address] [place] [address] Care Team Providers Care Health Center Manager Name Role Phone Abel Carlos MD Primary [...] 09/17/2024 Assessment & Plan (09/17/2024 11:55 AM PROFESSIONAL POKER PLAYER): Chronic, worsening Risk factors age, postmenopausal, chronic [...] 09/17/2024 Assessment & Plan (09/17/2024 11:54 AM PROFESSIONAL POKER PLAYER): Counseled and advised patient to cut back [...] (08/29/2020): Added automatically from request for surgery [id number] Immunizations Immunization Administration Dates Next Due Influenza, Quadrivalent, Spl it, Intramuscular 06/07/2020,11/25/2018,09/28/2016 Influenza, Quadrivalent, Spl it, Preservative Free, Intramuscular 10/02/2019 Influenza, Trivalent, IM (MDV) 10/27/2015 Pneumococcal Polysaccharide PPV23 11/25/2018,10/2011 Tdap 11/25/2018,10/27/2015 Medical History Medical History Date Comments Type 2 diabetes mellitus Alcoholic liver disease Hepatic encephalopathy (HCC) Osteoarthritis Family History Medical [...] on file Legal Sex Female 11:17 AM PROFESSIONAL POKER PLAYER Gender Identity Not on file Sexual Orientation Not on file Obstetrics History Last Filed Vital Signs Vital Sign Reading Time Taken Comments Blood Pressure 110/82 09/17/2024 11:08 AM PROFESSIONAL POKER PLAYER Pulse 110 09/17/2024 11:08 AM PROFESSIONAL POKER PLAYER Temperature 37 C (98.6 F) 09/02/2020 4:19 PM PROFESSIONAL POKER PLAYER Respiratory Rate 17 09/17/2024 11:08 AM PROFESSIONAL POKER PLAYER Oxygen Saturation 99% 09/02/2020 4:19 PM PROFESSIONAL POKER PLAYER Inhaled Oxygen Concentration - - Weight 51.7 kg (114 lb) 09/17/2024 11:08 AM PROFESSIONAL POKER PLAYER Height 170.2 cm (5' 7) 09/17/2024 11:08 AM PROFESSIONAL POKER PLAYER Body Mass Index 17.85 09/17/2024 11:08 AM PROFESSIONAL POKER PLAYER Plan of Treatment Health Maintenance Due Date [...] of 2 - PCV) 11/26/2019 11/25/2018, 09/03/2011 Lipid Panel 08/30/2021 08/30/2020, 08/20/2012 Hemoglobin A1C 12/18/2022 06/19/2022, 1204/2020, 08/29/2020 Influenza Vaccine (#1) 2025 2, 06/07/2020, 10/02/2019, Additional history exists DTaP/Tdap/Td Vaccine (3 - Td or Tdap) 11/25/2028 11/25/2018, 10/27/2015 Medical Devices Implanted Type Area Planned Giving Officer Device Identifier Shelf Expiration Date Model / Serial / Lot Pacemaker- 2 Implanted:Qty: 1 on 02/01/2012 by [place] Reg Miguel Carmichael MD Pacemaker Left: Chest [id number] / [id number] / Description:RA Lead seriel n umber: [id number] model number: [id number] RV Lead seriel number: [id number] model number: [id number] [employer]/Ort [id number] [place]-Nail 11.5mm 35cm Tibia Nail Intramedullary Titanium - [id number] Implanted:Qty: 1 on 08/30/2020 by Lenka Fang MD at [facility] Right: Tibia [employer]/O rtho [id number] / / [employer]Rich[employer]/Ort ho [id number] 5mm 45mm Low Profile Internal Hex Femur Screw Bone Trigen - [id number] Implanted:Qty: 2 on 08/30/2020 by Lenka Fang MD at [facility] Right: Tibia [employer]tho [id number] / / [employer]/Rich[employer]/Ort ho [id number] 5mm 60mm Low Profile Internal Hex Femur Screw Bone Trigen - [id number] Implanted:Qty: 2 on 08/30/2020 by Lenka Fang MD at [facility] Right: Tibia [employer]/O [employer]tho [id number] / / [employer]Rich[employer]/Ort ho [id number] 5mm 32.5mm Low Profile Internal Hex Femur Screw Bone Trigen - [id number] Implanted:Qty: 1 on 08/30/2020 by Lenka Fang MD at [facility] Right: Tibia [employer]/O [employer]o [id number] / / [employer]/Rich[employer]/Ort ho [id number] 5mm 27mm Low Profile Internal Hex Femur Screw Bone Trigen - [id number] Implanted:Qty: 1 on 08/30/2020 by Lenka Fang MD at [facility] Right: Tibia [employer]O [employer]o [id number] / / Procedures Procedure Name Priority Date/Time Associated Diagnosis Comments LIPID PANEL Routine 08/30/2020 10:34 PM PROFESSIONAL POKER PLAYER HEMOGLOBIN A1C STAT 08/29/2020 6:05 PM PROFESSIONAL POKER PLAYER from Last 3 Months or Most Recently Relevant to Health Maintenance Results * Lipid panel (08/30/2020 10:34 PM PROFESSIONAL POKER PLAYER) Cholesterol 114 30 - 199 mg/dL [facility] Comment: Interpretive Data Ages < or = 19 years Acceptable: <170 mg/dL Borderline high: 170-199 mg/dL High: >or= 200 mg/dL Ages > or = 20 years Desirable: <200 mg/dL Borderline high: 200-239 mg/dL High: >or= 240 mg/dL Literature References: 1. Expert Panel on Integrated Guidelines for Cardiovascular Health and Risk Reduction in Children and Adolescents. Pediatrics 2011;128:S213 2. NCEP Expert Panel. Circulation 2004;110:227 Current Interpretive Data was last revised on 2018. Triglycerides 67 <=149 mg/dL [facility] Comment: Interpretive Data Ages < or = 9 years Acceptable: <75 mg/dL Borderline high: 75-99 mg/dL High: >or= 100 mg/dL Ages 10 to 20 years Acceptable: <90 mg/dL Borderline high: 90-129 mg/dL High: >or= 130 mg/dL Ages > or = 20 years Desirable: <150 mg/dL Borderline high: 150-199 mg/dL High: 200-499 mg/dL Very high: >or= 499 mg/dL Literature References: 1. Expert Panel on Integrated Guidelines for Cardiovascular Health and Risk Reduction in Children and Adolescents. Pediatrics 2011;128:S213 2. NCEP Expert Panel. Circulation 2004;110:227 Current Interpretive Data was last revised on 2018. HDL 47 >=40 mg/dL [facility] Comment: Interpretive Data Ages < or = 19 years Acceptable: >45 mg/dL Borderline low: 40-45 mg/dL Low: <40 mg/dL Ages > or = 20 years Desirable: >or= 60 mg/dL Low: <40 mg/dL Literature References: 1. Expert Panel on Integrated Guidelines for Cardiovascular Health and Risk Reduction in Children and Adolescents. Pediatrics 2011;128:S213 2. NCEP Expert Panel. Circulation 2004;110:227 Current Interpretive Data was last revised on 2018. LDL, calculated 54 <=129 mg/dL [facility] Comment: Interpretive Data Ages < or = 19 years Acceptable: <110 mg/dL Borderline high: 110-129 mg/dL High: >or= 130 mg/dL Ages > or = 20 years Optimal: <100 mg/dL Near optimal: 100-129 mg/dL Borderline high: 130-159 mg/dL High: >160 mg/dL Literature References: 1. Expert Panel on Integrated Guidelines for Cardiovascular Health and Risk Reduction in Children and Adolescents. Pediatrics 2011;128:S213 2. NCEP Expert Panel. Circulation 2004;110:227 Current Interpretive Data was last revised on 2018. Non-HDL Cholesterol 67 mg/dL [facility] Comment: Interpretive Data Ages < or = 19 years Acceptable: <120 mg/dL Borderline high: 120-144 mg/dL High: >145 mg/dL Ages > or = 20 years When triglycerides are >200 mg/dL, Non-HDL cholesterol is a secondary target of therapy with treatment goals that are 30 mg/dL greater than the LDL cholesterol target. Literature References: 1. Expert Panel on Integrated Guidelines for Cardiovascular Health and Risk Reduction in Children and Adolescents. Pediatrics 2011;128:S213 2. NCEP Expert Panel. Circulation 2004;110:227 Current Interpretive Data was last revised on 2018. Chol/HDL ratio 2 [facility] Blood specimen (specimen) 08/30/2020 10:34 PM PROFESSIONAL POKER PLAYER 08/30/2020 10:54 PM PROFESSIONAL POKER PLAYER Vimal Alford MD PhD LAB BLOOD ORDERAB LES Final Result [facility] Department [place] [address] * (ABNORMAL) Hemoglobin A1c (08/29/2020 6:05 PM PROFESSIONAL POKER PLAYER) Hgb A1C 6.4(H) 4.0 - 5.6 % [facility] Estimated Average Glucose 137 mg/dL [facility] Comment: The ADA recommends reporting an estimated Average Glucose (eAG) with all Hemoglobin A1c results using the equation derived from a study of 507 normal and diabetic adults. Minority populations were underrepresented and children were not included. (Diabetes Care 31:5258-1773, 2008). The eAG is not equivalent to a fasting glucose. Blood specimen (specimen) 08/29/2020 6:05 PM PROFESSIONAL POKER PLAYER 08/29/2020 6:30 PM PROFESSIONAL POKER PLAYER us Nish Hoffmann MD LAB BLOOD ORDERABLES Final Res ult [facility] Department [place] [address] from Last 3 Months or Most Recently Relevant to Health Maintenance Insurance [address] [place], [place] [phone] [address] [place] [address] [place] [phone] Advance Directives For more information, please contact: [phone] * Full Code (Latest Code Status on File) Date Activated Date Inactivated Comments 08/30/2020 12:28 AM 09/02/2020 11:11 PM Care Teams Health Center Manager Relationship Specialty Start Date End Date Abel Carlos MD [address] [address] PCP - General 08/29/20
[2025-04-21 13:10] LABS: Anion Gap 7 mmol/L (4-12); Blood Urea Nitrogen 7 mg/dL (7-17); Calcium 9.3 mg/dL (8.4-10.2); Carbon Dioxide 23 mmol/L (22-30); Chloride 104 mmol/L (98-107); Estimated Glomerular Filt Rate > 60; Glucose 137 mg/dL (65-110); Potassium 4.6 mmol/L (3.4-5.0); Sodium 134 mmol/L (137-145)
[2025-04-21 13:32] LABS: Hemoglobin A1C 8.2 % (<5.7)
[2025-04-21 13:37] LABS: MALB Creatinine Ratio < 13.8 mg/g (0-30)
== END 2025-04-21 11:01 | disposition home or self-care (01) ==
LOC: ANHGOSHLAB 11:01
PROVIDERS: PCP Internal Medicine; Visit Provider Clinical Nurse Specialist
DX: E11.65 Type 2 diabetes mellitus with hyperglycemia (principal)
CPT/HCPCS: 36415; 80048; 82043; 83036

== ENCOUNTER 2025-05-17 12:00 | Emergency (ER) | payer OTHER, SELFPAY ==
--- NOTE | 2025-05-17 12:15 | PC.NURSE ---
THIS WAS AN OUTPATIENT XRAY AND WAS REGISTERED INCORRECTLY
== END 2025-05-17 12:15 | disposition left against medical advice (07) ==
PROVIDERS: PCP Clinical Nurse Specialist
DX: Z53.21 Procedure and treatment not carried out due to patient leaving prior to being seen by health care provider (principal)
CPT/HCPCS: 99199

== ENCOUNTER 2025-06-25 15:58 | Outpatient (CLI) | payer OTHER, SELFPAY ==
--- NOTE | ~2025-06-25 | XR_ITS ---
XR lumbar spine 2-3V Indication: M54.50 - Low back pain, unspecified HX STAGE 4 LUNG CX Comparison: None Findings: Grade 1 anterolisthesis of L3 on L4 and L4 on L5, no acute fracture. Recommend severe endplate fractures of L1 and L2. Moderate to severe loss of disc height throughout. Soft tissues unremarkable Impression: No acute abnormality. Reviewed, dictated and finalized at location P. Impression: No acute abnormality.
--- OUTSIDE RECORDS SUMMARY | 2025-06-25 09:40 | XMS_ITS | Encounter Summary ---
Author Organization [facility] Address [address] [place] [address] Care Team Providers Care Manager Provider Relations Name Role Phone Abel Carlos MD Unavailable [phone] Becca Victoria APRN-[facility] Primary Care Provider [phone] Encounter Details Date Type Department Care Team (Late st Contact Info) Description 06/25/2025 9:40 AM CDT Hospital Encounter [facility] [address] [place] [address] Zay Lua MD [address] [place] [phone] Social History Tobacco Use Types Packs/Day Years [...] you have a drink containing alcohol? Never 06/05/2025 Q2: How many drinks containi ng alcohol do you have on a typical day when you are drinking? Patient does not drink Q3: How often do you have si x or more drinks on one occasion? Never 06/05/2025 Overall Financial Resource Strain (CARDIA) Answe r Date Recorded How hard is it for you to pa y for the very basics like food, housing, medical care, and heating? Somewhat hard 06/06/2025 PHQ-2 Answer Date Recorded Patient Health Questionnaire-2 Score 0 03/12/2025 [facility] Occupat ional Health - Occupational Stress Questionnaire Answer Date Recorded Do you feel stress - tense, restless, nervous, or anxious, or unable to sleep at night because your mind is troubled all the time - these days? To some extent 06/06/2025 Hunger Vital Sign Answer Date Recorded Within the past 12 months, y ou worried that your food would run out before you got the money to buy more. Never true 06/06/20 25 Within the past 12 months, t he food you bought just didn't last and you didn't have money to get more. Never true 06/06/2025 PRAPARE - Transportation Answer Date Re corded In the past 12 months, has l ack of transportation kept you from medical appointments or from getting medications? Yes 12/2024 In the past 12 months, has l ack of transportation kept you from meetings, work, or from getting things needed for daily living? Yes 06/06/2025 Housing Stability Vital Sign Answer Federico e [...] a senior living (including now)? No 06/01/2023 Housing Stability Vital Sign Answer Federico e Recorded In the last 12 months, was t here a time when you were not able to pay the mortgage or rent on time? No 06/06/2025 In the past 12 months, how m any times have you moved where you were living? 0 06/06/2025 At any time in the past 12 m [facility], were you homeless or living in a senior living (including now)? No 06/06/2025 Comments No Sex and Gender Information Value Date Recorded Sex Assigned at Not on file Legal Sex Female 12:12 PM CDT Gender Identity Not on file Sexual Orientation Not on file documented as of this encounter Last Filed Vital Signs Vital Sign Reading Time Taken Comments Blood Pressure 112/80 06/25/2025 10:10 AM CDT Pulse 117 06/25/2025 10:10 AM CDT Temperature 36.4 C (97.6 F) 06/25/2025 10:10 AM CDT Respiratory Rate 20 06/25/2025 10:10 AM CDT Oxygen Saturation 96% 06/25/2025 10:10 AM CDT Inhaled Oxygen Concentration - - Weight 51.1 kg (112 lb 9.6 oz) 06/25/2025 10:10 AM CDT Height - - Body Mass Index 17.64 06/10/2025 9:51 AM CDT documented in this encounter Functional Status * Is person deaf or have serious hearing difficulty? Answer Date of Assessment Author No 06/10/2025 10:43 AM JINGT Sudha Gamboa RN * Is person blind or have serious difficulty seeing? Answer Date of Assessment Author No 06/10/2025 10:43 AM JINGT Sudha Gamboa RN * Does person have serious difficulty walking/climbing stairs? Answer Date of Assessment Author No 06/10/2025 10:43 AM Sudha Shannon RN * Does person have difficulty dressing/bathing? Answer Date of Assessment Author No 06/10/2025 10:43 AM Sudha Shannon RN * Does person have difficulty doing errands alone? Answer Date of Assessment Author No 06/10/2025 10:43 AM Sudha Shannon RN documented as of this encounter Mental Status * Does person have difficulty concentrating/remembering/making decisions? Answer Entry Date Author No 06/10/2025 10:43 AM Sudha Shannon RN documented in this encounter Plan of Treatment Upcoming Encounters Date Type Department Care Team (Late st Contact Info) Description 07/07/2025 2:00 PM RADIAGRAPH OPERATOR Appointment [facility] RAD ONC [address] [place], [place] [phone] Javad Velasquez MD [address] [place] [address] 07/09/2025 2:00 PM RADIAGRAPH OPERATOR Appointment [facility] PFT [address] [place] [address] 07/09/2025 2:30 PM RADIAGRAPH OPERATOR Appointment [facility] PFT [address] [place] [address] 07/14/2025 12:45 PM RADIAGRAPH OPERATOR Hospital Encounter [facility] ENDOSCOPY [address] [place] [address] Laurence Bower MD [address] [facility] [address]L [place] [address] Surgery General 07/14/2025 12:45 PM RADIAGRAPH OPERATOR - 07/14/2025 1:30 PM RADIAGRAPH OPERATOR Surgery [facility] END[facility] [address] [place] [address] Laurence Bower MD [address] [place] [address] [address] [place] [address] EGD 07/16/2025 10:30 AM RADIAGRAPH OPERATOR Appointment [facility] [address] [place] [address] 07/16/2025 11:20 AM RADIAGRAPH OPERATOR Office Visit [facility] - Hematology/Oncology [address] [place] [phone] Becca Rivas, CLOTH WIRE WEAVER-MOTOR PATROL OPERATOR [address] [place] [address] 08/09/2025 3:30 PM RADIAGRAPH OPERATOR Office Visit [facility] - Pulmonology [address] [place] [address], [place] [address] Bandar Stewart MD [address] [place] [phone] 09/10/2025 1:15 PM RADIAGRAPH OPERATOR Appointment [facility] US [address] [place] [phone] Marielena Ulrich, CLOTH W[employer] WEAVER-MOTOR PATROL OPERATOR [address] [place] [address] [address] [place] [phone] 09/10/2025 2:30 PM RADIAGRAPH OPERATOR Office Visit [facility] - GI [address] [facility], [place] [address] Marielena Ulrich, CLOTH WIRE WE[employer]ER[employer]MOTOR PATROL OPERATOR [address] [facility] [address] [place] [address] Scheduled Procedures Name Priority Associated Diagnoses Date/Ti me ESOPHAGOGASTRODUODENOSCOPY ( EGD) DIAGNOSTIC Cirrhosis of liver without ascites, unspecified hepatic cirrhosis type (HCC) 07/14/2025 12:45 PM RADIAGRAPH OPERATOR COLONOSCOPY SCREEN Cirrhosis of liver without ascites, unspecified hepatic cirrhosis type (HCC) 07/14/2025 12:45 PM RADIAGRAPH OPERATOR documented as of this encounter Goals Goal Patient Goal Type Associated Problems Recent Progress Patient-Stated? Author Medication Management General On track( 025 12:30 PM CDT) Josselyn Hudson, RN Note: Expected end date: Ongoing Interventions: Take all medications as prescribed Let your doctor know right away about any changes in your medications Make sure to request a refill of your medication at least one week prior to your last dose documented as of this encounter Procedures Procedure Name Priority Date/Time Associated Diagnosis Comments CBC W AUTO DIFFERENTIAL Routine 06/25/2025 10:27 AM CDT Cirrhosis of liver without ascites, unspecified hepatic cirrhosis type (HCC) COMPREHENSIVE METABOLIC PANEL Routine 06/25/2025 10:27 AM CDT Cirrhosis of liver without ascites, unspecified hepatic cirrhosis type (HCC) TSH DALY 06/25/2025 10:27 AM CDT documented in this encounter Results * TSH (06/25/2025 10:27 AM CDT) TSH 2.058 0.350 - 4.940 uIU/mL 06/25/2025 11:32 AM CDT [facility] Blood BLOOD SPECIMEN / Unknown Venipuncture / Unknown 06/25/2025 10:27 AM CDT 06/25/2025 10:42 AM T us Zay Lua MD LAB - CHEMISTRY ORDERABLES Final Result [facility] [address] [place] [address], [facility] [phone] * (ABNORMAL) COMPREHENSIVE METABOLIC PANEL (06/25/2025 10:27 AM CDT) BUN 14 7 - 26 mg/dL 06/25/2025 11:15 AM [facility] Creatinine 0.57 0.56 - 0.96 mg/dL 06/25/2025 11:15 AM [facility] Sodium 137 136 - 145 mmol/L 06/25/2025 11:15 AM [facility] Potassium 3.7 3.5 - 4.5 mmol/L 06/25/2025 11:15 AM [facility] Chloride 101 98 - 107 mmol/L 06/25/2025 11:15 AM [facility] CO2 27 22 - 29 mmol/L 06/25/2025 11:15 AM [facility] Glucose 205(H) 70 - 99 mg/dL 06/25/2025 11:15 AM [facility] Calcium 8.2(L) 8.4 - 10.2 mg/dL 06/25/2025 11:15 AM [facility] Protein Total 5.9(L) 6.0 - 8.3 g/dL 06/25/2025 11:15 AM [facility] Albumin 3.1(L) 3.4 - 5.0 g/dL 06/25/2025 11:15 AM [facility] Bilirubin Total 0.4 0.2 - 1.2 mg/dL 06/25/2025 11:15 AM [facility] Alkaline Phosphatase 169(H) 40 - 150 U/L 06/25/2025 11:15 AM [facility] ALT 69(H) 5 - 55 U/L 06/25/2025 11:15 AM [facility] AST 31 5 - 34 U/L 06/25/2025 11:15 AM [facility] Anion Gap 9 6 - 16 06/25/2025 11:15 AM [facility] BUN/Creatinine Ratio 25(H) 7 - 23 06/25/2025 11:15 AM [facility] Osmolality Calculated 290 275 - 295 mOsm/kg 06/25/2025 11:15 AM [facility] Albumin/Globulin Ratio 1.1 1.1 - 2.3 06/25/2025 11:15 AM [facility] eGFR by CKD-EPI >90 >=90 mL/min/1.7 3 m2 06/25/2025 11:15 AM [facility] Comment:Estimated Glomerular Filtration Rate (eGFR) calculated using the CKD-EPI Creatinine Equation (2020), per the National Kidney Foundation and [place] [employer]ph[employer] recommendations. Blood BLOOD SPECIMEN / Unknown Venipuncture / Unknown 06/25/2025 10:27 AM CDT 06/25/2025 10:42 AM [facility] us Marielena Ulrich CLOTH WIRE WEAVER-MOTOR PATROL OPERATOR LAB - CHEMISTRY ORDE MARIPOSA Final Result [facility] [address] [place] [address], [facility] [phone] * (ABNORMAL) CBC WITH DIFFERENTIAL (06/25/2025 10:27 AM [facility]) WBC 12.0(H) 4.0 - 10.7 x10E9/L 06/25/2025 10:48 AM [facility] RBC Count 3.64(L) 3.90 - 5.20 x10E12/L 06/25/2025 10:48 AM [facility] Hemoglobin 11.8(L) 11.9 - 15.8 g/dL 06/25/2025 10:48 AM [facility] Hematocrit 32.9(L) 34.8 - 46.1 % 06/25/2025 10:48 AM [facility] MCV 90.4 80.0 - 98.0 fL 06/25/2025 10:48 AM [facility] MCH 32.4 26.7 - 33.6 pg 06/25/2025 10:48 AM [facility] MCHC 35.9 31.7 - 36.3 g/dL 06/25/2025 10:48 AM [facility] RDW-CV 17.5(H) 11.3 - 14.8 % 06/25/2025 10:48 AM [facility] Platelet Count 195 150 - 420 x10E9/L 06/25/2025 10:48 AM [facility] MPV 9.3 7.8 - 11.4 fL 06/25/2025 10:48 AM [facility] Preliminary Absolute Neutrophil 8.41(H) 1.60 - 7.50 x10E9/L 06/25/2025 10:48 AM [facility] Neutrophil % 69.9 41.0 - 74.0 % 06/25/2025 10:48 AM [facility] Lymphocyte % 20.5 17.0 - 47.0 % 06/25/2025 10:48 AM [facility] Monocyte % 8.7 3.0 - 11.0 % 06/25/2025 10:48 AM [facility] Eosinophil % 0.2 0.0 - 7.0 % 06/25/2025 10:48 AM [facility] Basophil % 0.1 0.0 - 1.6 % 06/25/2025 10:48 AM [facility] Immature Granulocytes % 0.6 0.0 - 1.0 % 06/25/2025 10:48 AM [facility] Neutrophil Absolute 8.41(H) 1.60 - 7.50 x10E9/L 06/25/2025 10:48 AM [facility] Lymphocyte Absolute 2.46 1.00 - 4.40 x10E9/L 06/25/2025 10:48 AM [facility] Monocyte Absolute 1.04(H) 0.15 - 1.00 x10E9/L 06/25/2025 10:48 AM [facility] Eosinophil Absolute 0.02 0.00 - 0.60 x10E9/L 06/25/2025 10:48 AM CDT [facility] Basophil Absolute 0.01 0.00 - 0.13 x10E9/L 06/25/2025 10:48 AM CDT [facility] Blood BLOOD SPECIMEN / Unknown Venipuncture / Unknown 06/25/2025 10:27 AM CDT 06/25/2025 10:41 AM CDT us Marielena Ulrich CLOTH WIRE WEAVER-MOTOR PATROL OPERATOR LAB - HEMATOLOGY ORD ERABLES Final Result [facility] [address] [place] [address], [facility] [phone] documented in this encounter Visit Diagnoses Diagnosis Cirrhosis of liver without ascites, unspecified hepatic cirrhosis type (HCC) Cirrhosis of liver without ascites, unspecified hepatic cirrhosis type (HCC) documented in this encounter Care Teams Manager Provider Relations Relationship Specialty Start Date End Date Becca Victoria APRN-[employer] [address] [place] [address] PCP - General Certified Clinical Nurse Specialist 11/23/24 Abel Carlos MD [address] [place] [phone] 05/30/23 documented as of this encounter
--- OUTSIDE RECORDS SUMMARY | 2025-06-25 10:20 | XMS_ITS | Encounter Summary ---
Author Organization [facility] Address [address] [place] [address] Care Team Providers Care Ambulance Officer Name Role Phone Abel Carlos MD Unavailable [phone] Becca Victoria APRN-HEMSTITCHING MACHINE OPERATOR Primary Care Provider [phone] Reason for Referral * Consultation (Routine) - Closed Specialty Diagnoses / Procedures Referred By Contac t Referred To Contact Radiation Oncology Diagnoses Squamous cell carcinoma lung, right (HCC) Zay Lua MD [address] [place] [address] Phone: tel: fax: Javad Velasquez MD [address] [place] [address] Phone: tel: fax: Referral ID Status Reason Start Date Expiration Date V isits Requested Visits Authorized [id number] Closed Specialty Services Required 06/25/2025 06/25/2026 1 1 Reason for Visit * Reason Comments Follow-up Encounter Details Date Type Department Care Team (Late st Contact Info) Description 06/25/2025 10:20 AM CDT Office Visit [facility] - Hematology/Oncology [address] [place] [address] Zay Lua MD [address] [place] [address] Anxiety and depression (Primary Dx); Colitis; Squamous cell carcinoma lung, right (HCC); Chronic bronchitis, unspecified chronic bronchitis type (HCC); Type 2 diabetes mellitus without complication, without long-term current use of insulin (HCC); Alcoholic cirrhosis of liver without ascites (HCC) Social History Tobacco Use Types Packs/Day Years [...] Recorded Patient Health Questionnaire-2 Score 0 03/12/2025 [facility] - Occupational Stress [...] place to sleep or slept in a prison (including now)? No 06/01/2023 Housing Stability Vital Sign Answer Federico e Recorded In the last 12 months, was t here a time when you were not able to pay the mortgage or rent on time? No 06/06/2025 In the past 12 months, how m any times have you moved where you were living? 0 06/06/2025 At any time in the past 12 m [facility], were you homeless or living in a prison (including now)? No 06/06/2025 Comments No Sex and Gender Information Value Date Recorded Sex Assigned at Not on file Legal Sex Female 12:12 PM CDT Gender Identity Not on file Sexual Orientation Not on file documented as of this encounter Last Filed Vital Signs Vital Sign Reading Time Taken Comments Blood Pressure 112/80 06/25/2025 10:34 AM CDT copied per pt Pulse 108 06/25/2025 10:34 AM CDT rechecked 117 Temperature 36.4 C (97.6 F) 06/25/2025 10:34 AM CDT Respiratory Rate 20 06/25/2025 10:3 4 AM CDT Oxygen Saturation 96% 06/25/2025 10: 34 AM CDT Inhaled Oxygen Concentration - - Weight 51.1 kg (112 lb 9.6 oz) 06/25/2025 10:34 AM CDT Height - - Body Mass Index 17.64 06/10/2025 9:51 AM CDT documented in this encounter Functional Status * Is person deaf or have serious hearing difficulty? Answer Date of Assessment Author No 06/10/2025 10:43 AM CDT Sudha Gamboa RN * Is person blind or have serious difficulty seeing? Answer Date of Assessment Author No 06/10/2025 10:43 AM CDT Sudha Gamboa RN * Does person have serious difficulty walking/climbing stairs? Answer Date of Assessment Author No 06/10/2025 10:43 AM CDT Sudha Gamboa RN * Does person have difficulty dressing/bathing? Answer Date of Assessment Author No 06/10/2025 10:43 AM JINGT Sudha Gamboa RN * Does person have difficulty doing errands alone? Answer Date of Assessment Author No 06/10/2025 10:43 AM CDT Sudha Gamboa RN documented as of this encounter Mental Status * Does person have difficulty concentrating/remembering/making decisions? Answer Entry Date Author No 06/10/2025 10:43 AM Sudha Shannon RN documented in this encounter Progress Notes * Zay Lua MD - 06/25/2025 10:20 AM CDT Images from the original note were not included. HEMATOLOGY/ONCOLOGY CLINIC FOLLOW UP NOTE Name: Kristen Bear Age: [age] year old Date of : 1960 Date of Service: 06/25/2025 Requesting Provider / PCP: Pilar Fletcher MD (Pulmonology) / Becca Victoria APRN-HEMSTITCHING MACHINE OPERATOR Hem/Onc Care Team: Zay Lua MD (Hem/Onc) Oncology History Overview Note DIAGNOSIS: Squamous cell carcinoma of the lung STAGE: Likely IV ([id number]) MOLECULAR PROFILE: TEMPUS xT: PD-L1: 20% HER-2: 2+/CATHERINE negative PATHOLOGY: Acc.#[id number] Date: 11/10/2024 Final Diagnosis Lung, right lower lobe, biopsy (A): - Squamous cell carcinoma, keratinizing Microscopic Description and Comment Sections show multiple fragments of tissue with nests of cohesive epithelioid cells with abundant eosinophilic cytoplasm and pleomorphic nuclei in a desmoplastic stroma. Lesional cells are diffusely positive for p40 and negative for TTF-1 and calretinin. TREATMENT: Dose-reduced carboplatin(AUC4)/paclitaxel (160 mg/m2)/pembrolizumab - 03/12/2025 Single agent pembrolizumab - 04/02/2025 - current TRIAL ELIGIBILITY: Ineligible due to cirrhosis, performance status HISTORY: She had been an established patient of pulmonology due to an ongoing history of ILD and COPD. CT C WO performed 10/23/2024 showed ongoing subpleural reticulations and honeycombing, GGO and brochiolectasis a/w known ILD and a new 2.6 cm pleural- based mass in the RLL. PFTs performed 10/23/2024 showed FEV1 79% and DLCO 43%. EBUS/TBNA performed 11/10/2024 showed SCC of the RLL mass. Elisa evaluation was not undertaken. PET/CT performed 11/27/2024 showed a hypermetabolic RLL subpleural lesion, and increased FDG avidityin the right hilar and precarinal regions. Additional FDG activity was seen within the R adrenal gland. CT head W contrast, performed 02/26/[address] adrenal W/WO contrast, performed 02/26/2025 showed increased RLL mass up to 3.2 cm (previously 2.1 cm), increased R adrenal nodule to 2.2 cm and background of interstitial pulmonary fibrosis with honeycombing and groundglass opacities. 03/12/2025 C1 of dose-reduced carbo (AUC4)/paclitaxel (160 mg/m2)/pembrolizumab. Complicated by dyspnea, hemoptysis, dizziness, gait imbalance. Saw HORSEBACK RIDING INSTRUCTOR on 03/24/2025 and directed to the ED from which she left AMA. Labs (CBC, CMP) showed no significant abnormalities aside from anticipated neutropenia (ANC 300-400). CXR without acutely new changes. C1 Single agent pembrolizumab 04/02/2025 PET/CT performed 04/13/2025 showed mixed response (decreased RLL mass avidity, increased R hilar andprecarinal LN avidity) C2 Single agent pembrolizumab 04/23/2025 C3 Single agent pembrolizumab 05/14/2025 PET/CT performed 05/25/2025 showed mixed response (increased RLL mass avidity, mixed R hilar LN avidity) Admitted to [facility] 06/04-06/20/2025 for abdominal pain, anorexia, malnutrition and profuse diarrhea concerning for CPI colitis. CT abdomen/pelvis performed 06/04/2025 showed telescoping of the duodenum around the gastric pylorus, with associated colonic wall thickening and hepatic steatosis. General surgery recommended no acute intervention, and gastroenterology performed an EGD on 06/07, which revealed a large 3 cm hiatal hernia (Hill grade III) but no evidence of ulceration, stenosis, or active intussusception; the duodenum was normal. Given persistent symptoms and colonic thickening, she underwent flexible sigmoidoscopy with random colon biopsies on 06/10, which showed normal mucosa grossly; pathology later revealed mild/patchy intraepithelial lymphocytosis, raising concern for immune checkpoint inhibitor colitis. She was treated with prednisone 1 mg/kg with improvement in symptoms. 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 NON-ONCOLOGY PMHx: SSS s/p PPM EtOH cirrhosis DM2 ILD COPD Smoker Squamous cell carcinoma lung, right (HCC) 12/08/2024 Initial Diagnosis Squamous cell carcinoma lung, right (HCC) 03/12/2025 - Chemotherapy Start Date: 03/12/2025 End Date: 11/05/2025 (Planned) Treatment Plan: NSC LUNG MET (PEMBROLIZUMAB PACLITAXEL CARBOPLATIN) Q21 DAYS --> MAINTENANCE PEMBROLIZUMAB Q21 DAYS Chemotherapy: CARBOplatin (Paraplatin) Infusion (AUC Dosing), Intravenous, 1 of 1 cycle pembrolizumab (Keytruda) Infusion, Intravenous, 5 of 12 cycles PACLitaxel (Taxol), Intravenous, 1 of 1 cycle Discontinue Reason: [Plan is still active] History of Present Illness: Kristen Bear is a 64 year old female with SSS s/p PPM, EtOH cirrhosis, DM2, ILD, COPD and smokingwho presents for ongoing management of SCC of the lung. She continues on single agent pembrolizumab. PET/CT performed 05/25/2025 showing ongoing mixed response. Unfortunately, she was admitted to [facility] 06/04-06/20/2025 for abdominal pain, anorexia, malnutrition and profuse diarrhea concerning for CPI colitis. CT abdomen/pelvis performed 06/04/2025 showed telescoping of the duodenum around the gastric pylorus, with associated colonic wall thickening and hepatic steatosis. General surgery recommended no acute intervention, and gastroenterology performed an EGD on 06/07, which revealed a large 3 cm hiatal hernia (Hill grade III) but no evidence of ulceration,stenosis, or active intussusception; the duodenum was normal. Given persistent symptoms and colonicthickening, she underwent flexible sigmoidoscopy with random colon biopsies on 06/10, which showed normal mucosa grossly; pathology later revealed mild/patchy intraepithelial lymphocytosis, raising concern for immune checkpoint inhibitor colitis. She was treated with prednisone 1 mg/kg with improvement in symptoms. Hospitalization was c/b hyponatremia for which nephrology recommended limiting freewater intake, sodium chloride tablets, and discontinuation of aldactone and furosemide, with initiation of torsemide for diuretic therapy; psychiatry was consulted for medication management due to concern for venlafaxine-induced SIADH, and venlafaxine was tapered and discontinued per their recommendations. She presents today unaccompanied. She is feeling much better overall. She is having soft but formedstools. She denies any further episodes of diarrhea. She continues to have some abdominal pain and cramping. She is eating and drinking much better. She denies any fevers, chills or dyspnea differentfrom her chronic stable dyspnea. She remains on 45 mg/d of prednisone. ASSESSMENT/PLAN Kristen Bear is a 64 year old female with SSS s/p PPM, EtOH cirrhosis, DM2, ILD, COPD and smokingwho presents for ongoing management of SCC of the lung. #Squamous cell carcinoma of the lung: Stage IV on single agent pembrolizumab after intolerance to C1 dose-reduced chemotherapy. PET/CT showing mixed response. Now with CPI colitis after C3 of pembrolizumab. Her overall PS, comorbid cirrhosis and most recent CPI colitis make her a poor candidate overall for systemic therapies. Discussed case with Dr. Velasquez who will consider RT for further local control to aid in improving PFS. She is aware that this is not a curative measure and is aware of the incurable nature of her disease. We will HOLD pembrolizumab, likely indefinitely. -Referral to RO -RTC 3 weeks #CPI colitis: Admitted to [facility] 06/04-06/20/2025 for abdominal pain, anorexia, malnutrition and profuse diarrhea; she underwent flexible sigmoidoscopy with random colon biopsies on 06/10, which showed normal mucosa grossly; pathology later revealed mild/patchy intraepithelial lymphocytosis, raising concern for immune checkpoint inhibitor colitis. She was treated with prednisone 1 mg/kg with improvement in symptoms. -continue prednisone taper 30 mg/d for one week, 20 mg/d for one week, 10 mg/d for one week then stop #EtOH cirrhosis: Followed by GI (Serg). -Rifaxamin for SPB ppx -Lactulose for HE being held in the setting of diarrhea -Furosemide and aldactone discontinued - Torsemide 20 mg/d started -Abstain from EtOH #DM2: A1c 8.5 on 11/11/2024. -Lantus 14 U qHS; Lispro 5-6 U with meals -Metformin 500 mg/d #Interstitial lung disease: #COPD: CT scan WO performed 10/23/2024 showed ongoing subpleural reticulations and honeycombing, GGOand brochiolectasis -PFTs performed 10/23/2024 showed FEV1 79% and DLCO 43% -On Trelegy -Smoking cessation discussed #Low back pain: #Polyarticular OA: She is taking APAP and NSAIDs. Preserved GFR. We discussed need for alternative to NSAIDs once we get started on treatment. -Referral to palliative care #Anxiety/depression: - Continue Mirtazapine 15 mg QHS - Continue Gabapentin 800 mg TID - Continue Buspar 10 mg TID - Continue Klonopin 0.75 PO BID PRN for anxiety #Anorexia: Seen by nutrition #Smoking: Cessation advised today -NRT with patch and lozenge #Daily marijuana use: Cessation advised today All questions were answered to patient's satisfaction. Patient advised to contact the clinic with any further questions or concerns. Zay Lua MD Door Worker Division of Hematology and Oncology [facility] [email or web address] [phone] Past Medical History: Past Medical History[1] Past Surgical History: Past Surgical History[2] Social History: Social History Tobacco Use Smoking status: Every Day Current packs/day: 1.00 Average packs/day: 1 pack/day for 48.0 years (48.0 ttl pk-yrs) Types: Cigarettes Smokeless tobacco: Never Substance Use Topics Alcohol use: Not Currently Comment: drank a liter/4 days vodka until 2-3 weeks ago; occasional drinks as stated on 01/05/2025 She lives in [place], [place]. She spends a lot of time between her house and her daughter's house in [place], [place]. 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 She has 5children. She is . She smokes 1 ppd (50 + pack year history). She drinks very rarely. She smokes marijuana daily. Family History: Father - pancreatic CA Brother - colon CA Brother - unknown CA Medications: Medications[3] Allergies: Allergies[4] Physical Exam: There were no vitals filed for this visit. Wt Readings from Last 3 Encounters: 06/10/25 45 kg (99 lb 4.8 oz) 06/04/25 43.8 kg (96 lb 9.6 oz) 06/04/25 43.8 kg (96 lb 9 oz) ECO (Symptomatic, <50% in bed during day - Ambulatory and capable of all self care; unable to carry out any work activities; up and about >50% of waking hours) General: Well-developed. No acute distress. Head: Normocephalic, atraumatic. Eyes: No scleral icterus. Conjunctivae clear. Ears: Normal external ears. Hearing intact to voice. Nose: Symmetric nose. No visible drainage. Throat: Moist mucous membranes. No visible mouth sores. Poor dentition Neck: Supple, trachea midline. Heart: Normal S1, S2. Regular rate and rhythm. Lungs: Symmetric breath sounds. Coarse breath sounds with end-expiratory wheeze bilaterally. Nonlabored respirations. Abdomen: Soft, nontender, nondistended. Lymph: No palpable cervical or supraclavicular lymphadenopathy. Extremities: No clubbing or edema. Musculoskeletal: No spinal tenderness or visible deformity. Ambulates without assistance. Skin: Warm, dry. No rash. Neurologic: Alert, oriented. No gross focal neurologic deficits. Psychiatric: Cooperative. Appropriate mood and affect. Laboratory Results: Recent Labs Component Name 06/13/25 0908 06/08/25 1829 06/04/25 1226 06/04/25 1043 05/14/25 0822 04/23/25 0901 WBC 8.3 4.6 8.9 7.4 8.0 8.2 RBC 3.93 4.24 4.66 4.72 4.74 4.60 HGB 11.8* 12.7 13.9 14.2 14.0 13.6 HCT 35.0 38.8 39.9 41.6 41.1 39.6 MCV 89.1 91.5 85.6 88.1 86.7 86.1 MCHC 33.7 32.7 34.8 34.1 34.1 34.3 PLTCOUNT 145* 170 262 255 197 260 NEUTPCT 63.8 - 71.1 70.2 63.1 59.5 LYMPHPCT 24.2 - 19.7 20.6 25.8 30.1 NEUTABS - - - 5.22 5.04 4.88 LYMPHABS 2.02 - 1.76 1.53 2.06 2.47 BASOABS 0.02 - 0.03 0.03 0.02 0.03 Recent Labs Component Name 06/20/25 0526 06/19/25 1159 06/19/25 0517 06/08/25 0118 06/07/25 0902 06/07/25 0120 06/06/25 0400 06/05/25 0229 06/04/25 2120 06/04/25 1043 05/14/25 0822 04/23/25 0901 11/11/24 0046 08/16/23 0454 08/15/23 1836 POTASSIUM 4.3 3.4* 3.9 - - - 4.1 4.4 - 4.0 4.4 4.9* - 3.4* 3.2* CO2 26 29 25 - - - 21* 15* - 19* 22 21* - 23 23 BUN 11 13 15 - - - <5* 6* - 9 7 5* - 5* 6* CREATININE 0.49* 0.63 0.70 - - - 0.46* 0.48* - 0.46* 0.53* 0.53* - 0.55* 0.59 EGFR >90 >90 >90 - - - >90 >90 - >90 >90 >90 - >90 >90 GLUCOSE 173* 87 337* - - - 106* 219* - 165* 139* 166* - 106 116* CALCIUM 7.9* 8.4 7.8* - - - 7.7* 8.0* - 8.5 8.4 8.8 - 7.7* 7.8* MAGNESIUM - - - - 1.6 - 1.7 1.6 1.5* - - - - 3.2* 1.3* PHOS - - - - - - - - 3.4 - - - - 3.3 2.9 ALT - - - - - - - - - 43 19 19 - 24 26 AST - - - - - - - - - 45* 34 34 - 45* 52* ALKPHOS - - - - - - - - - 280* 227* 182* - 208* 216* - = values in this interval not displayed. Recent Labs Component Name 06/05/23 0236 06/03/23 0613 FERRITIN - 73 TRANSFERRIN - 153* IRON - 21* VITB12 1,065* - FOLATE 15.9 - No results for input(s): PSA, TESTOSTER, CEA, CA199, AFP, BHCGTM, CA125, CHROMGRNA,SEROTONIN, LDH, [id number], CA153 in the last [id number] hours. Pathology Results: Personally reviewed and summarized above in Hematology & Oncology History Radiology Results: Personally reviewed and summarized above in Hematology & Oncology History PET CT Skull To Mid Thigh Result Date: 11/27/2024 IMPRESSION: 1.Hypermetabolic right lower lobe subpleural nodule consistent with biopsy proven malignancy. Other sites of focal FDG activity within areas of dependent groundglass/consolidative changesin both lungs and right lung apex are more likely inflammation/infection process but difficult to be evaluated due to elevated background. 2.Increased FDG activity within lymph nodes in the right hilar and precarinal regions are concerning for metastasis. However, reactive changes are not excluded given the lung changes. 3.Increased FDG activity within right adrenal gland is concerning for metastasis. Further evaluation is recommended. > Dictated by Ramy Jon (Duplicating Machine Mechanic) 11/27/2024 11:13 AM Eber Lai DO have personally reviewed and interpreted this examination/study. > Interpreting Provider: Eber Thomas DO on 11/27/2024 4:48 PM XR Chest 1Vw Portable Result Date: 11/10/2024 IMPRESSION: Interstitial opacities, greater in the lower lungs, increased since 06/07/2023. > Interpreting Provider: Mario Lopez MD on 11/10/2024 2:[address] Chest Wo Contrast Result Date: 10/23/2024 Impression: 1.Posterior basilar predominant subpleural reticulations and honeycombing associated with mild traction bronchiolectasis and minimal groundglass opacities. These findings were seen in theprevious CT scan also without significant difference. Findings are characteristic of usual interstit ial pneumonia (UIP). 2.An newly developed approximately 2.6 cm pleural-based soft tissue mass in the right lower lobe concerning for malignancy. Biopsy and PET CT scan are recommendations. 3.Cirrhosis with trace volume ascites. Report was dictated by Kirit Feldman MD, ([facility]ated [facility] resident). I, Wolfgang Avila MD have personally reviewed and interpreted this examination/study. > Interpreting Provider: Wolfgang Avila MD on 10/23/2024 11:01 AM [1] Past Medical History: Diagnosis Date Alcoholic (HCC) Anxiety disorder Cirrhosis of liver (HCC) COPD (chronic obstructive pulmonary disease) (HCC) Depression Gall stones GERD (gastroesophageal reflux disease) HTN (hypertension) Pacemaker PTSD (post-traumatic stress disorder) [2] Past Surgical History: Procedure Laterality Date Appendectomy BRONCHOSCOPY N/A 11/10/2024 N/A; BRONCHOSCOPY / ROBOTIC ASSIST Cholecystectomy COLONOSCOPY ENDOSCOPY, UPPER ENDOSCOPY, UPPER N/A 06/03/2023 N/A; ESOPHAGOGASTRODUODENOSCOPY (EGD) DIAGNOSTIC ENDOSCOPY, UPPER N/A 06/07/2025 N/A; ESOPHAGOGASTRODUODENOSCOPY (EGD) DIAGNOSTIC Fracture Repair Right tibia fracture repair HC SCHEDULED times 3 Lumbar Laminectomy N/A 06/13/2022 N/A; L3-4, L4-5, L5-S1 right approach minimally invasive surgery decompression of stenosis and discectomy (L5-S1) Pacemaker Placement SIGMOIDOSCOPY N/A 06/10/2025 N/A; SIGMOIDOSCOPY FLEXIBLE DIAGNOSTIC Tonsillectomy [3] Current Outpatient Medications Medication Sig albuterol HFA (PROVENTIL; VENTOLIN; PROAIR) 108 (90 Base) MCG/ACT inhaler Inhale 2 (two) puffs by mouth as needed hwobsuav-zjwybpjti-ohlwyrlccrq (Maalox; Mylanta) 200-200-20 MG/5ML suspension Take 15 mL by mouth every 6 hours as needed for Heartburn aspirin (Aspirin 81) 81 MG chew tablet Take 1 (one) tablet by mouth once daily atorvastatin (Lipitor) 40 MG tablet Take 1 (one) tablet by mouth at bedtime benzonatate (Tessalon) 100 MG capsule Take 1 (one) capsule by mouth 3 times daily as needed for Cough blood glucose (SecondbrainTouch Verio) test strip USE ONE STRIP TO TEST BLOOD SUGAR 4 TIMES DAILY Blood Glucose Monitoring Suppl (SecondbrainTouch Verio Reflect) w/Device KIT Use 1 Act 4 times daily USE METER TO TEST BLOOD SUGAR 4 TIMES DAILY. CALL JAYA @ [phone] WHEN DELIVERED busPIRone (Buspar) 10 MG tablet Take 1 (one) tablet by mouth 3 times daily clonazePAM, disintegrating, (KlonoPIN Wafer) 0.5 MG tablet Take 1 (one) tablet by mouth 3 times daily as needed for Anxiety dexAMETHasone (Decadron) 4 MG tablet Take 2 tablets by mouth once a day on days 2-4. Cycle length is 21 days. Reasons: Antiemetic Effect, Nausea and Vomiting caused by Cancer Chemotherapy diclofenac sodium (Voltaren) 1 % gel Apply 2 (two) g to affected area 4 times daily dicyclomine (Bentyl) 20 MG tablet Take 1 tablet by mouth 4 times daily ferrous sulfate 325 (65 FE) MG tablet Take 1 (one) tablet by mouth once daily Rrstibcxkpr-Roegupcpw-Txjixb (Trelegy Ellipta) 100-62.5-25 MCG/ACT Inhale 1 (one) puff by mouth once daily gabapentin (Neurontin) 400 MG capsule Take 2 (two) capsules by mouth 3 times daily ibuprofen (Motrin) 600 MG tablet Take 1 (one) tablet by mouth 3 times daily as needed for Pain For pain. lactulose (Chronulac) 10 GM/15ML solution Take 15 mL by mouth 3 times daily Lancets (ONETOUCH DELICA PLUS 33G EXTRA FINE LANCET) USE ONE LANCET TO TEST BLOOD SUGAR 4 TIMES DAILY Lantus SoloStar pen Inject 25 (twenty five) Units subcutaneously at bedtime lidocaine (Lidoderm) 5 % patch USE 1 PATCH EXTERNALLY ONCE DAILY (LEAVE ON MOST PAINFUL AREA FOR UPTO 12 HOURS) lidocaine viscous (Xylocaine) 2 % solution 5 mL by Mouth/Throat route 4 times daily as needed for Sore Throat or Pain Reasons: Mouth or Throat Inflammation Melatonin 10 MG Take 40 (forty) mg by mouth at bedtime metFORMIN (Glucophage) 500 MG tablet Take 1 (one) tablet by mouth 2 times daily with morning and evening meal mirtazapine (Remeron) 15 MG tablet Take 1 (one) tablet by mouth once daily multivitamin daily tablet Take 1 (one) tablet by mouth daily with food nicotine (Nicoderm CQ) 21 MG/24HR patch Apply 1 (one) patch to skin once daily OLANZapine (ZyPREXA) 5 MG tablet Take 1 tablet by mouth at bedtime on days 1-4. Cycle length is 21 days. Reasons: Nausea and Vomiting caused by Cancer Chemotherapy ondansetron (Zofran) 8 MG tablet Take 1 (one) tablet by mouth every 8 hours as needed for Nausea/Vomiting ondansetron, disintegrating, (Zofran ODT) 4 MG tablet Take 1 (one) tablet by mouth every 8 hours Allow tablet to dissolve on the tongue oxyCODONE, immediate release, (Roxicodone) 5 MG tablet Take 1 (one) tablet by mouth every 4 hours as needed pantoprazole EC (Protonix) 40 MG tablet Take 1 (one) tablet by mouth once daily potassium chloride ER (Klor-Con M) 20 MEQ tablet Take 2 (two) tablets by mouth once daily Reasons: Low Amount of Potassium in the Blood predniSONE (Deltasone) 5 MG tablet Take 9 (nine) tablets by mouth daily with breakfast Reasons: immune checkpoint inhibitor colitis Probiotic Product (PROBIOTIC ADVANCED PO) Take by mouth once daily prochlorperazine (Compazine) 10 MG tablet Take 1 (one) tablet by mouth every 6 hours as needed for Nausea/Vomiting promethazine (Phenergan) 12.5 MG tablet Take 2 (two) tablets by mouth every 8 hours as needed for Nausea/Vomiting ReliOn Pen [place] 31G X 6 MM [facility] rifAXIMin (Xifaxan) 550 MG tablet Take 1 (one) tablet by mouth 2 times daily sodium chloride 1 GM tablet Take 2 (two) tablets by mouth 3 times daily with meals torsemide (Demadex) 20 MG tablet Take 1 (one) tablet by mouth once daily Do not start medication until instructed by primary care triamcinolone acetonide (Kenalog) 0.1 % ointment APPLY OINTMENT TOPICALLY TO AFFECTED AREA THREE TIMES DAILY venlafaxine XR 24hr (Effexor XR) 37.5 MG capsule Take 1 (one) capsule by mouth daily with breakfast [START ON 06/26/2025] vitamin D, ergocalciferol, (Drisdol) 1.25 MG (41138 UT) capsule Take 1 (one) capsule by mouth every 7 days (once a week) for 56 days No current facility-administered medications for this visit. [4] Allergies Allergen Reactions Contrast-Iodinated Agents For Ct/Other Rash Pet scan documented in this encounter Plan of Treatment Upcoming Encounters Date Type Department Care Team (Late st Contact Info) Description 07/07/2025 2:00 PM LIFEGUARD Appointment [facility] RAD ONC [address] [place] [address] Javad Velasquez MD [facility] [place] [address] 07/09/2025 2:00 PM LIFEGUARD Appointment [facility] PFT [address] [place] [phone] 07/09/2025 2:30 PM LIFEGUARD Appointment [facility] PFT [address] [place] [phone] 07/14/2025 12:45 PM LIFEGUARD Hospital Encounter [facility] ENDOSCOPY [address] [place] [phone] Laurence Bower MD [address] [place] [address] [address] [place] [phone] Surgery General 07/14/2025 12:45 PM LIFEGUARD - 07/14/2025 1:30 PM LIFEGUARD Surgery [facility] ENDOSCOPY [address] [place] [phone] Laurence Bower MD [address] [place] [address] [place] [address] EGD 07/16/2025 10:30 AM LIFEGUARD Appointment [facility] [address] [place] [address] 07/16/2025 11:20 AM LIFEGUARD Office Visit [facility] - Hematology/Oncology [address] [place] [phone] Becca Rivas, CREDENTIALING ASSISTANT-SOLID PROPELLANT PROCESSOR [address] [place] [phone] 08/09/2025 3:30 PM LIFEGUARD Office Visit [facility] - Pulmonology [address] [place] [address], [place] [address] Bandar Stewart MD [address] [place] [address] 09/10/2025 1:15 PM LIFEGUARD Appointment [facility] [address] [place] [phone] Marielena Ulrich, CREDENTIALING ASSISTANT-SOLID PROPELLANT PROCESSOR [address] [facility] [address] [place] [address] 09/10/2025 2:30 PM LIFEGUARD Office Visit [facility] - GI [address] [place] [address], [place] [phone] Marielena Ulrich, CREDENTIALING ASSISTANT-SOLID PROPELLANT PROCESSOR [address] [place] [address] [address] [place] [phone] Scheduled Procedures Name Priority Associated Diagnoses Date/Ti me ESOPHAGOGASTRODUODENOSCOPY ( EGD) DIAGNOSTIC Cirrhosis of liver without ascites, unspecified hepatic cirrhosis type (HCC) 07/14/2025 12:45 PM LIFEGUARD COLONOSCOPY SCREEN Cirrhosis of liver without ascites, unspecified hepatic cirrhosis type (HCC) 07/14/2025 12:45 PM LIFEGUARD Scheduled Referrals Name Type Priority Associated Diagnoses Orde r Schedule AMB REFERRAL TO RADIATION ONCOLOGY Outpatient Referral Routine Squamous cell carcinoma lung, right (HCC) Expected: 06/25/2025, Expires: 06/25/2026 documented as of this encounter Goals Goal [...] as of this encounter Visit Diagnoses Diagnosis Anxiety and depression- Primary Dysthymic disorder Colitis Other and unspecified noninfectious gastroenteritis and colitis Squamous cell carcinoma lung, right (HCC) Chronic bronchitis, unspecified chronic bronchitis type (HCC) Type 2 diabetes mellitus without complication, without long-term current use of insulin (HCC) Alcoholic cirrhosis of liver without ascites (HCC) Alcoholic cirrhosis of liver Cirrhosis of liver without ascites, unspecified hepatic cirrhosis type (HCC) documented in this encounter Care Teams Ambulance Officer Relationship Specialty Start Date End Date Becca Victoria APRN-HEMSTITCHING MACHINE OPERATOR [address] [place] [address] PCP - General Certified Clinical Nurse Specialist 11/23/24 Abel Carlos MD [address] [place], [place] [phone] 05/30/23 documented as of this encounter
--- OUTSIDE RECORDS SUMMARY | 2025-06-25 16:02 | XMS_ITS | Clinical Summary ---
Author Organization [facility] Address [address] [place] [address] Care Team Providers Care Senior Instrumentation Engineer Name Role Phone Abel Carlos MD Primary [...] 09/17/2024 Assessment & Plan (09/17/2024 11:55 AM MILK TRUCK DRIVER): Chronic, worsening Risk factors age, postmenopausal, chronic [...] 09/17/2024 Assessment & Plan (09/17/2024 11:54 AM MILK TRUCK DRIVER): Counseled and advised patient to cut back [...] (08/29/2020): Added automatically from request for surgery [id number] Immunizations Immunization Administration Dates Next Due Influenza, [...] on file Legal Sex Female 11:17 AM MILK TRUCK DRIVER Gender Identity Not on file Sexual Orientation Not on file Obstetrics History Last Filed Vital Signs Vital Sign Reading Time Taken Comments Blood Pressure 110/82 09/17/2024 11:08 AM MILK TRUCK DRIVER Pulse 110 09/17/2024 11:08 AM MILK TRUCK DRIVER Temperature 37 C (98.6 F) 09/02/2020 4:19 PM MILK TRUCK DRIVER Respiratory Rate 17 09/17/2024 11:08 AM MILK TRUCK DRIVER Oxygen Saturation 99% 09/02/2020 4:19 PM MILK TRUCK DRIVER Inhaled Oxygen Concentration - - Weight 51.7 kg (114 lb) 09/17/2024 11:08 AM MILK TRUCK DRIVER Height 170.2 cm (5' 7) 09/17/2024 11:08 AM MILK TRUCK DRIVER Body Mass Index 17.85 09/17/2024 11:08 AM MILK TRUCK DRIVER Plan of Treatment Health Maintenance Due Date [...] 11/25/2018, 10/27/2015 Medical Devices Implanted Type Area Mobile Paramedical Examiner Device Identifier Shelf Expiration Date Model / Serial / Lot Pacemaker- 2 Implanted:Qty: 1 on 02/01/2012 by [employer] Reg Miguel Carmichael MD Pacemaker Left: Chest [id number] / [id number] / Description:RA Lead seriel n umber: [id number] model number: [id number] RV Lead seriel number: [id number] model number: [id number] [employer]/Ort [id number] [place]-Nail 11.5mm 35cm Tibia Nail Intramedullary Titanium - [id number] Implanted:Qty: 1 on 08/30/2020 by Lenka Fang MD at [facility] Right: Tibia [employer]/O rtho [id number] / / [employer]/Rich[employer]/Ort ho [id number] 5mm 45mm Low Profile Internal Hex Femur Screw Bone Trigen - [id number] Implanted:Qty: 2 on 08/30/2020 by Lenka Fang MD at [facility] Right: Tibia [employer]/O rtho [id number] / / [employer]/Rich[employer]/Ort ho [id number] 5mm 60mm Low Profile Internal Hex Femur Screw Bone Trigen - [id number] Implanted:Qty: 2 on 08/30/2020 by Lenka Fang MD at [facility] Right: Tibia [employer]/O rtho [id number] / / [employer]/Rich[employer]/Ort ho [id number] 5mm 32.5mm Low Profile Internal Hex Femur Screw Bone Trigen - [id number] Implanted:Qty: 1 on 08/30/2020 by Lenka Fang MD at [facility] Right: Tibia [employer]/O rtho [id number] / / [employer]/Rich[employer]/Ort ho [id number] 5mm 27mm Low Profile Internal Hex Femur Screw Bone Trigen - [id number] Implanted:Qty: 1 on 08/30/2020 by Lenka Fang MD at [facility] Right: Tibia [employer]/O rtho [id number] / / Procedures Procedure Name Priority Date/Time Associated Diagnosis Comments LIPID PANEL Routine 08/30/2020 10:34 PM MILK TRUCK DRIVER HEMOGLOBIN A1C STAT 08/29/2020 6:05 PM MILK TRUCK DRIVER from Last 3 Months or Most Recently Relevant to Health Maintenance Results * Lipid panel (08/30/2020 10:34 PM MILK TRUCK DRIVER) Cholesterol 114 30 - 199 mg/dL CERNER [...] revised on 2018. Triglycerides 67 <=149 mg/dL [facility] Comment: Interpretive Data Ages < or = [...] revised on 2018. HDL 47 >=40 mg/dL [facility] Comment: Interpretive Data Ages < or = [...] on 2018. LDL, calculated 54 <=129 mg/dL [facility] Comment: Interpretive Data Ages < or = [...] revised on 2018. Non-HDL Cholesterol 67 mg/dL [facility] Comment: Interpretive Data Ages < or = [...] last revised on 2018. Chol/HDL ratio 2 [facility] Blood specimen (specimen) 08/30/2020 10:34 PM MILK TRUCK DRIVER 08/30/2020 10:54 PM MILK TRUCK DRIVER Vimal Alford MD PhD LAB BLOOD ORDERAB LES Final Result [facility] Department [place] [address] * (ABNORMAL) Hemoglobin A1c (08/29/2020 6:05 PM MILK TRUCK DRIVER) Hgb A1C 6.4(H) 4.0 - 5.6 % [facility] Estimated Average Glucose 137 mg/dL [facility] Comment: The ADA recommends reporting an estimated Average Glucose (eAG) with all Hemoglobin A1c results using the equation derived from a study of 507 normal and diabetic adults. Minority populations were underrepresented and children were not included. (Diabetes Care 31:5977-5976, 2008). The eAG is not equivalent to a fasting glucose. Blood specimen (specimen) 08/29/2020 6:05 PM MILK TRUCK DRIVER 08/29/2020 6:30 PM MILK TRUCK DRIVER us Nish Hoffmann MD LAB BLOOD ORDERABLES Final Res ult [facility] Department [place] [address] from Last 3 Months or Most Recently Relevant to Health Maintenance Insurance [address] [place], [place] [phone] [place] [address] [place] [phone] Advance Directives For more information, please contact: [phone] * Full Code (Latest Code Status on File) Date Activated Date Inactivated Comments 08/30/2020 12:28 AM 09/02/2020 11:11 PM Care Teams Senior Instrumentation Engineer Relationship Specialty Start Date End Date Abel Carlos MD [address] [address] PCP - General 08/29/20
--- OUTSIDE RECORDS SUMMARY | 2025-06-25 16:02 | XMS_ITS | Encounter Summary ---
Author Organization [facility] Address [address] [place] [address] Care Team Providers Care Retail Furniture Sales Name Role Phone Abel Carlos MD Unavailable [phone] Abel Carlos MD Primary Care Provider Becca Victoria APRN-[facility] Primary Care Provider [phone] Reason for Visit * Reason Onset Date Comments MEDICATION REFILL 05/22/2024 Encounter Details Date Type Department Care Team (Late st Contact Info) Description 05/22/2024 Refill [facility] [address] [place] [address], [place] [address] Vane Priest MD [address] [place] [address] [place] [address] MEDICATION REFILL Social History Tobacco Use Types [...] medical care, and heating? Somewhat hard 06/01/2023 [facility] - Occupational Stress Questionnaire Answer Date [...] Laurence Ennis RN documented in this encounter Plan of Treatment Upcoming Encounters Date Type Department Care Team (Late st Contact Info) Description 07/07/2025 2:00 PM GRADER GREEN MEAT Appointment [facility] RAD ONC [address] [place] [address] Javad Velasquez MD [facility] [place] [address] 07/09/2025 2:00 PM GRADER GREEN MEAT Appointment [address] [phone] 07/09/2025 2:30 PM GRADER GREEN MEAT [facility] [address] [place] [phone] 07/14/2025 12:45 PM GRADER GREEN MEAT Hospital Encounter [facility] ENDOSCOPY [address] [place] [phone] Laurence Bower MD [address] [place] [address] [address] [place] [phone] Surgery General 07/14/2025 12:45 PM GRADER GREEN MEAT - 07/14/2025 1:30 PM GRADER GREEN MEAT Surgery [facility] ENDOSCOPY [address] [place] [phone] [place] [address] [place] [address] [address] [place] [address] EGD 07/16/2025 10:30 AM GRADER GREEN MEAT Appointment [facility]ENTER [address] [place] [address] 07/16/2025 11:20 AM GRADER GREEN MEAT Office Visit [facility] - Hematology/Oncology [address] [place] [phone] Becca Rivas, ORNAMENT STAPLER-SIGN LANGUAGE INTERPRETER [address] [place] [phone] 08/09/2025 3:30 PM GRADER GREEN MEAT Office Visit [facility] - Pulmonology [address] [place] [address], [place] [phone] Bandar Stewart MD [address] [place] [phone] 09/10/2025 1:15 PM GRADER GREEN MEAT Appointment [facility] [address] [place] [phone] Marielena Ulrich, ORNAMENT STAPLER-SIGN LANGUAGE INTERPRETER [address] [place] [address] [address] [place] [phone] 09/10/2025 2:30 PM GRADER GREEN MEAT Office Visit [facility] - GI [address] [place] [address] [place] [phone] Marielena Ulrich, ORNAMENT STAPLER-SIGN LANGUAGE INTERPRETER [address] [place] [address] [address] [place] [phone] Scheduled Procedures Name Priority Associated Diagnoses Date/Ti me ESOPHAGOGASTRODUODENOSCOPY ( EGD) DIAGNOSTIC Cirrhosis of liver without ascites, unspecified hepatic cirrhosis type (HCC) 07/14/2025 12:45 PM GRADER GREEN MEAT COLONOSCOPY SCREEN Cirrhosis of liver without ascites, unspecified hepatic cirrhosis type (HCC) 07/14/2025 12:45 PM GRADER GREEN MEAT documented as of this encounter Goals Goal [...] Infection Onset Date Last Indicated Resolved Time CDIFF Under Investigation 06/07/2025 06/07/2025 3:14 PM CDT CDIFF Under Investigation 06/10/2025 06/10/2025 12:39 PM CDT CDIFF Under Investigation 06/11/2025 06/11/2025 1:15 PM CDT documented as of this encounter Care Teams Retail Furniture Sales Relationship Specialty [place] [address] [place] [phone] PCP - General Internal Medicine 07/12/23 11/22/24 Becca Victoria APRN-MAIL INSERTER [address] [place] [address] PCP - General Certified Clinical Nurse Specialist 11/23/24 [place] [address] [place] [phone] 05/30/23 documented as of this encounter
--- OUTSIDE RECORDS SUMMARY | 2025-06-25 16:02 | XMS_ITS ---
Author Organization [facility] Address [address] 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 t.i.d., torsemide daily p.o. when appropriate for diuretic therapy Psychiatry consulted for decreasing venlafaxine (potential SIADH), appreciate recommendation Assessment & Plan (06/16/2025 2:37 PM CDT): Acute on chronic hyponatremia Sodium lower than baseline (135-133 Ordered urine studies Continue to monitor Hyponatremia in setting of hyperglycemia also contributory Abdominal pain 06/04/2025 Severe malnutrition 06/04/2025 Assessment & Plan (06/19/2025 5:10 PM CDT): Consulted dietitian On regular diet Ensure Clear supplementation Assessment & Plan (06/16/2025 8:11 AM CDT): - CT: Bilateral dependent atelectasis. Reticular opacities with honeycombing in the lung bases. Focal consolidation with central hypoattenuation within the right lower lobe measuring approximately 2.3 x 1.6 cm, previously measuring 2.4 x 1.6 cm, likely represents the known right lower lobe squamous cell carcinoma seen on the prior PET/CT on 05/25/2025. - Was in Hem/Onc clinic for her second chemo on Saturday and went to ED from there - CBC-diff unremarkable PLAN - DouNeb prn - Symbicort bid - Nicotine patch - Nutrition consult is appreciated - ensure Clear added t.i.d. with meal Assessment & Plan (06/15/2025 7:06 AM CDT): - CT: Bilateral dependent atelectasis. Reticular opacities with honeycombing in the lung bases. Focal consolidation with central hypoattenuation within the right lower lobe measuring approximately 2.3 x 1.6 cm, previously measuring 2.4 x 1.6 cm, likely represents the known right lower lobe squamous cell carcinoma seen on the prior PET/CT on 05/25/2025. - Was in Hem/Onc clinic for her second chemo on Saturday and went to ED from there - CBC-diff unremarkable PLAN - DouNeb prn - Symbicort bid - Nicotine patch - Nutrition consult is appreciated - ensure Clear added t.i.d. with meal Assessment & Plan (06/14/2025 1:35 PM CDT): - CT: Bilateral dependent atelectasis. Reticular opacities with honeycombing in the lung bases. Focal consolidation with central hypoattenuation within the right lower lobe measuring approximately 2.3 x 1.6 cm, previously measuring 2.4 x 1.6 cm, likely represents the known right lower lobe squamous cell carcinoma seen on the prior PET/CT on 05/25/2025. - Was in Hem/Onc clinic for her second chemo on Saturday and went to ED from there - CBC-diff unremarkable PLAN - DouNeb prn - Symbicort bid - Nicotine patch - Nutrition consult is appreciated - ensure Clear added t.i.d. with meal Assessment & Plan (06/13/2025 10:13 AM CDT): - CT: Bilateral dependent atelectasis. Reticular opacities with honeycombing in the lung bases. Focal consolidation with central hypoattenuation within the right lower lobe measuring approximately 2.3 x 1.6 cm, previously measuring 2.4 x 1.6 cm, likely represents the known right lower lobe squamous cell carcinoma seen on the prior PET/CT on 05/25/2025. - Was in Hem/Onc clinic for her second chemo on Saturday and went to ED from there - CBC-diff unremarkable PLAN - DouNeb prn - Symbicort bid - Nicotine patch - Nutrition consult is appreciated - ensure Clear added t.i.d. with meal Assessment & Plan (06/12/2025 7:26 AM CDT): - CT: Bilateral dependent atelectasis. Reticular opacities with honeycombing in the lung bases. Focal consolidation with central hypoattenuation within the right lower lobe measuring approximately 2.3 x 1.6 cm, previously measuring 2.4 x 1.6 cm, likely represents the known right lower lobe squamous cell carcinoma seen on the prior PET/CT on 05/25/2025. - Was in Hem/Onc clinic for her second chemo on Saturday and went to ED from there - CBC-diff unremarkable PLAN - DouNeb prn - Symbicort bid - Nicotine patch - Nutrition consult is appreciated - ensure Clear added t.i.d. with meal Assessment & Plan (06/11/2025 7:12 AM CDT): - CT: Bilateral dependent atelectasis. Reticular opacities with honeycombing in the lung bases. Focal consolidation with central hypoattenuation within the right lower lobe measuring approximately 2.3 x 1.6 cm, previously measuring 2.4 x 1.6 cm, likely represents the known right lower lobe squamous cell carcinoma seen on the prior PET/CT on 05/25/2025. - Was in Hem/Onc clinic for her second chemo on Saturday and went to ED from there - CBC-diff unremarkable PLAN - DouNeb prn - Symbicort bid - Nicotine patch - Nutrition consult is appreciated - ensure Clear added t.i.d. with meal Assessment & Plan (06/10/2025 7:21 AM CDT): - CT: Bilateral dependent atelectasis. Reticular opacities with honeycombing in the lung bases. Focal consolidation with central hypoattenuation within the right lower lobe measuring approximately 2.3 x 1.6 cm, previously measuring 2.4 x 1.6 cm, likely represents the known right lower lobe squamous cell carcinoma seen on the prior PET/CT on 05/25/2025. - Was in Hem/Onc clinic for her second chemo on Saturday and went to ED from there - CBC-diff unremarkable PLAN - DouNeb prn - Symbicort bid - Nicotine patch - Nutrition consult is appreciated - ensure Clear added t.i.d. with meal Assessment & Plan (06/09/2025 7:17 AM CDT): - CT: Bilateral dependent atelectasis. Reticular opacities with honeycombing in the lung bases. Focal consolidation with central hypoattenuation within the right lower lobe measuring approximately 2.3 x 1.6 cm, previously measuring 2.4 x 1.6 cm, likely represents the known right lower lobe squamous cell carcinoma seen on the prior PET/CT on 05/25/2025. - Was in Hem/Onc clinic for her second chemo on Saturday and went to ED from there - CBC-diff unremarkable PLAN - DouNeb prn - Symbicort bid - Nicotine patch - Nutrition consult is appreciated - ensure Clear added t.i.d. with meal Assessment & Plan (06/08/2025 2:25 PM CDT): - CT: Bilateral dependent atelectasis. Reticular opacities with honeycombing in the lung bases. Focal consolidation with central hypoattenuation within the right lower lobe measuring approximately 2.3 x 1.6 cm, previously measuring 2.4 x 1.6 cm, likely represents the known right lower lobe squamous cell carcinoma seen on the prior PET/CT on 05/25/2025. - Was in Hem/Onc clinic for her second chemo on Saturday and went to ED from there - CBC-diff unremarkable PLAN - DouNeb prn - Symbicort bid - Nicotine patch - Nutrition consult is appreciated - ensure Clear added t.i.d. with meal Assessment & Plan (06/07/2025 9:56 AM CDT): - CT: Bilateral dependent atelectasis. Reticular opacities with honeycombing in the lung bases. Focal consolidation with central hypoattenuation within the right lower lobe measuring approximately 2.3 x 1.6 cm, previously measuring 2.4 x 1.6 cm, likely represents the known right lower lobe squamous cell carcinoma seen on the prior PET/CT on 05/25/2025. - Was in Hem/Onc clinic for her second chemo on Saturday and went to ED from there - CBC-diff unremarkable PLAN - DouNeb prn - Symbicort bid - Nicotine patch - Nutrition consult is appreciated - ensure Clear added t.i.d. with meal Assessment & Plan (06/06/2025 9:16 AM CDT): - CT: Bilateral dependent atelectasis. Reticular opacities with honeycombing in the lung bases. Focal consolidation with central hypoattenuation within the right lower lobe measuring approximately 2.3 x 1.6 cm, previously measuring 2.4 x 1.6 cm, likely represents the known right lower lobe squamous cell carcinoma seen on the prior PET/CT on 05/25/2025. - Was in Hem/Onc clinic for her second chemo on Saturday and went to ED from there - CBC-diff unremarkable PLAN - DouNeb prn - Symbicort bid - Nicotine patch - Nutrition consult is appreciated - ensure Clear added t.i.d. with meal Assessment & Plan (06/05/2025 10:28 AM CDT): - CT: Bilateral dependent atelectasis. Reticular opacities with honeycombing in the lung bases. Focal consolidation with central hypoattenuation within the right lower lobe measuring approximately 2.3 x 1.6 cm, previously measuring 2.4 x 1.6 cm, likely represents the known right lower lobe squamous cell carcinoma seen on the prior PET/CT on 05/25/2025. - Was in Hem/Onc clinic for her second chemo on Saturday and went to ED from there - CBC-diff unremarkable PLAN - DouNeb prn - Symbicort bid - Nicotine patch - Nutrition consult is appreciated - ensure Clear added t.i.d. with meal Assessment & Plan (06/05/2025 12:44 AM CDT): - CT: Bilateral dependent atelectasis. Reticular opacities with honeycombing in the lung bases. Focal consolidation with central hypoattenuation within the right lower lobe measuring approximately 2.3 x 1.6 cm, previously measuring 2.4 x 1.6 cm, likely represents the known right lower lobe squamous cell carcinoma seen on the prior PET/CT on 05/25/2025. 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 - Telescoping of the duodenum around the gastric pylorus likely representing gastroduodenal intussusception. The stomach is not dilated. There is a segment of small bowel which crosses anteriorly to the transverse colon. There is wall thickening of the colon which could represent colitis - No acute surgical intervention by [facility] Intussusception in the setting of malignancy could indicate a lead point secondary to metastasis - s/p EGD which revealed large hiatal hernia - 06/10 flex Sig grossly unremarkable. Pathology: Large intestine, random colon with Mild/patchy intraepithelial lymphocytosis - GI PCR neg - PPI Prednisone 1mg/kg QD per oncology input Oncology recommended to continue prednisone along with close monitor over the next 1-2 red, if there is no significantly improvement, Oncology will plan to initiate anti-inflammatory biologic agents such as rituximab - Pt started on empiric coverage for suspected cdiff on 06/07 and discontinued on 06/10. Cultures never collected. After discussing with ID, we will defer C diff collection and DC p.o. vancomycin. Assessment & Plan (06/16/2025 8:11 AM CDT): Concern for check point inhibitor colitis. - Telescoping of the duodenum around the gastric pylorus likely representing gastroduodenal intussusception. The stomach is not dilated. There is a segment of small bowel which crosses anteriorly to the transverse colon. There is wall thickening of the colon which could represent colitis - No acute surgical intervention by ACS Intussusception in the setting of malignancy could indicate a lead point secondary to metastasis - s/p EGD which revealed large hiatal hernia - 06/10 flex Sig grossly unremarkable. Pathology: Large intestine, random colon with Mild/patchy intraepithelial lymphocytosis - GI PCR neg - PPI Prednisone 1mg/kg QD per oncology input Oncology recommended to continue prednisone along with close monitor over the next 1-2 red, if there is no significantly improvement, Oncology will plan to initiate anti-inflammatory biologic agents such as rituximab - Pt started on empiric coverage for suspected cdiff on 06/07 and discontinued on 06/10. Cultures never collected. After discussing with ID, we will defer C diff collection and DC p.o. vancomycin. 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 - Telescoping of the duodenum around the gastric pylorus likely representing gastroduodenal intussusception. The stomach is not dilated. There is a segment of small bowel which crosses anteriorly to the transverse colon. There is wall thickening of the colon which could represent colitis - No acute surgical intervention by ACS Intussusception in the setting of malignancy could indicate a lead point secondary to metastasis - s/p EGD which revealed large hiatal hernia - 06/10 flex Sig grossly unremarkable. Pathology: Large intestine, random colon with Mild/patchy intraepithelial lymphocytosis - GI PCR neg - PPI Prednisone 1mg/kg QD per oncology input Oncology recommended to continue prednisone along with close monitor over the next 1-2 red, if there is no significantly improvement, Oncology will plan to initiate anti-inflammatory biologic agents such as rituximab - Pt started on empiric coverage for suspected cdiff on 06/07 and discontinued on 06/10. Cultures never collected. After discussing with ID, we will defer C diff collection and DC p.o. vancomycin. Diabetes Elevated blood sugar due to prednisone Increased SSI and mealtime coverage Continue Accu-Chek, Lantus Assessment & Plan (06/14/2025 1:35 PM CDT): CT reported: - The liver is diffusely hypoattenuating, consistent with diffuse hepatic steatosis. - The gallbladder is absent. - Multiple calcifications of pancreas (likely chronic pancreatitis). - A 1.5 cm cm right adrenal gland nodule compatible with known metastatic disease. - Normal kidneys. - Telescoping of the duodenum around the gastric pylorus likely representing gastroduodenal intussusception. The stomach is not dilated. There is a segment of small bowel which crosses anteriorly to the transverse colon. There is wall thickening of the colon which could represent colitis ACS was consulted in ED: - No acute surgical intervention at this time - Recommend GI consult for potential endoscopy, as intussusception in the setting of malignancy could indicate a lead point secondary to metastasis - s/p EGD which revealed large hiatal hernia - 06/10 flex Sig grossly unremarkable. Pathology: Large intestine, random colon with Mild/patchy intraepithelial lymphocytosis - GI PCR neg PLAN - PPI - appreciate GI assistance - Appreciate Oncology assistance. 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 Prednisone 1mg/kg QD. - Pt started on empiric coverage for suspected cdiff on 06/07 and discontinued on 06/10. Cultures never collected. After discussing with ID, we will defer C diff collection and DC p.o. vancomycin. Assessment & Plan (06/13/2025 10:13 AM CDT): CT reported: - The liver is diffusely hypoattenuating, consistent with diffuse hepatic steatosis. - The gallbladder is absent. - Multiple calcifications of pancreas (likely chronic pancreatitis). - A 1.5 cm cm right adrenal gland nodule compatible with known metastatic disease. - Normal kidneys. - Telescoping of the duodenum around the gastric pylorus likely representing gastroduodenal intussusception. The stomach is not dilated. There is a segment of small bowel which crosses anteriorly to the transverse colon. There is wall thickening of the colon which could represent colitis ACS was consulted in ED: - No acute surgical intervention at this time - Recommend GI consult for potential endoscopy, as intussusception in the setting of malignancy could indicate a lead point secondary to metastasis - s/p EGD which revealed large hiatal hernia - 06/10 flex Sig grossly unremarkable. Pathology: Large intestine, random colon with Mild/patchy intraepithelial lymphocytosis - GI PCR neg PLAN - PPI - appreciate GI assistance - Appreciate Oncology assistance. 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 Prednisone 1mg/kg QD. -follow up fecal calprotectin - Pt started on empiric coverage for suspected cdiff on 06/07 and discontinued on 06/10. Cultures never collected. After discussing with ID, we will defer C diff collection and DC p.o. vancomycin. Assessment & Plan (06/12/2025 11:05 AM CDT): CT reported: - The liver is diffusely hypoattenuating, consistent with diffuse hepatic steatosis. - The gallbladder is absent. - Multiple calcifications of pancreas (likely chronic pancreatitis). - A 1.5 cm cm right adrenal gland nodule compatible with known metastatic disease. - Normal kidneys. - Telescoping of the duodenum around the gastric pylorus likely representing gastroduodenal intussusception. The stomach is not dilated. There is a segment of small bowel which crosses anteriorly to the transverse colon. There is wall thickening of the colon which could represent colitis ACS was consulted in ED: - No acute surgical intervention at this time - Recommend GI consult for potential endoscopy, as intussusception in the setting of malignancy could indicate a lead point secondary to metastasis - s/p EGD which revealed large hiatal hernia - 06/10 flex Sig grossly unremarkable. Pathology: Large intestine, random colon with Mild/patchy intraepithelial lymphocytosis - GI PCR neg PLAN - PPI - appreciate GI assistance - Appreciate Oncology assistance. 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 Prednisone 1mg/kg QD. -follow up fecal calprotectin and biopsy results - Pt started on empiric coverage for suspected cdiff on 06/07 and discontinued on 06/10. Cultures never collected. After discussing with ID, we will defer C diff collection and DC p.o. vancomycin. Assessment & Plan (06/11/2025 9:44 AM CDT): CT reported: - The liver is diffusely hypoattenuating, consistent with diffuse hepatic steatosis. - The gallbladder is absent. - Multiple calcifications of pancreas (likely chronic pancreatitis). - A 1.5 cm cm right adrenal gland nodule compatible with known metastatic disease. - Normal kidneys. - Telescoping of the duodenum around the gastric pylorus likely representing gastroduodenal intussusception. The stomach is not dilated. There is a segment of small bowel which crosses anteriorly to the transverse colon. There is wall thickening of the colon which could represent colitis ACS was consulted in ED: - No acute surgical intervention at this time - Recommend GI consult for potential endoscopy, as intussusception in the setting of malignancy could indicate a lead point secondary to metastasis - s/p EGD which revealed large hiatal hernia - 06/10 flex Sig grossly unremarkable - GI PCR neg PLAN - PPI - appreciate GI assistance - Appreciate Oncology assistance. Concern for check point inhibitor colitis -follow up fecal calprotectin and biopsy results - Pt started on empiric coverage for suspected cdiff on 06/07 and discontinued on 06/10. Cultures never collected. After discussing with ID, we will defer C diff collection and DC p.o. vancomycin. Assessment & Plan (06/10/2025 1:51 PM CDT): CT reported: - The liver is diffusely hypoattenuating, consistent with diffuse hepatic steatosis. - The gallbladder is absent. - Multiple calcifications of pancreas (likely chronic pancreatitis). - A 1.5 cm cm right adrenal gland nodule compatible with known metastatic disease. - Normal kidneys. - Telescoping of the duodenum around the gastric pylorus likely representing gastroduodenal intussusception. The stomach is not dilated. There is a segment of small bowel which crosses anteriorly to the transverse colon. There is wall thickening of the colon which could represent colitis ACS was consulted in ED: - No acute surgical intervention at this time - Recommend GI consult for potential endoscopy, as intussusception in the setting of malignancy could indicate a lead point secondary to metastasis - s/p EGD which revealed large hiatal hernia - GI PCR neg PLAN - ppi IV q.day - full liquid diet - appreciate GI assistance and Oncology assistance -follow up fecal calprotectin - Pt started on empiric coverage for suspected cdiff on 06/07. Cultures never collected. We will defer C diff collection and DC p.o. vancomycin. Assessment & Plan (06/09/2025 11:34 AM CDT): CT reported: - The liver is diffusely hypoattenuating, consistent with diffuse hepatic steatosis. - The gallbladder is absent. - Multiple calcifications of pancreas (likely chronic pancreatitis). - A 1.5 cm cm right adrenal gland nodule compatible with known metastatic disease. - Normal kidneys. - Telescoping of the duodenum around the gastric pylorus likely representing gastroduodenal intussusception. The stomach is not dilated. There is a segment of small bowel which crosses anteriorly to the transverse colon. There is wall thickening of the colon which could represent colitis ACS was consulted in ED: - No acute surgical intervention at this time - Recommend GI consult for potential endoscopy, as intussusception in the setting of malignancy could indicate a lead point secondary to metastasis - s/p EGD which revealed large hiatal hernia - GI PCR neg PLAN - ppi IV q.day - full liquid diet - appreciate GI assistance and Oncology assistance -follow up fecal calprotectin Assessment & Plan (06/08/2025 2:25 PM CDT): CT reported: - The liver is diffusely hypoattenuating, consistent with diffuse hepatic steatosis. - The gallbladder is absent. - Multiple calcifications of pancreas (likely chronic pancreatitis). - A 1.5 cm cm right adrenal gland nodule compatible with known metastatic disease. - Normal kidneys. - Telescoping of the duodenum around the gastric pylorus likely representing gastroduodenal intussusception. The stomach is not dilated. There is a segment of small bowel which crosses anteriorly to the transverse colon. There is wall thickening of the colon which could represent colitis ACS was consulted in ED: - No acute surgical intervention at this time - Recommend GI consult for potential endoscopy, as intussusception in the setting of malignancy could indicate a lead point secondary to metastasis - s/p EGD which revealed large hiatal hernia PLAN - ppi IV q.day - clear liquid diet - appreciate GI assistance -follow up stool studies Assessment & Plan (06/07/2025 9:56 AM CDT): CT reported: - The liver is diffusely hypoattenuating, consistent with diffuse hepatic steatosis. - The gallbladder is absent. - Multiple calcifications of pancreas (likely chronic pancreatitis). - A 1.5 cm cm right adrenal gland nodule compatible with known metastatic disease. - Normal kidneys. - Telescoping of the duodenum around the gastric pylorus likely representing gastroduodenal intussusception. The stomach is not dilated. There is a segment of small bowel which crosses anteriorly to the transverse colon. There is wall thickening of the colon which could represent colitis. ACS was consulted in ED: - No acute surgical intervention at this time - Recommend GI consult for potential endoscopy, as intussusception in the setting of malignancy could indicate a lead point secondary to metastasis PLAN - ppi IV q.day - NPO at midnight for planned EGD today - appreciate GI assistance Assessment & Plan (06/06/2025 9:16 AM CDT): CT reported: - The liver is diffusely hypoattenuating, consistent with diffuse hepatic steatosis. - The gallbladder is absent. - Multiple calcifications of pancreas (likely chronic pancreatitis). - A 1.5 cm cm right adrenal gland nodule compatible with known metastatic disease. - Normal kidneys. - Telescoping of the duodenum around the gastric pylorus likely representing gastroduodenal intussusception. The stomach is not dilated. There is a segment of small bowel which crosses anteriorly to the transverse colon. There is wall thickening of the colon which could represent colitis. ACS was consulted in ED: - No acute surgical intervention at this time - Recommend GI consult for potential endoscopy, as intussusception in the setting of malignancy could indicate a lead point secondary to metastasis PLAN - ppi IV q.day - Clear liquid diet started - Currently on several pysch meds affecting serotonine system which can affect GI system adversely. As the patient has lost significant weight those meds dosages may need to be adjusted. For now, Venlafaxine is on hold, but can be decreased to 75 mg/d. Buspirone may also be decreased to 7.5 mg TID from 10 mg. - continue clear liquid diet today, NPO at midnight for endoscopy tomorrow Assessment & Plan (06/05/2025 10:28 AM CDT): CT reported: - The liver is diffusely hypoattenuating, consistent with diffuse hepatic steatosis. - The gallbladder is absent. - Multiple calcifications of pancreas (likely chronic pancreatitis). - A 1.5 cm cm right adrenal gland nodule compatible with known metastatic disease. - Normal kidneys. - Telescoping of the duodenum around the gastric pylorus likely representing gastroduodenal intussusception. The stomach is not dilated. There is a segment of small bowel which crosses anteriorly to the transverse colon. There is wall thickening of the colon which could represent colitis. ACS was consulted in ED: - No acute surgical intervention at this time - Recommend GI consult for potential endoscopy, as intussusception in the setting of malignancy could indicate a lead point secondary to metastasis PLAN - ppi IV q.day - Clear liquid diet started - Currently on several pysch meds affecting serotonine system which can affect GI system adversely. As the patient has lost significant weight those meds dosages may need to be adjusted. For now, Venlafaxine is on hold, but can be decreased to 75 mg/d. Buspirone may also be decreased to 7.5 mg TID from 10 mg. - discussed with GI today, appreciate assistance and recommendations, likely endoscopy Saturday Assessment & Plan (06/05/2025 12:29 AM CDT): CT reported: - The liver is diffusely hypoattenuating, consistent with diffuse hepatic steatosis. - The gallbladder is absent. - Multiple calcifications of pancreas (likely chronic pancreatitis). - A 1.5 cm cm right adrenal gland nodule compatible with known metastatic disease. - Normal kidneys. - Telescoping of the duodenum around the gastric pylorus likely representing gastroduodenal intussusception. The stomach is not dilated. There is a segment of small bowel which crosses anteriorly to the transverse colon. There is wall thickening of the colon which could represent colitis. ACS was consulted in ED: - No acute surgical intervention at this time - Recommend GI consult for potential endoscopy, as intussusception in the setting of malignancy could indicate a lead point secondary to metastasis PLAN - Protonix IV started - Will benefit from GI consult - Clear liquid diet started - Currently on several pysch meds affecting serotonine system which can affect GI system adversely. As the patient has lost significant weight those meds dosages may need to be adjusted. For now, Venlafaxine is on hold, but can be decreased to 75 mg/d. Buspirone may also be decreased to 7.5 mg TID from 10 mg. Abdominal pain, unspecified abdominal location 1 Assessment & Plan (06/19/2025 5:10 PM CDT): Concern for check point inhibitor colitis. - Telescoping of the duodenum around the gastric pylorus likely representing gastroduodenal intussusception. The stomach is not dilated. There is a segment of small bowel which crosses anteriorly to the transverse colon. There is wall thickening of the colon which could represent colitis - No acute surgical intervention by ACS Intussusception in the setting of malignancy could indicate a lead point secondary to metastasis - s/p EGD which revealed large hiatal hernia - 06/10 flex Sig grossly unremarkable. Pathology: Large intestine, random colon with Mild/patchy intraepithelial lymphocytosis - GI PCR neg - PPI Prednisone 1mg/kg QD per oncology input Oncology recommended to continue prednisone along with close monitor over the next 1-2 red, if there is no significantly improvement, Oncology will plan to initiate anti-inflammatory biologic agents such as rituximab - Pt started on empiric coverage for suspected cdiff on 06/07 and discontinued on 06/10. Cultures never collected. After discussing with ID, we will defer C diff collection and DC p.o. vancomycin. Assessment & Plan (06/16/2025 8:11 AM CDT): Concern for check point inhibitor colitis. - Telescoping of the duodenum around the gastric pylorus likely representing gastroduodenal intussusception. The stomach is not dilated. There is a segment of small bowel which crosses anteriorly to the transverse colon. There is wall thickening of the colon which could represent colitis - No acute surgical intervention by ACS Intussusception in the setting of malignancy could indicate a lead point secondary to metastasis - s/p EGD which revealed large hiatal hernia - 06/10 flex Sig grossly unremarkable. Pathology: Large intestine, random colon with Mild/patchy intraepithelial lymphocytosis - GI PCR neg - PPI Prednisone 1mg/kg QD per oncology input Oncology recommended to continue prednisone along with close monitor over the next 1-2 red, if there is no significantly improvement, Oncology will plan to initiate anti-inflammatory biologic agents such as rituximab - Pt started on empiric coverage for suspected cdiff on 06/07 and discontinued on 06/10. Cultures never collected. After discussing with ID, we will defer C diff collection and DC p.o. vancomycin. 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 - Telescoping of the duodenum around the gastric pylorus likely representing gastroduodenal intussusception. The stomach is not dilated. There is a segment of small bowel which crosses anteriorly to the transverse colon. There is wall thickening of the colon which could represent colitis - No acute surgical intervention by ACS Intussusception in the setting of malignancy could indicate a lead point secondary to metastasis - s/p EGD which revealed large hiatal hernia - 06/10 flex Sig grossly unremarkable. Pathology: Large intestine, random colon with Mild/patchy intraepithelial lymphocytosis - GI PCR neg - PPI Prednisone 1mg/kg QD per oncology input Oncology recommended to continue prednisone along with close monitor over the next 1-2 red, if there is no significantly improvement, Oncology will plan to initiate anti-inflammatory biologic agents such as rituximab - Pt started on empiric coverage for suspected cdiff on 06/07 and discontinued on 06/10. Cultures never collected. After discussing with ID, we will defer C diff collection and DC p.o. vancomycin. Diabetes Elevated blood sugar due to prednisone Increased SSI and mealtime coverage Continue Accu-Chek, Lantus Assessment & Plan (06/14/2025 1:35 PM CDT): CT reported: - The liver is diffusely hypoattenuating, consistent with diffuse hepatic steatosis. - The gallbladder is absent. - Multiple calcifications of pancreas (likely chronic pancreatitis). - A 1.5 cm cm right adrenal gland nodule compatible with known metastatic disease. - Normal kidneys. - Telescoping of the duodenum around the gastric pylorus likely representing gastroduodenal intussusception. The stomach is not dilated. There is a segment of small bowel which crosses anteriorly to the transverse colon. There is wall thickening of the colon which could represent colitis ACS was consulted in ED: - No acute surgical intervention at this time - Recommend GI consult for potential endoscopy, as intussusception in the setting of malignancy could indicate a lead point secondary to metastasis - s/p EGD which revealed large hiatal hernia - 06/10 flex Sig grossly unremarkable. Pathology: Large intestine, random colon with Mild/patchy intraepithelial lymphocytosis - GI PCR neg PLAN - PPI - appreciate GI assistance - Appreciate Oncology assistance. 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 Prednisone 1mg/kg QD. - Pt started on empiric coverage for suspected cdiff on 06/07 and discontinued on 06/10. Cultures never collected. After discussing with ID, we will defer C diff collection and DC p.o. vancomycin. Assessment & Plan (06/13/2025 10:13 AM CDT): CT reported: - The liver is diffusely hypoattenuating, consistent with diffuse hepatic steatosis. - The gallbladder is absent. - Multiple calcifications of pancreas (likely chronic pancreatitis). - A 1.5 cm cm right adrenal gland nodule compatible with known metastatic disease. - Normal kidneys. - Telescoping of the duodenum around the gastric pylorus likely representing gastroduodenal intussusception. The stomach is not dilated. There is a segment of small bowel which crosses anteriorly to the transverse colon. There is wall thickening of the colon which could represent colitis ACS was consulted in ED: - No acute surgical intervention at this time - Recommend GI consult for potential endoscopy, as intussusception in the setting of malignancy could indicate a lead point secondary to metastasis - s/p EGD which revealed large hiatal hernia - 06/10 flex Sig grossly unremarkable. Pathology: Large intestine, random colon with Mild/patchy intraepithelial lymphocytosis - GI PCR neg PLAN - PPI - appreciate GI assistance - Appreciate Oncology assistance. 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 Prednisone 1mg/kg QD. -follow up fecal calprotectin - Pt started on empiric coverage for suspected cdiff on 06/07 and discontinued on 06/10. Cultures never collected. After discussing with ID, we will defer C diff collection and DC p.o. vancomycin. Assessment & Plan (06/12/2025 11:05 AM CDT): CT reported: - The liver is diffusely hypoattenuating, consistent with diffuse hepatic steatosis. - The gallbladder is absent. - Multiple calcifications of pancreas (likely chronic pancreatitis). - A 1.5 cm cm right adrenal gland nodule compatible with known metastatic disease. - Normal kidneys. - Telescoping of the duodenum around the gastric pylorus likely representing gastroduodenal intussusception. The stomach is not dilated. There is a segment of small bowel which crosses anteriorly to the transverse colon. There is wall thickening of the colon which could represent colitis ACS was consulted in ED: - No acute surgical intervention at this time - Recommend GI consult for potential endoscopy, as intussusception in the setting of malignancy could indicate a lead point secondary to metastasis - s/p EGD which revealed large hiatal hernia - 06/10 flex Sig grossly unremarkable. Pathology: Large intestine, random colon with Mild/patchy intraepithelial lymphocytosis - GI PCR neg PLAN - PPI - appreciate GI assistance - Appreciate Oncology assistance. 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 Prednisone 1mg/kg QD. -follow up fecal calprotectin and biopsy results - Pt started on empiric coverage for suspected cdiff on 06/07 and discontinued on 06/10. Cultures never collected. After discussing with ID, we will defer C diff collection and DC p.o. vancomycin. Assessment & Plan (06/11/2025 9:44 AM CDT): CT reported: - The liver is diffusely hypoattenuating, consistent with diffuse hepatic steatosis. - The gallbladder is absent. - Multiple calcifications of pancreas (likely chronic pancreatitis). - A 1.5 cm cm right adrenal gland nodule compatible with known metastatic disease. - Normal kidneys. - Telescoping of the duodenum around the gastric pylorus likely representing gastroduodenal intussusception. The stomach is not dilated. There is a segment of small bowel which crosses anteriorly to the transverse colon. There is wall thickening of the colon which could represent colitis ACS was consulted in ED: - No acute surgical intervention at this time - Recommend GI consult for potential endoscopy, as intussusception in the setting of malignancy could indicate a lead point secondary to metastasis - s/p EGD which revealed large hiatal hernia - 06/10 flex Sig grossly unremarkable - GI PCR neg PLAN - PPI - appreciate GI assistance - Appreciate Oncology assistance. Concern for check point inhibitor colitis -follow up fecal calprotectin and biopsy results - Pt started on empiric coverage for suspected cdiff on 06/07 and discontinued on 06/10. Cultures never collected. After discussing with ID, we will defer C diff collection and DC p.o. vancomycin. Assessment & Plan (06/10/2025 1:51 PM CDT): CT reported: - The liver is diffusely hypoattenuating, consistent with diffuse hepatic steatosis. - The gallbladder is absent. - Multiple calcifications of pancreas (likely chronic pancreatitis). - A 1.5 cm cm right adrenal gland nodule compatible with known metastatic disease. - Normal kidneys. - Telescoping of the duodenum around the gastric pylorus likely representing gastroduodenal intussusception. The stomach is not dilated. There is a segment of small bowel which crosses anteriorly to the transverse colon. There is wall thickening of the colon which could represent colitis ACS was consulted in ED: - No acute surgical intervention at this time - Recommend GI consult for potential endoscopy, as intussusception in the setting of malignancy could indicate a lead point secondary to metastasis - s/p EGD which revealed large hiatal hernia - GI PCR neg PLAN - ppi IV q.day - full liquid diet - appreciate GI assistance and Oncology assistance -follow up fecal calprotectin - Pt started on empiric coverage for suspected cdiff on 06/07. Cultures never collected. We will defer C diff collection and DC p.o. vancomycin. Assessment & Plan (06/09/2025 11:34 AM CDT): CT reported: - The liver is diffusely hypoattenuating, consistent with diffuse hepatic steatosis. - The gallbladder is absent. - Multiple calcifications of pancreas (likely chronic pancreatitis). - A 1.5 cm cm right adrenal gland nodule compatible with known metastatic disease. - Normal kidneys. - Telescoping of the duodenum around the gastric pylorus likely representing gastroduodenal intussusception. The stomach is not dilated. There is a segment of small bowel which crosses anteriorly to the transverse colon. There is wall thickening of the colon which could represent colitis ACS was consulted in ED: - No acute surgical intervention at this time - Recommend GI consult for potential endoscopy, as intussusception in the setting of malignancy could indicate a lead point secondary to metastasis - s/p EGD which revealed large hiatal hernia - GI PCR neg PLAN - ppi IV q.day - full liquid diet - appreciate GI assistance and Oncology assistance -follow up fecal calprotectin Assessment & Plan (06/08/2025 2:25 PM CDT): CT reported: - The liver is diffusely hypoattenuating, consistent with diffuse hepatic steatosis. - The gallbladder is absent. - Multiple calcifications of pancreas (likely chronic pancreatitis). - A 1.5 cm cm right adrenal gland nodule compatible with known metastatic disease. - Normal kidneys. - Telescoping of the duodenum around the gastric pylorus likely representing gastroduodenal intussusception. The stomach is not dilated. There is a segment of small bowel which crosses anteriorly to the transverse colon. There is wall thickening of the colon which could represent colitis ACS was consulted in ED: - No acute surgical intervention at this time - Recommend GI consult for potential endoscopy, as intussusception in the setting of malignancy could indicate a lead point secondary to metastasis - s/p EGD which revealed large hiatal hernia PLAN - ppi IV q.day - clear liquid diet - appreciate GI assistance -follow up stool studies Assessment & Plan (06/07/2025 9:56 AM CDT): CT reported: - The liver is diffusely hypoattenuating, consistent with diffuse hepatic steatosis. - The gallbladder is absent. - Multiple calcifications of pancreas (likely chronic pancreatitis). - A 1.5 cm cm right adrenal gland nodule compatible with known metastatic disease. - Normal kidneys. - Telescoping of the duodenum around the gastric pylorus likely representing gastroduodenal intussusception. The stomach is not dilated. There is a segment of small bowel which crosses anteriorly to the transverse colon. There is wall thickening of the colon which could represent colitis. ACS was consulted in ED: - No acute surgical intervention at this time - Recommend GI consult for potential endoscopy, as intussusception in the setting of malignancy could indicate a lead point secondary to metastasis PLAN - ppi IV q.day - NPO at midnight for planned EGD today - appreciate GI assistance Assessment & Plan (06/06/2025 9:16 AM CDT): CT reported: - The liver is diffusely hypoattenuating, consistent with diffuse hepatic steatosis. - The gallbladder is absent. - Multiple calcifications of pancreas (likely chronic pancreatitis). - A 1.5 cm cm right adrenal gland nodule compatible with known metastatic disease. - Normal kidneys. - Telescoping of the duodenum around the gastric pylorus likely representing gastroduodenal intussusception. The stomach is not dilated. There is a segment of small bowel which crosses anteriorly to the transverse colon. There is wall thickening of the colon which could represent colitis. ACS was consulted in ED: - No acute surgical intervention at this time - Recommend GI consult for potential endoscopy, as intussusception in the setting of malignancy could indicate a lead point secondary to metastasis PLAN - ppi IV q.day - Clear liquid diet started - Currently on several pysch meds affecting serotonine system which can affect GI system adversely. As the patient has lost significant weight those meds dosages may need to be adjusted. For now, Venlafaxine is on hold, but can be decreased to 75 mg/d. Buspirone may also be decreased to 7.5 mg TID from 10 mg. - continue clear liquid diet today, NPO at midnight for endoscopy tomorrow Assessment & Plan (06/05/2025 10:28 AM CDT): CT reported: - The liver is diffusely hypoattenuating, consistent with diffuse hepatic steatosis. - The gallbladder is absent. - Multiple calcifications of pancreas (likely chronic pancreatitis). - A 1.5 cm cm right adrenal gland nodule compatible with known metastatic disease. - Normal kidneys. - Telescoping of the duodenum around the gastric pylorus likely representing gastroduodenal intussusception. The stomach is not dilated. There is a segment of small bowel which crosses anteriorly to the transverse colon. There is wall thickening of the colon which could represent colitis. ACS was consulted in ED: - No acute surgical intervention at this time - Recommend GI consult for potential endoscopy, as intussusception in the setting of malignancy could indicate a lead point secondary to metastasis PLAN - ppi IV q.day - Clear liquid diet started - Currently on several pysch meds affecting serotonine system which can affect GI system adversely. As the patient has lost significant weight those meds dosages may need to be adjusted. For now, Venlafaxine is on hold, but can be decreased to 75 mg/d. Buspirone may also be decreased to 7.5 mg TID from 10 mg. - discussed with GI today, appreciate assistance and recommendations, likely endoscopy Saturday Assessment & Plan (06/05/2025 12:29 AM CDT): CT reported: - The liver is diffusely hypoattenuating, consistent with diffuse hepatic steatosis. - The gallbladder is absent. - Multiple calcifications of pancreas (likely chronic pancreatitis). - A 1.5 cm cm right adrenal gland nodule compatible with known metastatic disease. - Normal kidneys. - Telescoping of the duodenum around the gastric pylorus likely representing gastroduodenal intussusception. The stomach is not dilated. There is a segment of small bowel which crosses anteriorly to the transverse colon. There is wall thickening of the colon which could represent colitis. ACS was consulted in ED: - No acute surgical intervention at this time - Recommend GI consult for potential endoscopy, as intussusception in the setting of malignancy could indicate a lead point secondary to metastasis PLAN - Protonix IV started - Will benefit from GI consult - Clear liquid diet started - Currently on several pysch meds affecting serotonine system which can affect GI system adversely. As the patient has lost significant weight those meds dosages may need to be adjusted. For now, Venlafaxine is on hold, but can be decreased to 75 mg/d. Buspirone may also be decreased to 7.5 mg TID from 10 mg. Rash and other nonspecific skin eruption 025 Neuropathy 04/23/2025 Low back pain 04/23/2025 Poor dentition 03/24/2025 Sore throat 03/24/2025 Hemoptysis 03/24/2025 Squamous cell carcinoma lung, right 12/08/2024 Assessment & Plan (06/19/2025 2:22 PM CDT): - CT: Bilateral dependent atelectasis. Reticular opacities with honeycombing in the lung bases. Focal consolidation with central hypoattenuation within the right lower lobe measuring approximately 2.3 x 1.6 cm, previously measuring 2.4 x 1.6 cm, likely represents the known right lower lobe squamous cell carcinoma seen on the prior PET/CT on 05/25/2025. - Was in Hem/Onc clinic for her second chemo on Saturday and went to ED from there - CBC-diff unremarkable PLAN - DouNeb prn - Symbicort bid - Nicotine patch - Nutrition consult is appreciated - ensure Clear added t.i.d. with meal Assessment & Plan (06/16/2025 8:11 AM CDT): - CT: Bilateral dependent atelectasis. Reticular opacities with honeycombing in the lung bases. Focal consolidation with central hypoattenuation within the right lower lobe measuring approximately 2.3 x 1.6 cm, previously measuring 2.4 x 1.6 cm, likely represents the known right lower lobe squamous cell carcinoma seen on the prior PET/CT on 05/25/2025. - Was in Hem/Onc clinic for her second chemo on Saturday and went to ED from there - CBC-diff unremarkable PLAN - DouNeb prn - Symbicort bid - Nicotine patch - Nutrition consult is appreciated - ensure Clear added t.i.d. with meal Assessment & Plan (06/15/2025 7:06 AM CDT): - CT: Bilateral dependent atelectasis. Reticular opacities with honeycombing in the lung bases. Focal consolidation with central hypoattenuation within the right lower lobe measuring approximately 2.3 x 1.6 cm, previously measuring 2.4 x 1.6 cm, likely represents the known right lower lobe squamous cell carcinoma seen on the prior PET/CT on 05/25/2025. - Was in Hem/Onc clinic for her second chemo on Saturday and went to ED from there - CBC-diff unremarkable PLAN - DouNeb prn - Symbicort bid - Nicotine patch - Nutrition consult is appreciated - ensure Clear added t.i.d. with meal Assessment & Plan (06/14/2025 1:35 PM CDT): - CT: Bilateral dependent atelectasis. Reticular opacities with honeycombing in the lung bases. Focal consolidation with central hypoattenuation within the right lower lobe measuring approximately 2.3 x 1.6 cm, previously measuring 2.4 x 1.6 cm, likely represents the known right lower lobe squamous cell carcinoma seen on the prior PET/CT on 05/25/2025. - Was in Hem/Onc clinic for her second chemo on Saturday and went to ED from there - CBC-diff unremarkable PLAN - DouNeb prn - Symbicort bid - Nicotine patch - Nutrition consult is appreciated - ensure Clear added t.i.d. with meal Assessment & Plan (06/13/2025 10:13 AM CDT): - CT: Bilateral dependent atelectasis. Reticular opacities with honeycombing in the lung bases. Focal consolidation with central hypoattenuation within the right lower lobe measuring approximately 2.3 x 1.6 cm, previously measuring 2.4 x 1.6 cm, likely represents the known right lower lobe squamous cell carcinoma seen on the prior PET/CT on 05/25/2025. - Was in Hem/Onc clinic for her second chemo on Saturday and went to ED from there - CBC-diff unremarkable PLAN - DouNeb prn - Symbicort bid - Nicotine patch - Nutrition consult is appreciated - ensure Clear added t.i.d. with meal Assessment & Plan (06/12/2025 7:26 AM CDT): - CT: Bilateral dependent atelectasis. Reticular opacities with honeycombing in the lung bases. Focal consolidation with central hypoattenuation within the right lower lobe measuring approximately 2.3 x 1.6 cm, previously measuring 2.4 x 1.6 cm, likely represents the known right lower lobe squamous cell carcinoma seen on the prior PET/CT on 05/25/2025. - Was in Hem/Onc clinic for her second chemo on Saturday and went to ED from there - CBC-diff unremarkable PLAN - DouNeb prn - Symbicort bid - Nicotine patch - Nutrition consult is appreciated - ensure Clear added t.i.d. with meal Assessment & Plan (06/11/2025 7:12 AM CDT): - CT: Bilateral dependent atelectasis. Reticular opacities with honeycombing in the lung bases. Focal consolidation with central hypoattenuation within the right lower lobe measuring approximately 2.3 x 1.6 cm, previously measuring 2.4 x 1.6 cm, likely represents the known right lower lobe squamous cell carcinoma seen on the prior PET/CT on 05/25/2025. - Was in Hem/Onc clinic for her second chemo on Saturday and went to ED from there - CBC-diff unremarkable PLAN - DouNeb prn - Symbicort bid - Nicotine patch - Nutrition consult is appreciated - ensure Clear added t.i.d. with meal Assessment & Plan (06/10/2025 7:21 AM CDT): - CT: Bilateral dependent atelectasis. Reticular opacities with honeycombing in the lung bases. Focal consolidation with central hypoattenuation within the right lower lobe measuring approximately 2.3 x 1.6 cm, previously measuring 2.4 x 1.6 cm, likely represents the known right lower lobe squamous cell carcinoma seen on the prior PET/CT on 05/25/2025. - Was in Hem/Onc clinic for her second chemo on Saturday and went to ED from there - CBC-diff unremarkable PLAN - DouNeb prn - Symbicort bid - Nicotine patch - Nutrition consult is appreciated - ensure Clear added t.i.d. with meal Assessment & Plan (06/09/2025 7:17 AM CDT): - CT: Bilateral dependent atelectasis. Reticular opacities with honeycombing in the lung bases. Focal consolidation with central hypoattenuation within the right lower lobe measuring approximately 2.3 x 1.6 cm, previously measuring 2.4 x 1.6 cm, likely represents the known right lower lobe squamous cell carcinoma seen on the prior PET/CT on 05/25/2025. - Was in Hem/Onc clinic for her second chemo on Saturday and went to ED from there - CBC-diff unremarkable PLAN - DouNeb prn - Symbicort bid - Nicotine patch - Nutrition consult is appreciated - ensure Clear added t.i.d. with meal Assessment & Plan (06/08/2025 2:25 PM CDT): - CT: Bilateral dependent atelectasis. Reticular opacities with honeycombing in the lung bases. Focal consolidation with central hypoattenuation within the right lower lobe measuring approximately 2.3 x 1.6 cm, previously measuring 2.4 x 1.6 cm, likely represents the known right lower lobe squamous cell carcinoma seen on the prior PET/CT on 05/25/2025. - Was in Hem/Onc clinic for her second chemo on Saturday and went to ED from there - CBC-diff unremarkable PLAN - DouNeb prn - Symbicort bid - Nicotine patch - Nutrition consult is appreciated - ensure Clear added t.i.d. with meal Assessment & Plan (06/07/2025 9:56 AM CDT): - CT: Bilateral dependent atelectasis. Reticular opacities with honeycombing in the lung bases. Focal consolidation with central hypoattenuation within the right lower lobe measuring approximately 2.3 x 1.6 cm, previously measuring 2.4 x 1.6 cm, likely represents the known right lower lobe squamous cell carcinoma seen on the prior PET/CT on 05/25/2025. - Was in Hem/Onc clinic for her second chemo on Saturday and went to ED from there - CBC-diff unremarkable PLAN - DouNeb prn - Symbicort bid - Nicotine patch - Nutrition consult is appreciated - ensure Clear added t.i.d. with meal Assessment & Plan (06/06/2025 9:16 AM CDT): - CT: Bilateral dependent atelectasis. Reticular opacities with honeycombing in the lung bases. Focal consolidation with central hypoattenuation within the right lower lobe measuring approximately 2.3 x 1.6 cm, previously measuring 2.4 x 1.6 cm, likely represents the known right lower lobe squamous cell carcinoma seen on the prior PET/CT on 05/25/2025. - Was in Hem/Onc clinic for her second chemo on Saturday and went to ED from there - CBC-diff unremarkable PLAN - DouNeb prn - Symbicort bid - Nicotine patch - Nutrition consult is appreciated - ensure Clear added t.i.d. with meal Assessment & Plan (06/05/2025 10:28 AM CDT): - CT: Bilateral dependent atelectasis. Reticular opacities with honeycombing in the lung bases. Focal consolidation with central hypoattenuation within the right lower lobe measuring approximately 2.3 x 1.6 cm, previously measuring 2.4 x 1.6 cm, likely represents the known right lower lobe squamous cell carcinoma seen on the prior PET/CT on 05/25/2025. - Was in Hem/Onc clinic for her second chemo on Saturday and went to ED from there - CBC-diff unremarkable PLAN - DouNeb prn - Symbicort bid - Nicotine patch - Nutrition consult is appreciated - ensure Clear added t.i.d. with meal Assessment & Plan (06/05/2025 12:44 AM CDT): - CT: Bilateral dependent atelectasis. Reticular opacities with honeycombing in the lung bases. Focal consolidation with central hypoattenuation within the right lower lobe measuring approximately 2.3 x 1.6 cm, previously measuring 2.4 x 1.6 cm, likely represents the known right lower lobe squamous cell carcinoma seen on the prior PET/CT on 05/25/2025. - Was in Hem/Onc clinic for her second chemo on Saturday and went to ED from there - CBC-diff unremarkable PLAN - DouNeb prn - Symbicort bid - Nicotine patch - Nutrition consult is appreciated Lung nodule 11/10/2024 Age-related osteoporosis wit hout current pathological fracture 09/17/2024 Tobacco abuse 09/17/2024 Cirrhosis 02/14/2024 Assessment & Plan (06/19/2025 5:10 PM CDT): Holding lactulose secondary to diarrhea. Continue rifaximin 500 mg p.o. b.i.d. Alcoholic cirrhosis of liver without ascites Gastrointestinal hemorrhage with melena 06/02/20 Hematemesis without nausea 06/01/2023 Alcoholic cirrhosis 06/01/2023 COPD (chronic obstructive pulmonary disease) Interstitial lung disease 06/01/2023 Anxiety and depression 06/01/2023 Clubbing of fingers 05/30/2022 12/31/2022 Preoperative cardiovascular examination 05/30/20 22 12/31/2022 Chest pain, unspecified 05/10/2022 Tachycardia, unspecified 05/10/2022 Tobacco dependence syndrome 05/10/2022 Assessment & Plan (06/19/2025 5:10 PM CDT): Continues to smoke 1.5 pack per day Lumbar radiculopathy 09/07/2021 Neurogenic claudication 09/07/2021 Elevated blood pressure read ing without diagnosis of hypertension 2021 Chronic back pain 2021 Fatigue 08/16/2021 Acute pain due to trauma 08/30/2020 Alcohol abuse 08/30/2020 Avulsion fracture of metatarsal bone of right fo ot 08/30/2020 COPD (chronic obstructive pulmonary disease) Assessment & Plan (06/19/2025 2:22 PM CDT): - CT: Bilateral dependent atelectasis. Reticular opacities with honeycombing in the lung bases. Focal consolidation with central hypoattenuation within the right lower lobe measuring approximately 2.3 x 1.6 cm, previously measuring 2.4 x 1.6 cm, likely represents the known right lower lobe squamous cell carcinoma seen on the prior PET/CT on 05/25/2025. - Was in Hem/Onc clinic for her second chemo on Saturday and went to ED from there - CBC-diff unremarkable PLAN - DouNeb prn - Symbicort bid - Nicotine patch - Nutrition consult is appreciated - ensure Clear added t.i.d. with meal Assessment & Plan (06/16/2025 8:11 AM CDT): - CT: Bilateral dependent atelectasis. Reticular opacities with honeycombing in the lung bases. Focal consolidation with central hypoattenuation within the right lower lobe measuring approximately 2.3 x 1.6 cm, previously measuring 2.4 x 1.6 cm, likely represents the known right lower lobe squamous cell carcinoma seen on the prior PET/CT on 05/25/2025. - Was in Hem/Onc clinic for her second chemo on Saturday and went to ED from there - CBC-diff unremarkable PLAN - DouNeb prn - Symbicort bid - Nicotine patch - Nutrition consult is appreciated - ensure Clear added t.i.d. with meal Assessment & Plan (06/15/2025 7:06 AM CDT): - CT: Bilateral dependent atelectasis. Reticular opacities with honeycombing in the lung bases. Focal consolidation with central hypoattenuation within the right lower lobe measuring approximately 2.3 x 1.6 cm, previously measuring 2.4 x 1.6 cm, likely represents the known right lower lobe squamous cell carcinoma seen on the prior PET/CT on 05/25/2025. - Was in Hem/Onc clinic for her second chemo on Saturday and went to ED from there - CBC-diff unremarkable PLAN - DouNeb prn - Symbicort bid - Nicotine patch - Nutrition consult is appreciated - ensure Clear added t.i.d. with meal Assessment & Plan (06/14/2025 1:35 PM CDT): - CT: Bilateral dependent atelectasis. Reticular opacities with honeycombing in the lung bases. Focal consolidation with central hypoattenuation within the right lower lobe measuring approximately 2.3 x 1.6 cm, previously measuring 2.4 x 1.6 cm, likely represents the known right lower lobe squamous cell carcinoma seen on the prior PET/CT on 05/25/2025. - Was in Hem/Onc clinic for her second chemo on Saturday and went to ED from there - CBC-diff unremarkable PLAN - DouNeb prn - Symbicort bid - Nicotine patch - Nutrition consult is appreciated - ensure Clear added t.i.d. with meal Assessment & Plan (06/13/2025 10:13 AM CDT): - CT: Bilateral dependent atelectasis. Reticular opacities with honeycombing in the lung bases. Focal consolidation with central hypoattenuation within the right lower lobe measuring approximately 2.3 x 1.6 cm, previously measuring 2.4 x 1.6 cm, likely represents the known right lower lobe squamous cell carcinoma seen on the prior PET/CT on 05/25/2025. - Was in Hem/Onc clinic for her second chemo on Saturday and went to ED from there - CBC-diff unremarkable PLAN - DouNeb prn - Symbicort bid - Nicotine patch - Nutrition consult is appreciated - ensure Clear added t.i.d. with meal Assessment & Plan (06/12/2025 7:26 AM CDT): - CT: Bilateral dependent atelectasis. Reticular opacities with honeycombing in the lung bases. Focal consolidation with central hypoattenuation within the right lower lobe measuring approximately 2.3 x 1.6 cm, previously measuring 2.4 x 1.6 cm, likely represents the known right lower lobe squamous cell carcinoma seen on the prior PET/CT on 05/25/2025. - Was in Hem/Onc clinic for her second chemo on Saturday and went to ED from there - CBC-diff unremarkable PLAN - DouNeb prn - Symbicort bid - Nicotine patch - Nutrition consult is appreciated - ensure Clear added t.i.d. with meal Assessment & Plan (06/11/2025 7:12 AM CDT): - CT: Bilateral dependent atelectasis. Reticular opacities with honeycombing in the lung bases. Focal consolidation with central hypoattenuation within the right lower lobe measuring approximately 2.3 x 1.6 cm, previously measuring 2.4 x 1.6 cm, likely represents the known right lower lobe squamous cell carcinoma seen on the prior PET/CT on 05/25/2025. - Was in Hem/Onc clinic for her second chemo on Saturday and went to ED from there - CBC-diff unremarkable PLAN - DouNeb prn - Symbicort bid - Nicotine patch - Nutrition consult is appreciated - ensure Clear added t.i.d. with meal Assessment & Plan (06/10/2025 7:21 AM CDT): - CT: Bilateral dependent atelectasis. Reticular opacities with honeycombing in the lung bases. Focal consolidation with central hypoattenuation within the right lower lobe measuring approximately 2.3 x 1.6 cm, previously measuring 2.4 x 1.6 cm, likely represents the known right lower lobe squamous cell carcinoma seen on the prior PET/CT on 05/25/2025. - Was in Hem/Onc clinic for her second chemo on Saturday and went to ED from there - CBC-diff unremarkable PLAN - DouNeb prn - Symbicort bid - Nicotine patch - Nutrition consult is appreciated - ensure Clear added t.i.d. with meal Assessment & Plan (06/09/2025 7:17 AM CDT): - CT: Bilateral dependent atelectasis. Reticular opacities with honeycombing in the lung bases. Focal consolidation with central hypoattenuation within the right lower lobe measuring approximately 2.3 x 1.6 cm, previously measuring 2.4 x 1.6 cm, likely represents the known right lower lobe squamous cell carcinoma seen on the prior PET/CT on 05/25/2025. - Was in Hem/Onc clinic for her second chemo on Saturday and went to ED from there - CBC-diff unremarkable PLAN - DouNeb prn - Symbicort bid - Nicotine patch - Nutrition consult is appreciated - ensure Clear added t.i.d. with meal Assessment & Plan (06/08/2025 2:25 PM CDT): - CT: Bilateral dependent atelectasis. Reticular opacities with honeycombing in the lung bases. Focal consolidation with central hypoattenuation within the right lower lobe measuring approximately 2.3 x 1.6 cm, previously measuring 2.4 x 1.6 cm, likely represents the known right lower lobe squamous cell carcinoma seen on the prior PET/CT on 05/25/2025. - Was in Hem/Onc clinic for her second chemo on Saturday and went to ED from there - CBC-diff unremarkable PLAN - DouNeb prn - Symbicort bid - Nicotine patch - Nutrition consult is appreciated - ensure Clear added t.i.d. with meal Assessment & Plan (06/07/2025 9:56 AM CDT): - CT: Bilateral dependent atelectasis. Reticular opacities with honeycombing in the lung bases. Focal consolidation with central hypoattenuation within the right lower lobe measuring approximately 2.3 x 1.6 cm, previously measuring 2.4 x 1.6 cm, likely represents the known right lower lobe squamous cell carcinoma seen on the prior PET/CT on 05/25/2025. - Was in Hem/Onc clinic for her second chemo on Saturday and went to ED from there - CBC-diff unremarkable PLAN - DouNeb prn - Symbicort bid - Nicotine patch - Nutrition consult is appreciated - ensure Clear added t.i.d. with meal Assessment & Plan (06/06/2025 9:16 AM CDT): - CT: Bilateral dependent atelectasis. Reticular opacities with honeycombing in the lung bases. Focal consolidation with central hypoattenuation within the right lower lobe measuring approximately 2.3 x 1.6 cm, previously measuring 2.4 x 1.6 cm, likely represents the known right lower lobe squamous cell carcinoma seen on the prior PET/CT on 05/25/2025. - Was in Hem/Onc clinic for her second chemo on Saturday and went to ED from there - CBC-diff unremarkable PLAN - DouNeb prn - Symbicort bid - Nicotine patch - Nutrition consult is appreciated - ensure Clear added t.i.d. with meal Assessment & Plan (06/05/2025 10:28 AM CDT): - CT: Bilateral dependent atelectasis. Reticular opacities with honeycombing in the lung bases. Focal consolidation with central hypoattenuation within the right lower lobe measuring approximately 2.3 x 1.6 cm, previously measuring 2.4 x 1.6 cm, likely represents the known right lower lobe squamous cell carcinoma seen on the prior PET/CT on 05/25/2025. - Was in Hem/Onc clinic for her second chemo on Saturday and went to ED from there - CBC-diff unremarkable PLAN - DouNeb prn - Symbicort bid - Nicotine patch - Nutrition consult is appreciated - ensure Clear added t.i.d. with meal Assessment & Plan (06/05/2025 12:44 AM CDT): - CT: Bilateral dependent atelectasis. Reticular opacities with honeycombing in the lung bases. Focal consolidation with central hypoattenuation within the right lower lobe measuring approximately 2.3 x 1.6 cm, previously measuring 2.4 x 1.6 cm, likely represents the known right lower lobe squamous cell carcinoma seen on the prior PET/CT on 05/25/2025. - Was in Hem/Onc clinic for her second chemo on Saturday and went to ED from there - CBC-diff unremarkable PLAN - DouNeb prn - Symbicort bid - Nicotine patch - Nutrition consult is appreciated Depression with anxiety 08/30/2020 Assessment & Plan (06/19/2025 5:10 PM CDT): - Venlafaxine dose decreased to 75 mg q.day, restarted on 06/07/2025. -further decreased to 37.5 mg on 06/18 followed by discontinuation in 4 days -continue buspirone at home dose -clonazepam adjusted at 0.5 mg t.i.d. p.r.n. Assessment & Plan (06/16/2025 2:37 PM CDT): - Currently on several pysch meds which may be contributing to serotonine system which can affect GI system adversely. As the patient has lost significant weight those meds dosages may need to be adjusted. Venlafaxine dose decreased to 75 mg q.day, restarted on 06/07/2025. -continue buspirone at home dose -clonazepam increased to 0.75 mg b.i.d. p.r.n. Assessment & Plan (06/15/2025 7:06 AM CDT): - Currently on several pysch meds which may be contributing to serotonine system which can affect GI system adversely. As the patient has lost significant weight those meds dosages may need to be adjusted. Venlafaxine dose decreased to 75 mg q.day, restarted on 06/07/2025. -continue buspirone at home dose -clonazepam 0.5 mg b.i.d. p.r.n. Assessment & Plan (06/14/2025 1:35 PM CDT): - Currently on several pysch meds which may be contributing to serotonine system which can affect GI system adversely. As the patient has lost significant weight those meds dosages may need to be adjusted. Venlafaxine dose decreased to 75 mg q.day, restarted on 06/07/2025. -continue buspirone at home dose -clonazepam 0.5 mg b.i.d. p.r.n. Assessment & Plan (06/13/2025 10:13 AM CDT): - Currently on several pysch meds which may be contributing to serotonine system which can affect GI system adversely. As the patient has lost significant weight those meds dosages may need to be adjusted. Venlafaxine dose decreased to 75 mg q.day, restarted on 06/07/2025. -continue buspirone at home dose -clonazepam 0.5 mg b.i.d. p.r.n. Assessment & Plan (06/12/2025 1:18 PM CDT): - Currently on several pysch meds which may be contributing to serotonine system which can affect GI system adversely. As the patient has lost significant weight those meds dosages may need to be adjusted. Venlafaxine dose decreased to 75 mg q.day, restarted on 06/07/2025. -continue buspirone at home dose -clonazepam 0.5 mg b.i.d. p.r.n. Assessment & Plan (06/11/2025 7:12 AM CDT): - Currently on several pysch meds which may be contributing to serotonine system which can affect GI system adversely. As the patient has lost significant weight those meds dosages may need to be adjusted. Venlafaxine dose decreased to 75 mg q.day, restarted on 06/07/2025. -continue buspirone at home dose -lorazepam 0.5 mg b.i.d. p.r.n. Assessment & Plan (06/10/2025 7:21 AM CDT): - Currently on several pysch meds which may be contributing to serotonine system which can affect GI system adversely. As the patient has lost significant weight those meds dosages may need to be adjusted. Venlafaxine dose decreased to 75 mg q.day, restarted on 06/07/2025. -continue buspirone at home dose -lorazepam 0.5 mg b.i.d. p.r.n. Assessment & Plan (06/09/2025 7:17 AM CDT): - Currently on several pysch meds which may be contributing to serotonine system which can affect GI system adversely. As the patient has lost significant weight those meds dosages may need to be adjusted. Venlafaxine dose decreased to 75 mg q.day, restarted on 06/07/2025. -continue buspirone at home dose -lorazepam 0.5 mg b.i.d. p.r.n. Assessment & Plan (06/08/2025 2:25 PM CDT): - Currently on several pysch meds which may be contributing to serotonine system which can affect GI system adversely. As the patient has lost significant weight those meds dosages may need to be adjusted. Venlafaxine dose decreased to 75 mg q.day, restarted on 06/07/2025. -continue buspirone at home dose -lorazepam 0.5 mg b.i.d. p.r.n. Assessment & Plan (06/07/2025 9:56 AM CDT): - Currently on several pysch meds which may be contributing to serotonine system which can affect GI system adversely. As the patient has lost significant weight those meds dosages may need to be adjusted. Venlafaxine dose decreased to 75 mg q.day, restarted on 06/07/2025. -continue buspirone at home dose -lorazepam 0.5 mg b.i.d. p.r.n. Insomnia 08/30/2020 Presence of permanent cardiac pacemaker 08/30/20 20 Type 2 diabetes mellitus, [facility] long-term current use of insulin 08/30/2020 Assessment & Plan (06/19/2025 5:10 PM CDT): Elevated blood sugar due to prednisone Increased SSI and mealtime coverage Continue Accu-Chek, Lantus increased to 20 units daily for improved glycemic control Chronic pain disorder 08/30/2020 Closed displaced comminuted fracture of shaft of right tibia 08/29/2020 Overview (05/10/2022): Added automatically from request for surgery [id number] Uncontrolled type 2 diabetes mellitus 03/14/2017 Paresthesia [...] Medications Current Day (Day 1 , Cycle 5 - Planned for 07/16/2025) Next Day (Day 1, Cycle 6 - Planned for 08/06/2025) CARBOplatin (Paraplatin) Inf usion (AUC Dosing)PACLitaxel (Taxol) in 500 mL infusionpembrolizumab (Keytruda) Infusion pembrolizumab (Keytruda) 200 mg in NaCl IV 0.9 % 108 mL infusion pembrolizumab (Keytruda) 200 mg in NaCl IV 0.9 % 108 mL infusion Past Treatment and Therapy Plans No past plan information found. Lifetime Dose Tracking * Chemical Lifetime Dose Automatic Entry Manual Entr y Dose Length Product 2,968.1 mGy-cm 2,968.1 mGy-cm 0 mG y-cm Carboplatin 436 mg 436 mg 0 mg Resolved Problems Problem Noted Date Diagnosed Date Resolved Date Rash 04/23/2025 05/21/2025 UTI (urinary tract infection) 08/30/2020 06/19/2025 Assessment & Plan (06/16/2025 8:11 AM CDT): urine culture with E coli - CTX x3 days completed Assessment & Plan (06/15/2025 12:31 PM CDT): urine culture with E coli - CTX x3 days completed Assessment & Plan (06/14/2025 1:35 PM CDT): - UA: Turbid, Leuk 500, WBC 51-100 - Denied urinary symptoms PLAN - urine culture with E coli - CTX x3 days completed Assessment & Plan (06/13/2025 10:13 AM CDT): - UA: Turbid, Leuk 500, WBC 51-100 - Denied urinary symptoms PLAN - urine culture with E coli - CTX x3 days completed Assessment & Plan (06/12/2025 7:26 AM CDT): - UA: Turbid, Leuk 500, WBC 51-100 - Denied urinary symptoms PLAN - urine culture with E coli - CTX x3 days completed Assessment & Plan (06/11/2025 7:12 AM CDT): - UA: Turbid, Leuk 500, WBC 51-100 - Denied urinary symptoms PLAN - urine culture with E coli - CTX x3 days completed Assessment & Plan (06/10/2025 7:21 AM CDT): - UA: Turbid, Leuk 500, WBC 51-100 - Denied urinary symptoms PLAN - urine culture with E coli - CTX x3 days completed Assessment & Plan (06/09/2025 7:17 AM CDT): - UA: Turbid, Leuk 500, WBC 51-100 - Denied urinary symptoms PLAN - urine culture with E coli - CTX x3 days completed Assessment & Plan (06/08/2025 2:25 PM CDT): - UA: Turbid, Leuk 500, WBC 51-100 - Denied urinary symptoms PLAN - urine culture with E coli - CTX x3 days completed Assessment & Plan (06/07/2025 9:56 AM CDT): - UA: Turbid, Leuk 500, WBC 51-100 - Denied urinary symptoms PLAN - urine culture with E coli - CTX x3 days completed Assessment & Plan (06/06/2025 9:16 AM CDT): - UA: Turbid, Leuk 500, WBC 51-100 - Denied urinary symptoms PLAN - urine culture pending - CTX x3 days Assessment & Plan (06/05/2025 10:28 AM CDT): - UA: Turbid, Leuk 500, WBC 51-100 - Denied urinary symptoms PLAN - urine culture pending - CTX x3 days Assessment & Plan (06/05/2025 12:29 AM CDT): - UA: Turbid, Leuk 500, WBC 51-100 - Denied urinary symptoms PLAN - UC - Rocephin started by ED
--- OUTSIDE RECORDS SUMMARY | 2025-06-25 16:02 | XMS_ITS | Encounter Summary ---
Author Organization [facility] Address [address] [address] Care Team Providers Care Research Environmental Scientist Name Role Phone Abel Carlos MD Unavailable [phone] Abel Carlos MD Primary Care Provider Becca Victoria [facility] Primary Care Provider [phone] Reason for Visit * Reason Onset Date Comments Results 11/20/2024 Encounter Details Date Type Department Care Team (Late st Contact Info) Description 11/20/2024 Telephone [facility] - Pulmonology [address] [place] [address], [place] [address] David Centeno MD [address] [place] [address] OF PULMONARY MED [address] [place] [phone] Results Social History Tobacco Use Types [...] medical care, and heating? Somewhat hard 06/01/2023 [facility] - Occupational Stress Questionnaire Answer Date [...] place to sleep or slept in a jail (including now)? No 06/01/2023 Comments No Sex [...] appt than March Patient Call Back number: [phone] documented in this encounter Plan of Treatment Upcoming Encounters Date Type Department Care Team (Late st Contact Info) Description 07/07/2025 2:00 PM MICA PATCHER Appointment [facility] RAD ONC [facility] [place] [address] Javad Velasquez MD [address] [place] [phone] 07/09/2025 2:00 PM MICA PATCHER Appointment [facility] PFT [address] [place] [address] 07/09/2025 2:30 PM MICA PATCHER Appointment [facility] PFT [address] [place] [address] 07/14/2025 12:45 PM MICA PATCHER Hospital Encounter [facility] ENDOSCOPY [address] [place] [address] Laurence Bower MD [address] [facility] [address]L [place] [phone] Surgery General 07/14/2025 12:45 PM MICA PATCHER - 07/14/2025 1:30 PM MICA PATCHER Surgery [facility] ENDOSCOPY [address] [place] [phone] Laurence Bower MD [address] [facility] [address] [place] [phone] EGD 07/16/2025 10:30 AM MICA PATCHER Appointment [facility] [address] [place] [phone] 07/16/2025 11:20 AM MICA PATCHER Office Visit [facility] - Hematology/Oncology [address] [place] [phone] Becca Rivas, RAILROAD CAR CLEANING SUPERVISOR-SHOWROOM EXECUTIVE DIRECTOR [address] [place] [phone] 08/09/2025 3:30 PM MICA PATCHER Office Visit [facility] - Pulmonology [address] [place] [address], [place] [phone] Bandar Stewart MD [address] [place] [phone] 09/10/2025 1:15 PM MICA PATCHER Appointment [facility] US [address] [place] [phone] Marielena Ulrich, RAILROAD CAR CLEANING SUPERVISOR-SHOWROOM EXECUTIVE DIRECTOR [address] [place] [address] [address] [place] [phone] 09/10/2025 2:30 PM MICA PATCHER Office Visit [facility] - GI [address] [place] [address], [place] [phone] Marielena Ulrich, RAILROAD CAR CLEANING SUPERVISOR-SHOWROOM EXECUTIVE DIRECTOR [address] [place] [address] [address] [place] [address] Scheduled Procedures Name Priority Associated Diagnoses Date/Ti me ESOPHAGOGASTRODUODENOSCOPY ( EGD) DIAGNOSTIC Cirrhosis of liver without ascites, unspecified hepatic cirrhosis type (HCC) 07/14/2025 12:45 PM MICA PATCHER COLONOSCOPY SCREEN Cirrhosis of liver without ascites, unspecified hepatic cirrhosis type (HCC) 07/14/2025 12:45 PM MICA PATCHER documented as of this encounter Goals Goal [...] documented as of this encounter Care Teams Research Environmental Scientist Relationship Specialty [place] [address] [place] [phone] PCP - General Internal Medicine 07/12/23 11/22/24 Becca Victoria APRN-SYSTEMS PROGRAMMER [address] [place] [phone] PCP - General Certified Clinical Nurse Specialist 11/23/24 [place] [address] [place] [phone] 05/30/23 documented as of this encounter
--- OUTSIDE RECORDS SUMMARY | 2025-06-25 16:02 | XMS_ITS | Clinical Summary ---
Author Organization [facility] Address [address] [facility] [place] [address] Care Team Providers Care Junior Designer Name Role Phone Abel Carlos MD Unavailable [phone] Becca Victoria APRN-BLINDSTITCH LINING FELLER Primary Care Provider [phone] Source Comments [facility] [employer],non-owned Affiliates and Associated Physician Practices is amultiple site organization consisting of ambulatory clinics and hospital sitesin [place], [place]. This disclosure is being madepursuant to the Care Everywhere program and may not contain all information available regarding this patient. Last updated 18.[facility] [employer] Allergies Active Allergy Reactions Criticality Noted Date Comments Contrast-Iodinated Agents For Ct/Other Rash Medium 04/23/2025 Pet scan Medications * Be aware that medications may [...] for Heartburn Active Blood Glucose Monitoring Suppl ([employer] Verio Reflect) w/Device KIT Use 1 Act 4 times daily USE METER TO TEST BLOOD SUGAR 4 TIMES DAILY. CALL JAYA @ [phone] WHEN DELIVERED 1 kit Active blood glucose (OneTouch Verio) test strip USE ONE STRIP TO TEST BLOOD SUGAR 4 TIMES DAILY 100 strip Active Lancets (ONETOUCH DELICA PLUS 33G EXTRA FINE LANCET) USE ONE LANCET TO TEST BLOOD SUGAR 4 TIMES DAILY 100 Each Active aspirin (Aspirin 81) 81 MG chew tablet Take 1 (one) tablet by mouth once daily Active busPIRone (Buspar) 10 MG tablet Take 1 (one) tablet by mouth 3 times daily Active atorvastatin (Lipitor) 40 MG tablet Take 1 (one) tablet by mouth at bedtime Active ferrous sulfate 325 (65 FE) MG tablet Take 1 (one) tablet by mouth once daily 90 tablet 023 Active ibuprofen (Motrin) 600 MG tablet Take 1 (one) tablet by mouth 3 times daily as needed for Pain For pain. 024 Active lactulose (Chronulac) 10 GM/15ML solution Take [...] PO) Take by mouth once daily Active ReliOn Pen [place] 31G X 6 MM MISC 025 Active [...] puff by mouth once daily 1 Each 11 025 Active dexAMETHasone (Decadron) 4 MG tabletIndicati [...] Cancer Chemotherapy 8 tablet 1 025 Active Additional Information Patient not taking.Reason: need a refill, Reported on 06/25/2025 prochlorperazi ne (Compazine) 10 MG tabletIndicati ons:Squamous [...] times daily 30 tablet 3 025 Active lidocaine viscous (Xylocaine) 2 % [...] 04/02/20 25 10:13 AM CDT 025 Active ondansetron, disintegrating , (Zofran ODT) 4 MG tabletIndicati ons:Cirrhosis of liver without ascites, unspecified hepatic cirrhosis type (HCC) Take 1 (one) tablet by mouth every 8 hours Allow tablet to dissolve on the tongue 90 tablet 4 Active triamcinolone acetonide (Kenalog) 0.1 % ointmentIndica tions:Itching, Hives APPLY OINTMENT TOPICALLY TO AFFECTED AREA THREE TIMES DAILY 30 g Active gabapentin (Neurontin) 400 MG capsule Take 2 (two) capsules by mouth 3 times daily 180 capsule Active venlafaxine XR 24hr (Effexor XR) 37.5 MG capsule Take 1 (one) capsule by mouth daily with breakfast 2 capsule Active Additional Information Patient not taking.Reported on 06/25/2025 metFORMIN (Glucophage) 500 MG tablet Take 1 (one) tablet by mouth 2 times daily with morning and evening meal 60 tablet Active Lantus SoloStar pen Inject 25 (twenty five) Units subcutaneously at bedtime 9 mL Active diclofenac sodium (Voltaren) 1 % gel Apply 2 (two) g to affected area 4 times daily 240 g Active torsemide (Demadex) 20 MG tablet Take 1 (one) tablet by mouth once daily Do not start medication until instructed by primary care 30 tablet Active sodium chloride 1 GM tablet Take 2 (two) tablets by mouth 3 times daily with meals 180 tablet Active nicotine (Nicoderm CQ) 21 MG/24HR patchIndicatio ns:Tobacco abuse Apply 1 (one) patch to skin once daily 30 patch Active pantoprazole EC (Protonix) 40 MG tablet Take 1 (one) tablet by mouth once daily 30 tablet Active vitamin D, ergocalciferol , (Drisdol) 1.25 MG (35439 UT) capsule Take 1 (one) capsule by mouth every 7 days (once a week) for 56 days 8 capsule 2024 Active clonazePAM, disintegrating , (KlonoPIN Wafer) 0.5 MG tabletIndicati ons:Anxiety and depression Take 1 (one) tablet by mouth 3 times daily as needed for Anxiety 60 tablet Active oxyCODONE, immediate release, (Roxicodone) 5 MG tabletIndicati ons:Colitis,Sq uamous cell carcinoma lung, right (HCC) Take 1 (one) tablet by mouth every 4 hours as needed 90 tablet Active predniSONE (Deltasone) 10 MG tablet Take 1 (one) tablet by mouth once daily Take 3 tablets daily for one week, then 2 tablets daily for one week, then 1 tablet daily for one week then stop. 70 tablet Active gabapentin (Neurontin) 400 MG capsule Take 1 (one) capsule by mouth 3 times daily 2024 Discontinued(D ose Adjustment) venlafaxine XR 24hr (Effexor XR) 150 MG capsule Take 1 (one) capsule by mouth daily with breakfast 2024 Discontinued(D ose Adjustment) metFORMIN (Glucophage) 500 MG tablet Take 1 (one) tablet by mouth once daily 2024 Discontinued OLANZapine (ZyPREXA) 10 MG tabletIndicati ons:Hypomanic Phase of Bipolar Mood Disorder Take 1 (one) tablet by mouth once daily Reasons: Hypomanic Episode of Bipolar Disorder 2024 Discontinued(D ose Adjustment) oxazepam (Serax) 10 MG capsule Take 1 (one) capsule by mouth 3 times daily as needed for Anxiety 2024 Discontinued(L ist Clean-Up) Lantus SoloStar pen Inject 14 (fourteen) Units subcutaneously at bedtime 025 2024 Discontinued spironolactone (Aldactone) 25 MG tabletIndicati ons:Alcoholic cirrhosis, unspecified whether ascites present (HCC) Take 1 tablet by mouth once daily 90 tablet 025 2024 Discontinued furosemide (Lasix) 20 MG tablet Take 1 tablet by mouth once daily 30 tablet 025 2024 Discontinued furosemide (Lasix) 20 MG tablet Take 1 tablet by mouth once daily 30 tablet 5 025 2024 Discontinued(C linical Decision) spironolactone (Aldactone) 25 MG tabletIndicati ons:Alcoholic cirrhosis, unspecified whether ascites present (HCC) Take 1 tablet by mouth once daily 90 tablet 025 2024 Discontinued(C linical Decision) clonazePAM, disintegrating , (KlonoPIN Wafer) 0.5 MG tablet Take 1 (one) tablet by mouth 3 times daily as needed for Anxiety 30 tablet 2024 Discontinued(L ist Clean-Up) predniSONE (Deltasone) 5 MG tabletIndicati ons:immune checkpoint inhibitor colitis Take 9 (nine) tablets by mouth daily with breakfast Reasons: immune checkpoint inhibitor colitis 135 tablet 2024 Discontinued(L ist Clean-Up) oxyCODONE, immediate release, (Roxicodone) 5 MG tabletIndicati ons:Colitis,Sq uamous cell carcinoma lung, right (HCC) Take 1 (one) tablet by mouth every 4 hours as needed 12 tablet 2024 Discontinued(L ist Clean-Up) Active Problems Problem Noted Date Diagnosed Date [...] prednisone Increased SSI and mealtime coverage Continue Accu-Andrew Yadav Assessment & Plan (06/15/2025 12:31 PM CDT): [...] cardiac pacemaker 08/30/20 Type 2 diabetes mellitus, wa thout long-term current use of insulin 08/30/2020 Assessment & Plan (06/19/2025 5:10 PM CDT): Elevated blood sugar due to prednisone Increased SSI and mealtime coverage Continue Accu-Chek, Lantus increased to 20 units daily for improved glycemic control Chronic pain disorder 08/30/2020 Closed displaced comminuted fracture of shaft of right tibia 08/29/2020 Overview (05/10/2022): Added automatically from request for surgery [id number] Uncontrolled type 2 diabetes mellitus 03/14/2017 Paresthesia [...] - UC - Rocephin started by ED Encounters Date Type Department Care Team Description 06/25/2025 10:20 AM CDT [facility]Onco logy [address] [place] [address] Zay Lua MD Anxiety and depression (Primary Dx); Colitis; Squamous cell carcinoma lung, right (HCC); Chronic bronchitis, unspecified chronic bronchitis type (HCC); Type 2 diabetes mellitus without complication, without long-term current use of insulin (HCC); Alcoholic cirrhosis of liver without ascites (HCC) 06/25/2025 9:40 AM CDT Hospital Encounter [facility] [address] [place] [address] Zay Lua MD 06/25/2025 Telephone [facility] ONC [address] [place] [address] Kinga Townsend, instrument designer 06/25/2025 Results Follow[facility]Up [facility] - GI [address] [facility], [place] [address] Marielena Ulrich, TEACHER DRAMA-PRENATAL GENETIC COUNSELOR 06/25/2025 Travel 06/23/2025 Telephone [facility] - Hematology/Onco logy [address] [place] [address] Sofía Finley, YULISSA/LD Nutrition Counseling 06/22/2025 Telephone [facility] - Hematology/Onco logy [address] [place] [address] Zay Lua MD Refill Request 06/22/2025 Telephone [facility] - Hematology/Onco logy [address] [place] [address] Zay Lua MD MEDICATION REFILL 06/19/2025 Refill [facility] - Hematology/Onco logy [address] [place] [address] Zay Lua MD Refill Request 06/11/2025 Telephone [facility] - Social Work [address] [address] Gladis Gregorio, ALUMINUM BOATS ASSEMBLER Follow-up 06/10/2025 10:11 AM CDT Anesthesia Event [facility] [address] [place] [address] Nathan Mcconnell MD Owens, Jakob N 06/10/2025 10:05 AM CDT - 06/10/2025 10:35 AM CDT Surgery [facility] [address] [place] [address] Iza Rios MD SIGMOIDOSCOPY FLEXIBLE DIAGNOSTIC 06/10/2025 Refill [facility] - GI [address] [facility], [place] [address] Marielena Ulrich, TEACHER DRAMA-PRENATAL GENETIC COUNSELOR Refill Request 06/10/2025 Telephone [facility] - Hematology/Onco logy [address] [place] [address] Zay Lua MD Appointment (See notes) 06/07/2025 3:15 PM CDT Anesthesia Event [facility] [address] [place] [address] Erin Lua MD Dobbs, Kristin L, TEACHER DRAMA-TREATING PLANT PUMPER 06/07/2025 2:30 PM CDT - 06/07/2025 3:00 PM CDT Surgery [facility] [address] [place] [address] Rachel Brown DO ESOPHAGOGASTRODUODENOSCOPY (EGD) DIAGNOSTIC 06/05/2025 Travel 06/04/2025 12:35 PM CDT - 06/20/2025 7:56 PM CDT Hospital Encounter [facility] [address] [place] [address] Freddy Davey MD Archuleta, Lydia, MD Chinnery, Akrin, MD Hoque, Farzana, MD Joag, Madhura, MD Internal Medicine Discharge Disposition: Home or Self Care 06/04/2025 11:00 AM CDT Office Visit [facility] - Hematology/Onco logy [address] [place] [address] Becca Rivas, TEACHER DRAMA-PRENATAL GENETIC COUNSELOR Squamous cell carcinoma lung, right (HCC) (Primary Dx); Abdominal pain, unspecified abdominal location; Depression with anxiety; Fatigue, unspecified type; Severe malnutrition (HCC) 06/04/2025 8:40 AM CDT - 06/04/2025 12:34 PM CDT Hospital Encounter [facility] [address] [place] [address] Zay Lua MD Discharge Disposition: Home or Self Care 06/04/2025 Travel 06/04/2025 Telephone [facility] - Hematology/Onco logy [address] [place] [id number] Zay Lua MD Appointment (See note) 05/26/2025 Refill [facility] - Hematology/Onco logy [address] [place] [address] Zay Lua MD Refill Request 05/26/2025 Refill [facility] - GI [address] [facility], [place] [address] Marielena Ulrich, TEACHER DRAMA-PRENATAL GENETIC COUNSELOR Refill Request 05/25/2025 10:35 AM CDT - 05/25/2025 11:59 PM CDT Hospital Encounter [facility] PET [address] [place] [address] Zay Lua MD Discharge Disposition: Home or Self Care 05/25/2025 9:44 AM CDT - 05/25/2025 10:34 AM CDT Hospital Encounter [facility] PET [address] [place] [address] Zay Lua MD Discharge Disposition: Home or Self Care 05/25/2025 Travel 05/16/2025 Refill [facility] - Hematology/Onco logy [address] [place] [address] Zay Lua MD Refill Request 05/14/2025 8:40 AM CDT Office Visit [facility] - Hematology/Onco logy [address] [place] [address] Becca Rivas, TEACHER DRAMA-PRENATAL GENETIC COUNSELOR Squamous cell carcinoma lung, right (HCC) (Primary Dx); Rash and other nonspecific skin eruption; Chronic pain disorder; Chronic obstructive pulmonary disease, unspecified COPD type (HCC); Type 2 diabetes mellitus without complication, without long-term current use of insulin (HCC); Neuropathy 05/14/2025 7:50 AM CDT - 05/14/2025 11:59 PM CDT Hospital Encounter [facility] [address] [place] [address] Zay uLa MD Hematology Discharge Disposition: Home or Self Care 05/14/2025 Orders Only [facility] - Hematology/Onco logy [address] [place] [address] Zay Lua MD 05/14/2025 Travel 05/11/2025 12:30 PM CDT Office Visit [facility] - GI [address] [facility], [place] [address] Marielena Ulrich, TEACHER DRAMA-PRENATAL GENETIC COUNSELOR Cirrhosis of liver without ascites, unspecified hepatic cirrhosis type (HCC) (Primary Dx) 05/11/2025 Patient Outreach [facility] [address] [place] [address] Danielle Lockett RN 05/11/2025 Travel 04/29/2025 Telephone [facility] - Hematology/Onco logy [address] [place] [address] Zay Lua MD Question (Treatment and imaging questioning) 04/23/2025 9:20 AM CDT Office Visit [facility] - Hematology/Onco logy [address] [place] [address] Becca Rivas, TEACHER DRAMA-PRENATAL GENETIC COUNSELOR Squamous cell carcinoma lung, right (HCC) (Primary Dx); Rash; Neuropathy; Type 2 diabetes mellitus without complication, without long-term current use of insulin (HCC); Low back pain, unspecified back pain laterality, unspecified chronicity, unspecified whether sciatica present 04/23/2025 8:39 AM CDT - 04/23/2025 11:59 PM CDT Hospital Encounter [facility] [address] [place] [address] Zay Lua MD Discharge Disposition: Home or Self Care 04/23/2025 Orders Only [facility] - Hematology/Onco logy [address] [place] [address] Zay Lua MD 04/23/2025 Travel 04/20/2025 Telephone [facility] - Hematology/Onco logy [address] [place] [address] Zay Lua MD Itching 04/19/2025 2:00 PM CDT Office Visit [facility] - Pulmonology [facility] [facility], [place] [address] Bandar Stewart MD Chronic obstructive pulmonary disease, unspecified COPD type (HCC) (Primary Dx) 04/19/2025 Travel 04/13/2025 7:36 AM CDT - 04/13/2025 11:59 PM CDT Hospital Encounter [facility] PET [address] [place] [address] Zay Lua MD Discharge Disposition: Home or Self Care 04/13/2025 7:12 AM CDT - 04/13/2025 7:35 AM CDT Hospital Encounter [facility] PET [address] [place] [address] Zay Lua MD Discharge Disposition: Home or Self Care 04/13/2025 Travel 04/05/2025 Refill [facility] - GI [address] [place] [address] Marielena Ulrich, TEACHER DRAMA-PRENATAL GENETIC COUNSELOR Refill Request 04/02/2025 9:53 AM CDT - 04/02/2025 11:59 PM CDT Hospital Encounter [facility] RAD OP [address] [place] [address] Zay Lua MD Discharge Disposition: Home or Self Care 04/02/2025 9:00 AM CDT Office Visit [facility] - Hematology/Onco logy [address] [place] [address] Becca Rivas, TEACHER DRAMA-PRENATAL GENETIC COUNSELOR Sofía Finley, YULISSA/JOY Severe malnutrition (HCC) (Primary Dx); Squamous cell carcinoma lung, right (HCC) 04/02/2025 9:00 AM CDT Office Visit [facility] - Hematology/Onco logy [address] [place] [address] Zay Lua MD Wrist pain, acute, left (Primary Dx); Hypokalemia; Squamous cell carcinoma lung, right (HCC); Alcoholic cirrhosis, unspecified whether ascites present (HCC); Sore throat; Chronic obstructive pulmonary disease, unspecified COPD type (HCC); Interstitial lung disease (HCC) 04/02/2025 8:12 AM CDT - 04/02/2025 9:52 AM CDT Hospital Encounter [facility] [address] [place] [address] Zay Lua MD Discharge Disposition: Home or Self Care 04/02/2025 Results [facility] - Hematology/Onco logy [address] [place] [address] Aline Miranda RN 04/02/2025 Travel 04/01/2025 Telephone [facility] - Nephrology [address] [place] [address] Snehal Kaufman, EMMA Follow-up 03/25/2025 2:44 AM CDT - 03/25/2025 3:47 AM CDT Emergency [facility] [address] [place] [address] Cough, unspecified type Discharge Disposition: Left Against Medical Advice/Discontinued Care from Last 3 Months Immunizations Immunization Administration [...] Recorded Patient Health Questionnaire-2 Score 0 03/12/2025 [facility] Occupat ional Health - Occupational Stress [...] place to sleep or slept in a retirement (including now)? No 06/01/2023 Housing Stability Vital Sign Answer Federico e Recorded In the last 12 months, was t here a time when you were not able to pay the mortgage or rent on time? No 06/06/2025 In the past 12 months, how m any times have you moved where you were living? 0 06/06/2025 At any time in the past 12 m [facility], were you homeless or living in a retirement (including now)? No 06/06/2025 Comments No Sex [...] 9.6 oz) 06/25/2025 10:34 AM CDT Height 170.2 cm (5' 7) 06/10/2025 9:51 AM CDT Body Mass Index 17.64 06/10/2025 9:51 AM CDT Plan of Treatment Upcoming Encounters Date Type Department Care Team (Late st Contact Info) Description 07/07/2025 2:00 PM FABRICATOR ASSEMBLER [employer]ODUCTS Appointment [facility] [address] [place] [address] Javad Velasquez MD [address] [place] [address] 07/09/2025 2:00 PM FABRICATOR ASSEMBLER METAL [employer]ODUCTS Appointment [facility] [address] [place] [address] 07/09/2025 2:30 PM FABRICATOR ASSEMBLER METAL PRODUCTS Appointment [facility] [address] [place] [address] 07/14/2025 12:45 PM FABRICATOR ASSEMBLER MET[employer]ODUCTS Hospital Encounter [facility] [address] [place] [address] Laurence Bower MD [address] [place] [address] [address] [place] [address] Surgery General 07/14/2025 12:45 PM FABRICATOR ASSEMBLER [employer] - 07/14/2025 1:30 PM FABRICATOR ASSEMBLER [employer]ODUCTS Surgery [facility] [address] [place] [address] Laurence Bower MD [address] [place] [address] [address] [place] [address] EGD 07/16/2025 10:30 AM FABRICATOR ASSEMBLER METAL PRODUCTS Appointment [facility] [address] [place] [address] 07/16/2025 11:20 AM FABRICATOR ASSEMBLER [employer]ODUCTS Office Visit [facility] - Hematology/Oncology [address] [place] [address] Becca Rivas, TEACHER DRAMA-PRENATAL GENETIC COUNSELOR [address] [place] [address] 08/09/2025 3:30 PM FABRICATOR ASSEMBLER [employer]ODUCTS Office Visit [facility] - Pulmonology [address] [place] [address], [place] [address] Bandar Stewart MD [address] [place] [address] 09/10/2025 1:15 PM FABRICATOR ASSEMBLER METAL PRODUCTS Appointment [facility] [address] [place] [address] Marielena Ulrich, TEACHER DRAMA-PRENATAL GENETIC COUNSELOR [address] [facility] [address] [place] [address] 09/10/2025 2:30 PM FABRICATOR ASSEMBLER METAL PRODUCTS Office Visit [facility] - GI [address] [place] [address], [place] [address] Marielena Ulrich, TEACHER DRAMA-PRENATAL GENETIC COUNSELOR [address] [place] [address] [address] [place] [address] Scheduled Procedures Name Priority Associated Diagnoses Date/Ti or ESOPHAGOGASTRODUODENOSCOPY ( EGD) DIAGNOSTIC Cirrhosis of liver without ascites, unspecified hepatic cirrhosis type (HCC) 07/14/2025 12:45 PM FABRICATOR ASSEMBLER [employer]ODUCTS COLONOSCOPY SCREEN Cirrhosis of liver without ascites, unspecified hepatic cirrhosis type (HCC) 07/14/2025 12:45 PM FABRICATOR ASSEMBLER METAL PRODUCTS Health Maintenance Due Date Last Done Comments [...] series) 2020 DIABETES-FOOT EXAM WITH MONOFILAMENT 05/10/2022 DIABETES - URINE PROTEIN SCREENING 09/02/2024 COVID-19 VACCINE ( - 2024- season) 2025 09/10/2021, 12/06/2020, 11/08/2020 INFLUENZA VACCINE (#1) 2025 , 06/01/2022, 06/07/2020, Additional history exists DIABETES-HGB A1C 12/04/2025 06/05/2025, 08/2025, 06/19/2022 DIABETES RETINOPATHY SCREENING 04/28/2026 04/28/2024 DIABETES-SERUM CREATININE 06/25/20262024, 06/20/2025, 06/19/2025, Additional history exists DTAP/TDAP/TD VACCINES (2 - Td or Tdap) [...] last dose Medical Devices Implanted Type Area Provider Network Analyst Device Identifier Shelf Expiration Date Model / Serial / Lot Earnest ClementsT-02/01/2012 Implanted:01/31 (Quantity not on file) [employer] [id number] / [id number] / Description:NOT MRI SAFE, ve rified with [employer] 02/01/2012 Setrox S 45 Ra Lead Implanted:01/31 by Alo Brady MD (Quantity not on file) [employer] [id number] / [id number] / Description:This lead is MRI unsafe per [employer] Setrox S 53-02/01/2012 Rv Lead Implanted:01/31 by Alo Brady MD (Quantity not on file) [employer] [id number] / [id number] / Description:This lead is MRI conditional Graft Tissue [place] 4x4cm [facility] [id number] Implanted:Qty: 1 on 06/13/2022 by Vane Priest MD at [facility] N/A: Spine Lumbar [employer] 05/12/2025 [id number] / [id number] / [id number] 10FE Slnt Dura Duraseal Pg Trilysine Amine 5 Implanted:Qty: 1 on 06/13/2022 by Vane Priest MD at [facility] N/A: Spine Integra [employer] Brionna 09/01/2023 [id number] / / [id number] Procedures Procedure Name Priority Date/Time Associated Diagnosis Comments TSH DALY 06/25/2025 10:27 AM CDT COMPREHENSIVE METABOLIC PANEL Routine 06/25/2025 10:27 AM CDT Cirrhosis of liver without ascites, unspecified hepatic cirrhosis type (HCC) CBC W AUTO DIFFERENTIAL Routine 06/25/20 10:27 AM CDT Cirrhosis of liver without ascites, unspecified hepatic cirrhosis type (HCC) GLUCOSE - POINT OF CARE Routine 06/20/20 4:27 PM CDT GLUCOSE - POINT OF CARE Routine 06/20/20 12:06 PM CDT GLUCOSE - POINT OF CARE Routine 06/20/20 7:55 AM CDT OSMOLALITY URINE DALY 06/20/2025 6:07 AM CDT BASIC METABOLIC PANEL (CALCIUM TOTAL) AM Draw 06/20/2025 5:26 AM CDT Severe malnutrition (HCC) GLUCOSE - POINT OF CARE Routine 06/20/20 3:05 AM CDT GLUCOSE - POINT OF CARE Routine 06/20/20 2:06 AM CDT GLUCOSE - POINT OF CARE Routine 06/20/20 2:05 AM CDT GLUCOSE - POINT OF CARE Routine 06/20/20 1:31 AM CDT GLUCOSE - POINT OF CARE Routine 06/20/20 1:30 AM CDT GLUCOSE - POINT OF CARE Routine 06/19/20 8:41 PM CDT GLUCOSE - POINT OF CARE Routine 06/19/20 5:03 PM CDT GLUCOSE - POINT OF CARE Routine 06/19/20 12:43 PM CDT BASIC METABOLIC PANEL (CALCIUM TOTAL) Routine 06/19/2025 11:59 AM CDT GLUCOSE - POINT OF CARE Routine 06/19/20 7:48 AM CDT BASIC METABOLIC PANEL (CALCIUM TOTAL) Timed 06/19/2025 5:17 AM CDT GLUCOSE - POINT OF CARE Routine 06/19/20 2:13 AM CDT BASIC METABOLIC PANEL (CALCIUM TOTAL) Routine 06/18/2025 10:03 PM CDT GLUCOSE - POINT OF CARE Routine 06/18/20 9:40 PM CDT GLUCOSE - POINT OF CARE Routine 06/18/20 5:23 PM CDT BASIC METABOLIC PANEL (CALCIUM TOTAL) Routine 06/18/2025 4:08 PM CDT GLUCOSE - POINT OF CARE Routine 06/18/20 11:44 AM CDT GLUCOSE - POINT OF CARE Routine 06/18/20 7:11 AM CDT BASIC METABOLIC PANEL (CALCIUM TOTAL) AM Draw 06/18/2025 5:58 AM CDT Severe malnutrition (HCC) GLUCOSE - POINT OF CARE Routine 06/18/20 2:02 AM CDT GLUCOSE - POINT OF CARE Routine 06/17/20 8:51 PM CDT GLUCOSE - POINT OF CARE Routine 06/17/20 5:10 PM CDT GLUCOSE - POINT OF CARE Routine 06/17/20 12:25 PM CDT GLUCOSE - POINT OF CARE Routine 06/17/20 7:00 AM CDT BASIC METABOLIC PANEL (CALCIUM TOTAL) AM Draw 06/17/2025 3:57 AM CDT Severe malnutrition (HCC) GLUCOSE - POINT OF CARE Routine 06/17/20 2:27 AM CDT GLUCOSE - POINT OF CARE Routine 06/16/20 8:52 PM CDT GLUCOSE - POINT OF CARE Routine 06/16/20 4:36 PM CDT OSMOLALITY URINE DALY 06/16/2025 12:1 1 PM CDT SODIUM URINE RANDOM Routine 06/16/2025 1 2:11 PM CDT GLUCOSE - POINT OF CARE Routine 06/16/20 11:52 AM CDT OSMOLALITY BLOOD DALY 06/16/2025 9:38 AM CDT GLUCOSE - POINT OF CARE Routine 06/16/20 7:06 AM CDT BASIC METABOLIC PANEL (CALCIUM TOTAL) AM Draw 06/16/2025 1:57 AM CDT Severe malnutrition (HCC) GLUCOSE - POINT OF CARE Routine 06/16/20 1:02 AM CDT GLUCOSE - POINT OF CARE Routine 06/15/20 9:57 PM CDT GLUCOSE - POINT OF CARE Routine 06/15/20 5:02 PM CDT OSMOLALITY URINE DALY 06/15/2025 1:56 PM CDT GLUCOSE - POINT OF CARE Routine 06/15/20 11:55 AM CDT GLUCOSE - POINT OF CARE Routine 06/15/20 7:07 AM CDT BASIC METABOLIC PANEL (CALCIUM TOTAL) AM Draw 06/15/2025 2:19 AM CDT Severe malnutrition (HCC) GLUCOSE - POINT OF CARE Routine 06/15/20 2:01 AM CDT GLUCOSE - POINT OF CARE Routine 06/14/20 8:31 PM CDT GLUCOSE - POINT OF CARE Routine 06/14/20 4:25 PM CDT GLUCOSE - POINT OF CARE Routine 06/14/20 2:41 PM CDT GLUCOSE - POINT OF CARE Routine 06/14/20 11:28 AM CDT GLUCOSE - POINT OF CARE Routine 06/14/20 7:07 AM CDT BASIC METABOLIC PANEL (CALCIUM TOTAL) AM Draw 06/14/2025 2:33 AM CDT Severe malnutrition (HCC) GLUCOSE - POINT OF CARE Routine 06/14/20 2:16 AM CDT GLUCOSE - POINT OF CARE Routine 06/13/20 8:33 PM CDT GLUCOSE - POINT OF CARE Routine 06/13/20 5:50 PM CDT GLUCOSE - POINT OF CARE Routine 06/13/20 5:04 PM CDT GLUCOSE - POINT OF CARE Routine 06/13/20 5:02 PM CDT GLUCOSE - POINT OF CARE Routine 06/13/20 11:07 AM CDT CBC W AUTO DIFFERENTIAL AM Draw 06/13/20 9:08 AM CDT BASIC METABOLIC PANEL (CALCIUM TOTAL) AM Draw 06/13/2025 9:08 AM CDT Severe malnutrition (HCC) GLUCOSE - POINT OF CARE Routine 06/13/20 7:59 AM CDT GLUCOSE - POINT OF CARE Routine 06/12/20 8:00 PM CDT GLUCOSE - POINT OF CARE Routine 06/12/20 4:14 PM CDT GLUCOSE - POINT OF CARE Routine 06/12/20 11:34 AM CDT GLUCOSE - POINT OF CARE Routine 06/12/20 8:04 AM CDT BASIC METABOLIC PANEL (CALCIUM TOTAL) AM Draw 06/12/2025 1:30 AM CDT Severe malnutrition (HCC) GLUCOSE - POINT OF CARE Routine 06/11/20 11:56 PM CDT GLUCOSE - POINT OF CARE Routine 06/11/20 9:14 PM CDT GLUCOSE - POINT OF CARE Routine 06/11/20 5:16 PM CDT GLUCOSE - POINT OF CARE Routine 06/11/20 11:49 AM CDT GLUCOSE - POINT OF CARE Routine 06/11/20 7:12 AM CDT BASIC METABOLIC PANEL (CALCIUM TOTAL) AM Draw 06/11/2025 4:32 AM CDT Severe malnutrition (HCC) GLUCOSE - POINT OF CARE Routine 06/10/20 9:11 PM CDT GLUCOSE - POINT OF CARE Routine 06/10/20 5:21 PM CDT GLUCOSE - POINT OF CARE Routine 06/10/20 12:17 PM CDT PATHOLOGY TISSUE Routine 06/10/2025 10:2 5 AM CDT Colitis MD SIGMOIDOSCOPY,DIAGNOSTIC 06/10/2025 10:03 AM CDT Colitis GLUCOSE - POINT OF CARE Routine 06/10/20 10:01 AM CDT ENDOSCOPY, PROCTOSIGMOID Routine 025 9:49 AM CDT GLUCOSE - POINT OF CARE Routine 06/10/20 7:02 AM CDT BASIC METABOLIC PANEL (CALCIUM TOTAL) AM Draw 06/10/2025 1:03 AM CDT Severe malnutrition (HCC) GLUCOSE - POINT OF CARE Routine 06/09/20 8:12 PM CDT CALPROTECTIN FECAL Routine 06/09/2025 6: 55 PM CDT GLUCOSE - POINT OF CARE Routine 06/09/20 5:11 PM CDT GLUCOSE - POINT OF CARE Routine 06/09/20 11:18 AM CDT GLUCOSE - POINT OF CARE Routine 06/09/20 7:12 AM CDT BASIC METABOLIC PANEL (CALCIUM TOTAL) AM Draw 06/09/2025 5:58 AM CDT Severe malnutrition (HCC) GLUCOSE - POINT OF CARE Routine 06/08/20 9:13 PM CDT CBC W/O DIFFERENTIAL Routine 06/08/2025 6:29 PM CDT GLUCOSE - POINT OF CARE Routine 06/08/20 5:08 PM CDT GASTROINTESTINAL PATHOGEN PANEL BY PCR Routine 06/08/2025 3:04 PM CDT GLUCOSE - POINT OF CARE Routine 06/08/20 1:00 PM CDT GLUCOSE - POINT OF CARE Routine 06/08/20 8:08 AM CDT BASIC METABOLIC PANEL (CALCIUM TOTAL) AM Draw 06/08/2025 1:18 AM CDT Severe malnutrition (HCC) GLUCOSE - POINT OF CARE Routine 06/07/20 9:54 PM CDT GLUCOSE - POINT OF CARE Routine 06/07/20 6:25 PM CDT MD ED EGD FLEX TRANSORAL DX 06/07/2025 3:10 PM CDT Intussusception (HCC) EGD Routine 06/07/2025 3:07 PM CDT GLUCOSE - POINT OF CARE Routine 06/07/20 2:37 PM CDT GLUCOSE - POINT OF CARE Routine 06/07/20 11:43 AM CDT MAGNESIUM BLOOD Routine 06/07/2025 9:02 AM CDT GLUCOSE - POINT OF CARE Routine 06/07/20 7:17 AM CDT BASIC METABOLIC PANEL (CALCIUM TOTAL) AM Draw 06/07/2025 1:20 AM CDT Severe malnutrition (HCC) GLUCOSE - POINT OF CARE Routine 06/06/20 8:15 PM CDT GLUCOSE - POINT OF CARE Routine 06/06/20 4:49 PM CDT GLUCOSE - POINT OF CARE Routine 06/06/20 11:57 AM CDT GLUCOSE - POINT OF CARE Routine 06/06/20 7:15 AM CDT MAGNESIUM BLOOD AM Draw 06/06/2025 4:00 AM CDT Severe malnutrition (HCC) BASIC METABOLIC PANEL (CALCIUM TOTAL) AM Draw 06/06/2025 4:00 AM CDT Severe malnutrition (HCC) GLUCOSE - POINT OF CARE Routine 06/05/20 8:53 PM CDT GLUCOSE - POINT OF CARE Routine 06/05/20 4:37 PM CDT GLUCOSE - POINT OF CARE Routine 06/05/20 11:24 AM CDT GLUCOSE - POINT OF CARE Routine 06/05/20 7:09 AM CDT MAGNESIUM BLOOD AM Draw 06/05/2025 2:29 AM CDT Severe malnutrition (HCC) BASIC METABOLIC PANEL (CALCIUM TOTAL) AM Draw 06/05/2025 2:29 AM CDT Severe malnutrition (HCC) HEMOGLOBIN A1C Routine 06/05/2025 2:29 AM CDT Controlled type 2 diabetes mellitus with diabetic autonomic neuropathy, with long-term current use of insulin (HCC) VITAMIN D 25-HYDROXY Routine 06/04/2025 9:20 PM CDT Severe malnutrition (HCC) PHOSPHORUS BLOOD STAT 06/04/2025 9:20 PM CDT MAGNESIUM BLOOD STAT 06/04/2025 9:20 PM CDT URINALYSIS REFLEX MICROSCOPIC REFLEX CULTURE STAT 06/04/2025 6:36 PM CDT CULTURE URINE STAT 06/04/2025 6:[address] ABDOMEN PELVIS W CONTRAST STAT 06/04/2025 6:25 PM CDT Abdominal pain, unspecified abdominal location LACTIC ACID BLOOD REFLEX TO REPEAT STAT 06/04/2025 12:26 PM CDT LIPASE BLOOD STAT 06/04/2025 12:26 PM CDT CBC W AUTO DIFFERENTIAL STAT 06/04/20 12:26 PM CDT TSH DALY 06/04/2025 10:43 AM CDT Squamous cell carcinoma lung, right (HCC) COMPREHENSIVE METABOLIC PANEL STAT 06/04/2025 10:43 AM CDT Squamous cell carcinoma lung, right (HCC) CBC W AUTO DIFFERENTIAL STAT 06/04/20 10:43 AM CDT Squamous cell carcinoma lung, right (HCC) PET CT SKULL TO MID THIGH Routine 05/25/2025 11:20 AM CDT Squamous cell carcinoma lung, right (HCC) GLUCOSE SCREEN - POCT (IP) [facility] STAT 05/25/2025 10:10 AM CDT TSH DALY 05/14/2025 8:22 AM CDT Squamous cell carcinoma lung, right (HCC) COMPREHENSIVE METABOLIC PANEL STAT 05/14/2025 8:22 AM CDT Squamous cell carcinoma lung, right (HCC) CBC W AUTO DIFFERENTIAL STAT 05/14/20 8:22 AM CDT Squamous cell carcinoma lung, right (HCC) TSH DALY 04/23/2025 9:01 AM CDT Squamous cell carcinoma lung, right (HCC) COMPREHENSIVE METABOLIC PANEL STAT 04/23/2025 9:01 AM CDT Squamous cell carcinoma lung, right (HCC) CBC W AUTO DIFFERENTIAL STAT 04/23/20 9:01 AM CDT Squamous cell carcinoma lung, right (HCC) PET CT SKULL TO MID THIGH Routine 04/13/2025 8:59 AM CDT Squamous cell carcinoma lung, right (HCC) GLUCOSE SCREEN - POCT (IP) H STAT 04/13/2025 7:28 AM CDT XR WRIST LEFT 3VW OR MORE Routine 04/02/2025 10:01 AM CDT Wrist pain, acute, left TSH DALY 04/02/2025 8:43 AM CDT Squamous cell carcinoma lung, right (HCC) CBC W AUTO DIFFERENTIAL STAT 04/02/20 8:43 AM CDT Squamous cell carcinoma lung, right (HCC) COMPREHENSIVE METABOLIC PANEL Routine 04/02/2025 8:43 AM CDT Squamous cell carcinoma lung, right (HCC) EYE EXAM 04/28/2024 HEPATITIS C AB SCREEN RFLX NAAT QUANT AM Draw 06/03/2023 6:13 AM CDT from Last 3 Months or Most Recently Relevant to Health Maintenance Results * (ABNORMAL) CBC WITH DIFFERENTIAL (06/25/2025 10:27 AM CDT) Only the most recent of7 resultswithin the time period is included. WBC 12.0(H) 4.0 - 10.7 x10E9/L 06/25/2025 10:48 AM [facility] RBC Count 3.64(L) 3.90 - 5.20 x10E12/L 06/25/2025 10:48 AM [facility] Hemoglobin 11.8(L) 11.9 - 15.8 g/dL 06/25/2025 10:48 AM [facility] Hematocrit 32.9(L) 34.8 - 46.1 % 06/25/2025 10:48 AM [facility] MCV 90.4 80.0 - 98.0 fL 06/25/2025 10:48 AM [facility] MCH 32.4 26.7 - 33.6 pg 06/25/2025 10:48 AM [facility] MCHC 35.9 31.7 - 36.3 g/dL 06/25/2025 10:48 AM [facility] RDW-CV 17.5(H) 11.3 - 14.8 % 06/25/2025 10:48 AM [facility] Platelet Count 195 150 - 420 x10E9/L 06/25/2025 10:48 AM [facility] MPV 9.3 7.8 - 11.4 fL 06/25/2025 10:48 AM [facility] Preliminary Absolute Neutrophil 8.41(H) 1.60 - 7.50 x10E9/L 06/25/2025 10:48 AM CDT [facility] Neutrophil % 69.9 41.0 - 74.0 % 06/25/2025 10:48 AM [facility] Lymphocyte % 20.5 17.0 - 47.0 % 06/25/2025 10:48 AM [facility] Monocyte % 8.7 3.0 - 11.0 % 06/25/2025 10:48 AM [facility] Eosinophil % 0.2 0.0 - 7.0 % 06/25/2025 10:48 AM [facility] Basophil % 0.1 0.0 - 1.6 % 06/25/2025 10:48 AM [facility] Immature Granulocytes % 0.6 0.0 - 1.0 % 06/25/2025 10:48 AM [facility] Neutrophil Absolute 8.41(H) 1.60 - 7.50 x10E9/L 06/25/2025 10:48 AM [facility] Lymphocyte Absolute 2.46 1.00 - 4.40 x10E9/L 06/25/2025 10:48 AM [facility] Monocyte Absolute 1.04(H) 0.15 - 1.00 x10E9/L 06/25/2025 10:48 AM [facility] Eosinophil Absolute 0.02 0.00 - 0.60 x10E9/L 06/25/2025 10:48 AM [facility] Basophil Absolute 0.01 0.00 - 0.13 x10E9/L 06/25/2025 10:48 AM [facility] Blood BLOOD SPECIMEN / Unknown Venipuncture / Unknown 06/25/2025 10:27 AM CDT 06/25/2025 10:41 AM CDT us Marielena Ulrich TEACHER DRAMA-PRENATAL GENETIC COUNSELOR LAB - HEMATOLOGY ORD ERABLES Final Result [facility] [address] [place] [address], [facility] [phone] * (ABNORMAL) COMPREHENSIVE METABOLIC PANEL (06/25/2025 10:27 AM CDT) Only the most recent of5 resultswithin the time period is included. BUN 14 7 - 26 mg/dL 06/25/2025 11:15 AM [facility] Creatinine 0.57 0.56 - 0.96 mg/dL 06/25/2025 11:15 AM [facility] Sodium 137 136 - 145 mmol/L 06/25/2025 11:15 AM [facility] Potassium 3.7 3.5 - 4.5 mmol/L 06/25/2025 11:15 AM [facility] Chloride 101 98 - 107 mmol/L 06/25/2025 11:15 AM [facility] CO2 27 22 - 29 mmol/L 06/25/2025 11:15 AM [facility] Glucose 205(H) 70 - 99 mg/dL 06/25/2025 11:15 AM [facility] Calcium 8.2(L) 8.4 - 10.2 mg/dL 06/25/2025 11:15 AM [facility] Protein Total 5.9(L) 6.0 - 8.3 g/dL 06/25/2025 11:15 AM [facility] Albumin 3.1(L) 3.4 - 5.0 g/dL 06/25/2025 11:15 AM [facility] Bilirubin Total 0.4 0.2 - 1.2 mg/dL 06/25/2025 11:15 AM [facility] Alkaline Phosphatase 169(H) 40 - 150 U/L 06/25/2025 11:15 AM [facility] ALT 69(H) 5 - 55 U/L 06/25/2025 11:15 AM [facility] AST 31 5 - 34 U/L 06/25/2025 11:15 AM [facility] Anion Gap 9 6 - 16 06/25/2025 11:15 AM [facility] BUN/Creatinine Ratio 25(H) 7 - 23 06/25/2025 11:15 AM [facility] Osmolality Calculated 290 275 - 295 mOsm/kg 06/25/2025 11:15 AM [facility] Albumin/Globulin Ratio 1.1 1.1 - 2.3 06/25/2025 11:15 AM [facility] eGFR by CKD-EPI >90 >=90 mL/min/1.7 3 m2 06/25/2025 11:15 AM CDT [facility] Comment:Estimated Glomerular Filtration Rate (eGFR) calculated using the CKD-EPI Creatinine Equation (2020), per the National Kidney Foundation and [place] [employer] recommendations. Blood BLOOD SPECIMEN / Unknown Venipuncture / Unknown 06/25/2025 10:27 AM CDT 06/25/2025 10:42 AM CDT us Marielena Ulrich APRN-PRENATAL GENETIC COUNSELOR LAB - CHEMISTRY ORDE [place] Final Result [address] [address], [place] [phone] * TSH (06/25/2025 10:27 AM CDT) Only the most recent of5 resultswithin the time period is included. TSH 2.058 0.350 - 4.940 uIU/mL 06/25/2025 11:32 AM CDT [facility] Blood BLOOD SPECIMEN / Unknown Venipuncture / Unknown 06/25/2025 10:27 AM CDT 06/25/2025 10:42 AM CDT us Zay Lua MD LAB - CHEMISTRY ORDERABLES Final Result Performing Organization Address City/[facility]/ZIP Co de Phone Number [address] [address], [place] [phone] * (ABNORMAL) GLUCOSE - POINT OF CARE (06/20/2025 4:27 PM CDT) Only the most recent of80 resultswithin the time period is included. Glucose WB/POC 137(H) 70 - 99 mg/dL 06/20/2025 4:30 PM CDT [facility] Specimen Type Arterial/C apillary 06/20/2025 4:30 PM CDT [facility] Blood BLOOD SPECIMEN / Unknown 06/20/2025 4:27 PM CDT 06/20/2025 4:30 PM CDT Massiel Guerrero MD LAB - POINT OF CARE ORDERABLES F inal Result Performing Organization Address [facility]/ZIP Co de Phone Number [address] [address], [place] [phone] * OSMOLALITY URINE (06/20/2025 6:07 AM CDT) Only the most recent of3 resultswithin the time period is included. Pathologist [facility] Osmolality Urine 633 50 - 1,200 mOsm/kg 06/20/2025 8:34 AM T [facility] Urine URINE SPECIMEN OBTAINED BY CLEAN CATCH PROCEDURE / Unknown Collection / Unknown 06/20/2025 6:07 AM CDT 06/20/2025 7:28 AM CDT Josey LIMA LAB - URINE CHEMISTRY OR DERABLES Final Result Performing Organization Address City/[facility]/ZIP Co de Phone Number [address] [address], [place] [phone] * (ABNORMAL) BASIC METABOLIC PANEL (CALCIUM TOTAL) (06/20/2025 5:26 AM CDT) Only the most recent of19 resultswithin the time period is included. Pathologist [facility] BUN 11 7 - 26 mg/dL 06/20/2025 6:43 AM T [facility] Creatinine 0.49(L) 0.56 - 0.96 mg/dL 06/20/2025 6:43 AM T [facility] Sodium 133(L) 136 - 145 mmol/L 06/20/2025 6:43 AM [facility] Potassium 4.3 3.5 - 4.5 mmol/L 06/20/2025 6:43 AM [facility] Chloride 102 98 - 107 mmol/L 06/20/2025 6:43 AM [facility] CO2 26 22 - 29 mmol/L 06/20/2025 6:43 AM [facility] Glucose 173(H) 70 - 99 mg/dL 06/20/2025 6:43 AM T [facility] Calcium 7.9(L) 8.4 - 10.2 mg/dL 06/20/2025 6:43 AM [facility] Anion Gap 5(L) 6 - 16 06/20/2025 6:43 AM [facility] BUN/Creatinine Ratio 22 7 - 23 06/20/2025 6:43 AM [facility] Osmolality Calculated 280 275 - 295 mOsm/kg 06/20/2025 6:43 AM [facility] eGFR by CKD-EPI >90 >=90 mL/min/1.7 3 m2 06/20/2025 6:43 AM [facility] Comment:Estimated Glomerular Filtration Rate (eGFR) calculated using the CKD-EPI Creatinine Equation (2020), per the National Kidney Foundation and [place] [employer] recommendations. Blood BLOOD SPECIMEN / Unknown Lab Venipuncture / Unknown 06/20/2025 5:26 AM CDT 06/20/2025 6:13 AM CDT Jeremías Chaves APRN-PRENATAL GENETIC COUNSELOR LAB - CHEMISTRY ORD ERABLES Final Result [address] [address], [facility] [phone] * SODIUM URINE RANDOM (06/16/2025 12:11 PM CDT) Sodium Urine 53 Not Established mmol/L 06/16/2025 3:04 PM T [facility] Urine URINE SPECIMEN OBTAINED BY CLEAN CATCH PROCEDURE / Unknown Collection / Unknown 06/16/2025 12:11 PM CDT 06/16/2025 2:27 PM CDT Massiel Guerrero MD LAB - URINE CHEMISTRY ORDERABLES Final Result [address] [address], [place] [phone] * (ABNORMAL) OSMOLALITY BLOOD (06/16/2025 9:38 AM CDT) Osmolality 272(L) 275 - 295 mOsm/kg 06/16/2025 11:46 AM CDT [facility] Blood BLOOD SPECIMEN / Unknown Lab Venipuncture / Unknown 06/16/2025 9:38 AM CDT 06/16/2025 10:05 AM CDT Massiel Guerrero MD LAB - CHEMISTRY ORDERABLES Final Result [facility] [address] [place] [address], [facility] [phone] * PATHOLOGY TISSUE (06/10/2025 10:25 AM CDT) Case Report Surgical Pathology Report Case: [id number] Authorizing Provider: Iza Rios MD Collected: 06/10/2025 10:25 AM Ordering Location: [facility] Received: 06/10/2025 10:57 AM Pathologist: Ashley Ulrich MD Specimen: Colon Biopsy, Random colon biopsy 06/11/2025 3:44 PM CDT [facility] Final Diagnosis Large intestine, random colon, biopsy (A): - Mild/patchy intraepithelial lymphocytosis, see comment 06/11/2025 3:44 PM CDT [facility] at 1544 CDT Microscopic Description and Comment The random colon biopsy is numerous fragments of mucosa with a very subtle increase in intraepithelial lymphocytes and increased lamina propria chronic inflammation in the superficial portion of the mucosa. The degree of intraepithelial lymphocytosis is greatest at the surface epithelium and is mild overall. There is no thickened subepithelial collagen. There is no dense basal lymphoplasmacytosis or cryptitis. Although there are increased intraepithelial lymphocytes in this biopsy, the classic brisk intraepithelial lymphocytosis often encountered in microscopic colitis/lymphocytic colitis is not seen. Instead, the patchy mild increase in IELs could represent a mild medication-induced injury. Note is made of the patient's pembrolizumab therapy. The histologic alterations are quite mild overall. 06/11/2025 3:44 PM CDT [facility] Clinical History The patient is a 64-year-old woman with abnormal CT of the GI tract. Operative procedure/findings: Flexible sigmoidoscopy - normal rectum to transverse colon, biopsied 06/11/2025 3:44 PM CDT [facility] Gross Description Received in formalin, labeled with the patient's name Kritsen Bear, specimen A, consists of multiple bentley-pink irregular tissue fragments averaging 0.1 cm in greatest dimension and aggregating to 0.6 x 0.5 x 0.1 cm which are submitted in toto in a single cassette labeled A1. RB 06/11/2025 3:44 PM T [facility] Pathologist Location at [facility] 06/11/2025 3:44 PM CDT [facility] Disclaimer The performance characteristics of all immunohistochemical and indirect immunofluorescence stains (if any) cited in this report were determined by the Histopathology Laboratory of [facility]. Some of these tests were developed by [...] and interpreted by the attending (teaching) pathologist. 06/11/2025 3:44 PM CDT [facility] Embedded Images 06/11/2025 3:44 PM T [facility] Biopsy, NOS COLONIC BIOPSY SPECIMEN / Unknown 06/10/2025 10:25 AM CDT 06/10/2025 10:57 AM CDT Comment:Pre-op diagnosis: Colitis [K52.9] Iza Rios MD LAB - PATHOLOGY/CYTOLOGY ORDERAB LES Final Result [facility] [address] [place] [address], [facility] [phone] * Endoscopy, Proctosigmoid (06/10/2025 9:49 AM CDT) Report Endoscopy POC Endoscopy Department Report _ Patient Name: Kristen Bera Procedure Date: 06/10/2025 9:49 AM Date of : 1960 Classification: Inpatient Gender: Female Ethnicity: Not or Race: White _ Providers: Iza Rios MD Referring MD: Procedure: Flexible Sigmoidoscopy Indications: Abnormal CT of the GI tract Medications: Monitored Anesthesia Care Patient Profile: This is a 64 year old female. Description of Procedure: After obtaining informed consent, the endoscope was passed under direct vision. Throughout the procedure, the patient's blood pressure, pulse, and oxygen saturations were monitored continuously. The [id number]-[id number] was introduced through the anus and advanced to the descending colon. Findings: The perianal and digital rectal examinations were normal. The area from rectum to transverse colon appeared normal. Biopsies were taken with a cold forceps for histology. Estimated Blood Loss: Estimated blood loss was minimal. Complications: No immediate complications. Impression: - The rectum to transverse colon is normal. Biopsied. Recommendation: - Resume previous diet. - Await pathology results. Attending Participation: I personally performed the entire procedure. Procedure Code(s): --- Professional --- 49355, Sigmoidoscopy, flexible; with biopsy, single or multiple Diagnosis Code(s): --- Professional --- R93.3, Abnormal findings on diagnostic imaging of other parts of digestive tract CPT copyright 2021 [place] [employer]. All rights reserved. The codes documented in this report are preliminary and upon packaging designer review may be revised to meet current compliance requirements. Iza Rios MD 06/10/2025 3:55:10 PM This report has been signed electronically. Note Initiated On: 06/10/2025 9:49 AM Number of Addenda: 0 [facility] [address] [place] [address] [employer] 06/10/2025 9:49 AM CDT Lilia Montes De Oca MD GI PROCEDURE ORDERABLES Edited R esult - Final [facility] [employer] * (ABNORMAL) CALPROTECTIN FECAL (06/09/2025 6:55 PM CDT) Calprotectin Fecal 50(H) <=49 ug/g 06/13/2025 5:13 PM CDT [employer] ([facility]) Comment: REFERENCE INTERVAL: Calprotectin, Fecal by Immunoassay Less than 50 ug/g........Normal 50-120 ug/g..............Borderline elevated, test should be re-evaluated in 4-6 weeks. 121 ug/g or greater......Elevated Performed By: [employer] [address] [place] [address] Hospital Account Manager: Christiano Eldridge MD, PhD CLIA Number: [id number] Stool STOOL SPECIMEN / Unknown Collection / Unknown 06/09/2025 6:55 PM CDT 06/09/2025 8:00 PM CDT Lizzy Molina MD LAB - BODY FLUID ORDERABLES F inal Result Performing Organization Address City/[facility]/ZIP Co de Phone Number [facility]) [address] [place], [place] [id number] [place] [address] * (ABNORMAL) CBC W/O DIFFERENTIAL (06/08/2025 6:29 PM CDT) WBC 4.6 4.0 - 10.7 x10E9/L 06/08/2025 7:59 PM CDT [facility] RBC Count 4.24 3.90 - 5.20 x10E12/L 06/08/2025 7:59 PM CDT [facility] Hemoglobin 12.7 11.9 - 15.8 g/dL 06/08/2025 7:59 PM CDT [facility] Hematocrit 38.8 34.8 - 46.1 % 06/08/2025 7:59 PM T [facility] MCV 91.5 80.0 - 98.0 fL 06/08/2025 7:59 PM CDT [facility] MCH 30.0 26.7 - 33.6 pg 06/08/2025 7:59 PM CDT [facility] MCHC 32.7 31.7 - 36.3 g/dL 06/08/2025 7:59 PM T [facility] RDW-CV 16.5(H) 11.3 - 14.8 % 06/08/2025 7:59 PM CDT [facility] Platelet Count 170 150 - 420 x10E9/L 06/08/2025 7:59 PM T [facility] MPV 10.3 7.8 - 11.4 fL 06/08/2025 7:59 PM T [facility] Blood BLOOD SPECIMEN / Unknown Lab Venipuncture / Unknown 06/08/2025 6:29 PM CDT 06/08/2025 7:45 PM CDT us Kriss Collado MD LAB - HEMATOLOGY ORDERABLES Fi nal Result [address] [address], [facility] [phone] * GASTROINTESTINAL PATHOGEN PANEL BY PCR (06/08/2025 3:04 PM CDT) Campylobacter Not detected Not detected 06/08/2025 10:28 PM CDT [facility] Plesiomonas shigelloides Not detected Not detected 06/08/2025 10:28 PM CDT [facility] Salmonella Not detected Not detected 06/08/2025 10:28 PM CDT [facility] Vibrio Not detected Not detected 06/08/2025 10:28 PM CDT [facility] Vibrio cholerae Not detected Not detected 06/08/2025 10:28 PM CDT [facility] Yersinia enterocolitica Not detected Not detected 06/08/2025 10:28 PM CDT [facility] Enteroaggregative E coli (EAEC) Not detected Not detected 06/08/2025 10:28 PM CDT [facility] Enteropathogenic E coli (EPEC) Not detected Not detected, N/A 06/08/2025 10:28 PM CDT [facility] Enterotoxigenic E coli (ETEC) LT/ST Not detected Not detected 06/08/2025 10:28 PM CDT [facility] Shiga-Like Toxin-Producing E coli (STEC) stx1/stx2 Not detected Not detected 06/08/2025 10:28 PM CDT [facility] E coli 0157 N/A Not detected, N/A 06/08/2025 10:28 PM CDT [facility] Shigella/Enteroinvas andre E coli Not detected Not detected 06/08/2025 10:28 PM CDT [facility] Cryptosporidium Not detected Not detected 06/08/2025 10:28 PM CDT [facility] Cyclospora cayetanensis Not detected Not detected 06/08/2025 10:28 PM CDT [facility] Entamoeba histolytica Not detected Not detected 06/08/2025 10:28 PM CDT [facility] Giardia lamblia Not detected Not detected 06/08/2025 10:28 PM CDT [facility] Adenovirus F 40/41 Not detected Not detected 06/08/2025 10:28 PM CDT [facility] Astrovirus Not detected Not detected 06/08/2025 10:28 PM CDT [facility] Norovirus GI/GII Not detected Not detected 06/08/2025 10:28 PM CDT [facility] Rotavirus A Not detected Not detected 06/08/2025 10:28 PM CDT [facility] Sapovirus Not detected Not detected 06/08/2025 10:28 PM CDT [facility] Stool STOOL SPECIMEN / Unknown Collection / Unknown 06/08/2025 3:04 PM CDT 06/08/2025 5:06 PM CDT [facility] - 06/08/2025 10:28 PM CDT Test performed by ncyclo RT-PCR. us Lizzy Molina MD LAB - MICROBIOLOGY ORDERABLES Final Result [facility] [address] [place], [place] [address], [facility] [phone] * EGD (06/07/2025 3:07 PM CDT) Report Endoscopy POC Endoscopy Department Report __ _ Patient Name: Kristen Bear Procedure Date: 06/07/2025 3:07 PM Date of : 1960 Classification: Inpatient Gender: Female Ethnicity: Not or Race: White __ _ Providers: DO Nura Wolfe MD: Procedure: Upper GI endoscopy Indications: Epigastric abdominal pain Medications: Monitored Anesthesia Care Description of Procedure: Pre-Anesthesia Assessment: - Prior to the procedure, a History and Physical was performed, and patient medications and allergies were reviewed. The patient's tolerance of previous anesthesia was also reviewed. The risks and benefits of the procedure and the sedation options and risks were discussed with the patient. All questions were answered, and informed consent was obtained. Prior Anticoagulants: The patient has taken no anticoagulant or antiplatelet agents. ASA Grade Assessment: III - A patient with severe systemic disease. After reviewing the risks and benefits, the patient was deemed in satisfactory condition to undergo the procedure. After obtaining informed consent, the endoscope was passed under direct vision. Throughout the procedure, the patient's blood pressure, pulse, and oxygen saturations were monitored continuously. The Endoscope was introduced through the mouth, and advanced to the second part of duodenum. The upper GI endoscopy was accomplished without difficulty. The patient tolerated the procedure well. Findings: The examined esophagus was normal. The Z-line was regular. A 3 cm hiatal hernia was present. The gastroesophageal flap valve was visualized endoscopically and classified as Hill Grade III (minimal fold, loose to endoscope, hiatal hernia likely). There is no endoscopic evidence of ulceration or stenosis in the stomach. The examined duodenum was normal. Estimated Blood Loss: Estimated blood loss: none. Complications: No immediate complications. Impression: - Normal esophagus. Z-line regular. - Large, 3 cm, hiatal hernia. Hill grade III. - Normal examined duodenum. Recommendation: - [facility]. - Full liquid diet today, then advance as tolerated to resume previous diet. - Continue present medications. - Lifestyle modifications to reduce symptoms of acid reflux in the presence of a large hiatal hernia: 1. Finish eating last meal 4 hours before laying down at night to go to bed 2. Avoid fatty foods after lunch 3. Reduce and try to avoid alcohol, peppermint, chocolate and caffeine. 4. Elevate the head of the bed approximately 6 inches Procedure Code(s): --- Professional --- 36992, Esophagogastroduode noscopy, flexible, transoral; diagnostic, including collection of specimen(s) by brushing or washing, when performed (separate procedure) Diagnosis Code(s): --- Professional --- K44.9, Diaphragmatic hernia without obstruction or gangrene R10.13, Epigastric pain CPT copyright 2021 [employer]. All rights reserved. The codes documented in this report are preliminary and upon packaging designer review may be revised to meet current compliance requirements. Rachel Brown DO 06/07/2025 4:05:11 PM This report has been signed electronically. Note Initiated On: 06/07/2025 3:07 PM Number of Addenda: [address] [address] [facility] 06/07/2025 3:07 PM CDT Lilia Montes De Oca MD GI PROCEDURE ORDERABLES Edited R esult - Final [facility] * MAGNESIUM BLOOD (06/07/2025 9:02 AM CDT) Only the most recent of4 resultswithin the time period is included. Magnesium 1.6 1.6 - 2.6 mg/dL 06/07/2025 11:23 AM CDT [facility] Blood BLOOD SPECIMEN / Unknown Lab Venipuncture / Unknown 06/07/2025 9:02 AM CDT 06/07/2025 10:27 AM CDT Lizzy Molina MD LAB - CHEMISTRY ORDERABLES Fi nal Result [facility] [address] [place] [id number], [facility] [phone] * (ABNORMAL) HEMOGLOBIN A1C (06/05/2025 2:29 AM CDT) Hemoglobin A1c 6.9(H) <=5.6 % 06/05/2025 3:27 PM CDT [facility] Estimated Average Glucose 151 mg/dL 06/05/2025 3:27 PM CDT [facility] Comment: HbA1c Interpretation: Normal : < 5.7% Pre-diabetes: 5.7-6.4% Diabetes: Equal to or greater than 6.5% Test results diagnostic of diabetes should be repeated for confirmation. Treatment target values recommended by ADA and other clinical organizations should be used to evaluate metabolic control in patients. Reference: [place] [employer], Standards of Care in Diabetes -2020 In patients 70 years and older consider HbA1c target range of 7.0-7.5% (Reference: Raphael Salazar et al. JAMDA. 2012) The Sebia assay for the measurement of HbA1c is a National Glycohemoglobin Standardization Program (NGSP) certified method. Blood BLOOD SPECIMEN / Unknown Lab Venipuncture / Unknown 06/05/2025 2:29 AM CDT 06/05/2025 5:37 AM CDT Jeremías Chaves [facility] LAB - CHEMISTRY ORD ERABLES Final Result Performing Organization Address [facility] Co de Phone Number [address] [address], [facility] [phone] * (ABNORMAL) VITAMIN D 25-HYDROXY (06/04/2025 9:20 PM CDT) Vitamin D, 25 Hydroxy 6.2(L) 30.0 - 80.0 ng/mL 06/05/2025 2:10 AM CDT [facility] Comment: The recommendations for 25-Hydroxy Vitamin D clinical decision points are as follows: Deficient: <20.0 ng/mL Insufficient: 20.0 - 29.9 ng/mL Sufficient: 30.0 - 100.0 ng/mL Potential Toxicity: >100 ng/mL Reference: The Endocrine Society Clinical Practice Guidelines. 2011 If the 25-Hydroxy Vitamin D results are inconsitent with clinical evidence, it is recommended that follow-up testing using a method such as LC/MS/MS be performed to confirm the result. Blood BLOOD SPECIMEN / Unknown Venipuncture / Unknown 06/04/2025 9:20 PM CDT 06/04/2025 9:20 PM CDT Jeremías Chaves [facility] LAB - CHEMISTRY ORD ERABLES Final Result Performing Organization Address [facility] de Phone Number [address] [address], [facility] [phone] * PHOSPHORUS BLOOD (06/04/2025 9:20 PM CDT) Phosphorus 3.4 2.9 - 5.1 mg/dL 06/04/2025 10:00 PM CDT [facility] Blood BLOOD SPECIMEN / Unknown Venipuncture / Unknown 06/04/2025 9:20 PM CDT 06/04/2025 9:20 PM CDT Freddy Davey MD LAB - CHEMISTRY ORDERABLES Fin al Result Performing Organization Address City/[facility]/ZIP Co de Phone Number [facility] [address] [place] [address], [facility] [phone] * (ABNORMAL) URINALYSIS REFLEX MICROSCOPIC REFLEX CULTURE (06/04/2025 6:36 PM [facility]) Color UA Yellow Yellow, Straw 06/04/2025 7:07 PM [facility] Clarity UA Turbid(A) Clear 06/04/2025 7:07 PM [facility] Glucose UA Normal Normal 06/04/2025 7:07 PM [facility] Bilirubin UA Negative Negative 06/04/2025 7:07 PM [facility] Ketone UA Negative Negative 06/04/2025 7:07 PM [facility] Specific [place] UA 1.013 1.005 - 1.030 06/04/2025 7:07 PM [facility] Blood UA Negative Negative 06/04/2025 7:07 PM [facility] pH UA 6.5 5.0 - 8.0 06/04/2025 7:07 PM [facility] Protein UA Negative Negative 06/04/2025 7:07 PM [facility] Urobilinogen UA Normal Normal mg/dL 06/04/2025 7:07 PM [facility] Nitrite UA Positive(A) Negative 06/04/2025 7:07 PM [facility] Leukocyte Esterase UA 500 MCKENZIE/uL(A) Negative 06/04/2025 7:07 PM [facility] RBC UA 3-5 0 - 5 # /hpf 06/04/2025 7:07 PM [facility] WBC UA 51-100(A) 0 - 5 # /hpf 06/04/2025 7:07 PM [facility] Bacteria UA Trace(A) None Seen 06/04/2025 7:07 PM [facility] Squamous Epithelial Cells 0-2 0 - 5 /hpf 06/04/2025 7:07 PM [facility] Reflex Status Culture to follow 06/04/2025 7:07 PM [facility] Urine URINE SPECIMEN OBTAINED BY CLEAN CATCH PROCEDURE / Unknown Collection / Unknown 06/04/2025 6:36 PM CDT 06/04/2025 6:42 PM CDT Freddy Davey MD LAB - URINALYSIS ORDERABLES Fi nal Result [facility] [address] [place] [address], [facility] [phone] * (ABNORMAL) CULTURE URINE (06/04/2025 6:36 PM CDT) Culture Urine >100,000 CFU/mL Escherichia coli(A) [place] 06/06/2025 9:32 AM CDT [facility] Urine URINE SPECIMEN OBTAINED BY CLEAN CATCH PROCEDURE / Unknown Collection / Unknown 06/04/2025 6:36 PM CDT 06/04/2025 6:42 PM CDT Narrative Organism Antibiotic Method Susceptibility Escherichia coli Amikacin [place] <=2 ug/mL: Susceptible Escherichia coli Ampicillin [place] <=2 ug/mL: Susceptible Escherichia coli Ampicillin-sulbactam [place] <=2 ug/mL: Susceptible Escherichia coli Cefazolin [place] <=4 ug/mL: See Comment* Escherichia coli Cefazolin-Urine (uncomplicated infections ONLY) [place] <=4 ug/mL: Susceptible Escherichia coli Cefepime [place] <=1 ug/mL: Susceptible Escherichia coli Ceftriaxone [place] <=1 ug/mL: Susceptible Escherichia coli Ciprofloxacin [place] <=0.25 ug/mL: Susceptible Escherichia coli Gentamicin [place] <=1 ug/mL: Susceptible Escherichia coli Meropenem [place] <=0.25 ug/mL: Susceptible Escherichia coli Nitrofurantoin [place] <=16 ug/mL: Susceptible Escherichia coli Piperacillin-tazobactam [place] <=4 ug/mL: Susceptible Escherichia coli Tobramycin [place] <=1 ug/mL: Susceptible Escherichia coli Trimethoprim-sulfame thoxaz ole [place] <=20 ug/mL: Susceptible Comment: *Cefazolin [place] of </=4 cannot distinguish between susceptible or intermediate for systemic breakpoints. If further defined interpretation is needed, call Microbiology and a disk diffusion test will be performed. Urine breakpoints for cefazolin should only be used when treating uncomplicated UTIs including men and women without urologic abnormality, kidney stones, stents, nephrostomy tubes, signs/symptoms of systemic illness, or pelvic/perineal pain in men. Cefazolin results can be used to predict susceptibility to oral cephalosporins - cephalexin, cefprozil, cefaclor, cefuroxime, cefdinir, and cefpodoxime. For complicated UTIs, use alternative cefazolin susceptibility result above. us Freddy Davey MD LAB - MICROBIOLOGY ORDERABLES Final Result [facility] [address] [place] [address], [facility] [phone] * CT Abdomen Pelvis W Contrast (06/04/2025 6:25 PM CDT) Anatomical Region Laterality Modality Abdomen, Pelvis Computed Tomogra phy 06/04/2025 6:52 PM CDT Impressions 06/04/2025 9:17 PM CDT Impression: 1.Wall thickening of the colon which could represent colitis. 2.Similar right lower lobe consolidation with central hypoattenuation measuring 2.3 x 1.6 cm likely represents the known right lower lobe squamous cell carcinoma seen on the prior PET/CT on 05/25/2025. 3.A 1.5 cm right adrenal gland nodule compatible with known metastatic disease. 4.Reticular opacities with honeycombing in the lung bases likely representing fibrotic changes with interstitial lung disease. > Dictated by Ganesh Bynum DO (radiology technician). > Dictated by Ganesh Bynum DO 06/04/2025 6:52 PM > Dictated by Emotionally Impaired Teacher I, Prema Moran have personally reviewed and interpreted this examination/study. > Interpreting Provider: Prema Moran on 06/04/2025 9:17 PM Narrative 06/04/2025 9:17 PM CDT PROCEDURE: CT ABDOMEN PELVIS W CONTRAST, DATE/TIME OF EXAM: 06/04/2025 6:26 PM, LOCATION [facility] INDICATION: R10.9: Abdominal pain, unspecified abdominal location ADDITIONAL CLINICAL INFORMATION: Ordering Provider Reason For Exam: is there abnormality COMPARISON: PET/CT 05/25/2025, CT chest abdomen pelvis 03/10/2025 TECHNIQUE: CT of the abdomen and pelvis was performed following the uneventful administration of 100 mL of Isovue 370 intravenous contrast according to standard protocol. Findings: Lower Chest: Bilateral dependent atelectasis. Reticular opacities with honeycombing in the lung bases. Focal consolidation with central hypoattenuation within the right lower lobe measuring approximately 2.3 x 1.6 cm, previously measuring 2.4 x 1.6 cm, likely represents the known right lower lobe squamous cell carcinoma seen on the prior PET/CT on 05/25/2025. Partially visualized cardiac pacemaker leads in the right heart. Liver: The liver is diffusely hypoattenuating, consistent with diffuse hepatic steatosis. Gallbladder and Bile Ducts: The gallbladder is absent. Spleen: Normal. Pancreas: Atrophic with multiple calcifications likely representing sequela of chronic pancreatitis. Calcification within the distal pancreatic duct with dilatation of the pancreatic duct up to 6 mm, unchanged. Adrenals: A 1.5 cm cm right adrenal gland nodule compatible with known metastatic disease (image 108 series 5, image 25 series 3). Kidneys: Normal. Gastrointestinal: Telescoping of the duodenum around the gastric pylorus likely representing gastroduodenal intussusception. The stomach is not dilated. There is a segment of small bowel which crosses anteriorly to the transverse colon (images 59-67 series 3). There is wall thickening of the colon which could represent colitis. No abnormally dilated loops of small bowel. Appendix is absent. Mesentery/Peritoneum/Retroperitoneum: Normal. Bladder: Normal. Reproductive Organs: The uterus is normal. Vasculature: Extensive atherosclerotic calcification of the aorta and its branch vessels. Bones: Bone windows demonstrate no suspicious lytic or blastic lesions. The visible osseous structures are intact. Degenerative changes of the thoracolumbar spine with vacuum disc phenomenon at L5-S1. Likely chronic compression deformity of the L2 vertebral body with less than 25% height loss. Soft tissues: Prominent and irregular inguinal lymph nodes which were hypermetabolic on the PET/CT on 05/25/2025 representing known metastatic disease. Procedure Note Prema Viveros MD - 06/04/2025 PROCEDURE: CT ABDOMEN PELVIS W CONTRAST, DATE/TIME OF EXAM: 06/04/2025 6:26 PM, LOCATION [facility] INDICATION: R10.9: Abdominal pain, unspecified abdominal location ADDITIONAL CLINICAL INFORMATION: Ordering Provider Reason For Exam: is there abnormality COMPARISON: PET/CT 05/25/2025, CT chest abdomen pelvis 03/10/2025 TECHNIQUE: CT of the abdomen and pelvis was performed following the uneventful administration of 100 mL of Isovue 370 intravenous contrast according to standard protocol. Findings: Lower Chest: Bilateral dependent atelectasis. Reticular opacities with honeycombingin the lung bases. Focal consolidation with central hypoattenuation withinthe right lower lobe measuring approximately 2.3 x 1.6 cm, previouslymeasuring 2.4 x 1.6 cm, likely represents the known right lower lobe squamous cell carcinoma seen on the prior PET/CT on 05/25/2025. Partially visualized cardiac pacemaker leads in the right heart. Liver: The liver is diffusely hypoattenuating, consistent with diffuse hepatic steatosis. Gallbladder and Bile Ducts: The gallbladder is absent. Spleen: Normal. Pancreas: Atrophic with multiple calcifications likely representing sequela of chronic pancreatitis. Calcification within the distal pancreatic ductwith dilatation of the pancreatic duct up to 6 mm, unchanged. Adrenals: A 1.5 cm cm right adrenal gland nodule compatible with known metastatic disease (image 108 series 5, image 25 series 3). Kidneys: Normal. Gastrointestinal: Telescoping of the duodenum around the gastric pylorus likelyrepresenting gastroduodenal intussusception. The stomach is not dilated. There is a segment of small bowel which crosses anteriorly to the transverse colon (images 59-67 series 3). There is wall thickening of the colon whichcould represent colitis. No abnormally dilated loops of small bowel. Appendix is absent. Mesentery/Peritoneum/Retroperitoneum: Normal. Bladder: Normal. Reproductive Organs: The uterus is normal. Vasculature: Extensive atherosclerotic calcification of the aorta and its branch vessels. Bones: Bone windows demonstrate no suspicious lytic or blastic lesions. The visible osseous structures are intact. Degenerative changes of the thoracolumbar spine with vacuum disc phenomenon at L5-S1. Likely chronic compression deformity of the L2 vertebral body with less than 25% height loss. Soft tissues: Prominent and irregular inguinal lymph nodes which were hypermetabolicon the PET/CT on 05/25/2025 representing known metastatic disease. Impression: 1.Wall thickening of the colon which could represent colitis. 2.Similar right lower lobe consolidation with central hypoattenuation measuring 2.3 x 1.6 cm likely represents the known right lower lobe squamous cell carcinoma seen on the prior PET/CT on 05/25/2025. 3.A 1.5 cm right adrenal gland nodule compatible with known metastatic disease. 4.Reticular opacities with honeycombing in the lung bases likely representing fibrotic changes with interstitial lung disease. > Dictated by Ganesh Bynum DO (radiology technician). > Dictated by Ganesh Bynum DO 06/04/2025 6:52 PM > Dictated by Emotionally Impaired Teacher I, Prema Moran have personally reviewed and interpreted this examination/study. > Interpreting Provider: Prema Moran on 06/04/2025 9:17 PM us Freddy Davey MD CT ORDERABLES Final Result * LACTIC ACID BLOOD REFLEX TO REPEAT (06/04/2025 12:26 PM CDT) [facility] Lactic Acid-Stat 1.7 <=2.0 mmol/L 06/04/2025 1:20 PM CDT [facility] Blood BLOOD SPECIMEN / Unknown Venipuncture / Unknown 06/04/2025 12:26 PM CDT 06/04/2025 12:44 PM CDT us Hailey Murillo PA-C LAB - CHEMISTRY ORDERABLES Final Result Performing Organization Address City/[facility] Co de Phone Number [address] [address], [facility] [phone] * (ABNORMAL) LIPASE BLOOD (06/04/2025 12:26 PM CDT) [facility] Lipase 5(L) 8 - 78 U/L 06/04/2025 1:23 PM CDT [facility] Blood BLOOD SPECIMEN / Unknown Venipuncture / Unknown 06/04/2025 12:26 PM CDT 06/04/2025 12:45 PM CDT Narrative [facility] - 06/04/2025 1:23 PM CDT Lipase results from the [employer] analyzer may not be comparable with other methodologies. us Hailey Murillo PA-C LAB - CHEMISTRY ORDERABLES Final Result [facility] [address] [place] [address], [facility] [phone] * PET CT Skull To Mid Thigh (05/25/2025 11:20 AM CDT) Only the most recent of2 resultswithin the time period is included. Anatomical Region Laterality Modality Head, Lower Extremity Positron E mission Tomography (PET) 05/25/2025 1:02 PM CDT Impressions 05/25/2025 4:27 PM CDT IMPRESSION: 1. Interval increase metabolic activity within right lower lobe pulmonary nodule is concerning for disease progression. 2. Redemonstration of several hypermetabolic mediastinal and right hilar lymph nodes, some show increased activity and other are stable or decreased activity when compared to prior. Overall finding compatible with mixed therapy response. 3. Interval increase metabolic activity and size within bilateral axillary and inguinal lymph nodes, more likely reactive. > Dictated by Lulú Madrigal MD 05/25/2025 1:02 PM > Dictated by Emotionally Impaired Teacher I, Eber Thomas DO have personally reviewed and interpreted this examination/study. > Interpreting Provider: Eber Thomas DO on 05/25/2025 4:27 PM Narrative 05/25/2025 4:27 PM CDT PROCEDURE: PET CT SKULL TO MID THIGH DATE/TIME OF EXAM: 05/25/2025 11:35 AM CLINICAL INFORMATION: None relevant/not provided if blank. Indication: C34.91: Squamous cell carcinoma lung, right (HCC) Procedure: FDG PET/CT Study. 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 Now on chemotherapy and immunotherapy. Prior PET/CT dated 04/13/2025 revealed partial therapy response with slightly decreased prominence of the FDG avid cavitating mass in the right lower lobe, FDG activity within lymph nodes in the right hilar and precarinal regions are concerning for metastasis. However, reactive changes are not excluded. Evaluate for subsequent treatment strategy. COMPARISON: PET/CT dated 04/13/2025. TECHNIQUE: 6.24 mCi of F-18 FDG by IV in the right antecubital fossa. PET/CT image acquisition from top of the head to the mid thigh after approximately 60 minutes post-injection with the CT being low-dose, non-contrast. No separate report for the CT was used for attenuation correction and anatomic localization. Blood glucose level at the time of injection was 121 mg/dl. Patient's BMI is 16 kg/m . FINDINGS: For reference, SUVmax of liver is 2.0 (previously was 2.3). Head and neck: There is physiological FDG activity throughout the brain parenchyma. No abnormal FDG focus is present. No hypermetabolic or enlarged cervical lymph node is identified. Chest: Interval increase metabolic activity with grossly stable size of the right lower lobe pulmonary nodule with SUV max of 7.5 (previously was 5.8) and measuring up to 2.1 cm. Interval increase metabolic activity within subcarinal lymph node with SUV max of 4.5 (previously was 3.4) Interval mild decreased metabolic activity within right hilar region nodule with SUV max of 2.8 (previously was 3.9) Interval stable appearance and metabolic activity within precarinal lymph node with SUV max of 3.2 (previously was 3.4) Bibasilar dependent atelectatic changes with mild FDG uptake. Interval increased the size and activity within multiple bilateral axillary lymph node enlargement, for example in the right axillary region there is a 0.5 cm lymph node with SUV max of 3.4 and the left axillary region there is a 0.5 cm with SUV max of 2.7. The heart size is normal. No pericardial effusion is present. There is cardiac device in the left upper chest with dual catheter terminating at the right atrium and ventricle. Atherosclerotic calcification of aorta. Abdomen and pelvis: Within the limitations of a noncontrast examination, the visceral abdominal organs are unremarkable. There is normal FDG activity throughout the small and large bowel. No free air or free fluid is identified within the abdomen. Surgical change of cholecystectomy. Interval increase metabolic activity and size within bilateral inguinal lymph nodes enlargement, for example in the right inguinal region there is a 0.7 cm lymph node with SUV max of 2.9 (previously was 1.6) and in the left inguinal region there is a 0.6 cm lymph node with SUV max of 2.5 (previously was 1.1), likely reactive. There is no hypermetabolic or enlarged abdominal or pelvic lymphadenopathy. Atherosclerotic calcification of the abdominal aorta and its branches is identified. Musculoskeletal: No suspicious lytic or blastic lesions are identified. No abnormal FDG uptake is seen within the osseous structures. Multilevel degenerative changes throughout the spinal column are identified. Procedure Note Eber Thomas, DO - 05/25/2025 PROCEDURE: PET CT SKULL TO MID THIGH DATE/TIME OF EXAM: 05/25/2025 11:35 AM CLINICAL INFORMATION: None relevant/not provided if blank. Indication: C34.91: Squamous cell carcinoma lung, right (HCC) Procedure: FDG PET/CT Study. 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 Prior PET/CT dated 04/13/2025 revealed partial therapy response with slightly decreased prominence of the FDGavid cavitating mass in the right lower lobe, FDG activity within lymph nodesin the right hilar and precarinal regions are concerning for metastasis. However, reactive changes are not excluded. Evaluate for subsequent treatment strategy. COMPARISON: PET/CT dated 04/13/2025. TECHNIQUE: 6.24 mCi of F-18 FDG by IV in the right antecubital fossa. PET/CT image acquisition from top of the head to the mid thigh after approximately 60 minutes post-injection with the CT being low-dose, non-contrast. No separate report for the CT was used for attenuation correction and anatomic localization. Blood glucose level at the time of injection was 121 mg/dl. Patient's BMI is 16 kg/m . FINDINGS: For reference, SUVmax of liver is 2.0 (previously was 2.3). Head and neck: There is physiological FDG activity throughout the brain parenchyma. No abnormal FDG focus is present. No hypermetabolic or enlarged cervicallymph node is identified. Chest: Interval increase metabolic activity with grossly stable size of theright lower lobe pulmonary nodule with SUV max of 7.5 (previously was 5.8) and measuring up to 2.1 cm. Interval increase metabolic activity within subcarinal lymph node withSUV max of 4.5 (previously was 3.4) Interval mild decreased metabolic activity within right hilar regionnodule with SUV max of 2.8 (previously was 3.9) Interval stable appearance and metabolic activity within precarinallymph node with SUV max of 3.2 (previously was 3.4) Bibasilar dependent atelectatic changes with mild FDG uptake. Interval increased the size and activity within multiple bilateralaxillary lymph node enlargement, for example in the right axillary region there komal 0.5 cm lymph node with SUV max of 3.4 and the left axillary region thereis a 0.5 cm with SUV max of 2.7. The heart size is normal. No pericardial effusion is present. There is cardiac device in the left upper chest with dual catheter terminating at the right atrium and ventricle. Atherosclerotic calcification of aorta. Abdomen and pelvis: Within the limitations of a noncontrast examination, the visceralabdominal organs are unremarkable. There is normal FDG activity throughout thesmall and large bowel. No free air or free fluid is identified within the abdomen. Surgical change of cholecystectomy. Interval increase metabolic activity and size within bilateral inguinal lymph nodes enlargement, for example in the right inguinal region thereis a 0.7 cm lymph node with SUV max of 2.9 (previously was 1.6) and in the left inguinal region there is a 0.6 cm lymph node with SUV max of 2.5 (previously was 1.1), likely reactive. There is no hypermetabolic or enlarged abdominal or pelviclymphadenopathy. Atherosclerotic calcification of the abdominal aorta and its branches is identified. Musculoskeletal: No suspicious lytic or blastic lesions are identified. No abnormal FDG uptake is seen within the osseous structures. Multilevel degenerative changes throughout the spinal column are identified. IMPRESSION: 1. Interval increase metabolic activity within right lower lobepulmonary nodule is concerning for disease progression. 2. Redemonstration of several hypermetabolic mediastinal and right hilar lymph nodes, some show increased activity and other are stable ordecreased activity when compared to prior. Overall finding compatible with mixed therapy response. 3. Interval increase metabolic activity and size within bilateralaxillary and inguinal lymph nodes, more likely reactive. > Dictated by Lulú Madrigal MD 05/25/2025 1:02 PM > Dictated by Emotionally Impaired Teacher I, Eber Thomas DO have personally reviewed and interpreted this examination/study. > Interpreting Provider: Eber Thomas DO on 05/25/2025 4:27 PM us Zay Lua MD NM ORDERABLES Final Result * (ABNORMAL) GLUCOSE SCREEN - POCT (IP) [facility] (05/25/2025 10:10 AM CDT) Only the most recent of2 resultswithin the time period is included. Glucose WB/POC 121(A) 70 - 99 mg/dL [facility] POCT TESTING Blood BLOOD SPECIMEN / Unknown 05/25/2025 10:10 AM CDT us Zay Lua MD LAB - POINT OF CARE ORDERABLES F inal Result [facility] POCT TESTING [address] [place] [address], [facility] [phone] * XR Wrist Left 3Vw or More (04/02/2025 10:01 AM CDT) Anatomical Region Laterality Modality Wrist / Hand Digital Radiogra phy 04/02/2025 10:4 9 AM CDT Impressions 04/02/2025 10:54 AM CDT IMPRESSION: No acute fracture or dislocation identified. SLAC wrist and SNAC wrist. The report was drafted by Gladis Mcduffie MD (group president). This study was interpreted and reported by Peggy Kwok MD (attending radiologist) 04/02/2025 10:49 AM. > Interpreting Provider: Peggy Kwok MD on 04/02/2025 10:54 AM Narrative 04/02/2025 10:54 AM CDT PROCEDURE: XR WRIST LEFT 3VW OR MORE, DATE/TIME OF EXAM: 04/02/2025 10:01 AM, LOCATION [facility] INDICATION: M25.532: Wrist pain, acute, left [...] MORE, DATE/TIME OF EXAM: 0:01 AM, LOCATION [facility] INDICATION: M25.532: Wrist pain, acute, left [...] report was drafted by Gladis Mcduffie MD (group president). This study was interpreted and reported by Peggy Kwok MD (attending radiologist) 04/02/2025 10:49 AM. > Interpreting Provider: Peggy Kwok MD on 04/02/2025 10:54 AM Zay Lua MD DIAGNOSTIC IMAGING ORDERABLES Fi nal Result * EYE EXAM (04/28/2024) Anatomical Region Laterality Modality Other Narrative 04/28/2024 Ordered by an unspecified provider. us Scanned Document SCANNING ONLY Final Result * HEPATITIS C AB SCREEN RFLX NAAT QUANT (06/03/2023 6:13 AM CDT) Hepatitis C Antibody Non-react andre Non-reac tive 06/03/2023 8:01 AM CDT [facility] Comment:Hepatitis C Antibody screen indicates [...] LAB - CHEMISTRY ORDERABLES F inal Result [facility] [address] [place] [address], [facility] [phone] from Last 3 Months or Most Recently Relevant to Health Maintenance Insurance [facility] Address: [facility] [address] [place] [address] Advance Directives * Full Code (Latest Code Status on File) Date Activated Date Inactivated Comments 06/05/2025 1:51 AM 06/20/2025 9:06 PM * Full Code Date Activated Date Inactivated Comments 11/10/2024 8:08 PM 11/11/2024 7:19 PM * Full Code Date Activated Date Inactivated Comments 11/10/2024 5:42 PM 11/10/2024 8:08 PM * Full Code Date Activated Date Inactivated Comments 08/15/2023 10:48 PM 08/16/2023 8:20 PM * Full Code Date Activated Date Inactivated Comments 06/01/2023 8:33 PM 06/10/2023 10:09 PM Care Teams Junior Designer Relationship Specialty Start Date End Date Becca Victoria APRN-BLINDSTITCH LINING FELLER [address] [place] [phone] PCP - General Certified Clinical Nurse Specialist 11/23/24 Abel Carlos MD [address] [place] [phone] 05/30/23
--- OUTSIDE RECORDS SUMMARY | 2025-06-25 16:02 | XMS_ITS | Encounter Summary ---
Author Organization [facility] Address [address] [place] [address] Care Team Providers Care Surgical Endoscopist Name Role Phone Abel Carlos MD Unavailable [phone] Becca Victoria APRN-[facility] Primary Care Provider [phone] Encounter Details Date Type Department Care Team (Late st Contact Info) Description 06/25/2025 Results Follow-Up [facility] - GI [address] [facility], [facility] [place] [address] Marielena Ulrich, FLOUR BROKER-SALES REPRESENTATIVE [employer] [address] [place] [address] [place] [phone] Social History Tobacco Use Types Packs/Day Years [...] Recorded Patient Health Questionnaire-2 Score 0 03/12/2025 [facility] of Occupat ional [facility] - Occupational Stress Questionnaire Answer Date Recorded [...] money to buy more. Never true 06/06/20 Within the past 12 months, t he [...] place to sleep or slept in a mcc (including now)? No 06/01/2023 Housing Stability Vital Sign Answer Federico e Recorded In the last 12 months, was t here a time when you were not able to pay the mortgage or rent on time? No 06/06/2025 In the past 12 months, how m any times have you moved where you were living? 0 06/06/2025 At any time in the past 12 m [facility], were you homeless or living in a mcc (including now)? No 06/06/2025 Comments No Sex [...] 06/10/2025 10:43 AM Sudha Shannon RN * Is person blind or have serious difficulty seeing? Answer Date of Assessment Author No 06/10/2025 10:43 AM Sudha Shannon RN * Does person have serious difficulty [...] st Contact Info) Description 07/07/2025 2:00 PM BURNER MACHINE OPERATOR Appointment [facility] [place] [address] Javad Velasquez MD [facility]5 [place] [address] 07/09/2025 2:00 PM BURNER MACHINE OPERATOR Appointment [facility] PFT [address] [place] [phone] 07/09/2025 2:30 PM BURNER MACHINE OPERATOR Appointment [facility] [address] [place] [phone] 07/14/2025 12:45 PM BURNER MACHINE OPERATOR Hospital Encounter [facility] END[facility] [address] [place] [phone] Laurence Bower MD [address] [facility] 3[facility] [place] [address] Surgery General 07/14/2025 12:45 PM BURNER MACHINE OPERATOR - 07/14/2025 1:30 PM BURNER MACHINE OPERATOR Surgery [facility] [address] [place] [phone] Laurence Bower MD [address] [place] [address] 3L [place] [address] EGD 07/16/2025 10:30 AM BURNER MACHINE OPERATOR Appointment [facility] [address] [place] [address] 07/16/2025 11:20 AM BURNER MACHINE OPERATOR Office Visit [facility] - Hematology/Oncology [address] [place] [phone] Becca Rivas, FLOUR BROKER-SALES REPRESENTATIVE [employer] [address] [place] [phone] 08/09/2025 3:30 PM BURNER MACHINE OPERATOR Office Visit [facility] - Pulmonology [address] [place] [address], [place] [phone] Bandar Stewart MD [address] [place] [phone] 09/10/2025 1:15 PM BURNER MACHINE OPERATOR Appointment [facility] US [address] [place] [address] Marielena Ulrich, FLOUR BROKER-SALES REPRESENTATIVE [employer] [address] [place] [address] 2L [place] [address] 09/10/2025 2:30 PM BURNER MACHINE OPERATOR Office Visit [facility] - GI [address] [place] [address] [place] [address] Marielena Ulrich, FLOUR BROKER-SALES REPRESENTATIVE [employer] [address] [place] [address] [address] [place] [address] Scheduled Procedures Name Priority Associated Diagnoses Date/Ti me ESOPHAGOGASTRODUODENOSCOPY ( EGD) DIAGNOSTIC Cirrhosis of liver without ascites, unspecified hepatic cirrhosis type (HCC) 07/14/2025 12:45 PM BURNER MACHINE OPERATOR COLONOSCOPY SCREEN Cirrhosis of liver without ascites, unspecified hepatic cirrhosis type (HCC) 07/14/2025 12:45 PM BURNER MACHINE OPERATOR documented as of this encounter Goals [...] on filedocumented in this encounter Care Teams Surgical Endoscopist Relationship Specialty Start Date End Date Becca Victoria APRN-[employer] [address] [place] [address] PCP - General Certified Clinical Nurse Specialist 11/23/24 Abel Carlos MD [address] [place] [phone] 05/30/23 documented as of this encounter
--- OUTSIDE RECORDS SUMMARY | 2025-06-25 16:02 | XMS_ITS | Encounter Summary ---
Author Organization [facility] Address [address] [facility] [place] [address] Care Team Providers Care Assistant Elementary Teacher Name Role Phone Abel Carlos MD Primary Care Provider Alo Brady MD Primary Care Provider [phone] Abel Carlos MD Primary Care Provider A, Unknown Practice Primary Care Provider [phone] Abel Carlos MD Unavailable [phone] Abel Carlos MD Primary Care Provider Becca Victoria [facility] Primary Care Provider [phone] Reason for Visit * Reason Onset Date Comments Pre-op Instructions 10/25/2021 Pt notified about pre-procedure instructions, holding meds. Voiced inability to come to appt.Reviewed meds to hold for 48 hrs. Pt provided RAD scheduling phone number. RAD notified as well of cancellation. Encounter Details Date Type Department Care Team (Late st Contact Info) Description 10/25/2021 Telephone [facility] PRE OP/POST OP [address] [place] [phone] Abel Carlos MD [address] [place], [place] [phone] Pre-op Instructions (Pt notified about pre-procedure instructions, [...] contact phone number for RAD to reschedule [phone]. Danielle at same # was notified of cancellation. H FINISHING RANGE OPERATOR documented in this encounter Plan of Treatment Upcoming Encounters Date Type Department Care Team (Late st Contact Info) Description 07/07/2025 2:00 PM CLOTH FINISHING RANGE OPERATOR Appointment [facility] RAD ONC [facility]5 [place] [address] Javad Velasquez MD [address] [place] [address] 07/09/2025 2:00 PM CLOTH FINISHING RANGE OPERATOR Appointment [facility] PFT [address] [place] [phone] 07/09/2025 2:30 PM CLOTH FINISHING RANGE OPERATOR Appointment [facility] PFT [address] [place] [phone] 07/14/2025 12:45 PM CLOTH FINISHING RANGE OPERATOR Hospital Encounter [facility] ENDOSCOPY [address] [place] [address] Laurence Bower MD [address] [place] [address] 3L [place] [phone] Surgery General 07/14/2025 12:45 PM CLOTH FINISHING RANGE OPERATOR - 07/14/2025 1:30 PM CLOTH FINISHING RANGE OPERATOR Surgery [facility] ENDOSCOPY [address] [place] [address] Laurence Bower MD [address] [place] [address] 3[address] [place] [address] EGD 07/16/2025 10:30 AM CLOTH FINISHING RANGE OPERATOR Appointment [facility] [address] [place] [address] 07/16/2025 11:20 AM CLOTH FINISHING RANGE OPERATOR Office Visit [facility] - Hematology/Oncology [address] [place] [phone] Becca Rivas, DRAW OPERATOR-CLASSIFICATION OFFICER [address] [place] [address] 08/09/2025 3:30 PM CLOTH FINISHING RANGE OPERATOR Office Visit [facility] - Pulmonology [address] [place] [address], [place] [address] Bandar Stewart MD [address] [place] [phone] 09/10/2025 1:15 PM CLOTH FINISHING RANGE OPERATOR Appointment [facility] US [address] [place] [address] Marielena Ulrich, DRAW OPERATOR-CLASSIFICATION OFFICER [address] [place] [address] 2[address] [place] [address] 09/10/2025 2:30 PM CLOTH FINISHING RANGE OPERATOR [facility] GI [address] [place] [address] [place] [phone] Marielena Ulrich M, DRAW OPERATOR-CLASSIFICATION OFFICER [address] [place] [address] Scheduled Procedures Name Priority Associated Diagnoses Date/Ti me ESOPHAGOGASTRODUODENOSCOPY ( EGD) DIAGNOSTIC Cirrhosis of liver without ascites, unspecified hepatic cirrhosis type (HCC) 07/14/2025 12:45 PM CLOTH FINISHING RANGE OPERATOR COLONOSCOPY SCREEN Cirrhosis of liver without ascites, unspecified hepatic cirrhosis type (HCC) 07/14/2025 12:45 PM CLOTH FINISHING RANGE OPERATOR documented as of this encounter Visit Diagnoses Not on filedocumented in this encounter Additional Health Concerns Infection Onset Date Last Indicated Resolved Time COVID-19 Under Investigation 08/15/2023 08/15/2023 08/15/2023 7:31 PM CLOTH FINISHING RANGE OPERATOR CDIFF Under Investigation 06/07/2025 06/07/2025 3:14 PM CDT CDIFF Under Investigation 06/10/2025 06/10/2025 12:39 PM CDT CDIFF Under Investigation 06/11/2025 06/11/2025 1:15 PM CDT documented as of this encounter Care Teams Assistant Elementary Teacher Relationship Specialty [place] [address] [place] [phone] PCP - General 07/06/21 06/04/22 Alo Brady MD [address] [place] [phone] PCP - General Cardiology 06/05/22 06/10/22 [place] [address] [place] [phone] PCP - General 06/11/22 05/29/23 A, Unknown Practice [address] [place] [phone] PCP - General 05/30/23 07/11/23 [place] [address] [place] [phone] PCP - General Internal Medicine 07/12/23 11/22/24 Becca Victoria APRN-TIP CEMENTER [facility]0 [place] [address] PCP - General Certified Clinical Nurse Specialist 11/23/24 [place] [address] [place] [phone] 05/30/23 documented as of this encounter
--- OUTSIDE RECORDS SUMMARY | 2025-06-25 16:02 | XMS_ITS | Encounter Summary ---
Author Organization [facility] Address [address] [facility] [place] [address] Care Team Providers Care Director Appointment Name Role Phone Abel Carlos MD Unavailable [phone] Becca Victoria APRN-[facility] Primary Care Provider [phone] Reason for Visit * Reason Onset Date Comments Referral 06/25/2025 Encounter Details Date Type Department Care Team (Late st Contact Info) Description 06/25/2025 Telephone [facility] [place] [address] Kinga Townsend, reading interventionist Social History Tobacco Use Types Packs/Day Years [...] Recorded Patient Health Questionnaire-2 Score 0 03/12/2025 [facility] [place] of Occupat ional Health - Occupational Stress [...] in a long-term (including now)? No 06/01/2023 Housing Stability Vital Sign Answer Federico e Recorded In the last 12 months, was t here a time when you were not able to pay the mortgage or rent on time? No 06/06/2025 In the past 12 months, how m any times have you moved where you were living? 0 06/06/2025 At any time in the past 12 m [facility], were you homeless or living in a long-term (including now)? No 06/06/2025 Comments No Sex [...] 06/10/2025 10:43 AM JINGT Sudha Gamboa RN documented as of this encounter Mental Status * Does person have difficulty concentrating/remembering/making decisions? Answer Entry Date Author No 06/10/2025 10:43 AM Sudha Shannon RN documented in this encounter Miscellaneous Notes * Telephone Encounter - Kinga Townsend RN - 06/25/2025 12:58 PM CDT Referral received from Dr. Lua for this patient to be seen by Radiation Medicine. VM left with patient to set up consultation. Contact information left. Patient returned call and set up consultation with Dr. Velasquez for 07/07/25 at 2pm. Reviewed insuranceand directions. Patient verbalized understanding. documented in this encounter Plan of Treatment Upcoming Encounters Date Type Department Care Team (Late st Contact Info) Description 07/07/2025 2:00 PM MOBILE DEVICE ENGINEER Appointment [facility] [address] [place] [address] Javad Velasquez MD [facility]5 [place] [address] 07/09/2025 2:00 PM MOBILE DEVICE ENGINEER Appointment [facility] [address] [place] [phone] 07/09/2025 2:30 PM MOBILE DEVICE ENGINEER Appointment [facility] [address] [place] [phone] 07/14/2025 12:45 PM MOBILE DEVICE ENGINEER Hospital Encounter [facility] ENDOS[facility] [address] [place] [address] Laurence Bower MD [address] [place] [address] 3L [place] [phone] Surgery General 07/14/2025 12:45 PM MOBILE DEVICE ENGINEER - 07/14/2025 1:30 PM MOBILE DEVICE ENGINEER Surgery [facility] [address] [place] [address] Laurence Bower MD [address] [place] [address] 3L [place] [address] EGD 07/16/2025 10:30 AM MOBILE DEVICE ENGINEER Appointment [facility] [address] [place] [address] 07/16/2025 11:20 AM MOBILE DEVICE ENGINEER Office Visit [facility] - Hematology/Oncology [address] [place] [phone] Becca Rivas, CLOTHING SUPERVISOR-MORTAR MAKER [address] [place] [phone] 08/09/2025 3:30 PM MOBILE DEVICE ENGINEER Office Visit [facility] - Pulmonology [address] [place] [address], [place] [phone] Bandar Stewart MD [address] [place] [phone] 09/10/2025 1:15 PM MOBILE DEVICE ENGINEER Appointment [facility] [address] [place] [phone] Marielena Ulrich, CLOTHING SUPERVISOR-MORTAR MAKER [address] [place] [address] 2L [place] [address] 09/10/2025 2:30 PM MOBILE DEVICE ENGINEER Office Visit [facility] - GI [address] [facility], [place] [phone] Marielena Ulrich, CLOTHING SUPERVISOR-MORTAR MAKER [address] [facility] 2L [place] [phone] Scheduled Procedures Name Priority Associated Diagnoses Date/Ti me ESOPHAGOGASTRODUODENOSCOPY ( EGD) DIAGNOSTIC Cirrhosis of liver without ascites, unspecified hepatic cirrhosis type (HCC) 07/14/2025 12:45 PM MOBILE DEVICE ENGINEER COLONOSCOPY SCREEN Cirrhosis of liver without ascites, unspecified hepatic cirrhosis type (HCC) 07/14/2025 12:45 PM MOBILE DEVICE ENGINEER documented as of this encounter Goals Goal [...] on filedocumented in this encounter Care Teams Director Appointment Relationship Specialty Start Date End Date Becca Victoria APRN-CVICU NURSE [facility] [place] [address] PCP - General Certified Clinical Nurse Specialist 11/23/24 Abel Carlos MD [address] [place] [phone] 05/30/23 documented as of this encounter
--- OUTSIDE RECORDS SUMMARY | 2025-06-25 16:02 | XMS_ITS | Encounter Summary ---
Author Organization [facility] Address [address] [facility] [place] [address] Care Team Providers Care Operations Lieutenant Name Role Phone Abel Carlos MD Unavailable [phone] Abel Carlos MD Primary Care Provider Becca Victoria APRN-[facility] Primary Care Provider [phone] Encounter Details Date Type Department Care Team (Late st Contact Info) Description 05/01/2024 Telephone [facility] - Pulmonology [address] [facility], [place] [address] Gilberto Valladares MD [address] [facility] PULMONARY DISEASE/[place] [address] Social History Tobacco Use Types [...] heating? Somewhat hard 06/01/2023 [facility] of Occupat ional Health - Occupational Stress [...] place to sleep or slept in a care home (including now)? No 06/01/2023 Comments No [...] for soon appt. Patient Call Back Number: [phone] documented in this encounter Plan of Treatment Upcoming Encounters Date Type Department Care Team (Late st Contact Info) Description 07/07/2025 2:00 PM POLICE OFFICER Appointment [facility] RAD ONC [employer] [place], [place] [id number] Javad Velasquez MD [address] [place] [phone] 07/09/2025 2:00 PM POLICE OFFICER Appointment [facility] PFT [address] [place] [address] 07/09/2025 2:30 PM POLICE OFFICER Appointment [facility] PFT [address] [place] [address] 07/14/2025 12:45 PM POLICE OFFICER Hospital Encounter [facility] ENDOSCOPY [address] [place] [address] Laurence Bower MD [address] [place] [address] [address] [place] [address] Surgery General 07/14/2025 12:45 PM POLICE OFFICER - 07/14/2025 1:30 PM POLICE OFFICER Surgery [facility] ENDOSCOPY [address] [place] [phone] Laurence Bower MD [address] [place] [address] [address] [place] [address] EGD 07/16/2025 10:30 AM POLICE OFFICER Appointment [facility] INFUSION CENTER [address] [place] [address] 07/16/2025 11:20 AM POLICE OFFICER Office Visit [facility] - Hematology/Oncology [address] [place] [phone] Becca Rivas, DRY PAN OPERATOR-BOAT RIDE OPERATOR [address] [place] [phone] 08/09/2025 3:30 PM POLICE OFFICER Office Visit [facility] - Pulmonology [address] [place] [address], [place] [address] Bandar Stewart MD [address] [place] [phone] 09/10/2025 1:15 PM POLICE OFFICER Appointment [facility] US [address] [place] [phone] Marielena Ulrich, DRY PAN OPERATOR-BOAT RIDE OPERATOR [address] [place] [address] [address] [place] [address] 09/10/2025 2:30 PM POLICE OFFICER Office Visit [facility] GI [address] [facility], [place] [phone] Marielena Ulrich, DRY PAN OPERATOR-BOAT RIDE OPERATOR [address] [facility] 2L [place] [address] Scheduled Procedures Name Priority Associated Diagnoses Date/Ti me ESOPHAGOGASTRODUODENOSCOPY ( EGD) DIAGNOSTIC Cirrhosis of liver without ascites, unspecified hepatic cirrhosis type (HCC) 07/14/2025 12:45 PM POLICE OFFICER COLONOSCOPY SCREEN Cirrhosis of liver without ascites, unspecified hepatic cirrhosis type (HCC) 07/14/2025 12:45 PM POLICE OFFICER documented as of this encounter Goals Goal [...] documented as of this encounter Care Teams Operations Lieutenant Relationship Specialty Start Date End Date Abel Carlos MD [address] [place], [place] [phone] PCP - General Internal Medicine 07/12/23 11/22/24 Becca Victoria APRN-BIOMETRICS CONSULTANT [address] [place] [address] PCP - General Certified Clinical Nurse Specialist 11/23/24 Abel Carlos MD [address] [place], [place] [phone] 05/30/23 documented as of this encounter
--- OUTSIDE RECORDS SUMMARY | 2025-06-25 16:02 | XMS_ITS | Encounter Summary ---
Author Organization [facility] Address [address] [facility] [place] [address] Care Team Providers Care Wireless Retail Manager Name Role Phone Abel Carlos MD Unavailable [phone] Abel Carlos MD Primary Care Provider Becca Victoria APRN-[facility] Primary Care Provider [phone] Reason for Visit * Reason Comments Cirrhosis Encounter Details Date Type Department Care Team (Late st Contact Info) Description 01/06/2024 Telephone [facility] - [address] [place] [address] Fiona Herrmann RN Cirrhosis Social [...] medical care, and heating? Somewhat hard 06/01/2023 [facility] of Occupat ional Health - Occupational Stress [...] place to sleep or slept in a fdc (including now)? No 06/01/2023 Comments No Sex [...] Carlos. Plan to repeat labs while at [facility] . UMER Hollis notified. documented in this encounter Plan of Treatment Upcoming Encounters Date Type Department Care Team (Late st Contact Info) Description 07/07/2025 2:00 PM INSURANCE REPRESENTATIVE Appointment [facility] RAD ONC [facility] [place] [address] Javad Velasquez MD [address] [place] [phone] 07/09/2025 2:00 PM INSURANCE REPRESENTATIVE Appointment [facility] PFT [address] [place] [phone] 07/09/2025 2:30 PM INSURANCE REPRESENTATIVE Appointment [facility] PFT [address] [place] [phone] 07/14/2025 12:45 PM INSURANCE REPRESENTATIVE Hospital Encounter [facility] ENDOSCOPY [address] [place] [phone] Laurence Bower MD [address] OF [place] [address] Surgery General 07/14/2025 12:45 PM INSURANCE REPRESENTATIVE - 07/14/2025 1:30 PM INSURANCE REPRESENTATIVE Surgery [facility] ENDOSCOPY [address] [place] [address] Laurence Bower MD [address] [facility] 3L DIV [place] [address] EGD 07/16/2025 10:30 AM INSURANCE REPRESENTATIVE Appointment [facility]ION [facility]ENTER [address] [place] [address] 07/16/2025 11:20 AM INSURANCE REPRESENTATIVE Office Visit [facility] - Hematology/Oncology [address] [place] [phone] Becca Rivas, SIDING MECHANIC-SALES PERSON [address] [place] [phone] 08/09/2025 3:30 PM INSURANCE REPRESENTATIVE Office Visit [facility] - Pulmonology [address] [place] [address], [place] [address] Bandar Stewart MD [address] [place] [phone] 09/10/2025 1:15 PM INSURANCE REPRESENTATIVE Appointment [facility] US [address] [place] [address] Marielena Ulrich, SIDING MECHANIC-SALES PERSON [address] [place] [address] 2[address] DIV [place] [phone] 09/10/2025 2:30 PM INSURANCE REPRESENTATIVE Office Visit [facility] - GI [address] [place] [address] [place] [address] Marielena Ulrich, SIDING MECHANIC-SALES PERSON [address] [place] [address] 2L DIV [place] [address] Scheduled Procedures Name Priority Associated Diagnoses Date/Ti me ESOPHAGOGASTRODUODENOSCOPY ( EGD) DIAGNOSTIC Cirrhosis of liver without ascites, unspecified hepatic cirrhosis type (HCC) 07/14/2025 12:45 PM INSURANCE REPRESENTATIVE COLONOSCOPY SCREEN Cirrhosis of liver without ascites, unspecified hepatic cirrhosis type (HCC) 07/14/2025 12:45 PM INSURANCE REPRESENTATIVE documented as of this encounter Goals Goal [...] documented as of this encounter Care Teams Wireless Retail Manager Relationship Specialty [place] [address] [place] [phone] PCP - General Internal Medicine 07/12/23 11/22/24 Becca Victoria APRN-[facility] [address] [place] [address] PCP - General Certified Clinical Nurse Specialist 11/23/24 [place] [address] [place] [phone] 05/30/23 documented as of this encounter
--- OUTSIDE RECORDS SUMMARY | 2025-06-25 16:02 | XMS_ITS | Encounter Summary ---
Author Organization [facility] Address [address] [facility] [place] [address] Care Team Providers Care Instrument Person Name Role Phone Abel Carlos MD Unavailable [phone] Becca Victoria APRN-[facility] Primary Care Provider [phone] Encounter Details Date Type Department Care Team (Latest Contact Info) Description 06/25/2025 Travel Social History Tobacco Use Types Packs/Day Years [...] Recorded Patient Health Questionnaire-2 Score 0 03/12/2025 [facility] [place] of Occupat ional Health - Occupational Stress [...] in a fpc (including now)? No 06/01/2023 Housing Stability Vital Sign Answer Federico e Recorded In the last 12 months, was t here a time when you were not able to pay the mortgage or rent on time? No 06/06/2025 In the past 12 months, how m any times have you moved where you were living? 0 06/06/2025 At any time in the [facility], were you homeless or living in a fpc (including now)? No 06/06/2025 Comments No Sex [...] st Contact Info) Description 07/07/2025 2:00 PM EYEGLASS INSPECTOR Appointment [facility] RAD ONC [facility] [place] [address] Javad Velasquez MD [address] [place] [address] 07/09/2025 2:00 PM EYEGLASS INSPECTOR Appointment [facility] PFT [facility] [place] [address] 07/09/2025 2:30 PM EYEGLASS INSPECTOR Appointment [facility] PFT [address] [place] [address] 07/14/2025 12:45 PM EYEGLASS INSPECTOR Hospital Encounter [facility] ENDOSCOPY [address] [place] [address] Laurence Bower MD [address] [place] [address] 3[address] [place] [address] Surgery General 07/14/2025 12:45 PM EYEGLASS INSPECTOR - 07/14/2025 1:30 PM EYEGLASS INSPECTOR Surgery [facility] ENDOSCOPY [address] [place] [address] [place] [address] [place] [address] [address] [place] [address] EGD 07/16/2025 10:30 AM EYEGLASS INSPECTOR Appointment [facility]ENTER [address] [place] [address] 07/16/2025 11:20 AM EYEGLASS INSPECTOR Office Visit [facility] - Hematology/Oncology [address] [place] [phone] Becca Rivas, FAST FOOD WORKER-CALL CENTER MANAGER [address] [place] [phone] 08/09/2025 3:30 PM EYEGLASS INSPECTOR Office Visit [facility] - Pulmonology [address] [place] [address], [place] [phone] Bandar Stewart MD [address] [place] [phone] 09/10/2025 1:15 PM EYEGLASS INSPECTOR Appointment [facility] [address] [place] [address] Marielena Ulrich, FAST FOOD WORKER-CALL CENTER MANAGER [address] [facility] 2L [place] [phone] 09/10/2025 2:30 PM EYEGLASS INSPECTOR Office Visit [facility] - GI [address] [place] [address], [place] [phone] Marielena Ulrich, FAST FOOD WORKER-CALL CENTER MANAGER [address] [place] [address] [address] [place] [address] Scheduled Procedures Name Priority Associated Diagnoses Date/Ti me ESOPHAGOGASTRODUODENOSCOPY ( EGD) DIAGNOSTIC Cirrhosis of liver without ascites, unspecified hepatic cirrhosis type (HCC) 07/14/2025 12:45 PM EYEGLASS INSPECTOR COLONOSCOPY SCREEN Cirrhosis of liver without ascites, unspecified hepatic cirrhosis type (HCC) 07/14/2025 12:45 PM EYEGLASS INSPECTOR documented as of this encounter Goals Goal [...] on filedocumented in this encounter Care Teams Instrument Person Relationship Specialty Start Date End Date Becca Victoria APRN-PLANISHING HAMMER OPERATOR [address] [place] [address] PCP - General Certified Clinical Nurse Specialist 11/23/24 Abel Carlos MD [address] [place], [place] [phone] 05/30/23 documented as of this encounter
== END 2025-06-25 15:59 | disposition home or self-care (01) ==
PROVIDERS: PCP Clinical Nurse Specialist; Visit Provider Clinical Nurse Specialist
DX: M43.16 Spondylolisthesis, lumbar region (principal); R29.890 Loss of height; M54.50 Low back pain, unspecified
CPT/HCPCS: 72100